=== PATIENT | male | born 1970 | race Caucasian/White ===

== ENCOUNTER 2021-03-09 07:11 | Emergency (ER) | payer MEDICARE, SELFPAY ==
[2021-03-09 07:25] VITALS: BP 165/115; PULSE 96; RESP 17; TEMP 36.9; O2SAT 96
--- NOTE | 2021-03-09 07:27 | ED.EAR ---
HPI - Ear Problem General Chief complaint: Ear Stated complaint: earache Time Seen by Provider: 03/09/21 07:14 Source: patient and RN notes reviewed Mode of arrival: ambulatory Limitations: no limitations History of Present Illness MD Complaint: ear pain Location: right ear Duration: constant Severity: moderate Exacerbating factors: palpation Context: Reports recent illness (sinus infection) Discharge from ear: Reports no Associated symptoms ear: external ear tenderness Treatment prior to arrival: none Related Data Home Medications Medication Instructions Recorded Confirmed alprazolam 0.5 mg PO BID PRN 03/09/21 03/09/21 insulin aspart U-100 [Novolog 20 unit SUBCUT BID 03/09/21 03/09/21 Flexpen U-100 Insulin] insulin degludec [Tresiba 75 unit SUBCUT DAILY 03/09/21 03/09/21 FlexTouch U-200] omeprazole 20 mg PO DAILY 03/09/21 03/09/21 sertraline 100 mg PO DAILY 03/09/21 03/09/21 simvastatin 40 mg PO DAILY 03/09/21 03/09/21 Allergies Allergy/AdvReac Type Severity Reaction Status Date / Time No Known Allergies Allergy Verified 03/09/21 07:58 Review of Systems Review of Systems: All systems reviewed & are unremarkable except as noted in HPI and below Constitutional: Constitutional: Denies chills and Denies fever(s) PMFSH Past Medical History Medical History (Updated 03/09/21 @ 07:32 by Florentino Cooper MD) Morbid obesity Type 2 diabetes mellitus Surgical History Surgical History (Updated 03/09/21 @ 07:29 by Florentino Cooper MD) H/O lumbosacral spine surgery Social History Social History (Updated 03/09/21 @ 07:29 by Florentino Cooper MD) Smoking status: Never smoker Alcohol intake: current Alcohol use details: occasional Substance use: never Exam Const: General: healthy appearing and no acute distress Nutritional Appearance: well nourished and obese morbidly obese Orientation/consciousness: patient oriented x3 HENMT: Head: normal to inspection Ears: hearing grossly normal bilaterally and Abnormal EAC present erythema on the right, edema on the right and localized and EAC tenderness on the right Eyes: Conjunctivae: conjunctivae normal Pupils: Equal, round and reactive pupils present EOM: EOMs intact bilaterally Neck: Neck: normal visual inspection Resp: Effort & Inspection: normal respiratory effort Auscultation: clear to auscultation bilaterally Cardio: Rate: regular rate Rhythm: regular rhythm GI: GI Palp: Yes Soft to palpation and No Tenderness to palpation present (GI) Auscultation: normal bowel sounds Back/Spine/Pelvis: Cervical Spine: cervical ROM normal Thoracic/Lumbar Spine: thoraco-lumbar ROM normal Skin: General skin exam: normal color Rashes: no rashes Neuro: General: patient oriented x3, moves all extremities, no meningeal signs and no focal motor deficits Speech: normal speech Gait exam (Neuro): Normal gait present Extrem: General: normal to inspection and no clubbing, cyanosis or edema Psych: Appearance: grossly normal and well kempt Mental Status: mental status grossly normal Affect: normal affect Attitude: cooperative Thought content: Yes Normal thought content present Course Vital Signs Vital signs: Vital Signs Temperature 36.9 C 03/09/21 07:25 Pulse Rate 96 03/09/21 07:25 Respiratory Rate 17 03/09/21 07:25 Blood Pressure 165/115 H 03/09/21 07:25 Pulse Oximetry 96 03/09/21 07:25 Temperature 36.9 C 03/09/21 07:25 Pulse Rate 96 03/09/21 07:25 Respiratory Rate 17 03/09/21 07:25 Blood Pressure 178/119 H 03/09/21 07:45 Pulse Oximetry 96 03/09/21 07:25 Medical Decision Making Vital Signs Vital Signs: Vital Signs Temperature 36.9 C 03/09/21 07:25 Pulse Rate 96 03/09/21 07:25 Respiratory Rate 17 03/09/21 07:25 Blood Pressure 165/115 H 03/09/21 07:25 Pulse Oximetry 96 03/09/21 07:25 Temperature 36.9 C 03/09/21 07:25 Pulse Rate 96 03/09/21 07:25 Respiratory Rate 17
[2021-03-09 07:45] VITALS: BP 178/119
== END 2021-03-09 07:45 | disposition home or self-care (01) ==
PROVIDERS: Emergency Provider Emergency Medicine; PCP Internal Medicine
DX: H60.311 Diffuse otitis externa, right ear (principal)
CPT/HCPCS: 99283

== ENCOUNTER 2022-09-06 02:07 | Emergency (ER) | payer OTHER, SELFPAY ==
[2022-09-06] VITALS (8 sets, daily range): BP systolic 160–195; BP diastolic 84–115; PULSE 88–105; RESP 16–22; TEMP 36.2–36.6; O2SAT 94–98
--- NOTE | ~2022-09-06 | XR_ITS ---
EXAMINATION: XR chest 1V portable DATE: 09/06/2022 02:48 INDICATION: Shortness of breath. TECHNIQUE: A single frontal view of the chest was obtained. COMPARISON: Chest single view 03/27/2019 FINDINGS: Sensitivity is decreased by obesity. There is no pneumonia, pleural effusion, or pneumothor ax. The heart size is normal. IMPRESSION: 1. No acute cardiopulmonary disease. Reviewed, dictated and finalized at location A. [employer]
--- NOTE | 2022-09-06 02:22 | ED.SOB ---
HPI - SOB/Dyspnea General Chief Complaint: Shortness of Breath/Dyspnea Stated Complaint: COUGH,SOB Source: patient Mode of arrival: ambulatory Limitations: no limitations History of Present Illness HPI Narrative: 51-year-old male with a history of obesity, obstructive sleep apnea, diabetes mellitus, hypertension, anxiety, intermittent bronchospasm on bronchodilators presents to the ER with a 4 day history of -- nonproductive cough -- shortness of breath -- pleuritic chest pain no fever No nasal congestion or sore throat. MD elicited complaint: shortness of breath, cough and pain with inspiration Onset (ago): day(s) ( started 4 days ago.) Context: anxiety Timing: intermittent Severity: moderate Exacerbating factors: nothing and warm air Relieving factors: nothing Associated symptoms: pain with inspiration Treatment prior to arrival: none Related Data Home Medications Medication Instructions Recorded Confirmed alprazolam 0.5 mg tablet 0.5 mg PO BID PRN Anxiety 03/09/21 09/06/22 insulin aspart U-100 100 unit/mL 35 unit subcut BID 03/09/21 09/06/22 (3 mL) subcutaneous pen (Novolog FlexPen U-100 Insulin aspart) omeprazole 20 mg capsule,delayed 20 mg PO DAILY 03/09/21 09/06/22 release sertraline 100 mg tablet 100 mg PO DAILY 03/09/21 09/06/22 simvastatin 40 mg tablet 40 mg PO DAILY 03/09/21 09/06/22 diclofenac sodium 1 % topical gel See Rx Instructions .Route .COMPLEX 09/06/22 09/06/22 hydrocodone 10 mg-acetaminophen 1 tablet PO PRN PRN Back Pain 09/06/22 09/06/22 325 mg tablet insulin degludec 200 unit/mL (3 100 unit subcut DAILY 09/06/22 09/06/22 mL) subcutaneous pen (Tresiba FlexTouch U-200 insulin) losartan 50 mg tablet 50 mg PO DAILY 09/06/22 09/06/22 tiotropium 2.5 mcg-olodaterol 2.5 1 puff inhalation DAILY 09/06/22 09/06/22 mcg/actuation mist for inhalation (Stiolto Respimat) Allergies Allergy/AdvReac Type Severity Reaction Status Date / Time No Known Allergies Allergy Verified 03/09/21 07:58 Review of Systems Review of Systems: All systems reviewed & are unremarkable except as noted in HPI and below Constitutional: Constitutional: Reports as per HPI and Reports no additional constitutional complaints Eyes: Eyes: Reports as per HPI and Reports no additional eye complaints ENT: Reports system reviewed and no additional complaints, except as documented and Reports as per HPI Cardiovascular: Cardiovascular: Reports as per HPI and Reports no additional cardiovascular complaints Respiratory: Respiratory: Reports as per HPI, Reports no additional respiratory complaints, Reports cough and Reports dyspnea Gastrointestinal: Gastrointestinal: Reports as per HPI and Reports no additional gastrointestinal complaints Genitourinary: Genitourinary: Reports no additional male genitourinary complaints and Reports as per HPI Musculoskeletal: Musculoskeletal: Reports no additional musculoskeletal complaints and Reports as per HPI Integumentary/Breasts: Skin/Breast: Reports system reviewed and no additional complaints, except as docu and Reports as per HPI Comments: Erythematous rash on the front of his chest. Neurologic: Reports system reviewed and no additional complaints, except as documented and Reports as per HPI Psychiatric: Psychiatric: Reports no additional psychiatric complaints and Reports as per HPI Endocrine: Endocrine: Reports no additional endocrine complaints and Reports as per HPI Hematologic/Lymphatic: Hematologic/Lymphatic: Reports no additional hematologic/lymphatic complaints and Reports as per HPI Allergic/Immunologic: Allergic/Immunologic: Reports no additional allergic/immunologic complaints and Reports as per HPI PMFSH Past Medical History Medical History Morbid obesity Type 2 diabetes mellitus Surgical History Surgical History H/O lumbosacral spine surge
--- NOTE | 2022-09-06 02:36 | ECG_ITS ---
Measurements Intervals [place] Rate: 92 P: 49 LA: 142 QRS: 54 QRSD: 98 T: 49 QT: 342 QTc: 424 Interpretive Statements SINUS RHYTHM BASELINE WANDER- V1 NORMAL ECG NO PREVIOUS ECG AVAILABLE FOR COMPARISON Electronically Signed On 09-06-2022 6:57:20 MAINTENANCE REPAIRMAN by Ian Gill D.O.
[2022-09-06] MEDS: ACETAMINOPHEN/CODEINE ELIXIR (*CRX) 120-12 MG/5 ML UDC 10 ML PO (02:46)
[2022-09-06 02:56] LABS: Basophils Absolute Auto 0.05 K/mm3 (0.00-0.10); Basophils Percent Auto 0.6 % (0.0-1.0); Eosinophils Absolute Auto 0.34 K/mm3 (0.02-0.50); Hematocrit 39.7 % (40.0-54.0); Immature Granulocyte Absolute 0.07 K/mm3 (0.00-0.00); Immature Granulocyte Percent A 0.8 % (0.0-0.0); Lymphocytes Absolute Auto 2.52 K/mm3 (1.10-4.50); Lymphocytes Percent Auto 29.3 % (18.0-42.0); Mean Corpuscular HGB Conc 35.3 g/dL (32.0-36.0); Mean Corpuscular Hemoglobin 30.8 pg (27.0-31.0); Mean Corpuscular Volume 87.4 fL (78.0-102.0); Mean Platelet Volume 9.4 fl (8.7-11.0); Monocytes Absolute Auto 0.57 K/mm3 (0.10-0.90); Monocytes Percent Auto 6.6 % (2.0-11.0); Neutrophils Absolute Auto 5.1 K/mm3 (1.7-7.2); Neutrophils Percent Auto 58.7 % (50.0-70.0); Platelet Count Result 268 K/mm3 (150-420); Red Blood Count 4.54 M/mm3 (4.70-6.10); Red Cell Distribution Width 12.4 % (11.6-14.4); White Blood Count 8.6 K/mm3 (4.8-10.8)
[2022-09-06 03:09] LABS: INR 0.9
[2022-09-06 03:18] LABS: Alanine Aminotransferase 22 U/L (16-63); Albumin Level 3.3 g/dL (3.4-5.0); Alkaline Phosphatase 93 U/L (46-116); Anion Gap 8 mmol/L (8-16); Aspartate Amino Transferase 18 U/L (15-37); Bilirubin,Total 0.2 mg/dL (0.00-1.00); Blood Urea Nitrogen 12 mg/dL (7-18); Calcium 8.9 mg/dL (8.5-10.1); Carbon Dioxide 29 mmol/L (21-32); Chloride 101 mmol/L (98-108); Estimated CRCL calculation 108 ml/min; Estimated Glomerular Filt Rate > 60; Glucose 230 mg/dL (70-99); NT Pro B Type Natriuretic Pept 32 pg/mL (0-125); Osmolality Calculated 292 mOsm/kg (285-295); Sodium 138 mmol/L (136-145); Total Protein 7.3 g/dL (6.4-8.2); Troponin I 10.3 ng/L (0.00-60.4)
[2022-09-06 03:26] LABS: Lactic Acid Reflex 1.5 mmol/L (0.4-2.0)
[2022-09-06 03:33] LABS: Influenza A QL RT-PCR Negative (Negative); Influenza B QL RT-PCR Negative (Negative); RSV RNA, RT-PCR Negative (Negative); SARS-CoV-2 RNA PCR Negative (Negative)
[2022-09-06] MEDS: IPRATROPIUM 0.5 MG/ALBUTEROL SULFATE 2.5 MG AMPUL.NEB 3 ML INHALATION (03:48)
[2022-09-06] MEDS: methylPREDNISolone SOD SUCC 125 MG VIAL IM (03:49)
[2022-09-06] MEDS: AZITHROMYCIN 250 MG TABLET 500 MG PO (03:50)
== END 2022-09-06 04:10 | disposition home or self-care (01) ==
PROVIDERS: Emergency Provider Internal Medicine Critical Care Medicine; PCP Internal Medicine
DX: J40 Bronchitis, not specified as acute or chronic (principal); J06.9 Acute upper respiratory infection, unspecified; E11.65 Type 2 diabetes mellitus with hyperglycemia; I10 Essential (primary) hypertension; Z79.4 Long term (current) use of insulin; Z79.891 Long term (current) use of opiate analgesic
CPT/HCPCS: 36415; 71045; 80053; 83605; 83880; 84484; 85025; 85610; 87637; 93005; 94640; 96372; 99284; A9270; J2930

== ENCOUNTER 2023-06-26 08:19 | Emergency (ER) | payer OTHER, SELFPAY ==
[2023-06-26 08:24] VITALS: BP 169/105; PULSE 96; RESP 20; TEMP 36.5; O2SAT 97
--- NOTE | 2023-06-26 08:34 | ED.URI ---
HPI - URI/Sore Throat General Chief Complaint: Upper Respiratory Infection Stated Complaint: Cough/Chest Congestion/Ear Pain Time Seen by Provider: 06/26/23 08:34 Source: patient Mode of arrival: ambulatory Limitations: no limitations History of Present Illness HPI Narrative: 52 yo M presents with c/o cough for 2 wks. has been taking amoxicillin without relief of symtpoms. reports headaches from coughing. only thing that helps cough is cough syrup with codeine . afebrile. No CP or SOB. States need something to make me better . All systems reviewed and negative except as noted above. Related Data Home Medications Medication Instructions Recorded Confirmed alprazolam 0.5 mg tablet 0.5 mg PO BID PRN Anxiety 03/09/21 06/26/23 insulin aspart U-100 100 unit/mL 35 unit subcut BID 03/09/21 06/26/23 (3 mL) subcutaneous pen (Novolog FlexPen U-100 Insulin aspart) omeprazole 20 mg capsule,delayed 20 mg PO DAILY 03/09/21 06/26/23 release sertraline 100 mg tablet 100 mg PO DAILY 03/09/21 06/26/23 simvastatin 40 mg tablet 40 mg PO DAILY 03/09/21 06/26/23 hydrocodone 10 mg-acetaminophen 1 tablet PO PRN PRN Back Pain 09/06/22 06/26/23 325 mg tablet insulin degludec 200 unit/mL (3 100 unit subcut DAILY 09/06/22 06/26/23 mL) subcutaneous pen (Tresiba FlexTouch U-200 insulin) losartan 50 mg tablet 50 mg PO DAILY 09/06/22 06/26/23 tiotropium 2.5 mcg-olodaterol 2.5 1 puff inhalation DAILY 09/06/22 09/06/22 mcg/actuation mist for inhalation (Stiolto Respimat) naloxone 4 mg/actuation nasal spray See Rx Instructions .Route .COMPLEX 06/26/23 06/26/23 sildenafil 100 mg tablet mg 06/26/23 06/26/23 Allergies Allergy/AdvReac Type Severity Reaction Status Date / Time No Known Allergies Allergy Verified 06/26/23 08:29 Review of Systems Review of Systems: CONSTITUTIONAL: Denies fever, chills, or sweats. EYES: Denies visual changes, redness, or discharge. ENT: Denies rhinorrhea, congestion, sore throat, or otalgia. CARDIOVASCULAR: Denies chest pain, palpitations, or edema. RESPIRATORY: Reports cough. Denies dyspnea. GASTROINTESTINAL: Denies abdominal pain, nausea, vomiting, or diarrhea. GENITOURINARY: Denies dysuria or hematuria. SKIN: Denies rash or itching. MUSCULOSKELETAL: Denies back pain, joint pain, or myalgia. NEUROLOGIC: Denies headache, numbness, or weakness. PSYCHIATRIC: Denies anxiety or depression. All other systems reviewed are negative, except as documented in HPI. [facility] Past Medical History Medical History Morbid obesity Type 2 diabetes mellitus Surgical History Surgical History H/O lumbosacral spine surgery Social History Social History Smoking status: Never smoker Alcohol intake: current Alcohol use details: occasional Substance use: never Comments At time of signature, agree with nursing past medical, surgical, social and family history. There is no relevant family history pertinent to the presenting complaint. Exam Narrative: GENERAL: This is a well-nourished, well-developed patient, in no apparent distress. HEAD: normocephalic, atraumatic. EYES: PERRL. Sclera clear/white. Vision is grossly intact. EARS: External ears normal, auditory canals clear and without drainage, TMs normal without perforation. Hearing grossly intact. NOSE: External nose normal with no obvious nasal discharge, nares without redness, no rhinorrhea. THROAT: Mucous membranes moist, thick yellow postnasal drainage with erythema NECK: Neck supple, non-tender without lymphadenopathy, masses or thyromegaly. CARDIOVASCULAR: Regular rate and rhythm without murmurs, gallops, or rubs. RESPIRATORY: Clear to auscultation. Breath sounds equal bilaterally. No wheezes, rales, or rhonchi. SKIN: warm, Dry, intact with no suspicious lesions or rash, good
== END 2023-06-26 08:50 | disposition home or self-care (01) ==
PROVIDERS: Emergency Provider Nurse Practitioner Family; PCP Internal Medicine
DX: J20.9 Acute bronchitis, unspecified (principal); E11.9 Type 2 diabetes mellitus without complications; Z79.899 Other long term (current) drug therapy; Z79.4 Long term (current) use of insulin; Z79.891 Long term (current) use of opiate analgesic
CPT/HCPCS: 99213; G0463

== ENCOUNTER 2024-12-17 15:34 | Outpatient (CLI) | payer MEDICARE, SELFPAY ==
--- NOTE | ~2024-12-17 | XR_ITS ---
EXAMINATION: XR chest 2V Exam Date/Time: 12/17/2024 15:55 CDT HISTORY: class 3 obesity, surgical clearance Comparison: 09/06/2022. RESULT: Lines, tubes, and devices: None. Lungs and pleura: Clear. Cardiomediastinal silhouette: Stable. Other: No acute osseous or upper abdominal finding. IMPRESSION: No acute cardiopulmonary process. Reviewed, dictated and finalized at location K.
--- OUTSIDE RECORDS SUMMARY | 2024-12-17 15:47 | XMS_ITS | Encounter Summary ---
Author Organization [facility] Address [address] [place] [address] Care Team Providers Care Metal Furnace Operator Name Role Phone Nick Mosley MD Primary Care Provider [phone] Encounter Details Date Type Department Care Team (Late st Contact Info) Description 08/23/2005 Outpatient Historical [facility] Internal Medicine [address] [address] Nick Mosley MD [address] [place] [address] [address] [place] [address] Social History Tobacco Use Types Packs/Day Years Used Date Smoking Tobacco: Never Assessed Sex and Gender Information Value Date Recorded Sex Assigned at Not on file Legal Sex 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 Gender Identity Not on file Sexual Orientation Not on file documented as of this encounter Last Filed Vital Signs Vital Sign Reading Time Taken Comments Blood Pressure 140/84 08/23/2005 2:45 PM HVAC CONTROLS TECHNICIAN Pulse - - Temperature 37.2 C (99 F) 08/23/2005 2:45 PM HVAC CONTROLS TECHNICIAN Respiratory Rate - - Oxygen Saturation - - Inhaled Oxygen Concentration - - Weight 147 kg (324 lb) 08/23/2005 2:45 PM HVAC CONTROLS TECHNICIAN Height - - Body Mass Index 43.94 06/27/2005 11:30 AM HVAC CONTROLS TECHNICIAN documented in this encounter Plan of Treatment Upcoming Encounters Date Type Department Care Team (Late st Contact Info) Description 04/11/2025 10:40 AM CDT Office Visit [facility] Primary Care [address] [place] [address] Nick Mosley MD [address] [place] [phone] documented as of this encounter Visit Diagnoses Not on filedocumented in this encounter Care Teams Metal Furnace Operator Relationship Specialty Start Date End Date Nick Mosley MD PCP - General 11/23/07 documented as of this encounter
--- OUTSIDE RECORDS SUMMARY | 2024-12-17 15:47 | XMS_ITS | Encounter Summary ---
Author Organization [facility] Address 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 Gender Identity Not on file Sexual Orientation Not on file documented as of this encounter Last Filed Vital Signs Vital Sign Reading Time Taken Comments Blood Pressure 128/84 06/27/2005 11:30 AM RESIDENTIAL PROGRAM WORKER Pulse - - Temperature - - Respiratory Rate - - Oxygen Saturation - - Inhaled Oxygen Concentration - - Weight 147 kg (324 lb) 06/27/2005 11:30 AM RESIDENTIAL PROGRAM WORKER Height 182.9 cm (6') 06/27/2005 11:30 AM RESIDENTIAL PROGRAM WORKER Body Mass Index 43.94 06/27/2005 11:30 AM RESIDENTIAL PROGRAM WORKER documented in this encounter Plan of Treatment Upcoming Encounters Date Type Department Care Team (Late st Contact Info) Description 04/11/2025 10:40 AM CDT Office Visit [facility] Primary Care [address] [place] [address] Nick Mosley MD [address] [place] [phone] documented as of this encounter Visit Diagnoses Not on filedocumented in this encounter Care Teams Grocery Caddy Relationship Specialty Start Date End Date Nick Mosley MD PCP - General 11/23/07 documented as of this encounter
--- OUTSIDE RECORDS SUMMARY | 2024-12-17 15:47 | XMS_ITS | Encounter Summary ---
Author Organization [facility] Address 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 and flank pain. HISTORY: several days perineal pain painful urination, intermittent sharp left flank pain relief with urination HISTORY: 250.00-DM II CONTROLLED occ nausea with byetta but doing better with med, has been losing wt 300.00-ANXIETY The condition remains stable. No complications noted from the medication presently being used. 401.1-HYPERTENSION ESSENTIAL BENIGN The patient denies chest pain, shortness of breath, dyspnea on exertion, pedal edema, or headache. The patient is tolerating the medication. PAST MEDICAL HISTORY: HTN, Anxiety, GERD FAMILY HISTORY: neg dm, neg prostate, neg kidney stones SOCIAL HISTORY: TOBACCO USE: Has no significant smoking history. DISCUSSED SMOKING: NS. ALCOHOL: Drinks a minimal amount of alcohol. PHYSICAL EXAMINATION: CONSTITUTIONAL: GENERAL APPEARANCE: Healthy appearing patient in no distress. NECK/THYROID: Trachea midline. No thyroid enlargement, tenderness, or mass. No supraclavicular or cervical adenopathy. RESPIRATORY: Clear to auscultation and percussion. Normal respiratory effort. CARDIOVASCULAR: CARDIAC: Regular rhythm. No murmurs, rubs, or gallops. ARTERIAL: No aortic bruits. EDEMA/VARICOSITIES OF EXTREMITIES: No edema or varicosities. GASTROINTESTINAL: ABDOMEN: Soft, non-tender, without masses. Bowel sounds active. LIVER/SPLEEN/KIDNEY: No hepatosplenomegaly, tenderness or nodularity. Kidneys not palpable. RECTAL: Rectal exam reveals no masses or hemorrhoids, sphincter tone is normal. STOOL/HEMOCCULT: Stool is normal. Stool is hemoccult negative. GENITOURINARY: PROSTATE: No enlargement, TENDER, BOGGY. MUSCULOSKELETAL EXAM: SPINE/RIBS/PELVIS: No kyphosis, lordosis, full range of motion. Normal stability, strength and tone. OFFICE PROCEDURES: URINALYSIS RESULTS WBC: WBC`s were negative. NITRITE: nitrites were negative. UROBILINOGEN urobilinogen was normal. PROTEIN: protein was trace. pH: . U/A BLOOD: blood was non-hem trace. SPECIFIC GRAVITY: specific gravity was 1.025. KETONES: ketones were negative. BILIRUBIN: bilirubin was negative. GLUCOSE: glucose was 100. ASSESSMENT/PLAN: 250.00-DM II CONTROLLED cont med, recheck lab for fu in Mar, enc cont diet, wt loss 272.4-HYPERLIPIDEMIA cont med, recheck lab 401.1-HYPERTENSION ESSENTIAL BENIGN cont med, recheck at fu--pain today 601.0-PROSTATITIS ACUTE on exam, recheck ua., psa, cannot fully exclude kidney stone, ct if pain worsens MEDICATIONS: CIPRO ORAL TABLET 500 MG, 1 Two Times A Day, 20 Dispensed, 10 Duration/Days Supply, status: NEW PRESCRIPTION, 02/14/2007. 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 Patient Education: Risks, benefits, and possible side effects of medication(s) were reviewed with the patient. RETURN VISIT : The patient has a previous appointment. Instructed to call if not improving.note foroff work this week rtw Monday Electronically Signed by: Nick Mosley MD on Wednesday, February 14, 2007 documented in this encounter Plan of Treatment Upcoming Encounters Date Type Department Care Team (Late st Contact Info) Description 04/11/2025 10:40 AM CDT Office Visit [facility] Primary Care [address] [address] Nick Mosley MD [address] [place] [address] [address] [place] [id number] documented as of this encounter Visit Diagnoses Not on filedocumented in this encounter Care Teams Pharmacy Manager Relationship Specialty Start Date End Date Nick Mosley MD PCP - General 11/23/07 documented as of this encounter
--- OUTSIDE RECORDS SUMMARY | 2024-12-17 15:47 | XMS_ITS | Encounter Summary ---
Author Organization [facility] Address 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 Gender Identity Not on file Sexual Orientation Not on file documented as of this encounter Plan of Treatment Upcoming Encounters Date Type Department Care Team (Late Contact Info) Description 04/11/2025 10:40 AM CDT Office Visit [facility] Primary Care [address] [place] [address] Nick Mosley MD [address] [place] [address] [address] [place] [address] documented as of this encounter Visit Diagnoses Not on filedocumented in this encounter Care Teams Long Term Acute Care Registered Nurse Relationship Specialty Start Date End Date Nick Mosley MD PCP - General 11/23/07 documented as of this encounter
--- OUTSIDE RECORDS SUMMARY | 2024-12-17 15:47 | XMS_ITS | Encounter Summary ---
Author Organization [facility] Address 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 PCP: ke. ALTERNATIVE PHONE NUMBER: Cynthia- (ext#[phone]) -WORK WHO CALLED: Patient`s spouse called.(Cynthia) PHARMACY NUMBER: SECTION 1: Needs refill of Zoloft 100mg, and Aciphex, and Atenolol, and Tricor. Needs a 30 day supply of all these called to Rx today because he is out. They will have you do new yearly Rx's when they come in for thier appt with you on Monday. DOCTOR`S RESPONSE: phoebe 07/11/06 at 10:37 am ok fill above 30d supply FINAL ACTION: muriel 07/11/06 at 02:40 pm Spoke with patient 07/11/06 at 02:40 pm. patient's Called pharmacy at 07/11/06 at 02:40 pm. okay's the above medicines for 1 month - no refills -- lw 'd Electronically Signed by: Administratively Signed by Radha Dietz on Tuesday, July 11, 2006 documented in this encounter Plan of Treatment Upcoming Encounters Date Type Department Care Team (Late st Contact Info) Description 04/11/2025 10:40 AM CDT Office Visit [facility] [place] [address] Nick Mosley MD [address] [place], [place] [phone] documented as of this encounter Visit Diagnoses Not on filedocumented in this encounter Care Teams Lyft Driver Relationship Specialty Start Date End Date Nick Mosley MD PCP - General 11/23/07 documented as of this encounter
--- OUTSIDE RECORDS SUMMARY | 2024-12-17 15:47 | XMS_ITS | Encounter Summary ---
Author Organization [facility] Address 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 Gender Identity Not on file Sexual Orientation Not on file documented as of this encounter Last Filed Vital Signs Vital Sign Reading Time Taken Comments Blood Pressure 138/84 09/06/2006 1:15 PM VENETIAN BLIND CLEANER AND REPAIRER Pulse - - Temperature - - Respiratory Rate - - Oxygen Saturation - - Inhaled Oxygen Concentration - - Weight 149.7 kg (330 lb) 09/06/2006 1:15 PM VENETIAN BLIND CLEANER AND REPAIRER Height - - Body Mass Index 44.76 06/27/2005 11:30 AM VENETIAN BLIND CLEANER AND REPAIRER documented in this encounter Plan of Treatment Upcoming Encounters Date Type Department Care Team (Late st Contact Info) Description 04/11/2025 10:40 AM CDT Office Visit [facility] Primary Care [address] [place] [address] Nick Mosley MD [address] [place] [address] [address] [place] [address] documented as of this encounter Visit Diagnoses Not on filedocumented in this encounter Care Teams Resort Manager Relationship Specialty Start Date End Date Nick Mosley MD PCP - General 11/23/07 documented as of this encounter
--- OUTSIDE RECORDS SUMMARY | 2024-12-17 15:47 | XMS_ITS | Encounter Summary ---
Author Organization [facility] Address 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 HISTORY: HISTORY: noncompliant pt with fu meds, diet and exercise 250.00-DM II CONTROLLED The diabetes has worsened. Patient not compliant with diet instructions. The patient`s exercise is the same. The patient denies polyuria, polyphagia, polydipsia, change in vision, foot ulcerations, or hypoglycemic episodes. The patient is not compliant with medication. 272.4-HYPERLIPIDEMIA The patient is tolerating the medications. The patient's most recent LDL was not at goal, most recent triglyceride is not at goal. 300.00-ANXIETY No complications noted from the medication presently being used. 401.1-HYPERTENSION ESSENTIAL BENIGN The patient denies chest pain, shortness of breath, dyspnea on exertion, pedal edema, or headache. 782.1-RASH redness feet after in garden no shoes--has some blisters ROS: ENDOCRINE: No heat or cold intolerance, no excessive thirst. CARDIAC: No chest pain, palpitations, orthopnea, dyspnea on exertion, or paroxysmal nocturnal dyspnea. RESPIRATORY: No dyspnea, cough, hemoptysis or wheezing. : No dysuria or hematuria. GI: No abdominal pain, nausea, vomiting, diarrhea, constipation, melena, or hematochezia. PAST MEDICAL HISTORY: HTN, Anxiety, GERD FAMILY HISTORY: neg dm SOCIAL HISTORY: TOBACCO USE: Has no significant smoking history. ALCOHOL: Drinks a minimal amount of alcohol. PHYSICAL EXAMINATION: CONSTITUTIONAL: GENERAL APPEARANCE: Healthy appearing patient in no distress. EARS, NOSE, MOUTH AND THROAT: ORAL: Inspection of gums, lips, palate, and teeth normal. No scars, lesions, or masses. Oral mucosaunremarkable with non-inflamed posterior pharynx. NECK/THYROID: Trachea midline. No thyroid enlargement, tenderness, or mass. No supraclavicular or cervical adenopathy. RESPIRATORY: Clear to auscultation and percussion. Normal respiratory effort. CARDIOVASCULAR: CARDIAC: Regular rhythm. No murmurs, rubs, or gallops. ARTERIAL: No aortic bruits. EDEMA/VARICOSITIES OF EXTREMITIES: No edema or varicosities. GASTROINTESTINAL: ABDOMEN: Soft, non-tender, without masses. Bowel sounds active. LIVER/SPLEEN/KIDNEY: No hepatosplenomegaly, tenderness or nodularity. Kidneys not palpable. SKIN: dermatitis, dorsum feet ASSESSMENT/PLAN: 250.00-DM II CONTROLLED ASSESSMENT: The diabetes is worse. Will change medication.discussed MEDICATIONS: METFORMIN HCL ORAL TABLET 24 HR 500 MG, 2 Every Morning, 60 Dispensed, 3 Fills, status: NEW PRESCRIPTION, 12/25/2006. BYETTA 5 MCG PEN SUBCUTANEOUS SOLUTION 250 MCG/ML, DIRECTED, 30 Duration/Days Supply, status: NEW PRESCRIPTION, 12/25/2006. LAB ORDERS: 3 mo Order number: [id number] Test Ordered: COMPREHENSIVE METABOLIC PANEL & GFR 1112 Order number: [id number] Test Ordered: HEMOGLOBIN A1C 1814 Order number: [id number] Test Ordered: LIPID PANEL 1078 Order number: [id number] Test Ordered: MICROALBUMIN/CREAT, UR RATIO 2252 272.4-HYPERLIPIDEMIA cont med, slight inc in lft, recheck will not inc med, discussed diet and exercise 278.00-OBESITY UNSPECIFIED pt would consider surgery--advised try all else first 300.00-ANXIETY discussed max wt loss, add wellbutrin again MEDICATIONS: ZOLOFT ORAL TABLET 100 MG, 1 Every Day, 90 Dispensed, 3 Fills, 30 Duration/Days Supply, status: CONTINUED, 12/25/2006. try cut to 50 WELLBUTRIN SR ORAL TABLET 12 HR 150 MG, 2 Every Morning, 60 Dispensed, 3 Fills, status: CONTINUED, 12/25/2006. 401.1-HYPERTENSION ESSENTIAL BENIGN dc atenolol, monitor, inc lisinopril if needed Patient Education: The importance of compliance was stressed. The patient was told that there needsto be a commitment to following our agreed upon course of action. It was noted that failing to be compliant can lead to untoward health outcomes. The importance of weight loss was emphasized. The benefits of exercise were reviewed at length with the patient. A diet was discussed at length. RETURN VISIT : Patient instructed to return in 3 months.note he was here today Electronically Signed by: Nick Mosley MD on Monday, December 25, 2006 documented in this encounter Plan of Treatment Upcoming Encounters Date Type Department Care Team (Late st Contact Info) Description 04/11/2025 10:40 AM CDT Office Visit [facility] Primary Care [place] [id number] [place] [address] Nick Mosley MD [address] [place] [address] [address] [place] [phone] documented as of this encounter Visit Diagnoses Not on filedocumented in this encounter Care Teams Geodetic Technician Relationship Specialty Start Date End Date Nick Mosley MD PCP - General 11/23/07 documented as of this encounter
--- OUTSIDE RECORDS SUMMARY | 2024-12-17 15:47 | XMS_ITS | Encounter Summary ---
Author Organization [facility] Address 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 HISTORY: HISTORY: 272.4-HYPERLIPIDEMIA The patient is tolerating the medications. 278.00-OBESITY UNSPECIFIED The patient remains overweight and has not had any significant weight loss to date. The patient has weakness. 300.00-ANXIETY No complications noted from the medication presently being used. 401.1-HYPERTENSION ESSENTIAL BENIGN The patient denies chest pain, shortness of breath, dyspnea on exertion, pedal edema, or headache. The patient is tolerating the medication. 250.00-DM II CONTROLLED The patient denies polyuria, polyphagia, polydipsia, change in vision, footulcerations, or hypoglycemic episodes. The HgbA1c is at goal. 780.57-SLEEP APNEA snoring and fatigue ROS: ENDOCRINE: No heat or cold intolerance, [...] no distress. EARS, NOSE, MOUTH AND THROAT: EARS: Tympanic membranes shiny without retraction. Canals unremarkable. Hearing grossly normal. ORAL: Inspection of gums, lips, palate, and teeth normal. No scars, lesions, or masses. Oral mucosaunremarkable with non-inflamed posterior pharynx. NECK/THYROID: Trachea midline. No thyroid enlargement, tenderness, or mass. No supraclavicular or cervical adenopathy. RESPIRATORY: Clear to auscultation and percussion. Normal respiratory effort. CARDIOVASCULAR: CARDIAC: Regular rhythm. No murmurs, rubs, or gallops. ARTERIAL: Aortic pulses of normal amplitude with no bruits. EDEMA/VARICOSITIES OF EXTREMITIES: No edema or varicosities. GASTROINTESTINAL: ABDOMEN: Soft, non-tender, without masses. Bowel sounds active. LIVER/SPLEEN/KIDNEY: No hepatosplenomegaly, tenderness or nodularity. Kidneys not palpable. MUSCULOSKELETAL EXAM: EXTREMITIES: DIABETIC II FOOT EXAM: The patient`s diabetic foot exam is within normal limits. Negative for callous, ulcers, tinea pedis, onychomycosis, arterial insufficiency or neuropathy. SKIN: SKIN: Warm, dry, no diaphoresis, no significant lesions, irritation, rashes or ulcers. No induration, obvious subcutaneous nodules or tightening. ASSESSMENT/PLAN: 272.4-HYPERLIPIDEMIA cont med, handouts given 278.00-OBESITY UNSPECIFIED enc diet and exercise 300.00-ANXIETY try wellbutrin again MEDICATIONS: WELLBUTRIN SR ORAL TABLET 12 HR 150 MG, 2 Every Morning, 60 Dispensed, 3 Fills, status: NEW PRESCRIPTION, 03/13/2006. 401.1-HYPERTENSION ESSENTIAL BENIGN cont med 250.00-DM II CONTROLLED ASSESSMENT: Clinical guidelines reviewed with patient regarding HgbA1c, microalbumin, diabetic retinal exam, diabetic foot exam, need to adhere with diet was emphasized with patient, regular aerobic exercise encouraged, importance of weight loss was emphasized. LAB ORDERS: 3mo Order number: [id number] Test Ordered: COMPREHENSIVE METABOLIC PANEL W/ GLOMERULAR FILTRATION RATE, ESTIMATED (EGFR) 01904 Order number: [id number] Test Ordered: LIPID PANEL 7600 Order number: [id number] Test Ordered: HEMOGLOBIN A1c 496 780.57-SLEEP APNEA likely needs cpap LAB ORDERS: Order number: [id number] Test Ordered: SLEEP STUDY StA krystin RETURN VISIT : Patient instructed to return in 3 months. Electronically Signed by: Nick Mosley MD on Monday, March 13, 2006 documented in this encounter Plan of Treatment Upcoming Encounters Date Type Department Care Team (Late st Contact Info) Description 04/11/2025 10:40 AM CDT Office Visit [facility] [place] [address] Nick Mosley MD [address] [place], [place] [phone] documented as of this encounter Visit Diagnoses Not on filedocumented in this encounter Care Teams Linter Operator Relationship Specialty Start Date End Date Nick Mosley MD PCP - General 11/23/07 documented as of this encounter
--- OUTSIDE RECORDS SUMMARY | 2024-12-17 15:47 | XMS_ITS | Encounter Summary ---
Author Organization [facility] Address [address] [place] [address] Care Team Providers Care Horse Trekking Guide Name Role Phone Nick Mosley MD Primary Care Provider [phone] Encounter Details Date Type Department Care Team (Late st Contact Info) Description 09/06/[address] 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 knee. HISTORY: HISTORY: 250.00-DM II CONTROLLED Patient not compliant with diet instructions. 272.4-HYPERLIPIDEMIA The patient is not compliant with the low saturated fat diet. The patient`s exercise is the same. 300.00-ANXIETY The patient denies excessive crying, a persistent feeling of sadness and hopelessness, and fatigue. 401.1-HYPERTENSION ESSENTIAL BENIGN The patient is not compliant with medication. 715.17-OSTEOARTHROSIS AND ALLIED DISORDERS 10d knee pain injury ROS: ENDOCRINE: No heat or cold intolerance, [...] or nodularity. Kidneys not palpable. MUSCULOSKELETAL EXAM: ant tender, small effusion right knee SKIN: SKIN: Warm, dry, no diaphoresis, no significant lesions, irritation, rashes or ulcers. No induration, obvious subcutaneous nodules or tightening. ASSESSMENT/PLAN: 250.00-DM II CONTROLLED ASSESSMENT: Clinical guidelines reviewed with patient regarding HgbA1c, microalbumin, diabetic retinal exam, diabetic foot exam, need to adhere with diet was emphasized with patient, regular aerobic exercise encouraged, importance of weight loss was emphasized, patient was instructed to monitor bloo d sugar and bring the readings to next appointment, given script for glucometer.diet handouts given, start med MEDICATIONS: METFORMIN HCL ORAL TABLET 500 MG, 1 Two Times A Day, 60 Dispensed, 4 Fills, status: NEW PRESCRIPTION, 09/06/2006. LAB ORDERS: 3 mo Order number: [id number] Test Ordered: COMPREHENSIVE METABOLIC PANEL W/ GLOMERULAR FILTRATION RATE, ESTIMATED (EGFR) 45438 Order number: [id number] Test Ordered: LIPID PANEL 7600 Order number: [id number] Test Ordered: HEMOGLOBIN A1c 496 272.4-HYPERLIPIDEMIA inc med dose, enc compliance MEDICATIONS: FENOFIBRATE ORAL CAPSULE CONVENTIONAL 134 MG, 1 Every Day, 90 Dispensed, 3 Fills, 90 Duration/Days Supply, status: NEW PRESCRIPTION, 09/06/2006. 300.00-ANXIETY cont med 401.1-HYPERTENSION ESSENTIAL BENIGN start med MEDICATIONS: LISINOPRIL ORAL TABLET 5 MG, 1 Every Day, 90 Dispensed, 4 Fills, status: CONTINUED, 09/06/2006. 715.17-OSTEOARTHROSIS AND ALLIED DISORDERS knee pain refer ortho--jeramy mcclelland SPECIALTY REFERRAL: OPHTHALMOLOGY lorenzo /segrist RETURN VISIT : Patient instructed to return in 3 months. Electronically Signed by: Nick Mosley MD on Wednesday, September 06, 2006 documented in this encounter Plan of Treatment Upcoming Encounters Date Type Department Care Team (Late st Contact Info) Description 04/11/2025 10:40 AM CDT Office Visit [facility] Primary Care [address] [place] [phone] Nick Mosley MD [address] [place] [address] [address] [place] [address] documented as of this encounter Visit Diagnoses Not on filedocumented in this encounter Care Teams Horse Trekking Guide Relationship Specialty Start Date End Date Nick Mosley MD PCP - General 11/23/07 documented as of this encounter
--- OUTSIDE RECORDS SUMMARY | 2024-12-17 15:47 | XMS_ITS | Encounter Summary ---
Author Organization [facility] Address 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 Gender Identity Not on file Sexual Orientation Not on file documented as of this encounter Plan of Treatment Upcoming Encounters Date Type Department Care Team (Late Contact Info) Description 04/11/2025 10:40 AM CDT Office Visit [facility] Primary Care [address] [place] [address] Nick Mosley MD [address] [place] [address] [address] [place] [address] documented as of this encounter Visit Diagnoses Not on filedocumented in this encounter Care Teams Data Control Assistant Relationship Specialty Start Date End Date Nick Mosley MD PCP - General 11/23/07 documented as of this encounter
--- OUTSIDE RECORDS SUMMARY | 2024-12-17 15:47 | XMS_ITS | Encounter Summary ---
Author Organization [facility] Address 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 Patient complains of chest congestion, cough. HISTORY: HISTORY: 300.00-ANXIETY The anxiety remains stable. No complications noted from the medication presently being used. 401.1-HYPERTENSION ESSENTIAL BENIGN No complications noted from the medication presently being used. The blood pressure readings taken outside the office since the last visit have been in the target range. 461.9-SINUSITIS UNSPECIFIED cough rmoeo x 1 week 278.00-OBESITY UNSPECIFIED The patient has noted a weight increase. PHYSICAL EXAMINATION: CONSTITUTIONAL: GENERAL APPEARANCE: Healthy appearing patient in no distress. EARS, NOSE, MOUTH AND THROAT: EARS: EFFUSION PRESENT BILATERALLY, TYMPANIC MEMBRANES INFLAMED BILATERALLY. ORAL: OROPHARYNX ERYTHEMATOUS. NECK/THYROID: Trachea midline. No thyroid enlargement, tenderness, [...] hepatosplenomegaly, tenderness or nodularity. Kidneys not palpable. ASSESSMENT/PLAN: 300.00-ANXIETY add med, MEDICATIONS: WELLBUTRIN SR ORAL TABLET 12 HR 150 MG, 1 Every Day, 30 Dispensed, 3 Fills, status: NEW PRESCRIPTION, 08/23/2005. 401.1-HYPERTENSION ESSENTIAL BENIGN cont med LAB ORDERS: Order number: [id number] Test Ordered: COMPREHENSIVE METABOLIC PANEL 88344 Order number: [id number] Test Ordered: LIPID PANEL 7600 461.9-SINUSITIS UNSPECIFIED MEDICATIONS: ALBUTEROL INHALATION AEROSOL SOLUTION 90 MCG/ACT, 2 Four Times A Day, 1 Dispensed, status: NEW PRESCRIPTION, 08/23/2005. KETEK ORAL TABLET 400 MG, 2 Every Morning, 10 Dispensed, status: NEW PRESCRIPTION, 08/23/2005. 278.00-OBESITY UNSPECIFIED add wellbutrin, disc, pt to try wt watchers 272.4-HYPERLIPIDEMIA disc, lowering trig, wt loss RETURN VISIT : Patient instructed to return in 3 months. Electronically Signed by: Nick Mosley MD on Tuesday, August 23, 2005 documented in this encounter Plan of Treatment Upcoming Encounters Date Type Department Care Team (Late st Contact Info) Description 04/11/2025 10:40 AM CDT Office Visit [facility] Primary Care [address] [place] [address] Nick Mosley MD [address] [place] [address] [address] [place] [address] documented as of this encounter Visit Diagnoses Not on filedocumented in this encounter Care Teams Acetone Button Paster Relationship Specialty Start Date End Date Nick Mosley MD PCP - General 11/23/07 documented as of this encounter
--- OUTSIDE RECORDS SUMMARY | 2024-12-17 15:47 | XMS_ITS | Clinical Summary ---
Author Organization [facility] Address [address] [place] [address] Care Team Providers Care Kiln Loader Name Role Phone Nick Mosley MD Primary Care Provider [phone] Allergies Active Allergy Reactions Criticality Noted Date Comments 2-Octyl Cyanoacrylate Rash Medium 01/01/2015 Adhesive Tape-Silicones Rash Low 01/01/2015 Meperidine Hives High 11/07/2008 Medications blood sugar diagnostic (ONETOUCH ULTRA BLUE TEST STRIP) Strip Check blood sugar 3 times daily. Dx E.119, insulin use. OneTouch Ultra. 100 Each 11 07/04/20 18 Active lancets (One Touch Delica) 33 gauge Check Blood sugar three times daily. Dx E11.9, insulin use. 100 Each 11 07/04/20 18 Active Lancing Device with Lancets (One Touch Delica) Kit Test blood sugar TID. DX E11.9. 1 Each 3 07/04/20 18 Active Blood-Glucose Meter (ONETOUCH ULTRAMINI) Kit Check blood sugar three times daily. Dx E11.9, half-way insulin use. OneTouch Ultra. 1 Each 07/04/20 18 Active carvedilol (COREG) 6.25 mg tablet Take 1 Tablet (6.25 mg) by mouth 2 times daily. 180 Tablet 3 07/03/20 19 Active Additional Information Patient not taking.Reported on 10/04/2024 montelukast (Singulair) 10 mg tablet Take 1 Tablet (10 mg) by mouth daily at bedtime. 30 Tablet 3 07/06/20 21 Active Insulin Loving, Disposable, 32 gauge x 5/32 NeedleIndications: Type 2 diabetes mellitus with hyperglycemia, with long-term current use of insulin ([facility]) 4 times daily with insulin. 300 Each 3 01/06/20 22 Active testosterone (ANDROGEL) 20.25 mg/1.25 gram (1.62 %) Gel in Metered-dose PumpIndications:Te stosterone deficiency Apply 40.5 mg to affected area daily. Apply to the shoulders and upper arms in the morning 75 Gram 2 02/02/20 Active Additional Information Patient not taking.Reported on 10/04/2024 sildenafiL (VIAGRA) 100 mg tablet TAKE 1 TABLET BY MOUTH 1 TIME DAILY NEEDED FOR ERECTILE DYSFUNCTION. 30 Tablet 3 06/08/20 23 Active naloxone (NARCAN) 4 mg/spray Dupo, Non-Aerosol EMERGENCY USE ONLY: Administer 1 spray (4 mg) in one nostril one time. May repeat in alternating nostrils every 2-3 min until responsive or EMS arrives. 2 Each 3 06/22/20 23 Active empagliflozin (Jardiance) 10 mg tablet Take 1 Tablet (10 mg) by mouth daily in the morning. 30 Tablet 3 06/28/20 Active Additional Information Patient not taking.Reported on 10/04/2024 albuterol sulfate HFA 90 mcg/actuation aerosol inhalerIndications :Bronchitis Take 2 Puffs by inhalation every 6 hours as needed for Shortness of Breath. 54 Gram 3 08/21/19 24 Active insulin lispro (HumaLOG KwikPen Insulin) 100 unit/mL pen syringe 15 units tid ac meals, ok to sub if do not have novolog 15 mL 3 08/21/19 24 Active empagliflozin (JARDIANCE) 25 mg tablet Take 1 Tablet (25 mg) by mouth daily in the morning. 100 Tablet 3 10/02/19 24 Active empagliflozin (JARDIANCE) 25 mg tablet Lot: [id number] ex: 08/2024 qty: 2 7 Tablet 07/13/20 23 Active fluticasone-umecli dinium-vilanterol (TRELEGY ELLIPTA) 100-62.5-25 mcg Disk with Device Lot: [id number] ex: 11/2024 qty: 1 1 Each 07/13/20 23 Active empagliflozin (JARDIANCE) 25 mg tablet Take 1 Tablet (25 mg) by mouth daily in the morning. 100 Tablet 3 12/27/19 24 Active diclofenac sodium (VOLTAREN) 1 % gelIndications:Ost eoarthritis of lumbar spine, unspecified spinal osteoarthritis complication status Apply 2 Grams to affected area 4 times daily. Knees, hands 200 Gram 3 02/15/20 24 Active omeprazole (PriLOSEC) 20 mg Capsule, Delayed Release(E.C.) Take 1 Capsule (20 mg) by mouth daily. 90 Capsule 3 02/19/20 24 Active furosemide (LASIX) 20 mg tablet TAKE 1 TABLET (20 MG) BY MOUTH 1 TIME DAILY NEEDED (EDEMA). 90 Tablet 1 04/01/20 24 Active Additional Information Patient not taking.Reported on 10/04/2024 insulin aspart U-100 (NovoLOG) 100 unit/mL pen syringe INJECT 15 UNITS BY SUBCUTANEOUS INJECTION 3 TIMES DAILY WITH MEALS. 15 mL 3 04/10/20 24 Active insulin degludec (Tresiba FlexTouch U-200) 200 unit/mL pen syringe Inject 100 Units by subcutaneous injection daily with breakfast. 30 mL 3 04/15/20 24 Active simvastatin (ZOCOR) 40 mg tabletIndications: Other hyperlipidemia TAKE 1 TABLET BY MOUTH IN THE EVENING 100 Tablet 2 08/22/19 25 Active sertraline (ZOLOFT) 100 mg tablet TAKE 1 TABLET BY MOUTH EVERY DAY 90 Tablet 2 09/20/19 25 Active ALPRAZolam (XANAX) 0.5 mg tabletIndications: Other specified anxiety disorders Take 1 Tablet (0.5 mg) by mouth 2 times daily as needed for Anxiety. 60 Tablet 1 10/02/19 25 Active losartan (COZAAR) 100 mg tablet Take 1 Tablet (100 mg) by mouth daily. 100 Tablet 3 10/04/19 25 Active amLODIPine (NORVASC) 2.5 mg tablet Take 1 Tablet (2.5 mg) by mouth daily at bedtime. 100 Tablet 3 10/04/19 25 Active atorvastatin (Lipitor) 20 mg tablet Take 1 Tablet (20 mg) by mouth daily. 100 Tablet 3 11/01/19 25 Active tirzepatide (Mounjaro) 5 mg/0.5 mL Pen Injector Inject 0.5 mL (5 mg) by subcutaneous injection every 7 days. 6 mL 3 11/01/19 25 Active HYDROcodone-acetam inophen (NORCO) 10-325 mg TabletIndications: Other osteoarthritis of spine, lumbar region Take 1 Tablet by mouth every 4 hours as needed for Pain, Moderate. Max Daily Amount: 6 Tablets 180 Tablet 11/30/19 25 Active tiotropium-olodate roL (Stiolto Respimat) 2.5-2.5 mcg/actuation metered inhaler Take 1 Puff by inhalation daily. 12 Gram 2 11/30/19 25 Active tiotropium-olodate roL (Stiolto Respimat) 2.5-2.5 mcg/actuation metered inhaler Take 1 Puff by inhalation daily. 12 Gram 2 08/01/20 24 025 Discontin ued(Reord er) HYDROcodone-acetam inophen (NORCO) 10-325 mg TabletIndications: Other osteoarthritis of spine, lumbar region Take 1 Tablet by mouth every 4 hours as needed for Pain, Moderate. Max Daily Amount: 6 Tablets 180 Tablet 11/01/19 25 025 Discontin ued(Reord er) Active Problems Patient Care Coordination No te Formatting of this note migh t be different from the original. 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 10/09/2018 Overview (01/26/2024): Overview: Added automatically from request for surgery [id number] Ankle syndesmosis disruption, right, initial enc ounter 10/09/2018 Overview (01/26/2024): Overview: Added automatically from request for surgery [id number] Type 2 diabetes mellitus wit h hyperglycemia, with long-term current use of insulin 10/24/2016 Morbid obesity with BMI of 50.0-59.9, adult 08/11/2015 Narcotic dependence 01/11/2016 Other sleep apnea 03/13/2006 Obesity, unspecified 08/23/2005 Hyperlipidemia 08/23/2005 Essential hypertension, benign 06/27/2005 Esophageal reflux 06/27/2005 Resolved Problems Problem Noted Date Diagnosed Date Resolved Date Rash and other nonspecific skin eruption 01/25/2008 07/05/2010 Acute sinusitis, unspecified 08/21/2007 01/25/2008 Diverticulitis of colon (wit hout mention of hemorrhage)(562.11) 05/04/2007 01/25/2008 Abdominal pain, generalized 03/30/2007 01/25/2008 Acute prostatitis 02/14/2007 01/25/2008 Backache 02/14/2007 06/07/2022 Screening for malignant neop lasm of the rectum 02/14/2007 01/25/2008 Rash and other nonspecific skin eruption 12/25/2006 01/25/2008 Primary localized osteoarthr osis, ankle and foot 09/06/2006 07/05/2010 Impaired fasting glucose 11/22/2005 Routine general medical exam ination at a health care facility 08/23/2005 01/25/2008 Screening for lipoid disorders 08/23/2005 01/25/2008 Unspecified hypertrophic and atrophic condition of skin 06/27/2005 01/25/2008 Anxiety state, unspecified 06/27/2005 0 01/25/2008 Encounters Date Type Department Care Team Description 12/04/2024 Telephone [place] [address] [place] [address] Nick Mosley MD Clinical Consult Before Scheduling 11/29/2024 Refill [place] [address] [place] [address] Nick Mosley MD 11/29/2024 Refill [place] [address] [place] [phone] Nick Mosley MD Other osteoarthritis of spine, lumbar region 11/01/2024 Orders Only [address] [place] [phone] Provider, Abstract 10/31/[address] [place] [address] Nick Mosley MD 10/31/2024 Refill [place] [address] [address] [facility] [address] [place] [address] Nick Mosley MD 10/31/[address] [place] [address] Nick Mosley MD Other osteoarthritis of spine, lumbar region 10/23/2024 External Device Data STL ABSTRACTION Provider, Abstract 10/15/2024 External Device Data [facility] ABSTRACTION Provider, Abstract 10/15/2024 External Device Data ST[place] ABSTRACTION Provider, Abstract 10/12/2024 External Device Data [place] ABSTRACTION Provider, Abstract 10/11/2024 External Device Data [place] ABSTRACTION Provider, Abstract 10/09/2024 External Device Data ST[place] ABSTRACTION Provider, Abstract 10/04/2024 11:40 AM DIGITAL ASSISTANT Office Visit [address] [place] [phone] Nick Mosley MD Type 2 diabetes mellitus with stage 3a chronic kidney disease, with long-term current use of insulin (CMS/[facility]) (Primary Dx); Essential hypertension, benign; Vitamin D deficiency; Vitamin B12 deficiency (non anemic); Type 2 diabetes mellitus with hyperglycemia, with long-term current use of insulin (CMS/HCC); Other hyperlipidemia; Chest pain, unspecified type; Other sleep apnea; Narcotic dependence (CMS/HCC); Adult BMI 45.0-49.9 kg/sq m (CMS/HCC); Other osteoarthritis of spine, lumbar region; Other specified anxiety disorders 10/04/[address] [place] [address] Nick Mosley MD Medication Refill; Med Refill 10/02/2024 Refill [facility] [address] [place] [phone] Nick Mosley MD Other specified anxiety disorders 09/24/2024 External Device Data STL ABSTRACTION Provider, Abstract 09/20/2024 Refill [facility] [address] [place] [phone] Nick Mosley MD from Last 3 Months Immunizations Immunization Administration Dates Next Due (ADACEL/BOOSTRIX)(10 YR UP) TDAP VACCINE, 0.5ML, IM 12/16/2014,04/13/2012 (PFIZER)(12 YR UP) COVID-19 VACCINE - EMERGENCY USE AUTHORIZATION, MRNA, [id number](PF) 30 MCG/0.3 ML IM SUSP 06/17/2023,03/09/2021,02/15/2021 (PNEUMOVAX 23)(50 YRS UP) PN EUMOCOCCAL POLYSACCHARIDE (PPV23) 0.5 ML, IM 11/03/2021,06/29/2009,01/25/2008 (PREVNAR 13)(6 WKS UP) PNEUM OCOCCAL CONJUGATE (PCV13) 0.5 ML, IM 10/03/2019 (TDVAX)(7 YRS UP) TETANUS AN D DIPHTHERIA TOXOIDS, ADSORBED (2 LF OF TETANUS TOXOID AND 2 LF OF DIPHTHERIA TOXOID), 0.5ML (PF), IM 08/07/2001 INFLUENZA VACCINE QUADRIVALE NT 6 MOS UP IM 06/17/2023 INFLUENZA VACCINE QUADRIVALE NT 6 MOS UP PF IM 06/07/2022,07/06/2021,06/01/2020,07/03,05/03/2018 Influenza Seasonal Unspecifi ed Formulation IM 05/07/2011,05/16/2009 Influenza Vaccine Split 3+ Yrs IM 05/21/2014 Family History Medical History Relation Name Comments Diabetes Mother Cristiano Armijo Colon Cancer Neg Hx Relation Name Status Comments Mother Cristiano Armijo Social History Tobacco Use Types Packs/Day Years Used Date Smoking Tobacco: Former Cigarettes Passive Smoke Exposure: Past Smokeless Tobacco: Never Tobacco Cessation:Counseling Given: No Comments:1 pack/month Alcohol Use Standard Drinks/Week Comments Yes 0 (1 standard drink = 0.6 oz pur e alcohol) SOCIAL Financial Resource Strain Answer Date R ecorded How hard is it for you to pa y for the very basics like food, housing, medical care, and heating? Not hard at all 10/29/2021 Food Insecurity Answer Date Recorded In the past 12 months, have you worried that your food would run out before you had money to buy more? Never true 10/29/2021 In the past 12 months, did y ou run out of food and didn't have money to buy more? Never true 10/29/2021 Transportation Needs Answer Date Record ed In the past 12 months, has l ack of transportation kept you from medical appointments or from getting medications? No 10/29/2021 Lack of Transportation (Non-Medical) Not on file 10/29/2021 Sex and Gender Information Value Date Recorded Sex Assigned at Not on file Legal Sex Male 4:34 AM DIGITAL ASSISTANT Gender Identity Not on file Sexual Orientation Not on file Last Filed Vital Signs Vital Sign Reading Time Taken Comments Blood Pressure 136/78 10/04/2024 10:54 AM DIGITAL ASSISTANT Pulse 95 10/04/2024 10:54 AM DIGITAL ASSISTANT Temperature 37.2 C (98.9 F) 10/04/2024 10:54 AM DIGITAL ASSISTANT Respiratory Rate 18 10/31/2023 11:24 AM CDT Oxygen Saturation 97% 10/04/2024 10:54 AM DIGITAL ASSISTANT Inhaled Oxygen Concentration - - Weight 155.6 kg (343 lb) 10/04/2024 10:54 AM DIGITAL ASSISTANT Height 182.9 cm (6') 10/04/2024 10:54 AM DIGITAL ASSISTANT Body Mass Index 46.52 10/04/2024 10:54 AM DIGITAL ASSISTANT Plan of Treatment Upcoming Encounters Date Type Department Care Team (Late st Contact Info) Description 04/11/2025 10:40 AM CDT Office Visit [facility] [address] [place] [address] Nick Mosley MD [address] [place] [address] [address] [place] [address] Health Maintenance Due Date Last Done Comments HEPATITIS B VACCINES (1 of 3 - 19+ 3-dose series) 1991 FIT-DNA Q 3 years 2017 FIT/FOBT Q 1 year 2017 02/14/2007 Flex Sig/CT Colonography Q 5 years 2017 ZOSTER VACCINE (1 of 2) 2022 DIABETES ANNUAL RETINAL EXAM 09/12/202301/2023, 10/20/2021, 12/25/2014, Additional history exists INFLUENZA VACCINE (#1) 2024 , 06/07/2022, 07/06/2021, Additional history exists COVID-19 Vaccine (2023-2 5 season) 2024 06/17/2023, 03/09/2021, 02/15/2021 [facility] uACR (Auto Order) 08/07/2024 12/25/2023 , 11/07/2022, 05/22/2020, Additional history exists DTAP/TDAP/TD VACCINES (3 - T d or Tdap) 12/16/2024 12/16/2014, 04/13/2012, 08/07/2001 DIABETES MICROALBUMIN ANNUAL SCREEN 12/24/2024 12/25/2023, 11/07/2022, 05/22/2020, Additional history exists DIABETES: A1C (Auto Order) 12/30/202410/02, 12/25/2023, 06/26/2023, Additional history exists DIABETES ANNUAL FOOT EXAM 02/28/20252023, 11/07/2022, 11/03/2021, Additional history exists DIABETES HBA1C Q 6 MONTHS 04/01/20252024, 12/25/2023, 06/26/2023, Additional history exists COLORECTAL SCREENING 07/04/2025 07/04/2022, 07/04/20 Colorectal Cancer Screening 07/04/2025 LDL CHOLESTEROL ANNUAL 10/02/2025 , 12/25/2023, 06/26/2023, Additional history exists Abdominal Aortic Aneurysm (A AA) Screening Completed 03/19/2014 KHE eGFR (Auto Order) Completed 10/02/2024 , 12/25/2023, 06/26/2023, Additional history exists Medicare Advantage ([place]) Preventative Visit/Annual Wellness Visit Completed 10/04/2024, 11/13/2023, 03/13/2023, Additional history exists Medical Devices Implanted Type Area Test Tube Maker Device Identifier Shelf Expiration Date Model / Serial / Lot Anette Davis [id number] - [id number] Implanted:Qty : 1 on 01/05/2015 by Nestor Quezada DDS at [facility] Right: Orbital Floor BACTERIN 12/10/2015 [id number] / [id number] / Screws/Cage Of Back Procedures Procedure Name Priority Date/Time Associated Diagnosis Comments VITAMIN D 25 HYDROXY Routine 10/02/2024 8:06 AM DIGITAL ASSISTANT Vitamin D deficiency VITAMIN B12 LEVEL Routine 10/02/2024 8:0 6 AM DIGITAL ASSISTANT Vitamin B12 deficiency (non anemic) LIPID PANEL Routine 10/02/2024 8:06 AM DIGITAL ASSISTANT Other hyperlipidemia HEMOGLOBIN A1C Routine 10/02/2024 8:06 AM DIGITAL ASSISTANT Type 2 diabetes mellitus with stage 3a chronic kidney disease, with long-term current use of insulin ([facility]) COMPREHENSIVE METABOLIC PANEL Routine 10/02/2024 8:06 AM DIGITAL ASSISTANT Other hyperlipidemia CBC WITH DIFFERENTIAL Routine 10/02/2024 8:06 AM DIGITAL ASSISTANT Essential hypertension, benign MICROALBUMIN/CREATINI NE RATIO, RANDOM UR Routine 12/25/2023 8:13 AM CDT Type 2 diabetes mellitus with stage 3a chronic kidney disease, with long-term current use of insulin ([facility]) COLONOSCOPY REPORT 07/04/2022 3: 23 PM DIGITAL ASSISTANT DIABETES EYE EXAM Routine 10/20/2021 from Last 3 Months or Most Recently Relevant to Health Maintenance Results * CBC WITH DIFFERENTIAL (10/02/2024 8:06 AM DIGITAL ASSISTANT) WBC 7.3 3.8 - 10.8 Thousand/u L [facility] RBC 4.84 4.20 - 5.80 Million/uL [facility] HEMOGLOBIN 15.0 13.2 - 17.1 g/dL [facility] HEMATOCRIT 44.0 38.5 - 50.0 % [facility] MCV 90.9 80.0 - 100.0 fL [facility] MCH 31.0 27.0 - 33.0 pg [facility] MCHC 34.1 32.0 - 36.0 g/dL [facility] Comment: For adults, a slight decrease in the calculated MCHC value (in the range of 30 to 32 g/dL) is most likely not clinically significant; however, it should be interpreted with caution in correlation with other red cell parameters and the patient's clinical condition. RDW 12.5 11.0 - 15.0 % [facility] PLATELETS 268 140 - 400 Thousand/u L [facility] MPV 9.6 7.5 - 12.5 fL [facility] NEUTROPHIL ABSOLUTE 4,584 1,500 - 7,800 cells/uL [facility] LYMPHOCYTE ABSOLUTE 2,037 850 - 3,900 cells/uL [facility] MONOCYTE ABSOLUTE 460 200 - 950 cells/uL [facility] EOSINOPHIL ABSOLUTE 168 15 - 500 cells/uL [facility] BASOPHILS ABSOLUTE 51 0 - 200 cells/uL [facility] NEUTROPHIL 62.8 % [facility] LYMPHOCYTES 27.9 % [facility] MONOCYTE 6.3 % [facility] EOSINOPHILS 2.3 % [facility] BASOPHILS 0.7 % [facility] Comment: Test Performed at: [facility] [address] [place] [address] Cj Sheridan MD Blood 10/02/2024 8:06 AM DIGITAL ASSISTANT 10/02/2024 8:07 AM DIGITAL ASSISTANT us Nick Mosley MD HEMATOLOGY ORDERABLES Final R esult [facility] [phone] [email or web address] [address] [place] [address] * (ABNORMAL) VITAMIN D 25 HYDROXY (10/02/2024 8:06 AM DIGITAL ASSISTANT) Pathologist [facility] VITAMIN D, 25 OH, TOTAL 24(L) 30 - 100 ng/mL [facility] Comment: Vitamin D Status 25-OH Vitamin D: Deficiency: <20 ng/mL Insufficiency: 20 - 29 ng/mL Optimal: > or = 30 ng/mL For 25-OH Vitamin D testing on patients on D2-supplementation and patients for whom quantitation of D2 and D3 fractions is required, the [facility](TM) 25-OH VIT D, (D2,D3), LC/MS/MS is recommended: order code 59858 (patients >2yrs). See Note 1 Note 1 For additional information, please refer to http://education.Yuntaa/faq/DRY299 (This link is being provided for informational/ educational purposes only.) Test Performed at: [email or web address] [address] Cj Sheridan MD Blood 10/02/2024 8:06 AM DIGITAL ASSISTANT 10/02/2024 8:07 AM DIGITAL ASSISTANT us Nick Mosley MD CHEMISTRY ORDERABLES Final Re sult [facility] [phone] [address] * (ABNORMAL) HEMOGLOBIN A1C (10/02/2024 8:06 AM DIGITAL ASSISTANT) Pathologist [facility] HEMOGLOBIN A1C 11.7(H) <5.7 % of total Hgb [facility] Comment: For someone without known diabetes, a hemoglobin A1c value of 6.5% or greater indicates that they may have diabetes and this should be confirmed with a follow-up test. For someone with known diabetes, a value <7% indicates that their diabetes is well controlled and a value greater than or equal to 7% indicates suboptimal control. A1c targets should be individualized based on duration of diabetes, age, comorbid conditions, and other considerations. Currently, no consensus exists regarding use of hemoglobin A1c for diagnosis of diabetes for children. ESTIMATED AVERAGE GLUCOSE (MG/DL) 289 mg/dL [facility] ESTIMATED AVERAGE GLUCOSE (MMOL/L) 16.0 mmol/L [facility] Comment: FASTING:YES MULTIPLE TESTING PRIORITIES; ROUTINE TESTING TO FOLLOW. FASTING: YES Test Performed at: [facility] [place] [address] [place] [address] Cj Sheridan Blood 10/02/2024 8:06 AM DIGITAL ASSISTANT 10/02/2024 8:07 AM DIGITAL ASSISTANT Nick Mosley MD CHEMISTRY ORDERABLES Final Re sult Performing Organization Address City/[facility] Phone Number [facility] [phone] [place] [address] [place] [address] * VITAMIN B12 LEVEL (10/02/2024 8:06 AM DIGITAL ASSISTANT) VITAMIN B12 339 200 - 1100 pg/mL [facility] Comment: Please Note: Although the reference range for vitamin B12 is 200-1100 pg/mL, it has been reported that between 5 and 10% of patients with values between 200 and 400 pg/mL may experience neuropsychiatric and hematologic abnormalities due to occult B12 deficiency; less than 1% of patients with values above 400 pg/mL will have symptoms. Test Performed at: [facility] [address] [place] [address] Cj Sheridan MD Blood 10/02/2024 8:06 AM DIGITAL ASSISTANT 10/02/2024 8:07 AM DIGITAL ASSISTANT Nick Mosley MD CHEMISTRY ORDERABLES Final Re sult Performing Organization Address City/State/ZIP [facility] Phone Number [facility] [phone] [facility] [address] [place] [address] * LIPID PANEL (10/02/2024 8:06 AM DIGITAL ASSISTANT) CHOLESTEROL 176 <200 mg/dL [facility] HDL 56 > OR = 40 mg/dL [facility] TRIGLYCERIDE 138 <150 mg/dL [facility] LDL CALCULATED 96 mg/dL (calc) [facility] Comment: Reference range: <100 Desirable range <100 mg/dL for primary prevention; <70 mg/dL for patients with CHD or diabetic patients with > or = 2 CHD risk factors. LDL-C is now calculated using the Mason-Baldwin calculation, which is a validated novel method providing better accuracy than the Friedewald equation in the estimation of LDL-C. Mason SS et al. GUILLERMINA. 2013;310(19): 6465-5445 (http://education.Yuntaa/faq/TQI953) CHOL/HDL RATIO 3.1 <5.0 (calc) [facility] NON-HDL CHOLESTEROL 120 <130 mg/dL (calc) [facility] Comment: For patients with diabetes plus 1 major ASCVD risk factor, treating to a non-HDL-C goal of <100 mg/dL (LDL-C of <70 mg/dL) is considered a therapeutic option. Test Performed at: [facility] [address] [place] [address] Cj Sheridan MD Blood 10/02/2024 8:06 AM DIGITAL ASSISTANT 10/02/2024 8:07 AM DIGITAL ASSISTANT us Nick Mosley MD CHEMISTRY ORDERABLES Final Re sult [facility] [phone] [facility] [address] [facility] [place] [address] * (ABNORMAL) COMPREHENSIVE METABOLIC PANEL (10/02/2024 8:06 AM DIGITAL ASSISTANT) GLUCOSE 255(H) 65 - 99 mg/dL [facility] Comment: Fasting reference interval For someone without known diabetes, a glucose value >125 mg/dL indicates that they may have diabetes and this should be confirmed with a follow-up test. BUN 13 7 - 25 mg/dL [facility] CREATININE 0.77 0.70 - 1.30 mg/dL [facility] GFR 108 > OR = 60 mL/min/1. 73m2 [facility] BUN/CREAT RATIO SEE NOTE: 6 - 22 (calc) [facility] Comment: Not Reported: BUN and Creatinine are within reference range. SODIUM 135 135 - 146 mmol/L [facility] POTASSIUM 4.6 3.5 - 5.3 mmol/L [facility] CHLORIDE 99 98 - 110 mmol/L [facility] CO2 26 20 - 32 mmol/L [facility] CALCIUM 9.1 8.6 - 10.3 mg/dL [facility] TOTAL PROTEIN 6.8 6.1 - 8.1 g/dL [facility] ALBUMIN 4.4 3.6 - 5.1 g/dL [facility] GLOBULIN 2.4 1.9 - 3.7 g/dL (calc) [facility] ALBUMIN/GLOBULIN RATIO 1.8 1.0 - 2.5 (calc) [facility] BILIRUBIN TOTAL 0.5 0.2 - 1.2 mg/dL [facility] ALKALINE PHOSPHATASE 86 35 - 144 U/L [facility] AST 16 10 - 35 U/L [facility] ALT 17 9 - 46 U/L [facility] Comment: Test Performed at: [facility] [id number] [facility] [place] [address] Cj Sheridan MD Blood 10/02/2024 8:06 AM DIGITAL ASSISTANT 10/02/2024 8:07 AM DIGITAL ASSISTANT Narrative [id number]|2024-12-17 15:48:00|2024-12-17 15:47:00|XMS_ITS|THANG TIDWELL|External Medical Summaries|[id number]|" Encounter Summary Created on: December 17, 2024 Cristiano Armijo : 1970 Sex: Male Author Organization [facility] Address [address] [place] [address] Care Team Providers Care Kiln Loader Name Role Phone Nick Mosley MD Primary Care Provider [phone] Encounter Details Date Type Department Care Team (Late st Contact Info) Description 02/14/2007 Outpatient Historical [facility] Internal Medicine [address] [address] Nick Mosley MD [address] [place] [address] [address] [place] [address] Social History Tobacco Use Types Packs/Day Years Used Date Smoking Tobacco: Never Assessed Sex and Gender Information Value Date Recorded Sex Assigned at Not on file Legal Sex Male 4:34 AM DIGITAL ASSISTANT Gender Identity Not on file Sexual Orientation Not on file documented as of this encounter Plan of Treatment Upcoming Encounters Date Type Department Care Team (Late st Contact Info) Description 04/11/2025 10:40 AM CDT Office Visit [facility] Primary Care [address] [place] [address] Nick Mosley MD [address] [place] [address] [address] [place] [address] documented as of this encounter Visit Diagnoses Not on filedocumented in this encounter Care Teams Kiln Loader Relationship Specialty Start Date End Date Nick Mosley MD PCP - General 11/23/07 documented as of this encounter "
--- OUTSIDE RECORDS SUMMARY | 2024-12-17 15:47 | XMS_ITS | Encounter Summary ---
Author Organization [facility] Address 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 Gender Identity Not on file Sexual Orientation Not on file documented as of this encounter Last Filed Vital Signs Vital Sign Reading Time Taken Comments Blood Pressure 112/70 11/22/2005 2:45 PM CDT Pulse - - Temperature - - Respiratory Rate - - Oxygen Saturation - - Inhaled Oxygen Concentration - - Weight 147.9 kg (326 lb) 11/22/2005 2:45 PM CDT Height - - Body Mass Index 44.21 06/27/2005 11:30 AM POLICE PATROL OFFICER documented in this encounter Plan of Treatment Upcoming Encounters Date Type Department Care Team (Late st Contact Info) Description 04/11/2025 10:40 AM CDT Office Visit [facility] Primary Care [address] [place] [address] Nick Mosley MD [address] [place] [address] [address] [place] [address] documented as of this encounter Visit Diagnoses Not on filedocumented in this encounter Care Teams Special Events Driver Relationship Specialty Start Date End Date Nick Mosley MD PCP - General 11/23/07 documented as of this encounter
--- OUTSIDE RECORDS SUMMARY | 2024-12-17 15:47 | XMS_ITS | Encounter Summary ---
Author Organization [facility] Address 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 The patient has had a change in vision, has polyuria.running 400-500 past 1-2 weeks, had tooth pulled no other illness, unclear why jump in readings, pt denies change in diet 272.4-HYPERLIPIDEMIA The patient is tolerating the medications. 300.00-ANXIETY No complications noted from the medication presently being used. The patient denies excessive crying, a persistent feeling of sadness and hopelessness, and fatigue. 401.1-HYPERTENSION ESSENTIAL BENIGN The patient is tolerating the medication. ROS: GENERAL: DECREASED ENERGY LEVEL. ENT: No hearing loss, epistaxis, hoarseness or dysphagia. No sinus congestion.. ENDOCRINE: No heat or cold intolerance, no excessive thirst.. CARDIAC: No chest pain, palpitations, orthopnea, dyspnea on exertion, or paroxysmal nocturnal dyspnea.. RESPIRATORY: No dyspnea, cough, hemoptysis or wheezing.. : No dysuria or hematuria.. GI: No abdominal pain, nausea, vomiting, diarrhea, constipation, melena, or hematochezia.. PAST MEDICAL HISTORY: HTN, Anxiety, GERD FAMILY HISTORY: neg dm, neg prostate, neg kidney stones SOCIAL HISTORY: TOBACCO USE: Has no significant smoking history. DISCUSSED SMOKING: neg. ALCOHOL: Drinks a minimal amount of alcohol. PHYSICAL EXAMINATION: CONSTITUTIONAL: GENERAL APPEARANCE: Healthy appearing patient in no distress. EYES: PUPILS: Pupils equal and normally reactive to light and accommodation. EARS, NOSE, MOUTH AND THROAT: EARS: Tympanic [...] tenderness or nodularity. Kidneys not palpable. SKIN: SKIN: Warm, dry, no diaphoresis, no significant lesions, irritation, rashes or ulcers. No induration, obvious subcutaneous nodules or tightening. ASSESSMENT/PLAN: 250.00-DM II CONTROLLED suddenly worse,dc byetta start insulin , instruction given MEDICATIONS: LANTUS SUBCUTANEOUS SOLUTION 100 UNIT/ML, DIRECTED, 30 Dispensed, status: NEW PRESCRIPTION, 03/26/2007, Comment: 20u. HUMALOG PEN SUBCUTANEOUS SOLUTION 100 UNIT/ML, DIRECTED, 30 Dispensed, status: NEW PRESCRIPTION,03/26/2007, Comment: 10u ac meal. 272.4-HYPERLIPIDEMIA cont med, recheck lab 300.00-ANXIETY con tmed 401.1-HYPERTENSION ESSENTIAL BENIGN cont med recheck lab LAB ORDERS: Order number: [id number] Test Ordered: CBC W/ DIFFERENTIAL 3150 Order number: [id number] Test Ordered: COMPREHENSIVE METABOLIC PANEL & GFR 1112 PREVENTIVE COUNSELING The patient was counseled regarding diet, regular sustained exercise for at least 30 minutes 3-4 times per week. Patient Education: Risks, benefits, and possible side effects of medication(s) were reviewed with the patient. The patient was allowed to ask questions to stated satisfaction. RETURN VISIT : Patient instructed to return in 2 weeks. Electronically Signed by: Nick Mosley MD on Monday, March 26, 2007 documented in this encounter Plan of Treatment Upcoming Encounters Date Type Department Care Team (Late st Contact Info) Description 04/11/2025 10:40 AM CDT Office Visit [facility] Primary Care [address] [place] [address] Nick Mosley MD [address] [place] [address] [address] documented as of this encounter Visit Diagnoses Not on filedocumented in this encounter Care Teams Medical Chemist Relationship Specialty Start Date End Date Nick Mosley MD PCP - General 11/23/07 documented as of this encounter
--- OUTSIDE RECORDS SUMMARY | 2024-12-17 15:47 | XMS_ITS | Encounter Summary ---
Author Organization [facility] Address [address] [place] [address] Care Team Providers Care Vice President Business & Corporate Development Name Role Phone Nick Mosley MD Primary Care Provider [phone] Encounter Details Date Type Department Care Team (Late Contact Info) Description 03/30/2007 Outpatient Historical [facility] Internal Medicine [address] [address] Nick Mosley MD [address] [place] [phone] Social History Tobacco Use Types Packs/Day Years Used Date Smoking Tobacco: Never Assessed Sex and Gender Information Value Date Recorded Sex Assigned at Not on file 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 Gender Identity Not on file Sexual Orientation Not on file documented as of this encounter Plan of Treatment Upcoming Encounters Date Type Department Care Team (Late Contact Info) Description 04/11/2025 10:40 AM CDT Office Visit [facility] Primary Care [address] [place] [address] Nick Mosley MD [address] [place] [address] [address] [place] [address] documented as of this encounter Visit Diagnoses Not on filedocumented in this encounter Care Teams Vice President Business & Corporate Development Relationship Specialty Start Date End Date Nick Mosley MD PCP - General 11/23/07 documented as of this encounter
--- OUTSIDE RECORDS SUMMARY | 2024-12-17 15:47 | XMS_ITS | Encounter Summary ---
Author Organization [facility] Address [address] [place] [address] Care Team Providers Care Manager Of Corporate Communications Name Role Phone Nick Mosley MD Primary Care Provider [phone] Encounter Details Date Type Department Care Team (Late st Contact Info) Description 03/13/2006 Outpatient Historical [facility] Internal Medicine [address] [address] Nick Mosley MD [address] [place] [address] [address] [place] [address] Social History Tobacco Use Types Packs/Day Years Used Date Smoking Tobacco: Never Assessed Sex and Gender Information Value Date Recorded Sex Assigned at Not on file Legal 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 Male 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 Gender Identity Not on file Sexual Orientation Not on file documented as of this encounter Last Filed Vital Signs Vital Sign Reading Time Taken Comments Blood Pressure 118/80 03/13/2006 1:45 PM CDT Pulse - - Temperature - - Respiratory Rate - - Oxygen Saturation - - Inhaled Oxygen Concentration - - Weight 147 kg (324 lb) 03/13/2006 1:45 PM CDT Height - - Body Mass Index 43.94 06/27/2005 11:30 AM 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 documented in this encounter Plan of Treatment Upcoming Encounters Date Type Department Care Team (Late st Contact Info) Description 04/11/2025 10:40 AM CDT Office Visit [facility] Primary Care [address] [place] [address] Nick Mosley MD [address] [place] [address] [address] [place] [address] documented as of this encounter Visit Diagnoses Not on filedocumented in this encounter Care Teams Manager Of Corporate Communications Relationship Specialty Start Date End Date Nick Mosley MD PCP - General 11/23/07 documented as of this encounter
--- OUTSIDE RECORDS SUMMARY | 2024-12-17 15:47 | XMS_ITS | Clinical Summary ---
Author Organization [facility] Address [address] [place] [address] Phone Care Team Providers Care Chute Puller Name Role Phone Nick Mosley MD Primary Care Provider + Allergies Active Allergy Reactions Criticality Noted Date Comments Adhesive Tape-Silicones Rash Medium 01/01/2015 Meperidine Hives Medium 11/07/2008 Medications albuterol HFA (PROVENTIL HFA,VENTOLIN HFA) 90 mcg/actuation inhaler Inhale 2 puffs every 6 hours as needed. 8 Active ALPRAZolam (XANAX) 0.5 mg tabletIndicati ons:anxiety Take 0.5 mg by mouth 2 (two) times a day as needed Indications: anxious. 0 8 Active carvedilol (COREG) 6.25 mg tabletIndicati ons:hypertensi on Take 6.25 mg by mouth 2 (two) times a day. Active dulaglutide (TRULICITY) 1.5 mg/0.5 mL pen injectorIndica tions:type 2 diabetes mellitus Inject 1.5 mg under the skin once a week Indications: type 2 diabetes mellitus. On Monday 7 Active lisinopril (PRINIVIL,ZEST RIL) 10 mg tabletIndicati ons:hypertensi on Take 10 mg by mouth head correction officer before breakfast. Active losartan (COZAAR) 50 mg tabletIndicati ons:hypertensi on Take 50 mg by mouth head correction officer before breakfast. 7 Active omeprazole (PriLOSEC) 20 mg capsuleIndicat ions:Treatment of Non-Bleeding Gastric Disorder Take 20 mg by mouth head correction officer before breakfast. 8 Active sertraline (ZOLOFT) 100 mg tabletIndicati ons:Anxiety with Depression Take 100 mg by mouth daily after breakfast. Active simvastatin (ZOCOR) 20 mg tabletIndicati ons:hyperlipid emia Take 20 mg by mouth head correction officer before breakfast. Active insulin lispro (HumaLOG) 100 unit/mL injectionIndic ations:type 2 diabetes mellitus Inject 15 Units under the skin 3 (three) times a day before meals Indications: type 2 diabetes mellitus. SSI Active blood glucose diagnostic strip Check blood sugar 3 times daily. Dx E.119, insulin use. OneTouch Ultra. 8 Active blood-glucose meter kit Check blood sugar three times daily. Dx E11.9, continuous churn buttermaker insulin use. OneTouch Ultra. 8 Active insulin glargine (LANTUS,BASAGL AR) 100 unit/mL (3 mL) insulin pen Lot: [id number] Ex: 07/2019 Qty: 2 BOXES- INJECT 70 UNITS SUBCUTANEOUSLY UNDER THE SKIN NIGHTLY FOR DIABETES 8 Active pen needle, diabetic 31 gauge x 3/16 needle 2 times daily. 4 Active lancets 33 gauge misc Check Blood sugar three times daily. Dx E11.9, insulin use. 8 Active lancing device with lancets kit Test blood sugar TID. DX E11.9. 8 Active insulin lispro protamin-lispr o (HumaLOG 50-50) 100 unit/mL (50-50) suspension Inject 40 Units under the skin 2 (two) times a day before breakfast and lunch Active aspirin 325 mg enteric coated tablet Take 1 tablet (325 mg total) by mouth daily 30 tablet 9 Active ketorolac (TORADOL) 10 mg tablet Take 1 tablet every 6 hours until gone 16 tablet 9 Active Additional Information Patient not taking.Reported on 01/21/2019 HYDROcodone-ac etaminophen (NORCO) 5-325 mg per tabletIndicati ons:Pain Take 1-2 every 4-6 hours as needed for pain 25 tablet 9 Active fluticasone furoate-vilant erica (BREO ELLIPTA) 100-25 mcg/dose diskus inhaler Lot: [id number] Ex: 11/24 Qty: 1. 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 Per operative note purulence extended down to the level of hardware. 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 Assessment & Plan (01/21/2019 3:05 PM CDT): - No signs or symptoms of active infection today but surgical incision unable to be evaluated. - If no concerns with incision at appointment with Dr. Mccullough today will plan to stop IV antibiotics and start Keflex 500 mg PO Q8H for chronic suppression due to retained hardware at the site of infection. PICC line to be discontinued when IV antibiotics are complete. If there are concerns with incision, will discuss with Dr. Mccullough and possibly extend IV antibiotic course. - If hardware is to be removed in the future, will plan on continuing chronic antibiotic suppression until removal of hardware. If hardware is to remain in place, will plan on jail oral suppression due to risk of recurrent infection. - Discussed at length with patient the rational for treatment, culture results, rational for suppressive antibiotics, risk of recurrent infection, risk/benefits of continuous churn buttermaker antibiotics, signs/symptoms of recurrent infection, and to contact ID clinic with questions or concerns prior to next appointment Assessment & Plan (12/13/2018 11:08 AM CDT): This is a 48-year-old gentleman with poorly-controlled diabetes who had repair of a malunion fibular fracture on 11/20/2018 who now returns with a surgical site infection. Per operative note purulence extended down to the level of hardware. 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 Cx obtained 12/10: MSSA; went to the OR again for 2nd planned I&D on 12/12/18; no new cx obtained. Pt on vanc/cefe. VT last pm 12.7 Recommendations: - discontinue vanc/cefe (done) - start ceftriaxone 2g IV q 24 hours (done) - will need long-term IV access, okay to place picc line - ID will formally sign off but continue to follow the pt peripherally while in house. - Please call with any questions or concerns. - See plan of care note dated 12/13/18 for detailed recommendations. 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 10/09/2018 Overview (10/09/2018): Added automatically from request for surgery [id number] Ankle syndesmosis disruption, right, initial enc ounter 10/09/2018 Overview (10/09/2018): Added automatically from request for surgery [id number] Loose body in right ankle and foot joint 019 Overview (10/09/2018): Added automatically from request for surgery [id number] Morbid obesity with BMI of 40.0-44.9, adult 11/2015 Type 2 diabetes mellitus 11/28/2013 Overview (11/12/2016): DMII WO CMP UNCNTRLD Hyperlipidemia 08/23/2005 Essential hypertension, benign 06/27/2005 Esophageal reflux 06/27/2005 Surgical History Surgery Date Site/Laterality Comments CARPAL TUNNEL RELEASE Bilateral Carpal tunnel release WISDOM TOOTH EXTRACTION POSTERIOR SPINAL FUSION 08/07/2013 - 08/06/2014 thoracic/lumbar region ROTATOR CUFF REPAIR 09/07/2017 - 10/04/2017 Left ANKLE FRACTURE SURGERY 11/20/2018 Right ORIF right ankle ORIF ANKLE FRACTURE 11/20/2018 Right Medical History Medical History Date Comments Type 2 diabetes mellitus (HCC) D iabetes type 2 Hyperlipidemia Hyperlipidemia Gastroesophageal reflux disease GERD Morbid obesity (HCC) Anxiety Family History Medical History Relation Name Comments Hypertension Father Hypertension; Other Father Alive and well; Other Mother Alive and well; Diabetes type II Other 1 Family hist ory of Diabetes -Type 2; Hyperlipidemia Other 2 Family histor y of Hyperlipidemia; Hypertension Other 3 Family history of Hypertension; Other Sister 2 Alive and well; Anesthesia problems Neg Hx Relation Name Status Comments Father Alive Mother Alive Other 1 Other 2 Other 3 Sister 1 Alive Sister 2 Social History Tobacco Use Types Packs/Day Years Used Date Smoking Tobacco: Never Smokeless Tobacco: Never Alcohol Use Standard Drinks/Week Comments Yes 3 (1 standard drink = 0.6 oz pure alcohol) pt reports drinking 12 pack of beer monthly PHQ-2 Answer Date Recorded PHQ-2 Score 0 03/29/2019 Sex and Gender Information Value Date Recorded Sex Assigned at Not on file Legal 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 Gender Identity Not on file Sexual Orientation Not on file Obstetrics History Last Filed Vital Signs Vital Sign Reading Time Taken Comments Blood Pressure 129/79 01/21/2019 4:08 PM CDT Pulse 97 01/21/2019 4:08 PM CDT Temperature 36 C (96.8 F) 01/21/2019 4:08 PM CDT Respiratory Rate 20 01/21/2019 4:08 PM CDT Oxygen Saturation 95% 01/21/2019 4:08 PM CDT Inhaled Oxygen Concentration - - Weight 150 kg (330 lb 9.6 oz) 01/21/2019 8:45 AM CDT Height 182.9 cm (6') 01/21/2019 8:45 AM CDT Body Mass Index 44.84 01/21/2019 8:45 AM CDT Plan of Treatment Not on file Medical Devices Implanted Type Area Jute Bag Clipper Device Identifier Shelf Expiration Date Model / Serial / Lot [employer] [id number] Vlp 3.5mm 16mm Self Tapping Hex Drive Recess Cortical Foot Low - S0 - [id number] Implanted:Qty : 1 on 11/20/2018 by Deb Mccullough MD at [facility] Screw Right: Fibula [employer] [id number] / 0 / [employer] [id number] Tara-Loc Vlp 3.5mm 18mm Self Tapping Cortical Midfoot Hindfoot - S0 - [id number] Implanted:Qty : 2 on 11/20/2018 by Deb Mccullough MD at [facility] Screw Right: Fibula [employer] [id number] / 0 / [employer] [id number] Tara-Loc Vlp 3.5mm 24mm Self Tap Foot Cortical Hexagon Low - S0 - [id number] Implanted:Qty : 1 on 11/20/2018 by Deb Mccullough MD at [facility] Screw Right: Fibula [employer] [id number] / 0 / [employer] [id number] Tara-Loc Vlp 3.5mm 14mm Self Tap Foot Cortical Hexagon Low - S0 - [id number] Implanted:Qty : 2 on 11/20/2018 by Deb Mccullough MD at [facility] Screw Right: Fibula [employer] [id number] / 0 / [employer] [id number] Tara-Loc Vlp 5mm 14mm Tibia Distal Proximal Full Thread Screw - S0 - [id number] Implanted:Qty : 2 on 11/20/2018 by Deb Mccullough MD at [facility] Screw Right: Fibula [employer] [id number] / 0 / [employer] [id number] Tara-Loc Vlp 3.5mm 60mm Self Tapping Cortical Midfoot Hindfoot - S0 - [id number] Implanted:Qty : 1 on 11/20/2018 by Deb Mccullough MD at [facility] Screw Right: Fibula [employer] [id number] / 0 / 7 Hole Right Lateral Distal Fibula Plate Implanted:Qty : 1 on 11/20/2018 by Deb Mccullough MD at [facility] Right: Fibula [employer] / 0 / Explanted Type Area Jute Bag Clipper Device Identifier Shelf Expiration Date Model / Serial / Lot [employer] [id number] Ye .062in 9in 1 Trocar Smooth Wire Fixation - S0 - [id number] Explanted:Qty: 1 on 11/20/2018 by Deb Mccullough MD at [facility] Wire [employer] [id number] / 0 / Description:Provisional fixa tion [employer] [id number] [facility] 5/64in 9in Trocar Point One End Pin Fixation Stainless - S0 - [id number] Explanted:Qty: 1 on 11/20/2018 by Deb Mccullough MD at [facility] Wire Right: Fibula [employer] [id number] / 0 / Description:Provisional fixa tion Insurance MEDICARE MEDICARE [facility] MEDICARE Advance Directives For more information, please contact: [phone] * Full Code (Latest Code Status on File) Date Activated Date Inactivated Comments 12/10/2018 11:06 PM 12/14/2018 5:16 PM Care Teams Chute Puller Relationship Specialty Start Date End Date Nick Mosley MD PCP - General 01/10/14
--- OUTSIDE RECORDS SUMMARY | 2024-12-17 15:47 | XMS_ITS | Encounter Summary ---
Author Organization 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 Address 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 Gender Identity Not on file Sexual Orientation Not on file documented as of this encounter Plan of Treatment Upcoming Encounters Date Type Department Care Team (Late Contact Info) Description 04/11/2025 10:40 AM CDT Office Visit [facility] Primary Care [address] [place] [address] Nick Mosley MD [address] [place] [address] [address] [place] [address] documented as of this encounter Visit Diagnoses Not on filedocumented in this encounter Care Teams Night Court Magistrate Relationship Specialty Start Date End Date Nick Mosley MD PCP - General 11/23/07 documented as of this encounter
--- OUTSIDE RECORDS SUMMARY | 2024-12-17 15:47 | XMS_ITS | Referral Summary ---
Author Organization [facility] [address] [place] [address] Phone Care Team Providers Care Chief Of Planning Name Role Phone Nick Mosley MD Primary [...] ons:hypertensi on Take 10 mg by mouth manifest/order organizer print orders before breakfast. Active losartan (COZAAR) 50 mg tabletIndicati ons:hypertensi on Take 50 mg by mouth manifest/order organizer print orders before breakfast. 7 Active omeprazole (PriLOSEC) 20 mg capsuleIndicat ions:Treatment of Non-Bleeding Gastric Disorder Take 20 mg by mouth manifest/order organizer print orders before breakfast. 8 Active sertraline (ZOLOFT) 100 mg tabletIndicati ons:Anxiety with Depression Take 100 mg by mouth daily after breakfast. Active simvastatin (ZOCOR) 20 mg tabletIndicati ons:hyperlipid emia Take 20 mg by mouth manifest/order organizer print orders before breakfast. Active insulin lispro (HumaLOG) 100 unit/mL injectionIndic ations:type 2 diabetes mellitus Inject 15 Units under the skin 3 (three) times a day before meals Indications: type 2 diabetes mellitus. SSI Active blood glucose diagnostic strip Check blood sugar 3 times daily. Dx E.119, insulin use. OneTouch Ultra. 8 Active blood-glucose meter kit Check blood sugar three times daily. Dx E11.9, long term care social worker insulin use. OneTouch Ultra. 8 Active insulin glargine (LANTUS,BASAGL AR) 100 unit/mL (3 mL) insulin pen Lot: [id number] Ex: 07/2019 Qty: 2 BOXES- INJECT 70 [...] (BREO ELLIPTA) 100-25 mcg/dose diskus inhaler Lot: [id number] Ex: 11/24 Qty: 1. 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 10/09/2018 Overview (10/09/2018): Added automatically from request for surgery [id number] Ankle syndesmosis disruption, right, initial enc ounter 10/09/2018 Overview (10/09/2018): Added automatically from request for surgery [id number] Loose body in right ankle and foot joint 019 Overview (10/09/2018): Added automatically from request for surgery [id number] Morbid obesity with BMI of 40.0-44.9, adult 11/2015 Type 2 diabetes mellitus 11/28/2013 Overview (11/12/2016): DMII WO CMP UNCNTRLD Hyperlipidemia 08/23/2005 Essential hypertension, benign 06/27/2005 Esophageal reflux 06/27/2005 Social History Tobacco Use Types Packs/Day Years [...] on file 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 Gender Identity Not on file Sexual [...] on file Medical Devices Implanted Type Area Refrigeration Operator Device Identifier Shelf Expiration Date Model / Serial / Lot [employer]Ortho [id number] Vlp 3.5mm 16mm Self Tapping Hex Drive Recess Cortical Foot Low - S0 - [id number] Implanted:Qty : 1 on 11/20/2018 by Deb Mccullough MD at [facility] Screw Right: Fibula [employer]Or tho [id number] / 0 / [employer] /Ortho [id number] Tara-Loc Vlp 3.5mm 18mm Self Tapping Cortical Midfoot Hindfoot - S0 - [id number] Implanted:Qty : 2 on 11/20/2018 by Deb Mccullough MD at [facility] Screw Right: Fibula [employer]/Or tho [id number] / 0 / [employer] /Ortho [id number] Tara-Loc Vlp 3.5mm 24mm Self Tap Foot Cortical Hexagon Low - S0 - [id number] Implanted:Qty : 1 on 11/20/2018 by Deb Mccullough MD at [facility] Screw Right: Fibula [employer]/Or tho [id number] / 0 / [employer] /Ortho [id number] Tara-Loc Vlp 3.5mm 14mm Self Tap Foot Cortical Hexagon Low - S0 - [id number] Implanted:Qty : 2 on 11/20/2018 by Deb Mccullough MD at [facility] Screw Right: Fibula [employer]/Or tho [id number] / 0 / [employer] /Ortho [id number] Tara-Loc Vlp 5mm 14mm Tibia Distal Proximal Full Thread Screw - S0 - [id number] Implanted:Qty : 2 on 11/20/2018 by Deb Mccullough MD at [facility] Screw Right: Fibula [employer]Or tho [id number] / 0 / [employer] /Ortho [id number] Tara-Loc Vlp 3.5mm 60mm Self Tapping Cortical Midfoot Hindfoot - S0 - [id number] Implanted:Qty : 1 on 11/20/2018 by Deb Mccullough MD at [facility] Screw Right: Fibula [employer]Or tho [id number] / 0 / 7 Hole Right Lateral Distal Fibula Plate Implanted:Qty : 1 on 11/20/2018 by Deb Mccullough MD at [facility] Right: Fibula [employer] / 0 / Explanted Type Area Refrigeration Operator Device Identifier Shelf Expiration Date Model / Serial / Lot [employer] [id number] Ye .062in 9in 1 Trocar Smooth Wire Fixation - S0 - [id number] Explanted:Qty: 1 on 11/20/2018 by Deb Mccullough MD at [facility] Wire [employer] [id number] / 0 / Description:Provisional fixa tion [employer] [id number] Steinmann 5/64in 9in Trocar Point One End Pin Fixation Stainless - S0 - [id number] Explanted:Qty: 1 on 11/20/2018 by Deb Mccullough MD at [facility] Wire Right: Fibula [employer] [id number] / 0 / Description:Provisional fixa tion Insurance MEDICARE IDPA [facility] MEDICARE Advance Directives For more information, please contact: [phone] * Full Code (Latest Code Status on File) Date Activated Date Inactivated Comments 12/10/2018 11:06 PM 12/14/2018 5:16 PM Care Teams Chief Of Planning Relationship Specialty Start Date End Date Nick Mosley MD PCP - General 01/10/14
--- OUTSIDE RECORDS SUMMARY | 2024-12-17 15:47 | XMS_ITS | Encounter Summary ---
Author Organization [facility] Address 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 Gender Identity Not on file Sexual Orientation Not on file documented as of this encounter Last Filed Vital Signs Vital Sign Reading Time Taken Comments Blood Pressure 120/82 03/26/2007 10:30 AM CDT Pulse - - Temperature 36.7 C (98.1 F) 03/26/2007 10:30 AM CDT Respiratory Rate - - Oxygen Saturation - - Inhaled Oxygen Concentration - - Weight 145.2 kg (320 lb) 03/26/2007 10:30 AM CDT Height - - Body Mass Index 43.4 06/27/2005 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
--- OUTSIDE RECORDS SUMMARY | 2024-12-17 15:47 | XMS_ITS | Encounter Summary ---
Author Organization [facility] Address 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 Gender Identity Not on file Sexual Orientation Not on file documented as of this encounter Plan of Treatment Upcoming Encounters Date Type Department Care Team (Late Contact Info) Description 04/11/2025 10:40 AM CDT Office Visit [facility] Primary Care [address] [place] [address] Nick Mosley MD [address] [place] [address] [address] [place] [address] documented as of this encounter Visit Diagnoses Not on filedocumented in this encounter Care Teams Speech Correction Consultant Relationship Specialty Start Date End Date Nick Mosley MD PCP - General 11/23/07 documented as of this encounter
--- OUTSIDE RECORDS SUMMARY | 2024-12-17 15:47 | XMS_ITS | Encounter Summary ---
Author Organization [facility] Address [address] [place] [address] Care Team Providers Care Student Services Director Name Role Phone Nick Mosley MD Primary Care Provider [phone] Encounter Details Date Type Department Care Team ([facility] st Contact Info) Description 10/12/2023 Telephone [facility] Medicine [address] [place] [address] Javy Sales MD [address] [place] [address] Social History Tobacco Use Types Packs/Day Years Used Date Smoking Tobacco: Former Cigarettes Passive Smoke Exposure: Past Smokeless Tobacco: Never Comments:1 pack/month Alcohol Use Standard Drinks/Week Comments [...] on file 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 Left voicemail NITION SUPERVISOR documented in this encounter Plan of Treatment Upcoming Encounters Date Type Department Care Team (Late st Contact Info) Description 04/11/2025 10:40 AM CDT Office Visit [facility] [address] [place] [address] Nick Mosley MD [address] [place] [address] [address] [place] [address] documented as of this encounter Visit Diagnoses Not on filedocumented in this encounter Care Teams Student Services Director Relationship Specialty Start Date End Date Nick Mosley MD PCP - General 11/23/07 documented as of this encounter
--- OUTSIDE RECORDS SUMMARY | 2024-12-17 15:47 | XMS_ITS | Encounter Summary ---
Author Organization [facility] Address 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 PHARMACY NUMBER: [phone] PROBLEMS: for about 1 day SORE THROAT: Patient complains of sore throat. denies other sx SECTION 1: REQUESTED ACTION browss 10/24/05 at 09:47 am: MEDICATION REQUEST: Patient wants medications and can not come in. DOCTOR`S RESPONSE: phoebe 10/24/05 at 09:48 am has scheduled appt for this am at 11 am FINAL ACTION: muriel 10/24/05 at 09:55 am * Nick Mosley MD - 05/15/2008 6:48 PM CDT TIME:01:14 pm PATIENT`S HOME PHONE: PATIENT`S WORK PHONE: PATIENT`S INSURANCE: [employer] WHO TOOK THE CALL: Leigh Carolina S GENERAL INFORMATION ALTERNATIVE PHONE NUMBER: [phone] WHO CALLED: Patient`s spouse called. PHARMACY NUMBER: [phone] PROBLEMS: SORE THROAT: Patient complains of sore throat. denies other sx SECTION 1: REQUESTED ACTION arturo 10/24/05 at 01:15 pm: forgot about today's appt. couldn't come he rescheduled for the November MEDICATION REQUEST: Patient wants medications and can not come in. DOCTOR`S RESPONSE: phoebe 10/24/05 at 01:24 pm MEDICATIONS: Call in to Pharmacy ZITHROMAX Z-TALIA ORAL TABLET 250 MG, DIRECTED, 1 Dispensed, status: NEW PRESCRIPTION, 10/24/2005. FINAL ACTION: arturo 10/24/05 at 03:45 pm Called pharmacy at 10/24/05 at 03:45 pm. documented in this encounter Plan of Treatment Upcoming Encounters Date Type Department Care Team (Late st Contact Info) Description 04/11/2025 10:40 AM CDT Office Visit [facility] Primary Care [address] [place] [address] Nick Mosley MD [address] [place] [address] [address] documented as of this encounter Visit Diagnoses Not on filedocumented in this encounter Care Teams Tool Procurement Coordinator Relationship Specialty Start Date End Date Nick Mosley MD PCP - General 11/23/07 documented as of this encounter
--- OUTSIDE RECORDS SUMMARY | 2024-12-17 15:47 | XMS_ITS | Encounter Summary ---
Author Organization [facility] Address 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 PHARMACY NUMBER: [phone] SECTION 1: REQUESTED ACTION marv 10/13/06 at 03:25 pm: MEDICATION REQUEST: MEDICATION REQUEST: Patient requests a refill. gen Zoloft #[id number] 07/27/06 Pt also wants Fenofibrate called in (didn't mail in his script). RN/CONSTRUCTION SUPERVISOR RESPONSE: phoebe 10/13/06 at 03:27 pm MEDICATIONS: FENOFIBRATE ORAL CAPSULE CONVENTIONAL 134 MG, 1 Every Day, 90 Dispensed, 3 Fills, 90 Duration/Days Supply, status: NEW PRESCRIPTION, 09/06/2006. ZOLOFT ORAL TABLET 100 MG, 1 Every Day, 90 Dispensed, 90 Duration/Days Supply, status: CONTINUED, 10/13/2006. FINAL ACTION: licasl 10/13/06 at 03:32 pm Called pharmacy at 10/13/06 at 03:32 pm. Electronically Signed by: Deb Pereira on Friday, October 13, 2006 documented in this encounter Plan of Treatment Upcoming Encounters Date Type Department Care Team (Late st Contact Info) Description 04/11/2025 10:40 AM CDT Office Visit [facility] [place] [address] Nick Mosley MD [address] [place] [address] documented as of this encounter Visit Diagnoses Not on filedocumented in this encounter Care Teams Executive Director Relationship Specialty Start Date End Date Nick Mosley MD PCP - General 11/23/07 documented as of this encounter
--- OUTSIDE RECORDS SUMMARY | 2024-12-17 15:47 | XMS_ITS | Encounter Summary ---
Author Organization [facility] Address [address] [place] [address] Care Team Providers Care Technical Marketing Engineer Name Role Phone Nick Mosley MD Primary Care Provider [phone] Reason for Visit * Reason Onset Date Comments Covid Symptoms Or Treatment 06/15/2022 Encounter Details Date Type Department Care Team ([facility] st Contact Info) Description 06/15/2022 Telephone [facility] Primary Care [address] [place] [address] Nick Mosley MD [address] [place] [address] [address] [place] [address] Covid Symptoms Or Treatment Social History Tobacco Use Types Packs/Day Years Used Date Smoking Tobacco: Former Cigarettes Q uit: 08/07/2016 Smokeless Tobacco: Never Alcohol Use Standard Drinks/Week Comments Yes 0 [...] on file 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 No / Unsure 06/07/2022 12:52 PM CDT documented as of this encounter Miscellaneous Notes * Telephone Encounter - Nick Mosley MD - 06/15/2022 4:56 PM CST Spoke with pt Ok masonlovid Monitor sat-90-92% go er Pt needs prior auth for Testosterone CY SERVICE COORDINATOR * Telephone Encounter - Rolando, Ada L - 06/15/2022 9:45 AM CST COVID-19 TRIAGE Name of PCP Provider or Prescribing Provider: Nick Mosley MD Caller: Cristiano Armijo Callback number: Options: [phone] (home) Patient is requesting: - Masonlovid [] Appointment [] COVID test [x] Medication/Drug Therapy, if eligible. If yes, which pharmacy? Options: [facility] [phone] [x] Call back from provider [] Inform provider only (no follow up requested) Have you had a COVID-19 test in the last 14 days? [x] Yes - Home Test [] No If yes: [x] Positive [] Negative [] Pending If yes, date of test: Options: 06/14/2022 Are you having any of these symptoms (new or worsening): [] Fever of 100.4 or greater [x] Chills [x] Shortness of breath or difficulty breathing - little bit [x] Cough - Little Bit [x] Muscle pain [x] Loss of smell or taste [] Vomiting [] Diarrhea [x] Fatigue [x] Runny nose or congestion [x] Sore throat - little bit [x] Headache [] None of these Date of onset of first symptom(s)? Options: 06/13/2022 Have you been in contact with a suspected or lab-confirmed coronavirus patient within the last two weeks? [x] Yes [] No [] Don't know If yes, date of exposure: Options: 06-10-2022 Type of exposure: [] You were masked [] Person suspected/confirmed was masked [] Person suspected/confirmed was at least 3 feet away [] Person suspected/confirmed at the time had no respiratory symptoms (cough/sneezing/runny nose/congestion) [] Don't know or unsure of some of the above answers Your vaccination status: [x] Completed primary vaccination [] Partially vaccinated (1 Pfizer/Moderna) [x] Received one or more booster [x] Received the Bivalent Vaccine [] Not vaccinated CY SERVICE COORDINATOR documented in this encounter Plan of Treatment Upcoming Encounters Date Type Department Care Team (Late st Contact Info) Description 04/11/2025 10:40 AM CDT Office Visit [facility] Primary Care [address] [place] [address] Nick Mosley MD [address] [place] [address] [address] [place] [address] documented as of this encounter Visit Diagnoses Not on filedocumented in this encounter Care Teams Technical Marketing Engineer Relationship Specialty Start Date End Date Nick Mosley MD PCP - General 11/23/07 documented as of this encounter
--- OUTSIDE RECORDS SUMMARY | 2024-12-17 15:47 | XMS_ITS | Encounter Summary ---
Author Organization [facility] Address [address] [place] [address] Care Team Providers Care Aircraft Engine Mechanic Overhaul Name Role Phone Nick Mosley MD Primary Care Provider [phone] Encounter Details Date Type Department Care Team (Late st Contact Info) Description 12/25/2006 Outpatient Historical [facility] Internal Medicine [address] [address] Nick Mosley MD [address] [place] [address] [address] [place] [address] Social History Tobacco Use Types Packs/Day Years Used Date Smoking Tobacco: Never Assessed Sex and Gender Information Value Date Recorded Sex Assigned at Not on file 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 Gender Identity Not on file Sexual Orientation Not on file documented as of this encounter Last Filed Vital Signs Vital Sign Reading Time Taken Comments Blood Pressure 120/78 12/25/2006 1:30 PM CDT Pulse - - Temperature - - Respiratory Rate - - Oxygen Saturation - - Inhaled Oxygen Concentration - - Weight 147.9 kg (326 lb) 12/25/2006 1:30 PM CDT Height - - Body Mass Index 44.21 06/27/2005 11:30 AM SENSORY SCIENTIST documented in this encounter Plan of Treatment Upcoming Encounters Date Type Department Care Team (Late st Contact Info) Description 04/11/2025 10:40 AM CDT Office Visit [facility] Primary Care [address] [place] [address] Nick Mosley MD [address] [place] [address] [address] [place] [address] documented as of this encounter Visit Diagnoses Not on filedocumented in this encounter Care Teams Aircraft Engine Mechanic Overhaul Relationship Specialty Start Date End Date Nick Mosley MD PCP - General 11/23/07 documented as of this encounter
--- OUTSIDE RECORDS SUMMARY | 2024-12-17 15:48 | XMS_ITS | Encounter Summary ---
Author Organization [facility] Address 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 Topic: [id number] Call >> Apr 24, 2024 4:00 PM Rakesh Millan wrote: Caller is requesting to speak with Clinical Care Team. Caller Name: [facility] Brianne Callback Number: [phone] Clinician Type: Other healthcare professional not listed above Call Notes: [facility] 6[phone] Is this addressing an immediate patient care need? Yes documented in this encounter Plan of Treatment Upcoming Encounters Date Type Department Care Team (Late st Contact Info) Description 04/11/2025 10:40 AM CDT Office Visit [facility] Primary Care [address] [place] [address] Nick Mosley MD [address] [place] [address] [place] [address] documented as of this encounter Visit Diagnoses Not on filedocumented in this encounter Care Teams Center Punch Operator Relationship Specialty Start Date End Date Nick Mosley MD PCP - General 11/23/07 documented as of this encounter
--- OUTSIDE RECORDS SUMMARY | 2024-12-17 15:48 | XMS_ITS | Encounter Summary ---
Author Organization [facility] Address [address] [place] [address] Care Team Providers Care Food Beverage Attendant Name Role Phone Nick Mosley MD Primary Care Provider [phone] Encounter Details Date Type Department Care Team (Late Contact Info) Description 07/03/[address] [facility] Internal Medicine [address] [address] Nick Mosley MD [address] [place] [address] Social History Tobacco Use Types Packs/Day Years Used Date Smoking Tobacco: Never Assessed Sex and Gender Information Value Date Recorded Sex Assigned at Not on file Legal Sex Male 4:34 AM PSYCHOLOGICAL OPERATIONS Gender Identity Not on file Sexual Orientation Not on file documented as of this encounter Plan of Treatment Upcoming Encounters Date Type Department Care Team (Late Contact Info) Description 04/11/2025 10:40 AM CDT Office Visit [facility] Primary Care [address] [place] [address] Nick Mosley MD [address] [place] [address] [address] [place] [address] documented as of this encounter Visit Diagnoses Not on filedocumented in this encounter Care Teams Food Beverage Attendant Relationship Specialty Start Date End Date Nick Mosley MD PCP - General 11/23/07 documented as of this encounter
--- OUTSIDE RECORDS SUMMARY | 2024-12-17 15:48 | XMS_ITS | Clinical Summary ---
Author Organization [facility] Address [address] [facility] [place] [address] Phone Care Team Providers Care Biomedical Specialist Name Role Phone Nick Mosley MD Primary Care Provider [phone] Allergies Active Allergy Reactions Criticality Noted Date Comments Meperidine Hives High 11/07/2008 Cyanoacrylate Rash Medium 01/01/2015 Medications ALPRAZolam (XANAX) 0.5 MG Tablet Take 0.5 mg by mouth 2 times daily as needed. Active HYDROcodone-haley taminophen (NORCO) 10-325 MG TabletIndicatio ns:Moderate to Moderately Severe Pain Take 1 Tab by mouth every 6 hours as needed for Pain. Indications: Moderate to Moderately Severe Pain Active metFORMIN (GLUCOPHAGE) 850 MG Tablet Take 850 mg by mouth 3 times daily. Active simvastatin (ZOCOR) 20 MG Tablet Take 20 mg by mouth every evening. Active INSULIN LISP PROT & LISP, HUM, (HUMALOG MIX 50/50) (50-50) 100 UNIT/ML Suspension 40 Units by Subcutaneous route 2 times daily. Active carvedilol (COREG) 6.25 MG Tablet Take 6.25 mg by mouth 2 times daily. Active albuterol (PROAIR HFA) 108 (90 Base) MCG/ACT Aerosol Solution take 2 Puffs by inhalation every 6 hours as needed for Wheezing. Active Dulaglutide (TRULICITY) 1.5 MG/0.5ML Solution Pen-injector 1.5 mL by Subcutaneous route every 7 days. Active sertraline (ZOLOFT) 100 MG Tablet Take 100 mg by mouth daily. Active lisinopril (PRINIVIL, ZESTRIL) 10 MG Tablet Take 10 mg by mouth daily. Active oxyCODONE-aceta minophen (PERCOCET) 5-325 MG Tablet Take 1 Tab by mouth every 6 hours as needed for Pain. 30 Tab 7 Active Additional Information Patient not taking.Reported on 03/21/2021 oxyCODONE-Aceta minophen (PERCOCET) 10-325 MG Tablet Take 1 Tab by mouth every 8 hours as needed. 40 Tab 7 Active Additional Information Patient not taking.Reported on 03/21/2021 Active Problems No known active problems Family History Medical History Relation Name Comments No Known Problems Father No Known Problems Mother Relation Name Status Comments Father Alive Mother Alive Social History Tobacco Use Types Packs/Day Years Used Date Smoking Tobacco: Never Smokeless Tobacco: Never Alcohol Use Standard Drinks/Week Comments No 0 (1 standard drink = 0.6 oz pur e alcohol) Sex and Gender Information Value Date Recorded Sex Assigned at Not on file Legal Sex Male 11:59 PM CDT Gender Identity Not on file Sexual Orientation Not on file Last Filed Vital Signs Vital Sign Reading Time Taken Comments Blood Pressure 144/86 03/21/2021 4:03 PM CDT Pulse 98 03/21/2021 4:03 PM CDT Temperature 36.7 C (98.1 F) 03/21/2021 4:03 PM CDT Respiratory Rate 16 03/21/2021 4:03 PM CDT Oxygen Saturation 94% 03/21/2021 4:03 PM CDT Inhaled Oxygen Concentration - - Weight 136.1 kg (300 lb) 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 Height 182.9 cm (6') 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 Body Mass Index 40.69 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 Plan of Treatment Health Maintenance Due Date Last Done Comments Hepatitis C Virus (HCV) Screening 1972 TdaP Immunization 1972 Hepatitis B Immunization (1 of 3 - 19+ 3-dose series) 1991 Colonoscopy 2017 Colorectal Cancer Screening 2017 Cologuard 2022 Immunochemical Fecal Occult Blood 2022 Pneumococcal Immunization (5 0+ years) (1 of 1 - PCV) 2022 Zoster Immunization (1 of 2) 2022 Influenza Immunization (#1) 2024 SARS-COV-2 Immunization ( season) 2024 03/09/2021, 02/15/2021 Respiratory Syncytial Virus (RSV) Immunization (Adult) (1 - 1-dose 75+ series) 2047 Meningococcal Immunization (ACWY) Aged Out No longer eligible b ased on patient's age to complete this topic Rotavirus Immunization Aged Out No lo nger eligible based on patient's age to complete this topic Insurance [facility] Member Subscriber Plan / Payer (Ef fective for All Dates) Name:Cristiano Armijo Relation to Subscriber:Self Name:Cristiano Armijo Payer ID:[id number] Group ID:Not on file Type:Not on file Address: [address] [place] [id number] [place] Advance Directives * Full Code (Latest Code Status on File) Date Activated Date Inactivated Comments 10/07/2016 11:04 PM 10/08/2016 4:51 PM CPR-Full Aura tment: FULL ARREST: Attempt Resuscitation/CPR wit intubation and mechanical ventilation. PRE-ARREST: Use entire range of life support measures to stabilize the patient. Care Teams Biomedical Specialist Relationship Specialty Start Date End Date Nick Mosley MD [address] [place] [phone] PCP - General 10/07/16
--- OUTSIDE RECORDS SUMMARY | 2024-12-17 15:48 | XMS_ITS | Encounter Summary ---
Author Organization [facility] Address 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 Gender Identity Not on file Sexual Orientation Not on file documented as of this encounter Plan of Treatment Upcoming Encounters Date Type Department Care Team (Late Contact Info) Description 04/11/2025 10:40 AM CDT Office Visit [facility] Primary Care [address] [place] [address] Nick Mosley MD [address] [place] [address] [address] [place] [address] documented as of this encounter Visit Diagnoses Not on filedocumented in this encounter Care Teams Ladle Liner Helper Relationship Specialty Start Date End Date Nick Mosley MD PCP - General 11/23/07 documented as of this encounter
--- OUTSIDE RECORDS SUMMARY | 2024-12-17 15:48 | XMS_ITS | Encounter Summary ---
Author Organization [facility] Address 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 Gender Identity Not on file Sexual Orientation Not on file documented as of this encounter Plan of Treatment Upcoming Encounters Date Type Department Care Team (Late Contact Info) Description 04/11/2025 10:40 AM CDT Office Visit [facility] Primary Care [address] [place] [address] Nick Mosley MD [address] [place] [address] [address] [place] [address] documented as of this encounter Visit Diagnoses Not on filedocumented in this encounter Care Teams Rn International Relationship Specialty Start Date End Date Nick Mosley MD PCP - General 11/23/07 documented as of this encounter
--- OUTSIDE RECORDS SUMMARY | 2024-12-17 15:48 | XMS_ITS | Encounter Summary ---
Author Organization [facility] Address 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 Gender Identity Not on file Sexual Orientation Not on file documented as of this encounter Last Filed Vital Signs Vital Sign Reading Time Taken Comments Blood Pressure 120/80 08/21/2007 3:30 PM MANAGER SERVICING Pulse - - Temperature 37.8 C (100.1 F) 08/21/2007 3:30 PM MANAGER SERVICING Respiratory Rate - - Oxygen Saturation - - Inhaled Oxygen Concentration - - Weight 142.4 kg (314 lb) 08/21/2007 3:30 PM MANAGER SERVICING Height - - Body Mass Index 42.59 06/27/2005 11:30 AM MANAGER SERVICING documented in this encounter Plan of Treatment Upcoming Encounters Date Type Department Care Team (Late st Contact Info) Description 04/11/2025 10:40 AM CDT Office Visit [facility] Primary Care [address] [place] [address] Nick Mosley MD [address] [place] [address] [place] [address] documented as of this encounter Visit Diagnoses Not on filedocumented in this encounter Care Teams Compliance Tester Relationship Specialty Start Date End Date Nick Mosley MD PCP - General 11/23/07 documented as of this encounter
--- OUTSIDE RECORDS SUMMARY | 2024-12-17 15:48 | XMS_ITS | Encounter Summary ---
Author Organization [facility] Address 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 CHIEF COMPLAINT Patient here for follow up diabetes. HISTORY: glu to mid 100's pt wants to get off inj no wt loss, reviewed ct abd, PHYSICAL EXAMINATION: CONSTITUTIONAL: GENERAL APPEARANCE: Healthy appearing [...] tenderness or nodularity. Kidneys not palpable. ASSESSMENT/PLAN: 250.00-DM II CONTROLLED contmed, recheck lab, enc wt loss, reassess LAB ORDERS: 2 mo Order number: [id number] Test Ordered: COMPREHENSIVE METABOLIC PANEL & GFR 1112 Order number: [id number] Test Ordered: HEMOGLOBIN A1C 1814 Order number: [id number] Test Ordered: LIPID PANEL 1078 272.4-HYPERLIPIDEMIA enc diet and ex, recheck 401.1-HYPERTENSION ESSENTIAL BENIGN con tmed 562.11-DIVERTICULITIS COLON inc fiber in diet PREVENTIVE COUNSELING The patient was counseled regarding diet, regular sustained exercise for at least 30 minutes 3-4 times per week. Patient Education: Risks, benefits, and possible side effects of medication(s) were reviewed with the patient. RETURN VISIT : Patient instructed to return in 2 months. Electronically Signed by: Nick Mosley MD on Friday, May 04, 2007 documented in this encounter Plan of Treatment Upcoming Encounters Date Type Department Care Team (Late st Contact Info) Description 04/11/2025 10:40 AM CDT Office Visit [facility] Primary Care [address] [address] Nick Mosley MD [address] [place] [address] documented as of this encounter Visit Diagnoses Not on filedocumented in this encounter Care Teams Legal Secretary Receptionist Relationship Specialty Start Date End Date Nick Mosley MD PCP - General 11/23/07 documented as of this encounter
--- OUTSIDE RECORDS SUMMARY | 2024-12-17 15:48 | XMS_ITS | Encounter Summary ---
Author Organization [facility] Address 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 CHIEF COMPLAINT Patient complains of congestion, cough. HISTORY: noncompliant with fu , variable compliance with insulin and meds HISTORY: 250.00-DM II CONTROLLED The patient denies polyuria, polyphagia, polydipsia, change in vision, footulcerations, or hypoglycemic episodes. 272.4-HYPERLIPIDEMIA The patient is tolerating the medications. 300.00-ANXIETY The patient denies excessive crying, a persistent feeling of sadness and hopelessness, and fatigue. 401.1-HYPERTENSION ESSENTIAL BENIGN The patient denies chest pain, shortness of breath, dyspnea on exertion, pedal edema, or headache. The medication was discontinued by the patient. 461.9-SINUSITIS UNSPECIFIED sinus romeo, cough, sore throat ROS: ENDOCRINE: No heat or cold intolerance, [...] NOSE, MOUTH AND THROAT: EARS: EFFUSION PRESENT BILATERALLY. ORAL: OROPHARYNX ERYTHEMATOUS. NECK/THYROID: Trachea midline. [...] nodules or tightening. ASSESSMENT/PLAN: 250.00-DM II CONTROLLED pt back on med discussed importance of control, reassess LAB ORDERS: 3 mo Order number: [id number] Test Ordered: COMPREHENSIVE METABOLIC PANEL & GFR 1112 Order number: [id number] Test Ordered: HEMOGLOBIN A1C 1814 Order number: [id number] Test Ordered: LIPID PANEL 1078 272.4-HYPERLIPIDEMIA add med, reviewed MEDICATIONS: SIMVASTATIN ORAL TABLET 10 MG, 1 Every Day, 30 Dispensed, 4 Fills, status: NEW PRESCRIPTION, 08/21/2007. 300.00-ANXIETY cont med 401.1-HYPERTENSION ESSENTIAL BENIGN pt back on med 461.9-SINUSITIS UNSPECIFIED rx MEDICATIONS: CEFUROXIME AXETIL ORAL TABLET 250 MG, 1 Two Times A Day, 20 Dispensed, 10 Duration/Days Supply, status: NEW PRESCRIPTION, 08/21/2007. PREVENTIVE COUNSELING The patient was counseled regarding diet. Patient Education: The patient was allowed to ask questions to stated satisfaction, as well as the spouse. Risks, benefits, and possible side effects of medication(s) were reviewed with the patient. The importance of compliance was stressed. The patient was told that there needs to be a commitment to following our agreed upon course of action. It was noted that failing to be compliant can lead tountoward health outcomes. RETURN VISIT : Patient instructed to return in 2 months. Electronically Signed by: Nick Mosley MD on Tuesday, August 21, 2007 documented in this encounter Plan of Treatment Upcoming Encounters Date Type Department Care Team (Late st Contact Info) Description 04/11/2025 10:40 AM CDT Office Visit [facility] Primary Care [address] [place] [address] Nick Mosley MD [address] [place] [address] [address] [place] [address] documented as of this encounter Visit Diagnoses Not on filedocumented in this encounter Care Teams Claims Manager Relationship Specialty Start Date End Date Nick Mosley MD PCP - General 11/23/07 documented as of this encounter
--- OUTSIDE RECORDS SUMMARY | 2024-12-17 15:48 | XMS_ITS | Encounter Summary ---
Author Organization [facility] Address 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 Gender Identity Not on file Sexual Orientation Not on file documented as of this encounter Plan of Treatment Upcoming Encounters Date Type Department Care Team (Late Contact Info) Description 04/11/2025 10:40 AM CDT Office Visit [facility] Primary Care [address] [place] [address] Nick Mosley MD [address] [place] [address] [address] [place] [address] documented as of this encounter Visit Diagnoses Not on filedocumented in this encounter Care Teams Outside Plant Engineer Relationship Specialty Start Date End Date Nick Mosley MD PCP - General 11/23/07 documented as of this encounter
--- OUTSIDE RECORDS SUMMARY | 2024-12-17 15:48 | XMS_ITS | Encounter Summary ---
Author Organization [facility] Address [address] [place] [address] Care Team Providers Care Layout Technician Name Role Phone Nick Mosley MD Primary Care Provider [phone] Encounter Details Date Type Department Care Team (Late Contact Info) Description 08/20/2007 Outpatient Historical [facility] Internal Medicine [address] [address] Nick Mosley MD [address] [place] [address] Social History Tobacco Use Types Packs/Day Years Used Date Smoking Tobacco: Never Assessed Sex and Gender Information Value Date Recorded Sex Assigned at Not on file Legal Sex Male 4:34 AM HRBP Gender Identity Not on file Sexual Orientation Not on file documented as of this encounter Plan of Treatment Upcoming Encounters Date Type Department Care Team (Late Contact Info) Description 04/11/2025 10:40 AM CDT Office Visit [facility] Primary Care [address] [place] [address] Nick Mosley MD [address] [place] [address] [address] [place] [address] documented as of this encounter Visit Diagnoses Not on filedocumented in this encounter Care Teams Layout Technician Relationship Specialty Start Date End Date Nick Mosley MD PCP - General 11/23/07 documented as of this encounter
--- OUTSIDE RECORDS SUMMARY | 2024-12-17 15:48 | XMS_ITS | Encounter Summary ---
Author Organization [facility] Address 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 Gender Identity Not on file Sexual Orientation Not on file documented as of this encounter Last Filed Vital Signs Vital Sign Reading Time Taken Comments Blood Pressure 120/70 05/04/2007 1:15 PM CDT Pulse - - Temperature - - Respiratory Rate - - Oxygen Saturation - - Inhaled Oxygen Concentration - - Weight 143.8 kg (317 lb) 05/04/2007 1:15 PM CDT Height - - Body Mass Index 42.99 06/27/2005 11:30 AM ENVIRONMENTAL PROTECTION FORESTER documented in this encounter Plan of Treatment Upcoming Encounters Date Type Department Care Team (Late st Contact Info) Description 04/11/2025 10:40 AM CDT Office Visit [facility] Primary Care [address] [place] [address] Nick Mosley MD [address] [place] [address] [address] [place] [address] documented as of this encounter Visit Diagnoses Not on filedocumented in this encounter Care Teams Video Technician Relationship Specialty Start Date End Date Nick Mosley MD PCP - General 11/23/07 documented as of this encounter
--- OUTSIDE RECORDS SUMMARY | 2024-12-17 15:48 | XMS_ITS | Encounter Summary ---
Author Organization [facility] Address 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 Gender Identity Not on file Sexual Orientation Not on file documented as of this encounter Plan of Treatment Upcoming Encounters Date Type Department Care Team (Late Contact Info) Description 04/11/2025 10:40 AM CDT Office Visit [facility] Primary Care [address] [place] [address] Nick Mosley MD [address] [place] [address] [address] [place] [address] documented as of this encounter Visit Diagnoses Not on filedocumented in this encounter Care Teams Rubber Mold Maker Relationship Specialty Start Date End Date Nick Mosley MD PCP - General 11/23/07 documented as of this encounter
--- OUTSIDE RECORDS SUMMARY | 2024-12-17 15:48 | XMS_ITS | Clinical Summary ---
Author Organization [facility] Address [address] [place] [address] Care Team Providers Care Entry Specialist Name Role Phone Sheldon Pendleton Nurse Student Primary Care Prov ider Unavailable Allergies Active Allergy Reactions Criticality Noted Date Comments Cyanoacrylate Rash Medium 01/01/2015 Latex Rash Medium 01/01/2015 Meperidine Hives High 11/07/2008 Medications albuterol sulfate HFA 108 (90 Base) MCG/ACT inhaler TAKE 2 PUFFS BY MOUTH EVERY 6 HOURS NEEDED FOR SHORTNESS OF BREATH Active ALPRAZolam (XANAX) 0.5 MG tablet Take 1 tablet (0.5 mg total) by mouth every 12 (twelve) hours as needed. 5 Active atorvastatin (LIPITOR) 20 MG tablet Take 1 tablet (20 mg total) by mouth daily. 4 Active HYDROcodone-haley taminophen (NORCO) 10-325 MG tablet Take 1 tablet by mouth every 4 (four) hours as needed. 5 Active TRESIBA FLEXTOUCH 200 UNIT/ML injection (PEN) INJECT 100 UNITS BY SUBCUTANEOUS INJECTION DAILY WITH BREAKFAST. Active HUMALOG KWIKPEN 100 UNIT/ML injection (PEN) 15 UNITS 3 TIMES A DAY BEFORE MEALS, OK TO SUB IF DO NOT HAVE NOVOLOG 4 Active omeprazole (PRILOSEC) 20 MG capsule Take 1 capsule (20 mg total) by mouth daily. 4 Active sertraline (ZOLOFT) 100 MG tablet Take 1 tablet (100 mg total) by mouth daily. Active sildenafil (VIAGRA) 100 MG tablet Take 1 tablet (100 mg total) by mouth daily as needed for Erectile Dysfunction. 4 Active simvastatin (ZOCOR) 20 MG tablet Take 1 tablet (20 mg total) by mouth every evening. Active simvastatin (ZOCOR) 40 MG tablet Take 1 tablet (40 mg total) by mouth every evening. Active STIOLTO RESPIMAT 2.5-2.5 MCG/ACT inhaler 1 PUFF BY MOUTH DAILY Active losartan (COZAAR) 50 MG tablet Take 2 tablets (100 mg total) by mouth daily. Active Active Problems No known active problems Encounters Date Type Department Care Team Description 10/15/2024 10:53 AM CDT Anesthesia Event [facility] Endo/GI [address] [place] [address] Binh Levi MD Bracco, Kendra A, RN 10/15/2024 10:40 AM CDT - 10/15/2024 11:10 AM CDT Surgery [facility] Endo/GI [address] [place] [address] MD EGD WITH BIOPSY 10/15/2024 8:39 AM CDT - 10/15/2024 11:56 AM CDT Hospital Encounter [facility] Endo/GI [address] [place] [address] MD Discharge Disposition: Home or Self Care (Routine Discharge) 10/15/2024 Travel from Last 3 Months Social History Tobacco Use Types Packs/Day Years Used Date Smoking Tobacco: Never Smokeless Tobacco: Never Tobacco Cessation:Counseling Given: Not Answered Alcohol Use Standard Drinks/Week Comments Not Currently 0 (1 standard drink = 0.6 oz pur e alcohol) Sex and Gender Information Value Date Recorded Sex Assigned at Male 10/15/2024 8:31 AM CDT Legal Sex Male 9:46 AM VP HUMAN RESOURCES Gender Identity Not on file Sexual Orientation Not on file Last Filed Vital Signs Vital Sign Reading Time Taken Comments Blood Pressure 144/98 10/15/2024 9:05 AM CDT Pulse 87 10/15/2024 9:05 AM CDT Temperature 36.3 C (97.3 F) 10/15/2024 11:10 AM CDT Respiratory Rate 17 10/15/2024 9:05 AM CDT Oxygen Saturation 94% 10/15/2024 9:05 AM CDT Inhaled Oxygen Concentration - - Weight 154.2 kg (340 lb) 10/15/2024 9:04 AM CDT Height 182.9 cm (6') 10/15/2024 9:04 AM CDT Body Mass Index 46.11 10/15/2024 9:04 AM CDT Plan of Treatment Health Maintenance Due Date Last Done Comments Colorectal Cancer Screening Colonoscopy (10 Years) 1972 Annual Physical 1975 Hepatitis C 1990 Hepatitis B Vaccines (1 of 3 - 19+ 3-dose series) 1991 Zoster Vaccines (2 of 2) 01/04/2024 11/09/2023 DTaP, Tdap and Td Vaccines (3 - Td or Tdap) 12/16/2024 12/16/2014, 04/13/2012, 08/07/2001 Pneumococcal Vaccine: 50+ Years (3 of 3 - PCV20 or PCV21) 11/03/2026 11/03/2021, 10/03/2019, 06/29/2009, Additional history exists COVID-19 Vaccine Completed 07/23/2024, 06/2023, 06/13/2022, Additional history exists Meningococcal B Vaccine Aged Out No l onger eligible based on patient's age to complete this topic Meningococcal Vaccine Aged Out No renuka hema eligible based on patient's age to complete this topic RSV Immunizations Under 20 Months Aged Out No longer eligible based on patient's age to complete this topic Procedures Procedure Name Priority Date/Time Associated Diagnosis Comments POCT GLUCOSE - GALVAN DOCKED DEVICE Routine 10/15/2024 11:17 AM CDT UPPER GI ENDOSCOPY,BIOPSY 10/15/2024 10:45 AM CDT Gastroesophageal reflux disease without esophagitis POCT GLUCOSE - GALVAN DOCKED DEVICE Routine 10/15/2024 9:07 AM CDT EGD Routine 10/15/2024 9:05 AM CDT PATHOLOGY Routine 10/15/2024 12:00 AM CDT from Last 3 Months Results * (ABNORMAL) POCT glucose (10/15/2024 11:17 AM CDT) Only the most recent of2 resultswithin the time period is included. GLUCOSE POC 204(H) 70 - 109 10/15/2024 11:[address] [facility] 10/15/2024 11:1 7 [address] CDT us Michaela [address] MD POCT ORDERABLES - DEVICE Etelvina l Result Performing Organization Address [facility] Co de Phone Number [facility] [address] [place] [address], [phone] * Pathology (10/15/2024 12:00 AM CDT) PATHOLOGY [facility] Department of Laboratory Medicine [address] [place] [address] , extension [phone] Pathology Report Surgical Pathology Report Name: CRISTIANO ARMIJO Specimen #: [id number] Age: 2 1970 (Age: 54) Location: [facility] Sex: M Procedure Date: 10/15/2024 Hospital #: [id number] Date Received: 10/15/2024 Date Reported: 10/16/2024 Provider: MICHAELA LANE MD Source: Antrum, biopsies Clinical History: GERD without esophagitis. FINAL DIAGNOSIS: Stomach, antrum, biopsies: -Mild chronic inactive gastritis. -Mild reactive gastropathy type changes. -No Helicobacter pylori organisms are identified. Gross Description: Received in formalin, labeled with a patient label and as gastric antrum biopsy are 2 pieces of pink-lopez tissue 0.2 and 0.3 cm. The specimen is entirely submitted in cassette 1. Gross examination (when applicable), interpretation, and sign out were performed at [facility], [address] [place] [address]. Electronically Signed Out TANYA BRANNON MD [facility] TISSUE GASTRIC BIOPSY SPECIMEN / Unknown 10/15/2024 11:01 AM CDT us Michaela Lane MD PATHOLOGY/CYTOLOGY ORDERABLES Final Result Performing Organization Address [facility] Co de Phone Number [facility] [address] [place] [address], [place] [phone] from Last 3 Months Insurance MEDICAID MED [facility] [employer] Care Teams Entry Specialist Relationship Specialty Start Date End Date Sheldon Pendleton, Nurse Student PCP - General 10/15/24
--- NOTE | 2024-12-17 15:50 | ECG_ITS ---
Test Date: 2024-12-17 16:10:34 Measurements Intervals [place] Rate: 86 P: 77 PA: 149 QRS: 73 QRSD: 97 T: 66 QT: 343 QTc: 412 Interpretive Statements SINUS RHYTHM WITH MARKED SINUS ARRHYTHMIA NONSPECIFIC ST AND T-WAVE ABNORMALITY No previous ECG available for comparison Electronically Signed On 12-18-2024 11:40:49 CDT by David Dumont M.D.
== END 2024-12-17 15:35 | disposition home or self-care (01) ==
LOC: CHSCARD 15:44
PROVIDERS: PCP Internal Medicine
DX: E66.813 Obesity, class 3 (principal); I49.8 Other specified cardiac arrhythmias
CPT/HCPCS: 71046; 93005

== ENCOUNTER 2024-12-31 15:54 | Emergency (ER) | payer MEDICARE, SELFPAY ==
--- OUTSIDE RECORDS SUMMARY | 2024-12-31 15:56 | XMS_ITS | Encounter Summary ---
Author Organization [facility] Address [address] [place] [address] Care Team Providers Care Shellfish Manager Name Role Phone Nick Mosley MD Primary Care Provider [phone] Encounter Details Date Type Department Care Team (Late st Contact Info) Description 09/06/2006 Outpatient Historical [facility] Internal Medicine [address] [address] Nick Mosley MD [address] [place] [address] [address] [place] [address] Social History Tobacco Use Types Packs/Day Years Used Date Smoking Tobacco: Never Assessed Sex and Gender Information Value Date Recorded Sex Assigned at Not on file 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 Gender Identity Not on file Sexual Orientation Not on file documented as of this encounter Last Filed Vital Signs Vital Sign Reading Time Taken Comments Blood Pressure 138/84 09/06/2006 1:15 PM METALIZING SUPERVISOR Pulse - - Temperature - - Respiratory Rate - - Oxygen Saturation - - Inhaled Oxygen Concentration - - Weight 149.7 kg (330 lb) 09/06/2006 1:15 PM METALIZING SUPERVISOR Height - - Body Mass Index 44.76 06/27/2005 11:30 AM METALIZING SUPERVISOR documented in this encounter Plan of Treatment Upcoming Encounters Date Type Department Care Team (Late st Contact Info) Description 04/11/2025 10:40 AM CDT Office Visit [facility] Primary Care [address] [place] [address] Nick Mosley MD [address] [place] [address] [address] [place] [address] documented as of this encounter Visit Diagnoses Not on filedocumented in this encounter Care Teams Shellfish Manager Relationship Specialty Start Date End Date Nick Mosley MD PCP - General 11/23/07 documented as of this encounter
--- OUTSIDE RECORDS SUMMARY | 2024-12-31 15:56 | XMS_ITS | Encounter Summary ---
Author Organization [facility] Address 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 Gender Identity Not on file Sexual Orientation Not on file documented as of this encounter Plan of Treatment Upcoming Encounters Date Type Department Care Team (Late Contact Info) Description 04/11/2025 10:40 AM CDT Office Visit [facility] Primary Care [address] [place] [address] Nick Mosley MD [address] [place] [address] [address] [place] [address] documented as of this encounter Visit Diagnoses Not on filedocumented in this encounter Care Teams Exercise Equipment Specialist Relationship Specialty Start Date End Date Nick Mosley MD PCP - General 11/23/07 documented as of this encounter
--- OUTSIDE RECORDS SUMMARY | 2024-12-31 15:56 | XMS_ITS | Encounter Summary ---
Author Organization [facility] Address [address] [place] [address] Care Team Providers Care Inspector Machine Cut Glass Name Role Phone Nick Mosley MD Primary Care Provider Encounter Details Date Type Department Care Team (Late st Contact Info) Description 08/23/2005 Outpatient Historical [facility] Internal Medicine [address] [address] Nikc Mosley MD [address] [place] [address] [address] [place] [address] Social History Tobacco Use Types Packs/Day Years Used Date Smoking Tobacco: Never Assessed Sex and Gender Information Value Date Recorded Sex Assigned at Not on file Legal Sex Male 4:34 AM SYSTEMS LEAD Gender Identity Not on file Sexual Orientation Not on file documented as of this encounter Last Filed Vital Signs Vital Sign Reading Time Taken Comments Blood Pressure 140/84 08/23/2005 2:45 PM SYSTEMS LEAD Pulse - - Temperature 37.2 C (99 F) 08/23/2005 2:45 PM SYSTEMS LEAD Respiratory Rate - - Oxygen Saturation - - Inhaled Oxygen Concentration - - Weight 147 kg (324 lb) 08/23/2005 2:45 PM SYSTEMS LEAD Height - - Body Mass Index 43.94 06/27/2005 11:30 AM SYSTEMS LEAD documented in this encounter Plan of Treatment Upcoming Encounters Date Type Department Care Team (Late st Contact Info) Description 04/11/2025 10:40 AM CDT Office Visit [facility] Primary Care [address] [place] [address] Nick Mosley MD [address] [place] [phone] documented as of this encounter Visit Diagnoses Not on filedocumented in this encounter Care Teams Inspector Machine Cut Glass Relationship Specialty Start Date End Date Nick Mosley MD PCP - General 11/23/07 documented as of this encounter
--- OUTSIDE RECORDS SUMMARY | 2024-12-31 15:56 | XMS_ITS | Encounter Summary ---
Author Organization [facility] Address 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 Gender Identity Not on file Sexual Orientation Not on file documented as of this encounter Plan of Treatment Upcoming Encounters Date Type Department Care Team (Late Contact Info) Description 04/11/2025 10:40 AM CDT Office Visit [facility] Primary Care [address] [place] [address] Nick Mosley MD [address] [place] [address] [address] [place] [address] documented as of this encounter Visit Diagnoses Not on filedocumented in this encounter Care Teams In Store Marketing Representative Relationship Specialty Start Date End Date Nick Mosley MD PCP - General 11/23/07 documented as of this encounter
--- OUTSIDE RECORDS SUMMARY | 2024-12-31 15:56 | XMS_ITS | Encounter Summary ---
Author Organization [facility] Address 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 Gender Identity Not on file Sexual Orientation Not on file documented as of this encounter Plan of Treatment Upcoming Encounters Date Type Department Care Team (Late Contact Info) Description 04/11/2025 10:40 AM CDT Office Visit [facility] Primary Care [address] [place] [address] Nick Mosley MD [address] [place] [address] [address] [place] [address] documented as of this encounter Visit Diagnoses Not on filedocumented in this encounter Care Teams Manager Process Improvement Relationship Specialty Start Date End Date Nick Mosley MD PCP - General 11/23/07 documented as of this encounter
--- OUTSIDE RECORDS SUMMARY | 2024-12-31 15:56 | XMS_ITS | Encounter Summary ---
Author Organization [facility] Address 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 LAB ORDERS: 3 mo Order number: [id number] Test Ordered: COMPREHENSIVE METABOLIC PANEL W/ GLOMERULAR FILTRATION RATE, ESTIMATED (EGFR) 29695 Order number: [id number] Test Ordered: LIPID PANEL 7600 Order number: [id number] Test Ordered: HEMOGLOBIN A1c 496 272.4-HYPERLIPIDEMIA inc [...] [facility] Primary Care [address] [place] [address] Nick Mosley MD [address] [place] [address] [address] [place] [address] documented as of this encounter Visit Diagnoses Not on filedocumented in this encounter Care Teams Operator Supply Relationship Specialty Start Date End Date Nick Mosley MD PCP - General 11/23/07 documented as of this encounter
--- OUTSIDE RECORDS SUMMARY | 2024-12-31 15:56 | XMS_ITS | Encounter Summary ---
Author Organization [facility] Address 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 Gender Identity Not on file Sexual Orientation Not on file documented as of this encounter Progress Notes * Nick Mosley MD - 12/25/2007 1:58 PM CDT WEIGHT: 320lbs BLOOD PRESSURE: 120/82 Right Arm Sitting TEMPERATURE: 36.72??c Oral NURSE NAME: Nick Mosley M CHIEF [...] med recheck lab LAB ORDERS: Order number: [id number] Test Ordered: CBC W/ DIFFERENTIAL 3150 Order number: [id number] Test Ordered: COMPREHENSIVE METABOLIC PANEL & GFR [...] Description 04/11/2025 10:40 AM CDT Office Visit [facility] Primary Care [address] [place] [address] Nick Mosley MD [address] [place] [address] [address] documented as of this encounter Visit Diagnoses Not on filedocumented in this encounter Care Teams Telephone Sterilizer Relationship Specialty Start Date End Date Nick Mosley MD PCP - General 11/23/07 documented as of this encounter
--- OUTSIDE RECORDS SUMMARY | 2024-12-31 15:56 | XMS_ITS | Encounter Summary ---
Author Organization [facility] Address [address] [place] [address] Care Team Providers Care Diesel Service Technician Name Role Phone Nick Mosley MD Primary Care Provider [phone] Encounter Details Date Type Department Care Team (Late st Contact Info) Description 06/27/[address] [facility] Internal Medicine [address] [address] Nick Mosley MD [address] [place] [address] Social History Tobacco Use Types Packs/Day Years Used Date Smoking Tobacco: Never Assessed Sex and Gender Information Value Date Recorded Sex Assigned at Not on file Legal Sex Male 4:34 AM VIDEO SPECIALIST Gender Identity Not on file Sexual Orientation Not on file documented as of this encounter Last Filed Vital Signs Vital Sign Reading Time Taken Comments Blood Pressure 128/84 06/27/2005 11:30 AM VIDEO SPECIALIST Pulse - - Temperature - - Respiratory Rate - - Oxygen Saturation - - Inhaled Oxygen Concentration - - Weight 147 kg (324 lb) 06/27/2005 11:30 AM VIDEO SPECIALIST Height 182.9 cm (6') 06/27/2005 11:30 AM VIDEO SPECIALIST Body Mass Index 43.94 06/27/2005 11:30 AM VIDEO SPECIALIST documented in this encounter Plan of Treatment Upcoming Encounters Date Type Department Care Team (Late st Contact Info) Description 04/11/2025 10:40 AM CDT Office Visit [facility] Primary Care [address] [place] [address] Nick Mosley MD [address] [place] [phone] documented as of this encounter Visit Diagnoses Not on filedocumented in this encounter Care Teams Diesel Service Technician Relationship Specialty Start Date End Date Nick Mosley MD PCP - General 11/23/07 documented as of this encounter
--- OUTSIDE RECORDS SUMMARY | 2024-12-31 15:56 | XMS_ITS | Clinical Summary ---
Author Organization [facility] Address [address] [place] [address] Care Team Providers Care State Fire Marshal Name Role Phone Nick Mosley MD Primary Care Provider [phone] Allergies Active Allergy Reactions Criticality Noted Date [...] blood sugar three times daily. Dx E11.9, jail insulin use. OneTouch Ultra. 1 Each 07/04/20 18 Active carvedilol (COREG) 6.25 mg tablet Take 1 Tablet (6.25 mg) by mouth 2 times daily. 180 Tablet 3 07/03/20 19 Active Additional Information Patient not taking.Reported on 10/04/2024 montelukast (Singulair) 10 mg tablet Take 1 Tablet (10 mg) by mouth daily at bedtime. 30 Tablet 3 07/06/20 21 Active Insulin [place], Disposable, 32 gauge x 5/32 NeedleIndications: Type 2 diabetes mellitus with hyperglycemia, with long-term current use of insulin ([facility]) 4 times daily with insulin. 300 Each [...] 06/08/20 23 Active naloxone (NARCAN) 4 mg/spray [place], Non-Aerosol EMERGENCY USE ONLY: Administer 1 spray [...] Active empagliflozin (JARDIANCE) 25 mg tablet Lot: [id number] ex: 08/2024 qty: 2 7 Tablet 07/13/20 [...] DAY 90 Tablet 2 09/20/19 25 Active losartan (COZAAR) 100 mg tablet Take 1 Tablet (100 mg) by mouth daily. 100 Tablet 10/04/19 25 Active amLODIPine (NORVASC) 2.5 mg tablet Take 1 Tablet (2.5 mg) by mouth daily at bedtime. 100 Tablet 10/04/19 25 Active atorvastatin (Lipitor) 20 mg tablet Take 1 Tablet (20 mg) by mouth daily. 100 Tablet 11/01/19 25 Active tirzepatide (Mounjaro) 5 mg/0.5 mL Pen Injector Inject 0.5 mL (5 mg) by subcutaneous injection every 7 days. 6 mL 11/01/19 25 Active tiotropium-olodate roL (Stiolto Respimat) 2.5-2.5 mcg/actuation metered inhaler Take 1 Puff by inhalation daily. 12 Gram 2 11/30/19 25 Active Insulin [place], Disposable, (Sure-Fine Pen [place]) 31 gauge x 10/20 Needle For use with insulin 4 x daily 300 Each 12/21/19 25 Active ALPRAZolam (XANAX) 0.5 mg tabletIndications: Other specified anxiety disorders Take 1 Tablet (0.5 mg) by mouth 2 times daily as needed for Anxiety. 60 Tablet 1 12/21/19 25 Active HYDROcodone-acetam inophen (NORCO) 10-325 mg TabletIndications: Other osteoarthritis of spine, lumbar region Take 1 Tablet by mouth every 4 hours as needed for Pain, Moderate. Max Daily Amount: 6 Tablets 180 Tablet 01/01/20 25 Active ALPRAZolam (XANAX) 0.5 mg tabletIndications: Other specified anxiety disorders Take 1 Tablet (0.5 mg) by mouth 2 times daily as needed for Anxiety. 60 Tablet 1 10/02/19 25 025 Discontin ued(Reord er) HYDROcodone-acetam inophen (NORCO) 10-325 mg TabletIndications: Other osteoarthritis of spine, lumbar region Take 1 Tablet by mouth every 4 hours as needed for Pain, Moderate. Max Daily Amount: 6 Tablets 180 Tablet 11/30/19 25 025 Discontin ued(Reord er) Active Problems Patient Care Coordination No te Formatting of this note migh t be different from the original. 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 10/09/2018 Overview (01/26/2024): Overview: Added automatically from request for surgery [id number] Ankle syndesmosis disruption, right, initial enc ounter 10/09/2018 Overview (01/26/2024): Overview: Added automatically from request for surgery [id number] Type 2 diabetes mellitus wit h hyperglycemia, with long-term current use of insulin 10/24/2016 Morbid obesity with BMI of 50.0-59.9, adult 08/0 11/2015 Narcotic dependence 01/11/2016 Other sleep apnea 03/13/2006 [...] Encounters Date Type Department Care Team Description 12/31/2024 [place] [address] [place] [phone] Nick Mosley MD Other osteoarthritis of spine, lumbar region 12/20/2024 [place] [address] [place] [address] Nick Mosley MD Other specified anxiety disorders 12/20/2024 [place] [address] [place] [address] Nick Mosley MD New Prescription Request 12/20/2024 Orders Only [address] [place] [address] Provider, Abstract 12/04/[address] [place] [address] Nick Mosley MD Clinical Consult Before Scheduling 11/29/[address] [place] [address] Nick Mosley MD 11/29/[address] [place] [address] Nick Mosley MD Other osteoarthritis of spine, lumbar region 11/01/2024 Orders Only [address] [place] [address] Provider, Abstract 10/31/[address] [place] [address] Nick Mosley MD 10/31/[address] [place] [address] Nick Mosley MD 10/31/[address] [place] [address] Nick Mosley MD Other osteoarthritis of spine, lumbar region 10/23/2024 External Device Data ST[facility] ABSTRACTION Provider, Abstract 10/15/2024 External Device Data [place] ABSTRACTION Provider, Abstract 10/15/2024 External Device Data [place] ABSTRACTION Provider, Abstract 10/12/2024 External Device Data [place] ABSTRACTION Provider, Abstract 10/11/2024 External Device Data [place] ABSTRACTION Provider, Abstract 10/09/2024 External Device Data [place] ABSTRACTION Provider, Abstract 10/04/2024 11:40 AM VICE PRESIDENT OF FINANCE Office Visit [facility] [address] [address] [place] [address] Nick Mosley MD Type 2 diabetes mellitus with stage 3a chronic kidney disease, with long-term current use of insulin ([facility]) (Primary Dx); Essential hypertension, benign; Vitamin D deficiency; Vitamin B12 deficiency (non anemic); Type 2 diabetes mellitus with hyperglycemia, with long-term current use of insulin (CMS/HCC); Other hyperlipidemia; Chest pain, unspecified type; Other sleep apnea; Narcotic dependence ([facility]); Adult BMI 45.0-49.9 kg/sq m ([facility]); Other osteoarthritis of spine, lumbar region; Other specified anxiety disorders 10/04/2024 Telephone [facility] [address] [place] [address] Nick Mosley MD Medication Refill; Med Refill from Last 3 Months Immunizations Immunization Administration Dates Next Due (ADACEL/BOOSTRIX)(10 YR UP) TDAP VACCINE, 0.5ML, IM 12/16/2014,04/13/2012 (PFIZER)(12 YR UP) COVID-19 VACCINE - EMERGENCY USE AUTHORIZATION, MRNA, [id number](PF) 30 MCG/0.3 ML IM SUSP 06/17/2023,03/09/2021,02/15/2021 (PNEUMOVAX [...] on file Legal Sex Male 4:34 AM VICE PRESIDENT OF FINANCE Gender Identity Not on file Sexual Orientation Not on file Last Filed Vital Signs Vital Sign Reading Time Taken Comments Blood Pressure 136/78 10/04/2024 10:54 AM VICE PRESIDENT OF FINANCE Pulse 95 10/04/2024 10:54 AM VICE PRESIDENT OF FINANCE Temperature 37.2 C (98.9 F) 10/04/2024 10:54 AM VICE PRESIDENT OF FINANCE Respiratory Rate 18 10/31/2023 11:24 AM CDT Oxygen Saturation 97% 10/04/2024 10:54 AM VICE PRESIDENT OF FINANCE Inhaled Oxygen Concentration - - Weight 155.6 kg (343 lb) 10/04/2024 10:54 AM VICE PRESIDENT OF FINANCE Height 182.9 cm (6') 10/04/2024 10:54 AM VICE PRESIDENT OF FINANCE Body Mass Index 46.52 10/04/2024 10:54 AM VICE PRESIDENT OF FINANCE Plan of Treatment Upcoming Encounters Date Type Department Care Team (Late st Contact Info) Description 04/11/2025 10:40 AM CDT Office Visit [facility] Primary Care [address] [place] [address] Nick Mosley MD [address] [facility] [address] [place] [address] Health Maintenance Due Date Last [...] (2023-2 5 season) 2024 06/17/2023, 03/09/2021, 02/15/2021 E uACR (Auto Order) 08/07/2024 12/25/2023 , 11/07/2022, [...] history exists Medical Devices Implanted Type Area Vehicle Leasing And Rental Manager Device Identifier Shelf Expiration Date Model / Serial / Lot Dbm Osteowrap Xl [id number] - [id number] Implanted:Qty : 1 on 01/05/2015 by Nestor Quezada DDS at [facility] Right: Orbital Floor BACTERIN 12/10/2015 [id number] / [id number] / Screws/Cage Of Back Procedures Procedure Name Priority Date/Time Associated Diagnosis Comments XR CHEST 2 VW W FLUOROSCOPY Routine 12/17/2024 1:25 PM CDT COMPREHENSIVE METABOLIC PANEL Routine 10/02/2024 8:06 AM VICE PRESIDENT OF FINANCE Other hyperlipidemia LIPID PANEL Routine 10/02/2024 8:06 AM VICE PRESIDENT OF FINANCE Other hyperlipidemia HEMOGLOBIN A1C Routine 10/02/2024 8:06 AM VICE PRESIDENT OF FINANCE Type 2 diabetes mellitus with stage 3a chronic kidney disease, with long-term current use of insulin ([facility]) MICROALBUMIN/CREATINI NE RATIO, RANDOM UR Routine 12/25/2023 8:13 AM CDT Type 2 diabetes mellitus with stage 3a chronic kidney disease, with long-term current use of insulin ([facility]) COLONOSCOPY REPORT 07/04/2022 3: 23 PM VICE PRESIDENT OF FINANCE HM DIABETES EYE EXAM Routine 10/20/2021 from Last 3 Months or Most Recently Relevant to Health Maintenance Results * XR CHEST 2 VW W FLUOROSCOPY (12/17/2024 1:25 PM CDT) Anatomical Region Laterality Modality Chest Other Abstract Provider DIAGNOSTIC IMAGING ORDERABLES Edited Result - Final * (ABNORMAL) HEMOGLOBIN A1C (10/02/2024 8:06 AM VICE PRESIDENT OF FINANCE) HEMOGLOBIN A1C 11.7(H) <5.7 % of total Hgb [employer] Comment: For someone without known diabetes, [...] children. ESTIMATED AVERAGE GLUCOSE (MG/DL) 289 mg/dL [employer] ESTIMATED AVERAGE GLUCOSE (MMOL/L) 16.0 mmol/L [employer] Comment: FASTING:YES MULTIPLE TESTING PRIORITIES; ROUTINE TESTING TO FOLLOW. FASTING: YES Test Performed at: [place] [address] [address] [place] [address] Cj Sheridan Blood 10/02/2024 8:06 AM VICE PRESIDENT OF FINANCE 10/02/2024 8:07 AM VICE PRESIDENT OF FINANCE Nick Mosley MD CHEMISTRY ORDERABLES Final Re sult [facility] [phone] [facility] [address] [address] [place] [address] * LIPID PANEL (10/02/2024 8:06 AM VICE PRESIDENT OF FINANCE) CHOLESTEROL 176 <200 mg/dL [facility] [...] factors. LDL-C is now calculated using the Teresa calculation, which is a validated novel method providing better accuracy than the Friedewald equation in the estimation of LDL-C. Mason PENNY et al. GUILLERMINA. 2013;310(19): 1679-2774 (http://education.Sprinkle/faq/BKT921) CHOL/HDL RATIO 3.1 <5.0 (calc) [facility] NON-HDL CHOLESTEROL 120 <130 mg/dL (calc) [facility] Comment: For patients with diabetes plus 1 major ASCVD risk factor, treating to a non-HDL-C goal of <100 mg/dL (LDL-C of <70 mg/dL) is considered a therapeutic option. Test Performed at: [facility] [address] [place] [address] Cj Sheridan MD Blood 10/02/2024 8:06 AM VICE PRESIDENT OF FINANCE 10/02/2024 8:07 AM VICE PRESIDENT OF FINANCE us Nick Mosley MD CHEMISTRY ORDERABLES Final Re sult [facility] [phone] [facility] [address] [place] [address] * (ABNORMAL) COMPREHENSIVE METABOLIC PANEL (10/02/2024 8:06 AM VICE PRESIDENT OF FINANCE) GLUCOSE 255(H) 65 - 99 mg/dL [email or web address] Comment: Fasting reference interval For someone without known diabetes, a glucose value >125 mg/dL indicates that they may have diabetes and this should be confirmed with a follow-up test. BUN 13 7 - 25 mg/dL [facility] CREATININE 0.77 0.70 - 1.30 mg/dL [facility] GFR 108 > OR = 60 mL/min/1. 73m2 [facility] BUN/CREAT RATIO SEE NOTE: (calc) [facility] Comment: Not Reported: [...] [facility] Comment: Test Performed at: [facility] [address] [place] [address] Cj Sheridan MD Blood 10/02/2024 8:06 AM VICE PRESIDENT OF FINANCE 10/02/2024 8:07 AM VICE PRESIDENT OF FINANCE us Nick Mosley MD CHEMISTRY ORDERABLES Final Re sult [facility] [phone] [facility] [address] [facility] [place] [address] * (ABNORMAL) MICROALBUMIN/CREATININE RATIO, RANDOM UR (12/25/2023 8:13 AM CDT) Creatinine, Urine 120 20 - 320 mg/dL [facility] MICROALBUMIN, URINE 27.0 See Note: mg/dL [facility] Comment: Reference Range: Reference Range Not established MICROALBUMIN/CREAT RATIO, UR 225(H) <30 mg/g creat [facility] Comment: The ADA defines abnormalities in albumin excretion as follows: Albuminuria Category Result (mg/g creatinine) Normal to Mildly increased <30 Moderately increased 30-299 Severely increased > OR = 300 The ADA recommends that at least two of three specimens collected within a 3-6 month period be abnormal before considering a patient to be within a diagnostic category. FASTING:YES FASTING: YES Test Performed at: [facility] [address] [place] [address] Cj Sheridan MD Urine URINE SPECIMEN OBTAINED BY CLEAN CATCH PROCEDURE / Unknown 12/25/2023 8:13 AM CDT 12/25/2023 8:13 AM CDT us Nick Mosley MD URINE ORDERABLES Final Result [facility] [phone] [facility] [place] [address] [place] [address] * COLONOSCOPY REPORT (07/04/2022 3:23 PM VICE PRESIDENT OF FINANCE) Narrative Procedure Note Truong Roche MD - 07/04/2022 3:22 PM CST [facility] Endoscopy Patient Name: Cristiano Armijo Procedure Date: 07/04/2022 Date of : 1970 Attending MD: Truong Roche MD, Procedure: Colonoscopy Indications: Screening for colorectal malignant neoplasm (first) Providers: Truong Roche MD Referring MD: Nick Mosley MD Medicines: TIVA Complications: No immediate complications. Procedure: Informed consent was obtained for the procedure, including moderate sedation after risks were discussed. Based on the pre-procedure assessment, including review of the patient's medical history, medications, allergies, and review of systems, the patient was deemed to be an appropriate candidate for sedation. A timeout was performed. Continuous ECG monitoring, pulse oximetry, blood pressure monitoring, and direct observation were performed. The Colonoscope was introduced through the anus and advanced to the terminal ileum. The colonoscopy was performed without difficulty. The patient tolerated the procedure well. The quality of the bowel preparation was good. Estimated Blood Loss: Estimated blood loss was minimal. Findings: A 3 mm polyp was found in the hepatic flexure. The polyp was sessile. The polyp was removed with a cold snare. Resection and retrieval were complete. A 10 mm polyp was found in the transverse colon. The polyp was semi-sessile. The polyp was removed with a hot snare. Resection and retrieval were complete. A 3 mm polyp was found in the splenic flexure. The polyp was sessile. The polyp was removed with a cold snare. Resection and retrieval were complete. A 10 mm polyp was found in the proximal sigmoid colon. The polyp was semi-pedunculated. The polyp was removed with a cold snare. Resection and retrieval were complete. Non-bleeding internal hemorrhoids were found during retroflexion. The hemorrhoids were small. The exam was otherwise without abnormality. Impression: - One 3 mm polyp at the hepatic flexure, removed with a cold snare. Resected and retrieved. - One 10 mm polyp in the transverse colon, removed with a hot snare. Resected and retrieved. - One 3 mm polyp at the splenic flexure, removed with a cold snare. Resected and retrieved. - One 10 mm polyp in the proximal sigmoid colon, removed with a cold snare. Resected and retrieved. - Non-bleeding internal hemorrhoids. - The examination was otherwise normal. Recommendation: - Await pathology results. - Repeat colonoscopy in 3 years for surveillance. Truong Roche MD 07/04/2022 3:22:28 PM This report has been signed electronically. Number of Addenda: [address]; [place] [address] us Truong Roche MD GI PROCEDURE ORDERABLES Etelvina l Result * DIABETES EYE EXAM (10/20/2021) us Abstract Provider HEALTH MAINTENANCE Edited Resu lt - Final [facility] CLIA# [id number] [place] [address] from Last 3 Months or Most Recently Relevant to Health Maintenance Insurance Advance Directives For more information, please contact: [phone] * Full Code (Latest Code Status on File) Date Activated Date Inactivated Comments 07/04/2022 1:42 PM 07/04/2022 6:39 PM * Full Code Date Activated Date Inactivated Comments 01/29/2021 11:48 AM 01/29/2021 2:47 PM * Full Code Date Activated Date Inactivated Comments 01/05/2015 12:37 PM 01/05/2015 8:41 PM * Full Code Date Activated Date Inactivated Comments 01/05/2015 11:18 AM 01/05/2015 12:37 PM Care Teams State Fire Marshal Relationship Specialty Start Date End Date Nick Mosley MD PCP - General 11/23/07
--- OUTSIDE RECORDS SUMMARY | 2024-12-31 15:56 | XMS_ITS | Encounter Summary ---
Author Organization [facility] Address 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 LAB ORDERS: 3mo Order number: [id number] Test Ordered: COMPREHENSIVE METABOLIC PANEL W/ GLOMERULAR FILTRATION RATE, ESTIMATED (EGFR) 42600 Order number: [id number] Test Ordered: LIPID PANEL 7600 Order number: [id number] Test Ordered: HEMOGLOBIN A1c 496 780.57-SLEEP APNEA likely needs cpap LAB ORDERS: Order number: [id number] Test Ordered: SLEEP STUDY St[facility] krystin RETURN VISIT : Patient instructed to return in 3 months. Electronically Signed by: Nick Mosley MD on Monday, March 13, 2006 documented in this encounter Plan of Treatment Upcoming Encounters Date Type Department Care Team (Late st Contact Info) Description 04/11/2025 10:40 AM CDT Office Visit [facility] [place] [address] Nick Mosley MD [address] [place], [place] [address] documented as of this encounter Visit Diagnoses Not on filedocumented in this encounter Care Teams President Practicing Urologist Relationship Specialty Start Date End Date Nick Mosley MD PCP - General 11/23/07 documented as of this encounter
--- OUTSIDE RECORDS SUMMARY | 2024-12-31 15:56 | XMS_ITS | Encounter Summary ---
Author Organization [facility] Address 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 Gender Identity Not on file Sexual Orientation Not on file documented as of this encounter Progress Notes * Nick Mosley MD - 12/19/2007 6:25 PM CDT WEIGHT: 314lbs BLOOD PRESSURE: 120/80 Right Arm Sitting TEMPERATURE: 37.83??c Oral NURSE NAME: Deb Cabral R TOBACCO [...] reassess LAB ORDERS: 3 mo Order number: [id number] Test Ordered: COMPREHENSIVE METABOLIC PANEL & GFR 1112 Order number: [id number] Test Ordered: HEMOGLOBIN A1C 1814 Order number: [id number] Test Ordered: LIPID PANEL 1078 272.4-HYPERLIPIDEMIA add [...] Description 04/11/2025 10:40 AM CDT Office Visit [facility] Primary [address] [place] [address] Nick Mosley MD [address] [place] [address] [address] [place] [address] documented as of this encounter Visit Diagnoses Not on filedocumented in this encounter Care Teams Song Lyricist Relationship Specialty Start Date End Date Nick Mosley MD PCP - General 11/23/07 documented as of this encounter
--- OUTSIDE RECORDS SUMMARY | 2024-12-31 15:56 | XMS_ITS | Encounter Summary ---
Author Organization [facility] Address 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 Gender Identity Not on file Sexual Orientation Not on file documented as of this encounter Plan of Treatment Upcoming Encounters Date Type Department Care Team (Late Contact Info) Description 04/11/2025 10:40 AM CDT Office Visit [facility] Primary Care [address] [place] [address] Nick Mosley MD [address] [place] [address] [address] [place] [address] documented as of this encounter Visit Diagnoses Not on filedocumented in this encounter Care Teams Cigarette Machines Mechanic Relationship Specialty Start Date End Date Nick Mosley MD PCP - General 11/23/07 documented as of this encounter
--- OUTSIDE RECORDS SUMMARY | 2024-12-31 15:56 | XMS_ITS | Encounter Summary ---
Author Organization [facility] Address 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 Gender Identity Not on file Sexual Orientation Not on file documented as of this encounter Plan of Treatment Upcoming Encounters Date Type Department Care Team (Late Contact Info) Description 04/11/2025 10:40 AM CDT Office Visit [facility] Primary Care [address] [place] [address] Nick Mosley MD [address] [place] [address] [address] [place] [address] documented as of this encounter Visit Diagnoses Not on filedocumented in this encounter Care Teams Picker Tender Relationship Specialty Start Date End Date Nick Mosley MD PCP - General 11/23/07 documented as of this encounter
--- OUTSIDE RECORDS SUMMARY | 2024-12-31 15:56 | XMS_ITS | Encounter Summary ---
Author Organization [facility] Address 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 Gender Identity Not on file Sexual Orientation Not on file documented as of this encounter Plan of Treatment Upcoming Encounters Date Type Department Care Team (Late Contact Info) Description 04/11/2025 10:40 AM CDT Office Visit [facility] Primary Care [address] [place] [address] Nick Mosley MD [address] [place] [address] [address] [place] [address] documented as of this encounter Visit Diagnoses Not on filedocumented in this encounter Care Teams Auto Wheel Alignment Specialist Relationship Specialty Start Date End Date Nick Mosley MD PCP - General 11/23/07 documented as of this encounter
--- OUTSIDE RECORDS SUMMARY | 2024-12-31 15:56 | XMS_ITS | Encounter Summary ---
Author Organization [facility] Address 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 Gender Identity Not on file Sexual [...] Body Mass Index 44.21 06/27/2005 11:30 AM HAIR OR BEAUTY SALON MANAGER documented in this encounter Plan of Treatment Upcoming Encounters Date Type Department Care Team (Late st Contact Info) Description 04/11/2025 10:40 AM CDT Office Visit [facility] Primary Care [address] [place] [address] Nick Mosley MD [address] [place] [address] [address] [place] [address] documented as of this encounter Visit Diagnoses Not on filedocumented in this encounter Care Teams Overnight Associate Relationship Specialty Start Date End Date Nick Mosley MD PCP - General 11/23/07 documented as of this encounter
--- OUTSIDE RECORDS SUMMARY | 2024-12-31 15:56 | XMS_ITS | Encounter Summary ---
Author Organization [facility] Address 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 Gender Identity Not on file Sexual Orientation Not on file documented as of this encounter Progress Notes * Nick Mosley MD - 05/21/2008 2:21 AM CDT TIME:10:21 am PATIENT`S HOME PHONE: PATIENT`S WORK PHONE: PATIENT`S INSURANCE: [place] [employer] [facility] WHO TOOK THE CALL: Alison Adorno R [...] Visit [facility] [place] [address] Nick Mosley MD [address] [place], [place] [id number] documented as of this encounter Visit Diagnoses Not on filedocumented in this encounter Care Teams Customer Success Representative Relationship Specialty Start Date End Date Nick Mosley MD PCP - General 11/23/07 documented as of this encounter
--- OUTSIDE RECORDS SUMMARY | 2024-12-31 15:56 | XMS_ITS | Encounter Summary ---
Author Organization [facility] Address [address] [place] [address] Care Team Providers Care Meat Selector Name Role Phone Nick Mosley MD Primary Care Provider [phone] Encounter Details Date Type Department Care Team (Late st Contact Info) Description 03/26/2007 Outpatient Historical [facility] Internal Medicine [address] [address] Nick Mosley MD [address] [place] [address] [address] [place] [address] Social History Tobacco Use Types Packs/Day Years Used Date Smoking Tobacco: Never Assessed Sex and Gender Information Value Date Recorded Sex Assigned at Not on file Legal Sex Male 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 PHYSICAL Gender Identity Not on file Sexual Orientation [...] Body Mass Index 43.4 06/27/2005 11:30 AM THERAPIST PHYSICAL documented in this encounter Plan of Treatment Upcoming Encounters Date Type Department Care Team (Late st Contact Info) Description 04/11/2025 10:40 AM CDT Office Visit [facility] Primary Care [address] [place] [address] Nick Mosley MD [address] [place] [address] [place] [address] documented as of this encounter Visit Diagnoses Not on filedocumented in this encounter Care Teams Meat Selector Relationship Specialty Start Date End Date Nick Mosley MD PCP - General 11/23/07 documented as of this encounter
--- OUTSIDE RECORDS SUMMARY | 2024-12-31 15:56 | XMS_ITS | Encounter Summary ---
Author Organization [facility] Address [address] [place] [address] Care Team Providers Care Heavy Machinery Assembler Name Role Phone Nick Mosley MD Primary Care Provider [phone] Encounter Details Date Type Department Care Team (Late st Contact Info) Description 05/04/2007 Outpatient Historical [facility] Internal Medicine [address] [address] Nick Mosley MD [address] [place] [address] [address] [place] [address] Social History Tobacco Use Types Packs/Day Years Used Date Smoking Tobacco: Never Assessed Sex and Gender Information Value Date Recorded Sex Assigned at Not on file 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 Gender Identity Not on file Sexual Orientation [...] Body Mass Index 42.99 06/27/2005 11:30 AM CUSTOMER SUPPORT EXECUTIVE documented in this encounter Plan of Treatment Upcoming Encounters Date Type Department Care Team (Late st Contact Info) Description 04/11/2025 10:40 AM CDT Office Visit [facility] Primary Care [address] [place] [address] Nick Mosley MD [address] [place] [address] [address] [place] [address] documented as of this encounter Visit Diagnoses Not on filedocumented in this encounter Care Teams Heavy Machinery Assembler Relationship Specialty Start Date End Date Nick Mosley MD PCP - General 11/23/07 documented as of this encounter
--- OUTSIDE RECORDS SUMMARY | 2024-12-31 15:56 | XMS_ITS | Encounter Summary ---
Author Organization [facility] Address 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 PHARMACY NUMBER: [phone] PROBLEMS: for about 1 day SORE THROAT: [...] HOME PHONE: PATIENT`S WORK PHONE: PATIENT`S INSURANCE: [employer] WHO TOOK THE CALL: Leigh Carolina S GENERAL INFORMATION ALTERNATIVE PHONE NUMBER: [phone] ext [phone] WHO CALLED: Patient`s spouse called. PHARMACY NUMBER: [phone] PROBLEMS: SORE THROAT: Patient complains of sore [...] Description 04/11/2025 10:40 AM CDT Office Visit [facility] Primary Care [address] [place] [address] Nick Mosley MD [address] [place] [address] [address] documented as of this encounter Visit Diagnoses Not on filedocumented in this encounter Care Teams Money Manager Relationship Specialty Start Date End Date Nick Mosley MD PCP - General 11/23/07 documented as of this encounter
--- OUTSIDE RECORDS SUMMARY | 2024-12-31 15:56 | XMS_ITS | Encounter Summary ---
Author Organization [facility] Address 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 Gender Identity Not on file Sexual [...] Body Mass Index 43.94 06/27/2005 11:30 AM PROPERTY MAINTENANCE TECHNICIAN documented in this encounter Plan of Treatment Upcoming Encounters Date Type Department Care Team (Late st Contact Info) Description 04/11/2025 10:40 AM CDT Office Visit [facility] Primary Care [address] [place] [address] Nick Mosley MD [address] [place] [address] [address] [place] [address] documented as of this encounter Visit Diagnoses Not on filedocumented in this encounter Care Teams Powderman Relationship Specialty Start Date End Date Nick Mosley MD PCP - General 11/23/07 documented as of this encounter
--- OUTSIDE RECORDS SUMMARY | 2024-12-31 15:56 | XMS_ITS | Encounter Summary ---
Author Organization [facility] Address 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 If yes, which pharmacy? Options: [facility] [phone] [x] Call back from provider [] Inform [...] Received the Bivalent Vaccine [] Not vaccinated CASTING MACHINE SETTER documented in this encounter Plan of Treatment Upcoming Encounters Date Type Department Care Team (Late st Contact Info) Description 04/11/2025 10:40 AM CDT Office Visit [facility] Primary Care [address] [place] [address] Nick Mosley MD [address] [place] [address] [address] [place] [address] documented as of this encounter Visit Diagnoses Not on filedocumented in this encounter Care Teams Press And Blow Machine Tender Relationship Specialty Start Date End Date Nick Mosley MD PCP - General 11/23/07 documented as of this encounter
--- OUTSIDE RECORDS SUMMARY | 2024-12-31 15:56 | XMS_ITS | Encounter Summary ---
Author Organization [facility] Address 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 LAB ORDERS: Order number: [id number] Test Ordered: URINALYSIS W/O MICRO 22489 with Mar lab Order number: [id number] Test Ordered: PSA, TOTAL 1002 Order number: [id number] Test Ordered: URINALYSIS WITH REFLEX CULTURE 2221 724.5-BACK PAIN as above, reassess if continues, no recent injury difficult sitting in truck ok offwork LAB ORDERS: Order number: [id number] Test Ordered: HEMOCCULT SINGLE 21332 PREVENTIVE COUNSELING The patient was counseled regarding [...] [facility] Primary Care [address] [place] [address] Nick Mosley MD [address] [place] [address] [address] documented as of this encounter Visit Diagnoses Not on filedocumented in this encounter Care Teams Generalist Relationship Specialty Start Date End Date Nick Mosley MD PCP - General 11/23/07 documented as of this encounter
--- OUTSIDE RECORDS SUMMARY | 2024-12-31 15:56 | XMS_ITS | Encounter Summary ---
Author Organization [facility] Address 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 Left voicemail FLOOR LAYER documented in this encounter Plan of Treatment Upcoming Encounters Date Type Department Care Team (Late st Contact Info) Description 04/11/2025 10:40 AM CDT Office Visit [facility] Er Care [address] [place] [address] Nick Mosley MD [address] [place] [address] [address] [place] [address] documented as of this encounter Visit Diagnoses Not on filedocumented in this encounter Care Teams Wash Test Checker Relationship Specialty Start Date End Date Nick Mosley MD PCP - General 11/23/07 documented as of this encounter
--- OUTSIDE RECORDS SUMMARY | 2024-12-31 15:56 | XMS_ITS | Encounter Summary ---
Author Organization [facility] Address 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 Gender Identity Not on file Sexual Orientation Not on file documented as of this encounter Plan of Treatment Upcoming Encounters Date Type Department Care Team (Late Contact Info) Description 04/11/2025 10:40 AM CDT Office Visit [facility] Primary Care [address] [place] [address] Nick Mosley MD [address] [place] [address] [address] [place] [address] documented as of this encounter Visit Diagnoses Not on filedocumented in this encounter Care Teams Painter Tumbling Barrel Relationship Specialty Start Date End Date Nick Mosley MD PCP - General 11/23/07 documented as of this encounter
--- OUTSIDE RECORDS SUMMARY | 2024-12-31 15:56 | XMS_ITS | Encounter Summary ---
Author Organization [facility] Address 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 Gender Identity Not on file Sexual [...] reassess LAB ORDERS: 2 mo Order number: [id number] Test Ordered: COMPREHENSIVE METABOLIC PANEL & GFR 1112 Order number: [id number] Test Ordered: HEMOGLOBIN A1C 1814 Order number: [id number] Test Ordered: LIPID PANEL 1078 272.4-HYPERLIPIDEMIA enc [...] Visit [facility] Primary Care [address] [address] Nick Mosley MD [address] [place] [address] documented as of this encounter Visit Diagnoses Not on filedocumented in this encounter Care Teams Sanding Machine Operator Relationship Specialty Start Date End Date Nick Mosley MD PCP - General 11/23/07 documented as of this encounter
--- OUTSIDE RECORDS SUMMARY | 2024-12-31 15:56 | XMS_ITS | Encounter Summary ---
Author Organization [facility] Address 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 PRODUCER Gender Identity Not on file Sexual Orientation Not on file documented as of this encounter Plan of Treatment Upcoming Encounters Date Type Department Care Team (Late Contact Info) Description 04/11/2025 10:40 AM CDT Office Visit [facility] Primary Care [address] [place] [address] Nick Mosley MD [address] [place] [address] [address] [place] [address] documented as of this encounter Visit Diagnoses Not on filedocumented in this encounter Care Teams Pivot Maker Relationship Specialty Start Date End Date Nick Mosley MD PCP - General 11/23/07 documented as of this encounter
--- OUTSIDE RECORDS SUMMARY | 2024-12-31 15:56 | XMS_ITS | Continuity of Care Document ---
Author Organization [facility] Address [address] [place] [address] Phone Care Team Providers Care Contracts Law Professor Name Role Phone Cong Veronica MD Unavailable Unavailable Allergies, Adverse Reactions, Alerts Substance Reaction Status Criticality No Known allergies Medications Medication Instructions Dosage Effective Dates (start - stop) Status Comments Zocor 5 mg tablet take 1 tablet (5MG) by oral route every day in the evening - Active Lantus 100 unit/mL Sub-Q inject by subcutaneous route as per insulin protocol 0.00 - Active LISINOPRIL (unknown strength) take 1 tablet by oral route every day Not Available - Active ZOLOFT (unknown strength) take 1 tablet by oral route every day Not Available - Active Procedures Procedure Date Office/outpatient Visit, [...] Providers Copied on Encounter Office/outpa tient Visit, [facility], [address] [place], [place], [id number], [place] tel:[phone] SEC Karl [place] Professional Diabetes Mellitus Type 2, UncomplicatedD iabetes Mellitus Type 2, UncomplicatedR OSACEA [address] [facility], [address], [place], [place], [id number], [place]. tel:[phone] Referring Provider: Nick Mosley MD M, [address] [facility] [address], [place], [address]. tel:[phone] Family History Family Member Type Diagnosis Age At Onset Maternal grandmother Problem (finding) hypertension Maternal aunt Problem (finding) Diabetes mellitus Problem (finding) Payers Payer name Insurance type Covered alliance party ID Authoriza tion(s) Medicare [facility] [id number] Social History Type Description Quantity Date Captured [...] Related to Diabe mario Type II no cloth bale header - DM letter Related to Di abetes Type II rosacea-notes am mattering occ - HMP Related to Acne Rosacea Assessments Type Assessment Date No Information Patient Care Teams Name Effective Dates (start - stop) Status Members No Information
--- OUTSIDE RECORDS SUMMARY | 2024-12-31 15:56 | XMS_ITS | Encounter Summary ---
Author Organization [facility] Address [address] [place] [address] Care Team Providers Care Audit Clerk Name Role Phone Nick Mosley MD Primary Care Provider [phone] Reason for Visit * Reason Onset Date Comments Medication Refill 12/31/2024 Encounter Details Date Type Department Care Team (Late st Contact Info) Description 12/31/2024 Refill [facility] Primary Care [address] [place] [address] Nick Mosley MD [address] [place] [address] [address] [place] [address] Other osteoarthritis of spine, lumbar region Social History Tobacco Use Types Packs/Day Years [...] file Legal Sex Male 4:34 AM CHIEF DISPATCHER Gender Identity Not on file Sexual Orientation Not on file documented as of this encounter Miscellaneous Notes * Telephone Encounter - Zenia Downey LPN - 12/31/2024 9:07 AM CDT 9:07 AM 12/31/2024 Date of last visit addressing condition(s) being treated: 10/04/24 Date of next visit in this department: 04/11/2025 Correct Pharmacy: Yes Recent Visits Date Type Provider Dept 10/04/24 Office Visit Nick Mosley MD [facility] 02/29/24 Office Visit Nick Mosley MD [facility] 01/26/24 Video Visit Nick Mosley MD [facility] 12/27/23 Video Visit Nick Mosley MD [facility] Showing recent visits within past 400 days with a meds authorizing provider and meeting all other requirements Future Appointments Date Type Provider Dept 04/11/25 Appointment Nick Mosley MD [facility] Showing future appointments within next 400 days with a meds authorizing provider and meeting all other requirements Zenia JOHNS documented in this encounter Plan of Treatment Upcoming Encounters Date Type Department Care Team (Late st Contact Info) Description 04/11/2025 10:40 AM CDT Office Visit [address] [place] [address] Nick Mosley MD [address] [place] [address] [place] [address] documented as of this encounter Visit Diagnoses Diagnosis Other osteoarthritis of spine, lumbar region documented in this encounter Care Teams Audit Clerk Relationship Specialty Start Date End Date Nick Mosley MD PCP - General 11/23/07 documented as of this encounter
--- OUTSIDE RECORDS SUMMARY | 2024-12-31 15:56 | XMS_ITS | Encounter Summary ---
Author Organization [facility] Address 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 Topic: [id number] Call >> Apr 24, 2024 4:00 PM Rakesh Millan wrote: Caller is requesting to speak with Clinical Care Team. Caller Name: [facility] Brianne Callback Number: [phone] Clinician Type: Other healthcare professional not listed above Call Notes: Requesting 6months [facility][phone] Is this addressing an immediate patient care need? Yes documented in this encounter Plan of Treatment Upcoming Encounters Date Type Department Care Team (Late st Contact Info) Description 04/11/2025 10:40 AM CDT Office Visit [facility] Primary Care [address] [place] [address] Nick Mosley MD [address] [place] [address] [place] [address] documented as of this encounter Visit Diagnoses Not on filedocumented in this encounter Care Teams Wax Specialist Relationship Specialty Start Date End Date Nick Mosley MD PCP - General 11/23/07 documented as of this encounter
--- OUTSIDE RECORDS SUMMARY | 2024-12-31 15:56 | XMS_ITS | Encounter Summary ---
Author Organization [facility] Address 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 Gender Identity Not on file Sexual Orientation Not on file documented as of this encounter Plan of Treatment Upcoming Encounters Date Type Department Care Team (Late Contact Info) Description 04/11/2025 10:40 AM CDT Office Visit [facility] Primary Care [address] [place] [address] Nick Mosley MD [address] [place] [address] [address] [place] [address] documented as of this encounter Visit Diagnoses Not on filedocumented in this encounter Care Teams Solid Fiber Paster Operator Relationship Specialty Start Date End Date Nick Mosley MD PCP - General 11/23/07 documented as of this encounter
--- OUTSIDE RECORDS SUMMARY | 2024-12-31 15:56 | XMS_ITS | Continuity of Care Document ---
Author Organization [facility] Address [address] [place] [address] Phone Care Team Providers Care Reaming Machine Operator Name Role Phone Travis Moctezuma MD Unavailable Unavailable Advance Directives Directive Yes / No Effective Date File Name No Information Encounters Encounter Description Practice Location Reason(s) For Visit Diagnoses Date Provider Providers Copied on Encounter [facility], [address], [place], [place], [address], [place] tel:[phone] [facility] Rhianna Robles. [address], [place], [place], [id number], [place]. tel:[phone] Family History Family Member Type Diagnosis Age At Onset No Information Payers Payer name Insurance type Covered constitution party ID Authoriza tion(s) No Information Social History [...]
--- OUTSIDE RECORDS SUMMARY | 2024-12-31 15:56 | XMS_ITS | Encounter Summary ---
Author Organization [facility] Address [address] [place] [address] Care Team Providers Care Nurse Infection Control Name Role Phone Nick Mosley MD Primary Care Provider [phone] Encounter Details Date Type Department Care Team (Late st Contact Info) Description 11/22/2005 Outpatient Historical [facility] Internal Medicine [address] [address] Nick Mosley MD [address] [place] [address] [address] [place] [address] Social History Tobacco Use Types Packs/Day Years Used Date Smoking Tobacco: Never Assessed Sex and Gender Information Value Date Recorded Sex Assigned at Not on file Legal Sex Male 4:34 AM TITLE CURATOR Gender Identity Not on file Sexual Orientation [...] Body Mass Index 44.21 06/27/2005 11:30 AM TITLE CURATOR documented in this encounter Plan of Treatment Upcoming Encounters Date Type Department Care Team (Late st Contact Info) Description 04/11/2025 10:40 AM CDT Office Visit [facility] Primary Care [address] [place] [address] Nick Mosley MD [address] [place] [address] [address] [place] [address] documented as of this encounter Visit Diagnoses Not on filedocumented in this encounter Care Teams Nurse Infection Control Relationship Specialty Start Date End Date Nick Mosley MD PCP - General 11/23/07 documented as of this encounter
--- OUTSIDE RECORDS SUMMARY | 2024-12-31 15:56 | XMS_ITS | Encounter Summary ---
Author Organization [facility] Address 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 Gender Identity Not on file Sexual Orientation Not on file documented as of this encounter Plan of Treatment Upcoming Encounters Date Type Department Care Team (Late Contact Info) Description 04/11/2025 10:40 AM CDT Office Visit [facility] Primary Care [address] [place] [address] Nick Moslye MD [address] [place] [address] [address] [place] [address] documented as of this encounter Visit Diagnoses Not on filedocumented in this encounter Care Teams Player Development Manager Relationship Specialty Start Date End Date Nick Mosley MD PCP - General 11/23/07 documented as of this encounter
--- OUTSIDE RECORDS SUMMARY | 2024-12-31 15:56 | XMS_ITS | Encounter Summary ---
Author Organization [facility] Address [address] [place] [address] Care Team Providers Care Blacksmith Helper Name Role Phone Nick Mosley MD Primary Care Provider [phone] Encounter Details Date Type Department Care Team (Late st Contact Info) Description 08/23/2005 Orders Only [facility] Internal Medicine [address] [address] Nick Mosley MD [address] [place] [address] Social History Tobacco Use Types Packs/Day Years Used Date Smoking Tobacco: Never Assessed Sex and Gender Information Value Date Recorded Sex Assigned at Not on file Legal Sex Male 4:34 AM WINK CUTTER OPERATOR Gender Identity Not on file Sexual Orientation Not on file documented as of this encounter Progress Notes * Nick Mosley MD - 05/15/2008 11:35 AM CDT WEIGHT: 324lbs BLOOD PRESSURE: 140/84 Right Arm Sitting TEMPERATURE: 99??f Oral NURSE NAME: Misha Deb, R CHIEF COMPLAINT Patient here for follow [...] in the target range. 461.9-SINUSITIS UNSPECIFIED cough romeo x 1 week 278.00-OBESITY UNSPECIFIED The patient [...] BENIGN cont med LAB ORDERS: Order number: [id number] Test Ordered: COMPREHENSIVE METABOLIC PANEL 34057 Order number: [id number] Test Ordered: LIPID PANEL 7600 461.9-SINUSITIS UNSPECIFIED [...] 04/11/2025 10:40 AM CDT Office Visit [facility] Primary Care [address] [place] [address] Nick Mosley MD [address] [place] [address] [address] [place] [address] documented as of this encounter Visit Diagnoses Not on filedocumented in this encounter Care Teams Blacksmith Helper Relationship Specialty Start Date End Date Nick Mosley MD PCP - General 11/23/07 documented as of this encounter
--- OUTSIDE RECORDS SUMMARY | 2024-12-31 15:56 | XMS_ITS | Encounter Summary ---
Author Organization [facility] Address [address] [place] [address] Care Team Providers Care Online Communications Manager Name Role Phone Nick Mosley MD Primary Care Provider [phone] Encounter Details Date Type Department Care Team (Late st Contact Info) Description 10/13/2006 Orders Only [facility] Internal Medicine [address] [address] Nick Mosley MD [address] [place] [address] Social History Tobacco Use Types Packs/Day Years Used Date Smoking Tobacco: Never Assessed Sex and Gender Information Value Date Recorded Sex Assigned at Not on file Legal Sex Male 4:34 AM SEED CUTTER Gender Identity Not on file Sexual Orientation Not on file documented as of this encounter Progress Notes * Nick Mosley MD - 12/28/2007 10:46 AM CDT TIME:03:25 pm PATIENT`S HOME PHONE: PATIENT`S WORK PHONE: PATIENT`S INSURANCE: [facility] WHO TOOK THE CALL: Deb Pereira L GENERAL INFORMATION WHO CALLED: Pharmacy called. PHARMACY NUMBER: [phone] SECTION 1: REQUESTED ACTION marv 10/13/06 at 03:25 pm: MEDICATION REQUEST: MEDICATION REQUEST: Patient requests a refill. gen Zoloft #[id number] 07/27/06 Pt also wants Fenofibrate called in (didn't mail in his script). RN/SALES OPERATIONS ANALYST RESPONSE: phoebe 10/13/06 at 03:27 pm MEDICATIONS: [...] AM CDT Office Visit [facility] [place] [address] Nick Mosley MD [address] [place] [address] documented as of this encounter Visit Diagnoses Not on filedocumented in this encounter Care Teams Online Communications Manager Relationship Specialty Start Date End Date Nick Mosley MD PCP - General 11/23/07 documented as of this encounter
--- OUTSIDE RECORDS SUMMARY | 2024-12-31 15:56 | XMS_ITS | Encounter Summary ---
Author Organization [facility] Address 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 Gender Identity Not on file Sexual Orientation Not on file documented as of this encounter Plan of Treatment Upcoming Encounters Date Type Department Care Team (Late Contact Info) Description 04/11/2025 10:40 AM CDT Office Visit [facility] Primary Care [address] [place] [address] Nick Mosley MD [address] [place] [address] [address] [place] [address] documented as of this encounter Visit Diagnoses Not on filedocumented in this encounter Care Teams Bench Worker Binding Relationship Specialty Start Date End Date Nick Mosley MD PCP - General 11/23/07 documented as of this encounter
--- OUTSIDE RECORDS SUMMARY | 2024-12-31 15:56 | XMS_ITS | Clinical Summary ---
Author Organization [facility] [address] [facility] [place] [address] Phone Care Team Providers Care Supervisor Model Making Name Role Phone Nick Mosley MD Primary Care Provider [phone] Allergies Active Allergy Reactions Criticality Noted Date [...] 136.1 kg (300 lb) 07/07/2017 3:00 PM BAR PILOT Height 182.9 cm (6') 07/07/2017 3:00 PM BAR PILOT Body Mass Index 40.69 07/07/2017 3:00 PM BAR PILOT Plan of Treatment Health Maintenance Due Date [...] patient's age to complete this topic Insurance [facility] Member Subscriber Plan / Payer (Ef fective for All Dates) Name:Cristiano Armijo Relation to Subscriber:Self Name:Cristiano Armijo Payer ID:[id number] Group ID:Not on file Type:Not on file Address: [address] [place] [id number] MEDICAID [place] Advance Directives * Full Code (Latest Code Status on File) Date Activated Date Inactivated Comments 10/07/2016 11:04 PM 10/08/2016 4:51 PM CPR-Full Aura tment: FULL ARREST: Attempt Resuscitation/CPR wit intubation and mechanical ventilation. PRE-ARREST: Use entire range of life support measures to stabilize the patient. Care Teams Supervisor Model Making Relationship Specialty Start Date End Date Nick Mosley MD [address] [place] [phone] PCP - General 10/07/16
--- OUTSIDE RECORDS SUMMARY | 2024-12-31 15:56 | XMS_ITS | Encounter Summary ---
Author Organization [facility] Address [address] [place] [address] Care Team Providers Care Stock Worker Name Role Phone Nick Mosley MD Primary Care Provider [phone] Encounter Details Date Type Department Care Team (Late Contact Info) Description 03/30/2007 Orders Only [facility] Internal Medicine [address] [address] Ncik Mosley MD [address] [place] [address] Social History Tobacco Use Types Packs/Day Years Used Date Smoking Tobacco: Never Assessed Sex and Gender Information Value Date Recorded Sex Assigned at Not on file Legal Sex Male 4:34 AM LOCKSTITCH HEMMER Gender Identity Not on file Sexual Orientation Not on file documented as of this encounter Plan of Treatment Upcoming Encounters Date Type Department Care Team (Late Contact Info) Description 04/11/2025 10:40 AM CDT Office Visit [facility] Primary Care [address] [place] [address] Nick Mosley MD [address] [place] [address] [address] [place] [address] documented as of this encounter Visit Diagnoses Not on filedocumented in this encounter Care Teams Stock Worker Relationship Specialty Start Date End Date Nick Mosley MD PCP - General 11/23/07 documented as of this encounter
--- OUTSIDE RECORDS SUMMARY | 2024-12-31 15:56 | XMS_ITS | Encounter Summary ---
Author Organization [facility] Address [address] [place] [address] Care Team Providers Care School Administrator Name Role Phone Nick Mosley MD Primary Care Provider [phone] Encounter Details Date Type Department Care Team (Late st Contact Info) Description 08/21/2007 Outpatient Historical [facility] Internal Medicine [address] [address] Nick Mosley MD [address] [place] [address] [address] [place] [address] Social History Tobacco Use Types Packs/Day Years Used Date Smoking Tobacco: Never Assessed Sex and Gender Information Value Date Recorded Sex Assigned at Not on file Legal Sex Male 4:34 AM NON DESTRUCTIVE EVALUATION TECHNICIAN Gender Identity Not on file Sexual Orientation Not on file documented as of this encounter Last Filed Vital Signs Vital Sign Reading Time Taken Comments Blood Pressure 120/80 08/21/2007 3:30 PM NON DESTRUCTIVE EVALUATION TECHNICIAN Pulse - - Temperature 37.8 C (100.1 F) 08/21/2007 3:30 PM NON DESTRUCTIVE EVALUATION TECHNICIAN Respiratory Rate - - Oxygen Saturation - - Inhaled Oxygen Concentration - - Weight 142.4 kg (314 lb) 08/21/2007 3:30 PM NON DESTRUCTIVE EVALUATION TECHNICIAN Height - - Body Mass Index 42.59 06/27/2005 11:30 AM NON DESTRUCTIVE EVALUATION TECHNICIAN documented in this encounter Plan of Treatment Upcoming Encounters Date Type Department Care Team (Late st Contact Info) Description 04/11/2025 10:40 AM CDT Office Visit [facility] Primary Care [address] [place] [address] Nick Mosley MD [address] [place] [address] [place] [address] documented as of this encounter Visit Diagnoses Not on filedocumented in this encounter Care Teams School Administrator Relationship Specialty Start Date End Date Nick Mosley MD PCP - General 11/23/07 documented as of this encounter
--- OUTSIDE RECORDS SUMMARY | 2024-12-31 15:56 | XMS_ITS | Encounter Summary ---
Author Organization [facility] Address [address] [place] [address] Care Team Providers Care Needle Maker Name Role Phone Nick Mosley MD Primary Care Provider [phone] Encounter Details Date Type Department Care Team (Late st Contact Info) Description 12/25/2006 Orders Only [facility] Internal Medicine [address] [address] Nick Mosley MD [address] [place] [address] Social History Tobacco Use Types Packs/Day Years Used Date Smoking Tobacco: Never Assessed Sex and Gender Information Value Date Recorded Sex Assigned at Not on file Legal Sex Male 4:34 AM TOEING STOCKINGS Gender Identity Not on file Sexual Orientation [...] 12/25/2006. LAB ORDERS: 3 mo Order number: [id number] Test Ordered: COMPREHENSIVE METABOLIC PANEL & GFR 1112 Order number: [id number] Test Ordered: HEMOGLOBIN A1C 1814 Order number: [id number] Test Ordered: LIPID PANEL 1078 Order number: [id number] Test Ordered: MICROALBUMIN/CREAT, UR RATIO 2252 272.4-HYPERLIPIDEMIA [...] Office Visit [facility] Primary Care [address] [place] [address] Nick Mosley MD [address] [place] [address] [address] [place] [phone] documented as of this encounter Visit Diagnoses Not on filedocumented in this encounter Care Teams Needle Maker Relationship Specialty Start Date End Date Nick Mosley MD PCP - General 11/23/07 documented as of this encounter
[2024-12-31 16:00] VITALS: BP 138/88; PULSE 91; RESP 16; TEMP 37; O2SAT 95
--- NOTE | 2024-12-31 16:00 | ED.EAR ---
HPI - Ear Problem General Chief complaint: Ear Stated complaint: right ear pain Time Seen by Provider: 12/31/24 16:00 Source: patient Mode of arrival: ambulatory Limitations: no limitations History of Present Illness HPI Narrative: 54 years old white male came to the ED with right ear pain started 2 weeks ago, trouble hearing, constant aches, getting worse, no discharge or fever or chills or nausea or vomiting. Three weeks ago patient report having upper respiratory viral infection like symptoms. History of diabetes, hypertension, hyperlipidemia Currently patient denies any fever or chills or headache Related Data Home Medications ?Medication ?Instructions ?Recorded ?Confirmed ?Last Taken ?Type alprazolam 0.5 mg tablet 0.5 mg PO BID PRN Anxiety 03/09/21 06/26/23 Unknown History insulin aspart U-100 100 unit/mL 35 unit subcut BID 03/09/21 06/26/23 Unknown History (3 mL) subcutaneous pen (Novolog FlexPen U-100 Insulin aspart) omeprazole 20 mg capsule,delayed 20 mg PO DAILY 03/09/21 06/26/23 Unknown History release sertraline 100 mg tablet 100 mg PO DAILY 03/09/21 06/26/23 Unknown History simvastatin 40 mg tablet 40 mg PO DAILY 03/09/21 06/26/23 Unknown History hydrocodone 10 mg-acetaminophen 1 tablet PO PRN PRN Back Pain 09/06/22 06/26/23 Unknown History 325 mg tablet insulin degludec 200 unit/mL (3 100 unit subcut DAILY 09/06/22 06/26/23 Unknown History mL) subcutaneous pen (Tresiba FlexTouch U-200 insulin) losartan 50 mg tablet 50 mg PO DAILY 09/06/22 06/26/23 Unknown History tiotropium 2.5 mcg-olodaterol 2.5 1 puff inhalation DAILY 09/06/22 09/06/22 Unknown History mcg/actuation mist for inhalation (Stiolto Respimat) naloxone 4 mg/actuation nasal spray See Rx Instructions .Route .COMPLEX 06/26/23 06/26/23 Unknown History sildenafil 100 mg tablet mg 06/26/23 06/26/23 Unknown History Allergies Allergy/AdvReac Type Severity Reaction Status Date / Time No Known Allergies Allergy Verified 12/31/24 15:57 Review of Systems Review of Systems: All systems reviewed & are unremarkable except as noted in HPI and below PMFSH Past Medical History Medical History Morbid obesity Type 2 diabetes mellitus Surgical History Surgical History H/O lumbosacral spine surgery Social History Social History Smoking status: Never smoker Alcohol intake: current Alcohol use details: occasional Substance use: never Exam Narrative: General appearance: Well-developed, well-nourished Skin: Normal color Head: Normocephalic, nontraumatic Eyes: Clear conjunctiva ENT: Oropharynx normal, nose normal, left ear exam within normal limit, right ear exam showing slight amount of wax, erythematous ear canal, no discharge, unable to see the tympanic membrane Neck: Supple, nontender Chest and respiratory: Airway patent, no respiratory distress, no accessory muscle use Heart: Regular rate/rhythm Abdomen: Soft, nontender, no organomegaly, quiet bowel sounds Musculoskeletal: Normal range of motion, nontender back Neurologic: Alert and oriented ?3, DIGITAL PRODUCT SPECIALIST is normal as tested, no gross motor deficit Course Vital Signs Vital signs: Vital Signs Temperature 37.0 C 12/31/24 16:00 Pulse Rate 91 12/31/24 16:00 Respiratory Rate 16 12/31/24 16:00 Blood Pressure 138/88 12/31/24 16:00 Pulse Oximetry 95 12/31/24 16:00 Oxygen Delivery Room Air 12/31/24 16:00 Temperature 37.0 C 12/31/24 16:00 Pulse Rate 91 12/31/24 16:00 Respiratory Rate 16 12/31/24 16:00 Blood Pressure 138/88 12/31/24 16:00 Pulse Oximetry 95 12/31/24 16:00 Oxygen Delivery Room Air 12/31/24 16:00 Medical Decision Making [facility] Narrative Medical decision making narrative: right ear pain for 2 weeks, upper respiratory viral infection like symptoms for 3 weeks Vital signs are stable Physical examination consistent with erythematous ear canal, slight wax difficult to see the tympanic membrane on the right side. Differential diagnosis include acute otalgia, otitis media is high likely, otitis externa is a possibility patient reports some itching and using his finger it to relieve the pain and itching of the right ear. No imaging or blood workup required at this time Discharged on Augmentin and Cortisporin ear drops Follow-up with Dr. Jorgensen if there is no improvement in 5 days The pt was discharged to home.the pt,s condition upon discharge was fair,education was provided to the pt in reference to the final impression,discharge study results,treatment,prognosis and need for follow up . Differential Diagnosis Differential Diagnosis: Otitis media, otitis externa Vital Signs Vital Signs: Vital Signs Temperature 37.0 C 12/31/24 16:00 Pulse Rate 91 12/31/24 16:00 Respiratory Rate 16 12/31/24 16:00 Blood Pressure 138/88 12/31/24 16:00 Pulse Oximetry 95 12/31/24 16:00 Oxygen Delivery Room Air 12/31/24 16:00 Temperature 37.0 C 12/31/24 16:00 Pulse Rate 91 12/31/24 16:00 Respiratory Rate 16 12/31/24 16:00 Blood Pressure 138/88 12/31/24 16:00 Pulse Oximetry 95 12/31/24 16:00 Oxygen Delivery Room Air 12/31/24 16:00 Critical Care Time Critical Care Time Critical Care Time: No Discharge Plan Discharge Clinical Impression: Acute otalgia Patient Disposition: Home Condition: Stable Instructions: Antibiotic Form, Earache (ED) Patient Language: Cambodian Prescriptions: New amoxicillin-pot clavulanate [Augmentin] 500-125 mg tablet 1 tablet PO Q8H Qty: 30 0RF Cortisporin-TC 3.3-3-10-0.5 mg/mL drops,suspension 4 drp LEFT EAR TID Qty: 10 0RF No Action losartan 50 mg tablet 50 mg PO DAILY hydrocodone-acetaminophen 10-325 mg tablet 1 tablet PO PRN PRN (Reason: Back Pain) insulin degludec [Tresiba FlexTouch U-200] 200 unit/mL (3 mL) insulin pen 100 unit SUBCUT DAILY Stiolto Respimat 2.5-2.5 mcg/actuation mist 1 puff INHALATION DAILY sertraline 100 mg tablet 100 mg PO DAILY simvastatin 40 mg tablet 40 mg PO DAILY alprazolam 0.5 mg tablet 0.5 mg PO BID PRN (Reason: Anxiety) omeprazole 20 mg capsule,delayed release(DR/EC) 20 mg PO DAILY insulin aspart U-100 [Novolog FlexPen U-100 Insulin] 100 unit/mL (3 mL) insulin pen 35 unit SUBCUT BID naloxone 4 mg/actuation spray,non-aerosol See Rx Instructions .ROUTE .COMPLEX Rx Instructions: NEEDED sildenafil 100 mg tablet doxycycline hyclate 100 mg capsule 100 mg PO BID 7 Days Qty: 14 0RF benzonatate 200 mg capsule 200 mg PO TID PRN (Reason: cough) Qty: 20 0RF prednisone 20 mg tablet 40 mg PO DAILY 5 Days Qty: 10 0RF loratadine [Claritin] 10 mg tablet 10 mg PO DAILY Qty: 30 0RF (DME) Aerochamber Plus Z Stat Spacer See Rx Instructions .Route Qty: 1 0RF Rx Instructions: As directed Follow-up/Referrals: Gwyn Jorgensen MD [Physician] - 01/06/25 Dimitri,Nick Tabares MD [Primary Care Provider] -
--- OUTSIDE RECORDS SUMMARY | 2024-12-31 16:11 | XMS_ITS | Continuity of Care Document ---
[facility] Organization [email or web address] Address [address] [place] [address] Phone Care Team Providers Care Reel Cutter Name Role Phone Travis Moctezuma MD Unavailable Unavailable Advance Directives Directive Yes / No Effective Date File Name No Information Encounters Encounter Description Practice Location Reason(s) For Visit Diagnoses Date Provider Providers Copied on Encounter [facility], [address], [place], [place], [id number], [place] tel:[phone] [facility] Rhianna Robles. [address], [place], [place], [address], [place]. tel:[phone] Family History Family Member Type Diagnosis Age [...]
--- OUTSIDE RECORDS SUMMARY | 2024-12-31 16:11 | XMS_ITS | Continuity of Care Document ---
Author Organization [facility] Address [address] [place] [address] Phone Care Team Providers Care Medical Esthetician Name Role Phone Cong Veronica MD Unavailable [...] Providers Copied on Encounter Office/outpa tient Visit, [facility], [address], [place], [place], [address], [place] tel:[phone] SEC [place] Professional Diabetes Mellitus Type 2, UncomplicatedD iabetes Mellitus Type 2, UncomplicatedR [facility]ACE[facility] [address] [facility], [address], [place], [place], [address], [place]. tel:[phone] Referring Provider: Nick Mosley MD M, [address] [facility] [address], [place], [address]. tel:[phone] Family History Family Member Type Diagnosis Age At Onset Maternal grandmother Problem (finding) hypertension Maternal aunt Problem (finding) Diabetes mellitus Problem (finding) Payers Payer name Insurance type Covered alliance party ID Authoriza tion(s) Medicare [facility] [id number] Social History Type Description Quantity Date Captured [...] Related to Diabe mario Type II no cap blocker - DM letter Related to Di abetes Type II rosacea-notes am mattering occ - HMP Related to Acne Rosacea Assessments Type Assessment Date No Information Patient Care Teams Name Effective Dates (start - stop) Status Members No Information
--- OUTSIDE RECORDS SUMMARY | 2024-12-31 16:11 | XMS_ITS | Referral Summary ---
Author Organization [facility] [address] [employer] Address [address] [place] [address] Phone Care Team Providers Care Furnace Loader Name Role Phone Nick Mosley MD [...] ons:hypertensi on Take 10 mg by mouth early childhood associate teacher before breakfast. Active losartan (COZAAR) 50 mg tabletIndicati ons:hypertensi on Take 50 mg by mouth early childhood associate teacher before breakfast. 7 Active omeprazole (PriLOSEC) 20 mg capsuleIndicat ions:Treatment of Non-Bleeding Gastric Disorder Take 20 mg by mouth early childhood associate teacher before breakfast. 8 Active sertraline (ZOLOFT) 100 mg tabletIndicati ons:Anxiety with Depression Take 100 mg by mouth daily after breakfast. Active simvastatin (ZOCOR) 20 mg tabletIndicati ons:hyperlipid emia Take 20 mg by mouth early childhood associate teacher before breakfast. Active insulin lispro (HumaLOG) 100 unit/mL injectionIndic ations:type 2 diabetes mellitus Inject 15 Units under the skin 3 (three) times a day before meals Indications: type 2 diabetes mellitus. SSI Active blood glucose diagnostic strip Check blood sugar 3 times daily. Dx E.119, insulin use. OneTouch Ultra. 8 Active blood-glucose meter kit Check blood sugar three times daily. 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 OneTouch Ultra. 8 Active insulin glargine (LANTUS,BASAGL AR) 100 unit/mL (3 mL) insulin pen Lot: [id number] Ex: 07/2019 Qty: 2 BOXES- INJECT 70 [...] (BREO ELLIPTA) 100-25 mcg/dose diskus inhaler Lot: [id number] Ex: 11/24 Qty: 1. 9 Active metFORMIN [...] Active Problems Problem Noted Date Diagnosed Date long-term current use of antibiotics 01/21/2019 Assessment & Plan (01/21/2019 3:06 PM CDT): - Labs from 01/18/19 reviewed - Discontinue weekly labs with discontinuation of IV antibiotics - Will plan on CBC and CMP at next visit - Continue to monitor for adverse effects of antibiotics Infection of lower extremity associated with paola dware 12/11/2018 Overview (12/11/2018): This is a 48-year-old [...] to remain in place, will plan on termite control technician oral suppression due to risk of recurrent infection. 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 10/09/2018 Overview (10/09/2018): Added automatically from request for surgery [id number] Ankle syndesmosis disruption, right, initial enc ounter 10/09/2018 Overview (10/09/2018): Added automatically from request for surgery [id number] Loose body in right ankle and foot joint 019 Overview (10/09/2018): Added automatically from request for surgery [id number] Morbid obesity with BMI of 40.0-44.9, adult [...] on file 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 Gender Identity Not on file Sexual [...] on file Medical Devices Implanted Type Area Master Control Engineer Device Identifier Shelf Expiration Date Model / Serial / Lot [employer] [id number] Vlp 3.5mm 16mm Self Tapping Hex Drive Recess Cortical Foot Low - S0 - [id number] Implanted:Qty : 1 on 11/20/2018 by Deb Mccullough MD at [facility] Screw Right: Fibula [employer]Or tho [id number] / 0 / [employer]Ortho [id number] Tara-Loc Vlp 3.5mm 18mm Self Tapping Cortical Midfoot Hindfoot - S0 - [id number] Implanted:Qty : 2 on 11/20/2018 by Deb Mccullough MD at [facility] Screw Right: Fibula [employer]Or tho [id number] / 0 / [employer] /Ortho [id number] Tara-Loc Vlp 3.5mm 24mm Self Tap Foot Cortical Hexagon Low - S0 - [id number] Implanted:Qty : 1 on 11/20/2018 by Deb Mccullough MD at [facility] Screw Right: Fibula [employer] tho [id number] / 0 / [employer] /Ortho [id number] Tara-Loc Vlp 3.5mm 14mm Self Tap Foot Cortical Hexagon Low - S0 - [id number] Implanted:Qty : 2 on 11/20/2018 by Deb Mccullough MD at [facility] Screw Right: Fibula [employer]Or tho [id number] / 0 / [employer]Ortho [id number] Tara-Loc Vlp 5mm 14mm Tibia Distal Proximal Full Thread Screw - S0 - [id number] Implanted:Qty : 2 on 11/20/2018 by Deb Mccullough MD at [facility] Screw Right: Fibula [employer] tho [id number] / 0 / [employer]Ortho [id number] Tara-Loc Vlp 3.5mm 60mm Self Tapping Cortical Midfoot Hindfoot - S0 - [id number] Implanted:Qty : 1 on 11/20/2018 by Deb Mccullough MD at [facility] Screw Right: Fibula [employer] [id number] / 0 / 7 Hole Right Lateral Distal Fibula Plate Implanted:Qty : 1 on 11/20/2018 by Deb Mccullough MD at [facility] Right: Fibula [employer] / 0 / Explanted Type Area Master Control Engineer Device Identifier Shelf Expiration Date Model / Serial / Lot [employer] [id number] Ye .062in 9in 1 Trocar Smooth Wire Fixation - S0 - [id number] Explanted:Qty: 1 on 11/20/2018 by Deb Mccullough MD at [facility] Wire [employer] [id number] / 0 / Description:Provisional fixa tion [employer] [id number] Steinmann 5/64in 9in Trocar Point One End Pin Fixation Stainless - S0 - [id number] Explanted:Qty: 1 on 11/20/2018 by Deb Mccullough MD at [facility] Wire Right: Fibula [employer] [id number] / 0 / Description:Provisional fixa tion Insurance MEDICARE MEDICARE [facility] MEDICARE Advance Directives For more information, please contact: [phone] * Full Code (Latest Code Status on File) Date Activated Date Inactivated Comments 12/10/2018 11:06 PM 12/14/2018 5:16 PM Care Teams Furnace Loader Relationship Specialty Start Date End Date Nick Mosley MD PCP - General 01/10/14
--- OUTSIDE RECORDS SUMMARY | 2024-12-31 16:11 | XMS_ITS | Clinical Summary ---
Author Organization [facility] [address] [employer] Address [address] [place] [address] Phone Care Team Providers Care Data Collection Technician Name Role Phone Nick Mosley MD [...] ons:hypertensi on Take 10 mg by mouth director of early childhood education before breakfast. Active losartan (COZAAR) 50 mg tabletIndicati ons:hypertensi on Take 50 mg by mouth director of early childhood education before breakfast. 7 Active omeprazole (PriLOSEC) 20 mg capsuleIndicat ions:Treatment of Non-Bleeding Gastric Disorder Take 20 mg by mouth director of early childhood education before breakfast. 8 Active sertraline (ZOLOFT) 100 mg tabletIndicati ons:Anxiety with Depression Take 100 mg by mouth daily after breakfast. Active simvastatin (ZOCOR) 20 mg tabletIndicati ons:hyperlipid emia Take 20 mg by mouth director of early childhood education before breakfast. Active insulin lispro (HumaLOG) 100 unit/mL injectionIndic ations:type 2 diabetes mellitus Inject 15 Units under the skin 3 (three) times a day before meals Indications: type 2 diabetes mellitus. SSI Active blood glucose diagnostic strip Check blood sugar 3 times daily. Dx E.119, insulin use. OneTouch Ultra. 8 Active blood-glucose meter kit Check blood sugar three times daily. Dx E11.9, emt intermediate insulin use. OneTouch Ultra. 8 Active insulin glargine (LANTUS,BASAGL AR) 100 unit/mL (3 mL) insulin pen Lot: [id number] Ex: 07/2019 Qty: 2 BOXES- INJECT 70 [...] (BREO ELLIPTA) 100-25 mcg/dose diskus inhaler Lot: [id number] Ex: 11/24 Qty: 1. 9 Active metFORMIN [...] Active Problems Problem Noted Date Diagnosed Date snf current use of antibiotics 01/21/2019 Assessment & [...] to remain in place, will plan on emt intermediate oral suppression due to risk of recurrent infection. 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 10/09/2018 Overview (10/09/2018): Added automatically from request for surgery [id number] Ankle syndesmosis disruption, right, initial enc ounter 10/09/2018 Overview (10/09/2018): Added automatically from request for surgery [id number] Loose body in right ankle and foot joint 019 Overview (10/09/2018): Added automatically from request for surgery [id number] Morbid obesity with BMI of 40.0-44.9, adult [...] on file 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 Gender Identity Not on file Sexual Orientation [...] on file Medical Devices Implanted Type Area Tablet Making Machine Operator Helper Device Identifier Shelf Expiration Date Model / Serial / Lot [employer]Ortho [id number] Vlp 3.5mm 16mm Self Tapping Hex Drive Recess Cortical Foot Low - S0 - [id number] Implanted:Qty : 1 on 11/20/2018 by Deb Mccullough MD at [facility] Screw Right: Fibula [employer] [id number] / 0 / [employer]Ortho [id number] Tara-Loc Vlp 3.5mm 18mm Self Tapping Cortical Midfoot Hindfoot - S0 - [id number] Implanted:Qty : 2 on 11/20/2018 by Deb Mccullough MD at [facility] Screw Right: Fibula [employer] [id number] / 0 / [employer] /Ortho [id number] Tara-Loc Vlp 3.5mm 24mm Self Tap Foot Cortical Hexagon Low - S0 - [id number] Implanted:Qty : 1 on 11/20/2018 by Deb Mccullough MD at [facility] Screw Right: Fibula [employer] [id number] / 0 / [employer] /Ortho [id number] Tara-Loc Vlp 3.5mm 14mm Self Tap Foot Cortical Hexagon Low - S0 - [id number] Implanted:Qty : 2 on 11/20/2018 by Deb Mccullough MD at [facility] Screw Right: Fibula [employer]Or tho [id number] / 0 / [employer] /Ortho [id number] Tara-Loc Vlp 5mm 14mm Tibia Distal Proximal Full Thread Screw - S0 - [id number] Implanted:Qty : 2 on 11/20/2018 by Deb Mccullough MD at [facility] Screw Right: Fibula [employer]Or tho [id number] / 0 / [employer] /Ortho [id number] Tara-Loc Vlp 3.5mm 60mm Self Tapping Cortical Midfoot Hindfoot - S0 - [id number] Implanted:Qty : 1 on 11/20/2018 by Deb Mccullough MD at [facility] Screw Right: Fibula [employer]Or tho [id number] / 0 / 7 Hole Right Lateral Distal Fibula Plate Implanted:Qty : 1 on 11/20/2018 by Deb Mccullough MD at [facility] Right: Fibula [employer] / 0 / Explanted Type Area Tablet Making Machine Operator Helper Device Identifier Shelf Expiration Date Model / Serial / Lot [employer] [id number] Ye .062in 9in 1 Trocar Smooth Wire Fixation - S0 - [id number] Explanted:Qty: 1 on 11/20/2018 by Deb Mccullough MD at [facility] Wire [employer] [id number] / 0 / Description:Provisional fixa tion [employer] [id number] Steinmann 5/64in 9in Trocar Point One End Pin Fixation Stainless - S0 - [id number] Explanted:Qty: 1 on 11/20/2018 by Deb Mccullough MD at [facility] Wire Right: Fibula [employer] [id number] / 0 / Description:Provisional fixa tion Insurance MEDICARE MEDICARE [facility] MEDICARE Advance Directives For more information, please contact: [phone] * Full Code (Latest Code Status on File) Date Activated Date Inactivated Comments 12/10/2018 11:06 PM 12/14/2018 5:16 PM Care Teams Data Collection Technician Relationship Specialty Start Date End Date Nick Mosley MD PCP - General 01/10/14
== END 2024-12-31 16:15 | disposition home or self-care (01) ==
LOC: CHSED 16:09
PROVIDERS: Emergency Provider Emergency Medicine; PCP Internal Medicine
DX: H92.01 Otalgia, right ear (principal); E11.9 Type 2 diabetes mellitus without complications; I10 Essential (primary) hypertension; E78.5 Hyperlipidemia, unspecified
CPT/HCPCS: 99283

== ENCOUNTER 2025-03-05 13:30 | Outpatient (RCR) | payer MEDICARE, SELFPAY ==
--- OUTSIDE RECORDS SUMMARY | 2025-03-03 12:26 | XMS_ITS | Encounter Summary ---
Author Organization [facility] Address 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 LAB ORDERS: Order number: [id number] Test Ordered: URINALYSIS W/O MICRO 97465 with Mar lab Order number: [id number] Test Ordered: PSA, TOTAL 1002 Order number: [id number] Test Ordered: URINALYSIS WITH REFLEX CULTURE 2221 724.5-BACK PAIN as above, reassess if continues, no recent injury difficult sitting in truck ok offwork LAB ORDERS: Order number: [id number] Test Ordered: HEMOCCULT SINGLE 12069 PREVENTIVE COUNSELING The patient was counseled regarding [...] Signed by: Nick Mosley MD on Monday, February 14, 2007 documented in this encounter Plan of Treatment Upcoming Encounters Date Type Department Care Team (Late st Contact Info) Description 04/11/2025 10:40 AM CDT Office Visit [facility] Primary Care [address] [place] [address] Nick Mosley MD [address] [place] [address] documented as of this encounter Visit Diagnoses Not on filedocumented in this encounter Care Teams Contracts Paralegal Relationship Specialty Start Date End Date Nick Mosley MD PCP - General 11/23/07 documented as of this encounter
--- OUTSIDE RECORDS SUMMARY | 2025-03-03 12:26 | XMS_ITS | Encounter Summary ---
Author Organization [facility] Address 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
--- OUTSIDE RECORDS SUMMARY | 2025-03-03 12:26 | XMS_ITS | Encounter Summary ---
Author Organization [facility] Address 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 Gender Identity Not on file Sexual [...] Body Mass Index 43.94 06/27/2005 11:30 AM SURVEILLANCE SYSTEMS ENGINEER documented in this encounter Plan of Treatment Upcoming Encounters Date Type Department Care Team (Late st Contact Info) Description 04/11/2025 10:40 AM CDT Office Visit [facility] Primary Care [address] [place] [address] Nick Mosley MD [address] [place] [address] [address] [place] [address] documented as of this encounter Visit Diagnoses Not on filedocumented in this encounter Care Teams Floral Specialist Relationship Specialty Start Date End Date Nick Mosley MD PCP - General 11/23/07 documented as of this encounter
--- OUTSIDE RECORDS SUMMARY | 2025-03-03 12:26 | XMS_ITS | Encounter Summary ---
Author Organization [facility] Address [address] [place] [address] Care Team Providers Care Oil Well Services Dispatcher Name Role Phone Nick Mosley MD Primary Care Provider [phone] Reason for Visit * Reason Onset Date Comments Medication Refill 03/03/2025 Encounter Details Date Type Department Care Team (Late st Contact Info) Description 03/03/[address] [place] [address] Nick Mosley MD [address] [place] [address] [address] [place] [address] Other specified anxiety disorders Social History Tobacco Use Types Packs/Day Years Used Date Smoking Tobacco: Former Cigarettes Passive Smoke Exposure: Past Smokeless Tobacco: Never Comments:1 pack/month Alcohol Use Standard Drinks/Week Comments Yes 0 (1 standard drink = 0.6 oz pur e alcohol) SOCIAL Sex and Gender Information Value Date Recorded Sex Assigned at Not on file 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 Male 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 Gender Identity Not on file Sexual Orientation Not on file documented as of this encounter Plan of Treatment Upcoming Encounters Date Type Department Care Team (Late st Contact Info) Description 04/11/2025 10:40 AM CDT Office Visit [address] [place] [address] Nick Mosley MD [address] [place] [address] [address] [place] [address] documented as of this encounter Visit Diagnoses Diagnosis Other specified anxiety disorders documented in this encounter Care Teams Oil Well Services Dispatcher Relationship Specialty Start Date End Date Nick Mosley MD PCP - General 11/23/07 documented as of this encounter
--- OUTSIDE RECORDS SUMMARY | 2025-03-03 12:26 | XMS_ITS | Encounter Summary ---
Author Organization [facility] Address [address] [place] [address] Care Team Providers Care Database Specialist Name Role Phone Nick Mosley MD Primary Care Provider [phone] Encounter Details Date Type Department Care Team (Late st Contact Info) Description 08/23/2005 Outpatient Historical [facility] Internal Medicine [address] [address] Nick Mosley MD [address] [place] [address] [address] [place] [address] Social History Tobacco Use Types Packs/Day Years Used Date Smoking Tobacco: Never Assessed Sex and Gender Information Value Date Recorded Sex Assigned at Not on file Legal 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 Male 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 Gender Identity Not on file Sexual Orientation Not on file documented as of this encounter Last Filed Vital Signs Vital Sign Reading Time Taken Comments Blood Pressure 140/84 08/23/2005 2:45 PM RAIL SWITCHMAN Pulse - - Temperature 37.2 C (99 F) 08/23/2005 2:45 PM RAIL SWITCHMAN Respiratory Rate - - Oxygen Saturation - - Inhaled Oxygen Concentration - - Weight 147 kg (324 lb) 08/23/2005 2:45 PM RAIL SWITCHMAN Height - - Body Mass Index 43.94 06/27/2005 11:30 AM RAIL SWITCHMAN documented in this encounter Plan of Treatment Upcoming Encounters Date Type Department Care Team (Late st Contact Info) Description 04/11/2025 10:40 AM CDT Office Visit [facility] Primary Care [address] [place] [address] Nick Mosley MD [address] [place] [phone] documented as of this encounter Visit Diagnoses Not on filedocumented in this encounter Care Teams Database Specialist Relationship Specialty Start Date End Date Nick Mosley MD PCP - General 11/23/07 documented as of this encounter
--- OUTSIDE RECORDS SUMMARY | 2025-03-03 12:26 | XMS_ITS | Encounter Summary ---
Author Organization [facility] Address 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 Gender Identity Not on file Sexual [...] BENIGN cont med LAB ORDERS: Order number: [id number] Test Ordered: COMPREHENSIVE METABOLIC PANEL [id number] Order number: [id number] Test Ordered: LIPID PANEL 7600 461.9-SINUSITIS UNSPECIFIED [...] 04/11/2025 10:40 AM CDT Office Visit [facility] [address] [place] [address] Nick Mosley MD [address] [place] [address] [address] [place] [address] documented as of this encounter Visit Diagnoses Not on filedocumented in this encounter Care Teams Yarn Preparation Supervisor Relationship Specialty Start Date End Date Nick Mosley MD PCP - General 11/23/07 documented as of this encounter
--- OUTSIDE RECORDS SUMMARY | 2025-03-03 12:26 | XMS_ITS | Encounter Summary ---
Author Organization [facility] Address 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 PHARMACY NUMBER: [phone] PROBLEMS: for about 1 day SORE THROAT: [...] HOME PHONE: PATIENT`S WORK PHONE: PATIENT`S INSURANCE: [employer] WHO TOOK THE CALL: Leigh Carolina S GENERAL INFORMATION ALTERNATIVE PHONE NUMBER: [phone] ext [phone] WHO CALLED: Patient`s spouse called. PHARMACY NUMBER: [phone] PROBLEMS: SORE THROAT: Patient complains of sore [...] Visit [facility] Primary Care [address] [place] [address] Nick Mosley MD [address] [place] [address] [address] [place] [address] documented as of this encounter Visit Diagnoses Not on filedocumented in this encounter Care Teams Die Developer Relationship Specialty Start Date End Date Nick Mosley MD PCP - General 11/23/07 documented as of this encounter
--- OUTSIDE RECORDS SUMMARY | 2025-03-03 12:26 | XMS_ITS | Encounter Summary ---
Author Organization [facility] Address [address] [place] [address] Care Team Providers Care Insurance Salesman Name Role Phone Nick Mosley MD Primary Care Provider [phone] Reason for Visit * Reason Onset Date Comments Covid Symptoms Or Treatment 06/15/2022 Encounter Details Date Type Department Care Team (Late st Contact Info) Description 06/15/2022 Telephone [facility] Primary Care [address] [place] [address] Nick Mosley MD [address] [place] [address] [address] [place] [address] Covid Symptoms Or Treatment Social History Tobacco Use Types Packs/Day Years Used Date Smoking Tobacco: Former Cigarettes Q uit: 08/07/2016 Smokeless Tobacco: Never Alcohol Use Standard Drinks/Week Comments Yes 0 (1 standard drink = 0.6 oz pur e alcohol) SOCIAL Sex and Gender Information Value Date Recorded Sex Assigned at Not on file Legal 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 If yes, which pharmacy? Options[facility] [place] [phone] [x] Call back from provider [] Inform [...] Received the Bivalent Vaccine [] Not vaccinated W MACHINE SETTER documented in this encounter Plan of Treatment Upcoming Encounters Date Type Department Care Team (Late st Contact Info) Description 04/11/2025 10:40 AM CDT Office Visit [facility] Care [address] [place] [address] Nick Mosley MD [address] [place] [address] [place] [address] documented as of this encounter Visit Diagnoses Not on filedocumented in this encounter Care Teams Insurance Salesman Relationship Specialty Start Date End Date Nick Mosley MD PCP - General 11/23/07 documented as of this encounter
--- OUTSIDE RECORDS SUMMARY | 2025-03-03 12:26 | XMS_ITS | Encounter Summary ---
Author Organization [facility] Address 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 Gender Identity Not on file Sexual Orientation Not on file documented as of this encounter Progress Notes * Nick Mosley MD - 05/21/2008 2:21 AM CDT TIME:10:21 am PATIENT`S HOME PHONE: PATIENT`S WORK PHONE: PATIENT`S INSURANCE: [employer] [place] WHO TOOK THE CALL: Alison Adorno R [...] Description 04/11/2025 10:40 AM CDT Office Visit [facility] Primary Care [address] [place] [address] Nick Mosley MD [address] [place] [address] [address] [place] [address] documented as of this encounter Visit Diagnoses Not on filedocumented in this encounter Care Teams Health And Nutrition Specialist Relationship Specialty Start Date End Date Nick Mosley MD PCP - General 11/23/07 documented as of this encounter
--- OUTSIDE RECORDS SUMMARY | 2025-03-03 12:26 | XMS_ITS | Encounter Summary ---
Author Organization [facility] Address 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 PHARMACY NUMBER: [phone] x [phone] SECTION 1: REQUESTED ACTION marv 10/13/06 at 03:25 pm: MEDICATION REQUEST: MEDICATION REQUEST: Patient requests a refill. gen Zoloft #[id number] 07/27/06 Pt also wants Fenofibrate called in (didn't mail in his script). RN/WINDOW AND DOOR INSTALLER RESPONSE: phoebe 10/13/06 at 03:27 pm MEDICATIONS: [...] Description 04/11/2025 10:40 AM CDT Office Visit [facility] [place] [address] Nick Mosley MD [address] [place] [id number] documented as of this encounter Visit Diagnoses Not on filedocumented in this encounter Care Teams Sanitation Worker Relationship Specialty Start Date End Date Nick Mosley MD PCP - General 11/23/07 documented as of this encounter
--- OUTSIDE RECORDS SUMMARY | 2025-03-03 12:26 | XMS_ITS | Encounter Summary ---
Author Organization [facility] Address 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 Gender Identity Not on file Sexual Orientation Not on file documented as of this encounter Last Filed Vital Signs Vital Sign Reading Time Taken Comments Blood Pressure 128/84 06/27/2005 11:30 AM BIOCHEMICAL ENGINEER Pulse - - Temperature - - Respiratory Rate - - Oxygen Saturation - - Inhaled Oxygen Concentration - - Weight 147 kg (324 lb) 06/27/2005 11:30 AM BIOCHEMICAL ENGINEER Height 182.9 cm (6') 06/27/2005 11:30 AM BIOCHEMICAL ENGINEER Body Mass Index 43.94 06/27/2005 11:30 AM BIOCHEMICAL ENGINEER documented in this encounter Plan of Treatment Upcoming Encounters Date Type Department Care Team (Late st Contact Info) Description 04/11/2025 10:40 AM CDT Office Visit [facility] Primary Care [address] [place] [address] Nick Mosley MD [address] [place] [phone] documented as of this encounter Visit Diagnoses Not on filedocumented in this encounter Care Teams Profiler Operator Relationship Specialty Start Date End Date Nick Mosley MD PCP - General 11/23/07 documented as of this encounter
--- OUTSIDE RECORDS SUMMARY | 2025-03-03 12:26 | XMS_ITS | Encounter Summary ---
Author Organization [facility] Address [address] [place] [address] Care Team Providers Care Port Drier Name Role Phone Nick Mosley MD Primary Care Provider [phone] Encounter Details Date Type Department Care Team (Late Contact Info) Description 10/12/2023 Telephone [facility] Urology at the [facility] [address] [facility] [address] [place] [address] Javy Sales MD [address] [facility] [address] [place], [place] [id number] Social History Tobacco Use Types Packs/Day Years Used Date Smoking Tobacco: Former Cigarettes Passive Smoke Exposure: Past Smokeless Tobacco: Never Comments:1 pack/month Alcohol Use Standard Drinks/Week Comments Yes 0 (1 standard drink = 0.6 oz pur e alcohol) SOCIAL Sex and Gender Information Value Date Recorded Sex Assigned at Not on file 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 Left voicemail DENTIAL REAL ESTATE ASSISTANT documented in this encounter Plan of Treatment Upcoming Encounters Date Type Department Care Team (Late st Contact Info) Description 04/11/2025 10:40 AM CDT Office Visit [facility] Primary Care [address] [place] [address] Nick Mosley MD [address] [place] [phone] documented as of this encounter Visit Diagnoses Not on filedocumented in this encounter Care Teams Port Drier Relationship Specialty Start Date End Date Nick Mosley MD PCP - General 11/23/07 documented as of this encounter
--- OUTSIDE RECORDS SUMMARY | 2025-03-03 12:26 | XMS_ITS | Encounter Summary ---
Author Organization [facility] Address [address] [place] [address] Care Team Providers Care Stripper And Opaquer Apprentice Name Role Phone Nick Mosley MD Primary Care Provider [phone] Reason for Visit * Reason Onset Date Comments Medication Refill 03/03/2025 Encounter Details Date Type Department Care Team (Late Contact Info) Description 03/03/[address] [phone] Nick Mosley MD [address] [place] [phone] Other osteoarthritis of spine, lumbar region Social History Tobacco Use Types Packs/Day Years Used Date Smoking Tobacco: Former Cigarettes Passive Smoke Exposure: Past Smokeless Tobacco: Never Comments:1 pack/month Alcohol Use Standard Drinks/Week Comments Yes 0 (1 standard drink = 0.6 oz pur e alcohol) SOCIAL Sex and Gender Information Value Date Recorded Sex Assigned at Not on file 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 Gender Identity Not on file Sexual Orientation Not on file documented as of this encounter Plan of Treatment Upcoming Encounters Date Type Department Care Team (Late Contact Info) Description 04/11/2025 10:40 AM CDT Office Visit [address] [place] [address] Nick Mosley MD [address] [place] [address] [address] [place] [address] documented as of this encounter Visit Diagnoses Diagnosis Other osteoarthritis of spine, lumbar region documented in this encounter Care Teams Stripper And Opaquer Apprentice Relationship Specialty Start Date End Date Nick Mosley MD PCP - General 11/23/07 documented as of this encounter
--- OUTSIDE RECORDS SUMMARY | 2025-03-03 12:26 | XMS_ITS | Encounter Summary ---
Author Organization [facility] Address 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 Gender Identity Not on file Sexual Orientation Not on file documented as of this encounter Last Filed Vital Signs Vital Sign Reading Time Taken Comments Blood Pressure 138/84 09/06/2006 1:15 PM LITIGATION SPECIALIST Pulse - - Temperature - - Respiratory Rate - - Oxygen Saturation - - Inhaled Oxygen Concentration - - Weight 149.7 kg (330 lb) 09/06/2006 1:15 PM LITIGATION SPECIALIST Height - - Body Mass Index 44.76 06/27/2005 11:30 AM LITIGATION SPECIALIST documented in this encounter Plan of Treatment Upcoming Encounters Date Type Department Care Team (Late st Contact Info) Description 04/11/2025 10:40 AM CDT Office Visit [facility] Primary Care [address] [place] [address] Nick Mosley MD [address] [place] [address] [address] [place] [address] documented as of this encounter Visit Diagnoses Not on filedocumented in this encounter Care Teams Emergency Man Relationship Specialty Start Date End Date Nick Mosley MD PCP - General 11/23/07 documented as of this encounter
--- OUTSIDE RECORDS SUMMARY | 2025-03-03 12:26 | XMS_ITS | Clinical Summary ---
Author Organization [facility] [address] [place] [address] Phone Care Team Providers Care Amr Physician Name Role Phone Nick Mosley MD Primary [...] ons:hypertensi on Take 10 mg by mouth historic interpreter before breakfast. Active losartan (COZAAR) 50 mg tabletIndicati ons:hypertensi on Take 50 mg by mouth historic interpreter before breakfast. 7 Active omeprazole (PriLOSEC) 20 mg capsuleIndicat ions:Treatment of Non-Bleeding Gastric Disorder Take 20 mg by mouth historic interpreter before breakfast. 8 Active sertraline (ZOLOFT) 100 mg tabletIndicati ons:Anxiety with Depression Take 100 mg by mouth daily after breakfast. Active simvastatin (ZOCOR) 20 mg tabletIndicati ons:hyperlipid emia Take 20 mg by mouth historic interpreter before breakfast. Active insulin lispro (HumaLOG) 100 unit/mL injectionIndic ations:type 2 diabetes mellitus Inject 15 Units under the skin 3 (three) times a day before meals Indications: type 2 diabetes mellitus. SSI Active blood glucose diagnostic strip Check blood sugar 3 times daily. Dx E.119, insulin use. OneTouch Ultra. 8 Active blood-glucose meter kit Check blood sugar three times daily. Dx E11.9, usp insulin use. OneTouch Ultra. 8 Active insulin glargine (LANTUS,BASAGL AR) 100 unit/mL (3 mL) insulin pen Lot: [id number] Ex: 07/2019 Qty: 2 BOXES- INJECT 70 [...] (BREO ELLIPTA) 100-25 mcg/dose diskus inhaler Lot: [id number] Ex: 11/24 Qty: 1. 9 Active metFORMIN [...] Active Problems Problem Noted Date Diagnosed Date alf current use of antibiotics 01/21/2019 Assessment & [...] to remain in place, will plan on usp oral suppression due to risk of recurrent infection. 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 10/09/2018 Overview (10/09/2018): Added automatically from request for surgery [id number] Ankle syndesmosis disruption, right, initial enc ounter 10/09/2018 Overview (10/09/2018): Added automatically from request for surgery [id number] Loose body in right ankle and foot joint 019 Overview (10/09/2018): Added automatically from request for surgery [id number] Morbid obesity with BMI of 40.0-44.9, adult [...] on file Legal 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 Male 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 Gender Identity Not on file Sexual [...] on file Medical Devices Implanted Type Area Gold Marker Device Identifier Shelf Expiration Date Model / Serial / Lot [employer] /Ortho [id number] Vlp 3.5mm 16mm Self Tapping Hex Drive Recess Cortical Foot Low - S0 - [id number] Implanted:Qty : 1 on 11/20/2018 by Deb Mccullough MD at [facility] Screw Right: Fibula [employer]Or tho [id number] / 0 / [employer] /Ortho [id number] Tara-Loc Vlp 3.5mm 18mm Self Tapping Cortical Midfoot Hindfoot - S0 - [id number] Implanted:Qty : 2 on 11/20/2018 by Deb Mccullough MD at [facility] Screw Right: Fibula [employer]Or tho [id number] / 0 / [employer] /Ortho [id number] Tara-Loc Vlp 3.5mm 24mm Self Tap Foot Cortical Hexagon Low - S0 - [id number] Implanted:Qty : 1 on 11/20/2018 by Deb Mccullough MD at [facility] Screw Right: Fibula [employer]/Or tho [id number] / 0 / [employer] /Ortho [id number] Tara-Loc Vlp 3.5mm 14mm Self Tap Foot Cortical Hexagon Low - S0 - [id number] Implanted:Qty : 2 on 11/20/2018 by Deb Mccullough MD at [facility] Screw Right: Fibula [employer]/Or tho [id number] / 0 / [employer] /Ortho [id number] Tara-Loc Vlp 5mm 14mm Tibia Distal Proximal Full Thread Screw - S0 - [id number] Implanted:Qty : 2 on 11/20/2018 by Deb Mccullough MD at [facility] Screw Right: Fibula [employer]Or tho [id number] / 0 / [employer] /Ortho [id number] Tara-Loc Vlp 3.5mm 60mm Self Tapping Cortical Midfoot Hindfoot - S0 - [id number] Implanted:Qty : 1 on 11/20/2018 by Deb Mccullough MD at [facility] Screw Right: Fibula [employer]Or tho [id number] / 0 / 7 Hole Right Lateral Distal Fibula Plate Implanted:Qty : 1 on 11/20/2018 by Deb Mccullough MD at [facility] Right: Fibula [employer] / 0 / Explanted Type Area Gold Marker Device Identifier Shelf Expiration Date Model / Serial / Lot [employer] [id number] Ye .062in 9in 1 Trocar Smooth Wire Fixation - S0 - [id number] Explanted:Qty: 1 on 11/20/2018 by Deb Mccullough MD at [facility] Wire [employer] [id number] / 0 / Description:Provisional fixa tion [employer] [id number] [facility] 5/64in 9in Trocar Point One End Pin Fixation Stainless - S0 - [id number] Explanted:Qty: 1 on 11/20/2018 by Deb Mccullough MD at [facility] Wire Right: Fibula [employer] [id number] / 0 / Description:Provisional fixa tion Insurance MEDICARE MEDICARE [facility] MEDICARE Advance Directives For more information, please contact: [phone] * Full Code (Latest Code Status on File) Date Activated Date Inactivated Comments 12/10/2018 11:06 PM 12/14/2018 5:16 PM Care Teams Amr Physician Relationship Specialty Start Date End Date Nick Mosley MD PCP - General 01/10/14
--- OUTSIDE RECORDS SUMMARY | 2025-03-03 12:26 | XMS_ITS | Encounter Summary ---
Author Organization [facility] Address 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 Gender Identity Not on file Sexual [...] Body Mass Index 44.21 06/27/2005 11:30 AM GAME PRESERVE MANAGER documented in this encounter Plan of Treatment Upcoming Encounters Date Type Department Care Team (Late st Contact Info) Description 04/11/2025 10:40 AM CDT Office Visit [facility] Primary Care [address] [place] [address] Nick Mosley MD [address] [place] [address] [address] [place] [address] documented as of this encounter Visit Diagnoses Not on filedocumented in this encounter Care Teams Package Handler Relationship Specialty Start Date End Date Nick Mosley MD PCP - General 11/23/07 documented as of this encounter
--- OUTSIDE RECORDS SUMMARY | 2025-03-03 12:26 | XMS_ITS | Encounter Summary ---
Author Organization [facility] Address 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 LAB ORDERS: 3 mo Order number: [id number] Test Ordered: COMPREHENSIVE METABOLIC PANEL W/ GLOMERULAR FILTRATION RATE, ESTIMATED (EGFR) 04222 Order number: [id number] Test Ordered: LIPID PANEL 7600 Order number: [id number] Test Ordered: HEMOGLOBIN A1c 496 272.4-HYPERLIPIDEMIA inc [...] refer ortho--jeramy mcclelland SPECIALTY REFERRAL: [facility] RET[facility]ISIT : Patient instructed to return in 3 months. Electronically Signed by: Nick Mosley MD on Wednesday, September 06, 2006 documented in this encounter Plan of Treatment Upcoming Encounters Date Type Department Care Team (Late st Contact Info) Description 04/11/2025 10:40 AM CDT Office Visit [facility] Care [place] [id number] Nick Mosley MD [address] [place] [address] documented as of this encounter Visit Diagnoses Not on filedocumented in this encounter Care Teams Duck Bill Operator Relationship Specialty Start Date End Date Nick Mosley MD PCP - General 11/23/07 documented as of this encounter
--- OUTSIDE RECORDS SUMMARY | 2025-03-03 12:26 | XMS_ITS | Referral Summary ---
Author Organization 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 [address] [employer] Address [address] [place] [address] Phone Care Team Providers Care Emergency Room Clinician Name Role Phone Nick Mosley MD Primary [...] ons:hypertensi on Take 10 mg by mouth cycle specialist before breakfast. Active losartan (COZAAR) 50 mg tabletIndicati ons:hypertensi on Take 50 mg by mouth cycle specialist before breakfast. 7 Active omeprazole (PriLOSEC) 20 mg capsuleIndicat ions:Treatment of Non-Bleeding Gastric Disorder Take 20 mg by mouth cycle specialist before breakfast. 8 Active sertraline (ZOLOFT) 100 mg tabletIndicati ons:Anxiety with Depression Take 100 mg by mouth daily after breakfast. Active simvastatin (ZOCOR) 20 mg tabletIndicati ons:hyperlipid emia Take 20 mg by mouth cycle specialist before breakfast. Active insulin lispro (HumaLOG) 100 unit/mL injectionIndic ations:type 2 diabetes mellitus Inject 15 Units under the skin 3 (three) times a day before meals Indications: type 2 diabetes mellitus. SSI Active blood glucose diagnostic strip Check blood sugar 3 times daily. Dx E.119, insulin use. OneTouch Ultra. 8 Active blood-glucose meter kit Check blood sugar three times daily. Dx E11.9, [facility] insulin use. OneTouch Ultra. 8 Active insulin glargine (LANTUS,BASAGL AR) 100 unit/mL (3 mL) insulin pen Lot: [id number] Ex: 07/2019 Qty: 2 BOXES- INJECT 70 [...] (BREO ELLIPTA) 100-25 mcg/dose diskus inhaler Lot: [id number] Ex: 11/24 Qty: 1. 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 10/09/2018 Overview (10/09/2018): Added automatically from request for surgery [id number] Ankle syndesmosis disruption, right, initial enc ounter 10/09/2018 Overview (10/09/2018): Added automatically from request for surgery [id number] Loose body in right ankle and foot joint 019 Overview (10/09/2018): Added automatically from request for surgery [id number] Morbid obesity with BMI of 40.0-44.9, adult [...] on file Legal 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 Gender Identity Not on file Sexual Orientation [...] on file Medical Devices Implanted Type Area Evening Or Night Nurse Supervisor Device Identifier Shelf Expiration Date Model / Serial / Lot [employer] /Ortho [id number] Vlp 3.5mm 16mm Self Tapping Hex Drive Recess Cortical Foot Low - S0 - [id number] Implanted:Qty : 1 on 11/20/2018 by Deb Mccullough MD at [facility] Screw Right: Fibula [employer] tho [id number] / 0 / [employer] /Ortho [id number] Tara-Loc Vlp 3.5mm 18mm Self Tapping Cortical Midfoot Hindfoot - S0 - [id number] Implanted:Qty : 2 on 11/20/2018 by Deb Mccullough MD at [facility] Screw Right: Fibula [employer]Or tho [id number] / 0 / [employer] /Ortho [id number] Tara-Loc Vlp 3.5mm 24mm Self Tap Foot Cortical Hexagon Low - S0 - [id number] Implanted:Qty : 1 on 11/20/2018 by Deb Mccullough MD at [facility] Screw Right: Fibula [employer]/Or tho [id number] / 0 / [employer] /Ortho [id number] Tara-Loc Vlp 3.5mm 14mm Self Tap Foot Cortical Hexagon Low - S0 - [id number] Implanted:Qty : 2 on 11/20/2018 by Deb Mccullough MD at [facility] Screw Right: Fibula [employer]/Or tho [id number] / 0 / [employer] /Ortho [id number] Tara-Loc Vlp 5mm 14mm Tibia Distal Proximal Full Thread Screw - S0 - [id number] Implanted:Qty : 2 on 11/20/2018 by Deb Mccullough MD at [facility] Screw Right: Fibula [employer]/Or tho [id number] / 0 / [employer] /Ortho [id number] Tara-Loc Vlp 3.5mm 60mm Self Tapping Cortical Midfoot Hindfoot - S0 - [id number] Implanted:Qty : 1 on 11/20/2018 by Deb Mccullough MD at [facility] Screw Right: Fibula [employer]Or tho [id number] / 0 / 7 Hole Right Lateral Distal Fibula Plate Implanted:Qty : 1 on 11/20/2018 by Deb Mccullough MD at [facility] Right: Fibula [employer] / 0 / Explanted Type Area Evening Or Night Nurse Supervisor Device Identifier Shelf Expiration Date Model / Serial / Lot [employer] [id number] Ye .062in 9in 1 Trocar Smooth Wire Fixation - S0 - [id number] Explanted:Qty: 1 on 11/20/2018 by Deb Mccullough MD at [facility] Wire [employer] [id number] / 0 / Description:Provisional fixa tion [employer] [id number] [place] 5/64in 9in Trocar Point One End Pin Fixation Stainless - S0 - [id number] Explanted:Qty: 1 on 11/20/2018 by Deb Mccullough MD at [facility] Wire Right: Fibula [employer] [id number] / 0 / Description:Provisional fixa tion Insurance MEDICARE [facility] MEDICARE Advance Directives For more information, please contact: [phone] * Full Code (Latest Code Status on File) Date Activated Date Inactivated Comments 12/10/2018 11:06 PM 12/14/2018 5:16 PM Care Teams Emergency Room Clinician Relationship Specialty Start Date End Date Nick Mosley MD PCP - General 01/10/14
--- OUTSIDE RECORDS SUMMARY | 2025-03-03 12:26 | XMS_ITS | Encounter Summary ---
Author Organization [facility] Address 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 LAB ORDERS: 3mo Order number: [id number] Test Ordered: COMPREHENSIVE METABOLIC PANEL W/ GLOMERULAR FILTRATION RATE, ESTIMATED (EGFR) 48462 Order number: [id number] Test Ordered: LIPID PANEL 7600 Order number: [id number] Test Ordered: HEMOGLOBIN A1c 496 780.57-SLEEP APNEA likely needs cpap LAB ORDERS: Order number: [id number] Test Ordered: SLEEP STUDY StA krystin RETURN VISIT : Patient instructed to return in 3 months. Electronically Signed by: Nick Mosley MD on Monday, March 13, 2006 documented in this encounter Plan of Treatment Upcoming Encounters Date Type Department Care Team (Late st Contact Info) Description 04/11/2025 10:40 AM CDT Office Visit [facility] Primary Care [address] [address] Nick Mosley MD [address] [place] [address] documented as of this encounter Visit Diagnoses Not on filedocumented in this encounter Care Teams Mill Tender Warm Up Relationship Specialty Start Date End Date Nick Mosley MD PCP - General 11/23/07 documented as of this encounter
--- OUTSIDE RECORDS SUMMARY | 2025-03-03 12:26 | XMS_ITS | Encounter Summary ---
Author Organization [facility] Address 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 Gender Identity Not on file Sexual Orientation Not on file documented as of this encounter Plan of Treatment Upcoming Encounters Date Type Department Care Team (Late Contact Info) Description 04/11/2025 10:40 AM CDT Office Visit [facility] Primary Care [address] [place] [address] Nick Mosley MD [address] [place] [address] [address] [place] [address] documented as of this encounter Visit Diagnoses Not on filedocumented in this encounter Care Teams Budget Examiner Relationship Specialty Start Date End Date Nick Mosley MD PCP - General 11/23/07 documented as of this encounter
--- OUTSIDE RECORDS SUMMARY | 2025-03-03 12:27 | XMS_ITS | Encounter Summary ---
Author Organization [facility] Address [address] [place] [address] Care Team Providers Care Tire Servicer Name Role Phone Nick Mosley MD Primary Care Provider [phone] Encounter Details Date Type Department Care Team (Late st Contact Info) Description 08/21/2007 Outpatient Historical [facility] Internal Medicine [address] [address] Nick Mosley MD [address] [place] [address] [address] [place] [address] Social History Tobacco Use Types Packs/Day Years Used Date Smoking Tobacco: Never Assessed Sex and Gender Information Value Date Recorded Sex Assigned at Not on file Legal Sex Male 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 Gender Identity Not on file Sexual Orientation Not on file documented as of this encounter Last Filed Vital Signs Vital Sign Reading Time Taken Comments Blood Pressure 120/80 08/21/2007 3:30 PM 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 Pulse - - Temperature 37.8 C (100.1 F) 08/21/2007 3:30 PM 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 Respiratory Rate - - Oxygen Saturation - - Inhaled Oxygen Concentration - - Weight 142.4 kg (314 lb) 08/21/2007 3:30 PM 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 Height - - Body Mass Index 42.59 06/27/2005 11:30 AM 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 documented in this encounter Plan of Treatment Upcoming Encounters Date Type Department Care Team (Late st Contact Info) Description 04/11/2025 10:40 AM CDT Office Visit [facility] Primary Care [address] [place] [address] Nick Mosley MD [address] [place] [address] [place] [address] documented as of this encounter Visit Diagnoses Not on filedocumented in this encounter Care Teams Tire Servicer Relationship Specialty Start Date End Date Nick Mosley MD PCP - General 11/23/07 documented as of this encounter
--- OUTSIDE RECORDS SUMMARY | 2025-03-03 12:27 | XMS_ITS | Encounter Summary ---
Author Organization [facility] Address [address] [place] [address] Care Team Providers Care Welding Machine Assembler Name Role Phone Nick Mosley MD Primary Care Provider [phone] Encounter Details Date Type Department Care Team (Late st Contact Info) Description 12/25/2006 Outpatient Historical [facility] Internal Medicine [address] [address] Nick Mosley MD [address] [place] [address] [address] [place] [address] Social History Tobacco Use Types Packs/Day Years Used Date Smoking Tobacco: Never Assessed Sex and Gender Information Value Date Recorded Sex Assigned at Not on file Legal Sex Male 4:34 AM RE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 COUNSELLOR Gender Identity Not on file Sexual Orientation [...] Body Mass Index 44.21 06/27/2005 11:30 AM RE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 COUNSELLOR documented in this encounter Plan of Treatment Upcoming Encounters Date Type Department Care Team (Late st Contact Info) Description 04/11/2025 10:40 AM CDT Office Visit [facility] Primary Care [address] [place] [address] Nick Mosely MD [address] [place] [address] [address] [place] [address] documented as of this encounter Visit Diagnoses Not on filedocumented in this encounter Care Teams Welding Machine Assembler Relationship Specialty Start Date End Date Nick Mosley MD PCP - General 11/23/07 documented as of this encounter
--- OUTSIDE RECORDS SUMMARY | 2025-03-03 12:27 | XMS_ITS | Encounter Summary ---
Author Organization [facility] Address [address] [place] [address] Care Team Providers Care Well Servicing Rig Operator Name Role Phone Nick Mosley MD Primary Care Provider [phone] Reason for Visit * Reason Comments Provider Call Encounter Details Date Type Department Care Team ([facility] st Contact Info) Description 04/24/2024 Telephone [facility] Primary Care [address] [place] [address] Nick Mosley MD [address] [place] [address] [address] [place] [address] Provider Call Social History Tobacco Use Types Packs/Day Years Used Date Smoking Tobacco: Former Cigarettes Passive Smoke Exposure: Past Smokeless Tobacco: Never Comments:1 pack/month Alcohol Use Standard Drinks/Week Comments Yes 0 (1 standard drink = 0.6 oz pur e alcohol) SOCIAL Sex and Gender Information Value Date Recorded Sex Assigned at Not on file Legal 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 Topic: [id number] Call >> Apr 24, 2024 4:00 PM Rakesh Millan wrote: Caller is requesting to speak with Clinical Care Team. [facility] Number: [phone] Clinician Type: Other healthcare professional not listed above Call Notes: Requesting 6months of weight loss [facility] :[phone] Is this addressing an immediate patient care need? Yes documented in this encounter Plan of Treatment Upcoming Encounters Date Type Department Care Team (Late st Contact Info) Description 04/11/2025 10:40 AM CDT Office Visit [facility] Primary Care [place] [address] [place] [address] Nick Mosley MD [address] [place] [address] [place] [address] documented as of this encounter Visit Diagnoses Not on filedocumented in this encounter Care Teams Well Servicing Rig Operator Relationship Specialty Start Date End Date Nick Mosley MD PCP - General 11/23/07 documented as of this encounter
--- OUTSIDE RECORDS SUMMARY | 2025-03-03 12:27 | XMS_ITS | Encounter Summary ---
Author Organization [facility] Address [address] [place] [address] Care Team Providers Care Ambulatory Care Nurse Name Role Phone Nick Mosley MD Primary Care Provider [phone] Encounter Details Date Type Department Care Team (Late Contact Info) Description 03/30/2007 Outpatient Historical [facility] Internal Medicine [address] [address] Nick Mosley MD [address] [place] [phone] Social History Tobacco Use Types Packs/Day Years Used Date Smoking Tobacco: Never Assessed Sex and Gender Information Value Date Recorded Sex Assigned at Not on file Legal Sex Male 4:34 AM SMEARER Gender Identity Not on file Sexual Orientation Not on file documented as of this encounter Plan of Treatment Upcoming Encounters Date Type Department Care Team (Late Contact Info) Description 04/11/2025 10:40 AM CDT Office Visit [facility] Primary Care [address] [place] [address] Nick Mosley MD [address] [place] [address] [address] [place] [address] documented as of this encounter Visit Diagnoses Not on filedocumented in this encounter Care Teams Ambulatory Care Nurse Relationship Specialty Start Date End Date Nick Mosley MD PCP - General 11/23/07 documented as of this encounter
--- OUTSIDE RECORDS SUMMARY | 2025-03-03 12:27 | XMS_ITS | Encounter Summary ---
Author Organization [facility] Address 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 Gender Identity Not on file Sexual Orientation [...] reassess LAB ORDERS: 2 mo Order number: [id number] Test Ordered: COMPREHENSIVE METABOLIC PANEL & GFR 1112 Order number: [id number] Test Ordered: HEMOGLOBIN A1C 1814 Order number: [id number] Test Ordered: LIPID PANEL 1078 272.4-HYPERLIPIDEMIA enc [...] Office Visit [facility] Primary Care [address] [place] [address] Nick Mosley MD [address] [place] [address] [address] [place] [phone] documented as of this encounter Visit Diagnoses Not on filedocumented in this encounter Care Teams Sheet Ironworker Relationship Specialty Start Date End Date Nick Mosley MD PCP - General 11/23/07 documented as of this encounter
--- OUTSIDE RECORDS SUMMARY | 2025-03-03 12:27 | XMS_ITS | Encounter Summary ---
Author Organization [facility] Address [address] [place] [address] Care Team Providers Care Wire Galvanizer Name Role Phone Nick Mosley MD Primary Care Provider [phone] Encounter Details Date Type Department Care Team (Late Contact Info) Description 10/12/2007 Orders Only [facility] Internal Medicine [address] [address] Nick Mosley MD [address] [place] [address] Social History Tobacco Use Types Packs/Day Years Used Date Smoking Tobacco: Never Assessed Sex and Gender Information Value Date Recorded Sex Assigned at Not on file Legal Sex Male 4:34 AM BOND WRITER Gender Identity Not on file Sexual Orientation Not on file documented as of this encounter Plan of Treatment Upcoming Encounters Date Type Department Care Team (Late Contact Info) Description 04/11/2025 10:40 AM CDT Office Visit [facility] Primary Care [address] [place] [address] Nick Mosley MD [address] [place] [address] [address] [place] [address] documented as of this encounter Visit Diagnoses Not on filedocumented in this encounter Care Teams Wire Galvanizer Relationship Specialty Start Date End Date Nick Mosley MD PCP - General 11/23/07 documented as of this encounter
--- OUTSIDE RECORDS SUMMARY | 2025-03-03 12:27 | XMS_ITS | Encounter Summary ---
Author Organization [facility] Address [address] [place] [address] Care Team Providers Care Director Of Home Health Services Name Role Phone Nick Mosley MD Primary Care Provider [phone] Encounter Details Date Type Department Care Team (Late st Contact Info) Description 05/04/2007 Outpatient Historical [facility] Internal Medicine [address] [address] Nick Mosley MD [address] [place] [address] [address] [place] [address] Social History Tobacco Use Types Packs/Day Years Used Date Smoking Tobacco: Never Assessed Sex and Gender Information Value Date Recorded Sex Assigned at Not on file Legal Sex Male 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 KIDS 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 Gender Identity Not on file Sexual Orientation [...] Body Mass Index 42.99 06/27/2005 11:30 AM KIDS 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 documented in this encounter Plan of Treatment Upcoming Encounters Date Type Department Care Team (Late st Contact Info) Description 04/11/2025 10:40 AM CDT Office Visit [facility] Primary Care [address] [place] [address] Nick Mosley MD [address] [place] [address] [address] [place] [address] documented as of this encounter Visit Diagnoses Not on filedocumented in this encounter Care Teams Director Of Home Health Services Relationship Specialty Start Date End Date Nick Mosley MD PCP - General 11/23/07 documented as of this encounter
--- OUTSIDE RECORDS SUMMARY | 2025-03-03 12:27 | XMS_ITS | Encounter Summary ---
Author Organization 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 Address [address] [place] [address] Care Team Providers Care White Washer Name Role Phone Nick Mosley MD Primary Care Provider [phone] Encounter Details Date Type Department Care Team (Late Contact Info) Description 03/30/2007 Orders Only [facility] Internal Medicine [address] [address] Nick Mosley MD [address] [place] [address] Social History Tobacco Use Types Packs/Day Years Used Date Smoking Tobacco: Never Assessed Sex and Gender Information Value Date Recorded Sex Assigned at Not on file Legal Sex Male 4:34 AM CAREER CENTER DIRECTOR Gender Identity Not on file Sexual Orientation Not on file documented as of this encounter Plan of Treatment Upcoming Encounters Date Type Department Care Team (Late Contact Info) Description 04/11/2025 10:40 AM CDT Office Visit [facility] Primary Care [address] [place] [address] Nick Mosley MD [address] [place] [address] [address] [place] [address] documented as of this encounter Visit Diagnoses Not on filedocumented in this encounter Care Teams White Washer Relationship Specialty Start Date End Date Nick Mosley MD PCP - General 11/23/07 documented as of this encounter
--- OUTSIDE RECORDS SUMMARY | 2025-03-03 12:27 | XMS_ITS | Encounter Summary ---
Author Organization [facility] Address [address] [place] [address] Care Team Providers Care Assistant Warehouse Manager Name Role Phone Nick Mosley MD Primary Care Provider [phone] Encounter Details Date Type Department Care Team (Late Contact Info) Description 10/16/2006 Orders Only [facility] Internal Medicine [address] [address] Nick Mosley MD [address] [place] [address] Social History Tobacco Use Types Packs/Day Years Used Date Smoking Tobacco: Never Assessed Sex and Gender Information Value Date Recorded Sex Assigned at Not on file Legal Sex Male 4:34 AM WIRE MILL ROVER Gender Identity Not on file Sexual Orientation Not on file documented as of this encounter Plan of Treatment Upcoming Encounters Date Type Department Care Team (Late Contact Info) Description 04/11/2025 10:40 AM CDT Office Visit [facility] Primary Care [address] [place] [address] Nick Mosley MD [address] [place] [address] [address] [place] [address] documented as of this encounter Visit Diagnoses Not on filedocumented in this encounter Care Teams Assistant Warehouse Manager Relationship Specialty Start Date End Date Nick Mosley MD PCP - General 11/23/07 documented as of this encounter
--- OUTSIDE RECORDS SUMMARY | 2025-03-03 12:27 | XMS_ITS | Encounter Summary ---
Author Organization [facility] Address [address] [place] [address] Care Team Providers Care Time Checker Name Role Phone Nick Mosley MD Primary Care Provider [phone] Encounter Details Date Type Department Care Team (Late st Contact Info) Description 08/21/2007 Orders Only [facility] Internal Medicine [address] [address] Nick Mosley MD [address] [place] [address] Social History Tobacco Use Types Packs/Day Years Used Date Smoking Tobacco: Never Assessed Sex and Gender Information Value Date Recorded Sex Assigned at Not on file Legal Sex Male 4:34 AM PREMISES TECHNICIAN Gender Identity Not on file Sexual [...] reassess LAB ORDERS: 3 mo Order number: [id number] Test Ordered: COMPREHENSIVE METABOLIC PANEL & GFR 1112 Order number: [id number] Test Ordered: HEMOGLOBIN A1C 1814 Order number: [id number] Test Ordered: LIPID PANEL 1078 272.4-HYPERLIPIDEMIA add [...] AM CDT Office Visit [facility] Primary Care [address] Nick Mosley MD [address] [place] [address] documented as of this encounter Visit Diagnoses Not on filedocumented in this encounter Care Teams Time Checker Relationship Specialty Start Date End Date Nick Mosley MD PCP - General 11/23/07 documented as of this encounter
--- OUTSIDE RECORDS SUMMARY | 2025-03-03 12:27 | XMS_ITS | Encounter Summary ---
Author Organization [facility] Address 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 INSTALLER Gender Identity Not on file Sexual Orientation Not on file documented as of this encounter Plan of Treatment Upcoming Encounters Date Type Department Care Team (Late Contact Info) Description 04/11/2025 10:40 AM CDT Office Visit [facility] Primary Care [address] [place] [address] Nick Mosley MD [address] [place] [address] [address] [place] [address] documented as of this encounter Visit Diagnoses Not on filedocumented in this encounter Care Teams Employment And Claims Aide Relationship Specialty Start Date End Date Nick Mosley MD PCP - General 11/23/07 documented as of this encounter
--- OUTSIDE RECORDS SUMMARY | 2025-03-03 12:27 | XMS_ITS | Encounter Summary ---
Author Organization [facility] Address [address] [place] [address] Care Team Providers Care Cake Batter Mixer Name Role Phone Nick Mosley MD Primary Care Provider [phone] Encounter Details Date Type Department Care Team (Late Contact Info) Description 02/14/2007 Outpatient Historical [facility] Internal Medicine [address] [address] Nick Mosley MD [address] [place] [phone] Social History Tobacco Use Types Packs/Day Years Used Date Smoking Tobacco: Never Assessed Sex and Gender Information Value Date Recorded Sex Assigned at Not on file Legal Sex Male 4:34 AM DIRECTOR CAREER SERVICES Gender Identity Not on file Sexual Orientation Not on file documented as of this encounter Plan of Treatment Upcoming Encounters Date Type Department Care Team (Late Contact Info) Description 04/11/2025 10:40 AM CDT Office Visit [facility] Primary Care [address] [place] [address] Nick Mosley MD [address] [place] [address] [address] [place] [address] documented as of this encounter Visit Diagnoses Not on filedocumented in this encounter Care Teams Cake Batter Mixer Relationship Specialty Start Date End Date Nick Mosley MD PCP - General 11/23/07 documented as of this encounter
--- OUTSIDE RECORDS SUMMARY | 2025-03-03 12:27 | XMS_ITS | Clinical Summary ---
Author Organization [facility] [address] [facility] [place] [address] Phone Care Team Providers Care Drug And Alcohol Counsellor Name Role Phone Nick Mosley MD Primary Care Provider [phone] Allergies Active Allergy Reactions Criticality Noted Date [...] 136.1 kg (300 lb) 07/07/2017 3:00 PM TRUCK SERVICE TECHNICIAN Height 182.9 cm (6') 07/07/2017 3:00 PM TRUCK SERVICE TECHNICIAN Body Mass Index 40.69 07/07/2017 3:00 PM TRUCK SERVICE TECHNICIAN Plan of Treatment Health Maintenance Due Date Last Done Comments Hepatitis C Virus (HCV) Screening 1972 TdaP Immunization 1972 Hepatitis B Immunization (1 of 3 - 19+ 3-dose series) 1991 Cologuard 2017 Colonoscopy 2017 Colorectal Cancer Screening 2017 Immunochemical Fecal Occult Blood 2017 Pneumococcal Immunization (5 0+ years) (1 of 1 - PCV) 2022 Zoster Immunization (1 of 2) 2022 SARS-COV-2 Immunization ( season) 2024 03/09/2021, 02/15/2021 Influenza Immunization (#1) 2025 Respiratory Syncytial Virus (RSV) Immunization (Adult) (1 - 1-dose 75+ series) 2047 Human Papillomavirus (HPV) Immunization Aged Out No longer eligible b ased on patient's age to complete this topic Meningococcal Immunization (ACWY) Aged Out No longer eligible b ased on patient's age to complete this topic Rotavirus Immunization Aged Out No lo nger eligible based on patient's age to complete this topic Insurance MEDICARE [facility] MEDICAID [place] Advance Directives * Full Code (Latest Code Status on File) Date Activated Date Inactivated Comments 10/07/2016 11:04 PM 10/08/2016 4:51 PM CPR-Full Aura tment: FULL ARREST: Attempt Resuscitation/CPR wit intubation and mechanical ventilation. PRE-ARREST: Use entire range of life support measures to stabilize the patient. Care Teams Drug And Alcohol Counsellor Relationship Specialty Start Date End Date Nick Mosley MD [address] [place] [phone] PCP - General 10/07/16
--- OUTSIDE RECORDS SUMMARY | 2025-03-03 12:27 | XMS_ITS | Encounter Summary ---
Author Organization [facility] Address [address] [place] [address] Care Team Providers Care Stripper Black And White Name Role Phone Nick Mosley MD Primary Care Provider [phone] Encounter Details Date Type Department Care Team (Late Contact Info) Description 02/14/2007 Outpatient Historical [facility] Internal Medicine [address] [address] Nick Mosley MD [address] [place] [phone] Social History Tobacco Use Types Packs/Day Years Used Date Smoking Tobacco: Never Assessed Sex and Gender Information Value Date Recorded Sex Assigned at Not on file Legal Sex Male 4:34 AM ENVIRONMENTAL COMPLIANCE INSPECTOR Gender Identity Not on file Sexual Orientation Not on file documented as of this encounter Plan of Treatment Upcoming Encounters Date Type Department Care Team (Late Contact Info) Description 04/11/2025 10:40 AM CDT Office Visit [facility] Primary Care [address] [place] [address] Nick Mosley MD [address] [place] [address] [address] [place] [address] documented as of this encounter Visit Diagnoses Not on filedocumented in this encounter Care Teams Stripper Black And White Relationship Specialty Start Date End Date Nick Mosley MD PCP - General 11/23/07 documented as of this encounter
--- OUTSIDE RECORDS SUMMARY | 2025-03-03 12:27 | XMS_ITS | Encounter Summary ---
Author Organization [facility] Address 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 Gender Identity Not on file Sexual Orientation Not on file documented as of this encounter Plan of Treatment Upcoming Encounters Date Type Department Care Team (Late Contact Info) Description 04/11/2025 10:40 AM CDT Office Visit [facility] Primary Care [address] [place] [address] Nick Mosley MD [address] [place] [address] [address] [place] [address] documented as of this encounter Visit Diagnoses Not on filedocumented in this encounter Care Teams Honing Job Setter Relationship Specialty Start Date End Date Ncik Mosley MD PCP - General 11/23/07 documented as of this encounter
--- OUTSIDE RECORDS SUMMARY | 2025-03-03 12:27 | XMS_ITS | Clinical Summary ---
Author Organization [facility] Address [address] [place] [address] Care Team Providers Care Technical Instructor Course Developer Name Role Phone Nick Mosley MD Primary Care Provider [phone] Allergies Active Allergy Reactions Criticality Noted Date Comments 2-Octyl Cyanoacrylate Rash Medium 01/01/2015 Adhesive Tape-Silicones Rash Low 01/01/2015 Meperidine Hives High 11/07/2008 Medications blood sugar diagnostic (ONETOUCH ULTRA BLUE TEST STRIP) Strip Check blood sugar 3 times daily. Dx E.119, insulin use. OneTouch Ultra. 100 Each 11 Active lancets (One Touch Delica) 33 gauge Check Blood sugar three times daily. Dx E11.9, insulin use. 100 Each 11 018 Active Lancing Device with Lancets (One Touch Delica) Kit Test blood sugar TID. DX E11.9. 1 Each 3 Active Blood-Glucose Meter (ONETOUCH ULTRAMINI) Kit Check blood sugar three times daily. 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 OneTouch Ultra. 1 Each 018 Active carvedilol (COREG) 6.25 mg tablet Take 1 Tablet (6.25 mg) by mouth 2 times daily. 180 Tablet 3 Active Additional Information Patient not taking.Reported on 10/04/2024 montelukast (Singulair) 10 mg tablet Take 1 Tablet (10 mg) by mouth daily at bedtime. 30 Tablet 3 Active Insulin [place], Disposable, 32 gauge x 5/32 NeedleIndications :Type 2 diabetes mellitus with hyperglycemia, with long-term current use of insulin ([facility]) 4 times daily with insulin. 300 Each 3 022 Active testosterone (ANDROGEL) 20.25 mg/1.25 gram (1.62 %) Gel in Metered-dose PumpIndications:T estosterone deficiency Apply 40.5 mg to affected area daily. Apply to the shoulders and upper arms in the morning 75 Gram 2 023 Active Additional Information Patient not taking.Reported on 10/04/2024 sildenafiL (VIAGRA) 100 mg tablet TAKE 1 TABLET BY MOUTH 1 TIME DAILY NEEDED FOR ERECTILE DYSFUNCTION. 30 Tablet 3 023 Active naloxone (NARCAN) 4 mg/spray [place], Non-Aerosol EMERGENCY USE ONLY: Administer 1 spray (4 mg) in one nostril one time. May repeat in alternating nostrils every 2-3 min until responsive or EMS arrives. 2 Each 3 023 Active empagliflozin (Jardiance) 10 mg tablet Take 1 Tablet (10 mg) by mouth daily in the morning. 30 Tablet 3 023 Active Additional Information Patient not taking.Reported on 10/04/2024 albuterol sulfate HFA 90 mcg/actuation aerosol inhalerIndication s:Bronchitis Take 2 Puffs by inhalation every 6 hours as needed for Shortness of Breath. 54 Gram 3 024 Active insulin lispro (HumaLOG KwikPen Insulin) 100 unit/mL pen syringe 15 units tid ac meals, ok to sub if do not have novolog 15 mL 3 024 Active empagliflozin (JARDIANCE) 25 mg tablet Take 1 Tablet (25 mg) by mouth daily in the morning. 100 Tablet 3 024 Active empagliflozin (JARDIANCE) 25 mg tablet Lot: [id number] ex: 08/2024 qty: 2 7 Tablet 023 Active fluticasone-umecl idinium-vilantero l (TRELEGY ELLIPTA) 100-62.5-25 mcg Disk with Device Lot: [id number] ex: 11/2024 qty: 1 1 Each 023 Active diclofenac sodium (VOLTAREN) 1 % gelIndications:Os teoarthritis of lumbar spine, unspecified spinal osteoarthritis complication status Apply 2 Grams to affected area 4 times daily. Knees, hands 200 Gram 3 024 Active furosemide (LASIX) 20 mg tablet TAKE 1 TABLET (20 MG) BY MOUTH 1 TIME DAILY NEEDED (EDEMA). 90 Tablet 1 Active Additional Information Patient not taking.Reported on 10/04/2024 insulin aspart U-100 (NovoLOG) 100 unit/mL pen syringe INJECT 15 UNITS BY SUBCUTANEOUS INJECTION 3 TIMES DAILY WITH MEALS. 15 mL 3 024 Active simvastatin (ZOCOR) 40 mg tabletIndications :Other hyperlipidemia TAKE 1 TABLET BY MOUTH IN THE EVENING 100 Tablet 2 025 Active sertraline (ZOLOFT) 100 mg tablet TAKE 1 TABLET BY MOUTH EVERY DAY 90 Tablet 025 Active losartan (COZAAR) 100 mg tablet Take 1 Tablet (100 mg) by mouth daily. 100 Tablet 3 025 Active amLODIPine (NORVASC) 2.5 mg tablet Take 1 Tablet (2.5 mg) by mouth daily at bedtime. 100 Tablet 3 025 Active atorvastatin (Lipitor) 20 mg tablet Take 1 Tablet (20 mg) by mouth daily. 100 Tablet 3 025 Active tirzepatide (Mounjaro) 5 mg/0.5 mL Pen Injector Inject 0.5 mL (5 mg) by subcutaneous injection every 7 days. 6 mL 025 Active Insulin [place], Disposable, (Sure-Fine Pen [place]) 31 gauge x 10/20 Needle For use with insulin 4 x daily 300 Each Active insulin degludec (Tresiba FlexTouch U-200) 200 unit/mL pen syringe INJECT 100 UNITS UNDER THE SKIN DAILY WITH BREAKFAST 30 mL 025 Active tiotropium-olodat [place] (Stiolto Respimat) 2.5-2.5 mcg/actuation metered inhaler Take 1 Puff by inhalation daily. 12 Gram 2 Active omeprazole (PriLOSEC) 20 mg Capsule, Delayed Release(E.C.) Take 1 Capsule (20 mg) by mouth daily. 100 Capsule 3 025 Active Jardiance 25 mg tablet TAKE 1 TABLET BY MOUTH EVERY DAY IN THE MORNING 100 Tablet 025 Active HYDROcodone-aceta minophen (NORCO) 10-325 mg TabletIndications :Other osteoarthritis of spine, lumbar region Take 1 Tablet by mouth every 4 hours as needed for Pain, Moderate. Max Daily Amount: 6 Tablets 180 Tablet Active ALPRAZolam (XANAX) 0.5 mg tabletIndications :Other specified anxiety disorders Take 1 Tablet (0.5 mg) by mouth 2 times daily as needed for Anxiety. 60 Tablet 1 Active empagliflozin (JARDIANCE) 25 mg tablet Take 1 Tablet (25 mg) by mouth daily in the morning. 100 Tablet 3 024 2024 Discontinued omeprazole (PriLOSEC) 20 mg Capsule, Delayed Release(E.C.) Take 1 Capsule (20 mg) by mouth daily. 90 Capsule 3 024 2024 Discontinued(R eorder) insulin degludec (Tresiba FlexTouch U-200) 200 unit/mL pen syringe Inject 100 Units by subcutaneous injection daily with breakfast. 30 mL 3 024 2024 Discontinued tiotropium-olodat [place] (Stiolto Respimat) 2.5-2.5 mcg/actuation metered inhaler Take 1 Puff by inhalation daily. 12 Gram 2 025 2024 Discontinued(R eorder) HYDROcodone-aceta minophen (NORCO) 10-325 mg TabletIndications :Other osteoarthritis of spine, lumbar region Take 1 Tablet by mouth every 4 hours as needed for Pain, Moderate. Max Daily Amount: 6 Tablets 180 Tablet 025 2024 Discontinued(R eorder) ALPRAZolam (XANAX) 0.5 mg tabletIndications :Other specified anxiety disorders Take 1 Tablet (0.5 mg) by mouth 2 times daily as needed for Anxiety. 60 Tablet 1 025 2024 Discontinued(R eorder) insulin degludec (Tresiba FlexTouch U-200) 200 unit/mL pen syringe INJECT 100 UNITS UNDER THE SKIN DAILY WITH BREAKFAST 30 mL 3 025 2024 Discontinued(R eorder) Active Problems Patient Care Coordination No te Formatting of this note migh t be different from the original. 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 10/09/2018 Overview (01/26/2024): Overview: Added automatically from request for surgery [id number] Ankle syndesmosis disruption, right, initial enc ounter 10/09/2018 Overview (01/26/2024): Overview: Added automatically from request for surgery [id number] Type 2 diabetes mellitus wit h hyperglycemia, with long-term current use of insulin 10/24/2016 Morbid obesity with BMI of 50.0-59.9, adult 11/2015 Narcotic dependence 01/11/2016 Other sleep apnea [...] Encounters Date Type Department Care Team Description 03/03/[address] [place] [address] Nick Mosley MD Other specified anxiety disorders 03/03/[address] [place] [address] Nick Mosley MD Other osteoarthritis of spine, lumbar region 02/27/[address] [place] [address] Nick Mosley MD 02/21/2025 [facility] Internal Medicine [address] [address] Nick Mosley MD 02/21/2025 [facility] [place] [address] [place] [address] Nick Mosley MD 02/21/2025 [facility] [place] [address] [address] [place] [address] Nick Mosley MD 02/19/2025 External Device Data STL ABSTRACTION Provider, Abstract 02/18/2025 External Device Data STL ABSTRACTION Provider, Abstract 02/02/2025 [facility] Internal Medicine [address] [address] Nick Mosley MD 01/29/[address] [place] [phone] Nick Mosley MD Other specified anxiety disorders 01/29/[address] [place] [address] Nick Mosley MD Other osteoarthritis of spine, lumbar region 01/28/2025 External Device Data STL ABSTRACTION Provider, Abstract 01/15/[address] [place] [address] Nick Mosley MD 01/14/2025 External Device Data STL ABSTRACTION Provider, Abstract 12/31/[address] [place] [address] Nick Mosley MD Other osteoarthritis of spine, lumbar region 12/20/2024 [facility] [address] [place] [address] Nick Mosley MD Other specified anxiety disorders 12/20/[address] [place] [address] Nick Mosley MD New Prescription Request 12/20/2024 Orders Only [address] [place] [address] Provider, Abstract 12/04/[address] [place] [address] Nick Mosley MD Clinical Consult Before Scheduling from Last 3 Months Immunizations Immunization Administration Dates Next Due (ADACEL/BOOSTRIX)(10 YR UP) TDAP VACCINE, 0.5ML, IM 12/16/2014,04/13/2012 (PFIZER)(12 YR UP) COVID-19 VACCINE - EMERGENCY USE AUTHORIZATION, MRNA, [id number](PF) 30 MCG/0.3 ML IM SUSP 06/17/2023,03/09/2021,02/15/2021 (PNEUMOVAX [...] file 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 Gender Identity Not on file Sexual Orientation Not on file Last Filed Vital Signs Vital Sign Reading Time Taken Comments Blood Pressure 136/78 10/04/2024 10:54 AM PIPE FITTER GAS PIPE Pulse 95 10/04/2024 10:54 AM PIPE FITTER GAS PIPE Temperature 37.2 C (98.9 F) 10/04/2024 10:54 AM PIPE FITTER GAS PIPE Respiratory Rate 18 10/31/2023 11:24 AM CDT Oxygen Saturation 97% 10/04/2024 10:54 AM PIPE FITTER GAS PIPE Inhaled Oxygen Concentration - - Weight 155.6 kg (343 lb) 10/04/2024 10:54 AM PIPE FITTER GAS PIPE Height 182.9 cm (6') 10/04/2024 10:54 AM PIPE FITTER GAS PIPE Body Mass Index 46.52 10/04/2024 10:54 AM PIPE FITTER GAS PIPE Plan of Treatment Upcoming Encounters Date Type Department Care Team (Late st Contact Info) Description 04/11/2025 10:40 AM CDT Office Visit [facility] [address] [place] [address] Nick Mosley MD [address] [place] [address] [address] [place] [address] Health Maintenance Due Date Last Done Comments HEPATITIS B VACCINES (1 of 3 - 19+ 3-dose series) 1991 FIT-DNA Q 3 years 2017 FIT/FOBT Q 1 year 2017 02/14/2007 Flex Sig/CT Colonography Q 5 years 2017 ZOSTER VACCINE (1 of 2) 2022 DIABETES ANNUAL RETINAL EXAM 09/12/202301/2023, 10/20/2021, 12/25/2014, Additional history exists COVID-19 Vaccine (2023-2 5 [...] EXAM 02/28/20252023, 11/07/2022, 11/03/2021, Additional history exists INFLUENZA VACCINE (#1) 2025 3, 06/07/2022, 07/06/2021, Additional history exists DIABETES HBA1C Q 6 MONTHS 04/01/20252024, 12/25/2023, 06/26/2023, Additional history exists COLORECTAL SCREENING 07/04/2025 07/04/2022, 07/04/20 Colorectal Cancer Screening 07/04/2025 LDL CHOLESTEROL ANNUAL 10/02/2025 5, 12/25/2023, 06/26/2023, Additional history exists Abdominal Aortic Aneurysm (A AA) Screening Completed 03/19/2014 KHE eGFR (Auto Order) Completed 10/02/2024 , 12/25/2023, 06/26/2023, Additional history exists Medicare Ad[place]age ([place]) Preventative Visit/Annual Wellness Visit Completed 10/04/2024, 11/13/2023, 03/13/2023, Additional history exists Medical Devices Implanted Type Area Cash Van Salesperson Device Identifier Shelf Expiration Date Model / Serial / Lot Dbm Osteowrap Xl [id number] - [id number] Implanted:Qty : 1 on 01/05/2015 by Nestor Quezada DDS at [facility] Right: Orbital Floor BACTERIN 12/10/2015 [id number] / [id number] / Screws/Cage Of Back Procedures Procedure Name Priority Date/Time Associated Diagnosis Comments XR CHEST 2 VW W FLUOROSCOPY Routine 12/17/2024 1:25 PM CDT COMPREHENSIVE METABOLIC PANEL Routine 10/02/2024 8:06 AM PIPE FITTER GAS PIPE Other hyperlipidemia LIPID PANEL Routine 10/02/2024 8:06 AM PIPE FITTER GAS PIPE Other hyperlipidemia HEMOGLOBIN A1C Routine 10/02/2024 8:06 AM PIPE FITTER GAS PIPE Type 2 diabetes mellitus with stage 3a chronic kidney disease, with long-term current use of insulin ([facility]) MICROALBUMIN/CREATINI NE RATIO, RANDOM UR Routine 12/25/2023 8:13 AM CDT Type 2 diabetes mellitus with stage 3a chronic kidney disease, with long-term current use of insulin ([facility]) COLONOSCOPY REPORT 07/04/2022 3: 23 PM PIPE FITTER GAS PIPE HM DIABETES EYE EXAM Routine 10/20/2021 from Last 3 Months or Most Recently Relevant to Health Maintenance Results * XR CHEST 2 VW W FLUOROSCOPY (12/17/2024 1:25 PM CDT) Anatomical Region Laterality Modality Chest Other Abstract Provider DIAGNOSTIC IMAGING ORDERABLES Edited Result - Final * (ABNORMAL) HEMOGLOBIN A1C (10/02/2024 8:06 AM PIPE FITTER GAS PIPE) HEMOGLOBIN A1C 11.7(H) <5.7 % of total Hgb [facility] Comment: For someone without known diabetes, [...] children. ESTIMATED AVERAGE GLUCOSE (MG/DL) 289 mg/dL [facility] ESTIMATED AVERAGE GLUCOSE (MMOL/L) 16.0 mmol/L [facility] Comment: FASTING:YES MULTIPLE TESTING PRIORITIES; ROUTINE TESTING TO FOLLOW. FASTING: YES Test Performed at: [place] [place] [address] [place] [address] Alize-Adriana Kayley Vo Blood 10/02/2024 8:06 AM PIPE FITTER GAS PIPE 10/02/2024 8:07 AM PIPE FITTER GAS PIPE Nick Mosley MD CHEMISTRY ORDERABLES Final Re sult [facility] [phone] [place] [address] [address] [place] [address] * LIPID PANEL (10/02/2024 8:06 AM PIPE FITTER GAS PIPE) CHOLESTEROL 176 <200 mg/dL [facility] HDL 56 > OR = 40 mg/dL [facility] TRIGLYCERIDE 138 <150 mg/dL [facility] LDL CALCULATED 96 mg/dL (calc) [facility] Comment: Reference range: <100 Desirable range <100 mg/dL for primary prevention; <70 mg/dL for patients with CHD or diabetic patients with > or = 2 CHD risk factors. LDL-C is now calculated using the Teresa calculation, which is a validated novel method providing better accuracy than the Friedewald equation in the estimation of LDL-C. Mason SS et al. GUILLERMINA. 2013;310(19): 8870-4494 (http://education.Salsify/faq/NSF670) CHOL/HDL RATIO 3.1 <5.0 (calc) [facility] NON-HDL CHOLESTEROL 120 <130 mg/dL (calc) [facility] Comment: For patients with diabetes plus 1 major ASCVD risk factor, treating to a non-HDL-C goal of <100 mg/dL (LDL-C of <70 mg/dL) is considered a therapeutic option. Test Performed at: [facility] [address] [place] [address] Cj Sheridan MD Blood 10/02/2024 8:06 AM PIPE FITTER GAS PIPE 10/02/2024 8:07 AM PIPE FITTER GAS PIPE us Nick Mosley MD CHEMISTRY ORDERABLES Final Re sult [facility] [phone] [facility] [address] [place] [address] * (ABNORMAL) COMPREHENSIVE METABOLIC PANEL (10/02/2024 8:06 AM PIPE FITTER GAS PIPE) GLUCOSE 255(H) 65 - 99 mg/dL [facility] Comment: Fasting reference interval For someone without known diabetes, a glucose value >125 mg/dL indicates that they may have diabetes and this should be confirmed with a follow-up test. BUN 13 7 - 25 mg/dL [facility] CREATININE 0.77 0.70 - 1.30 mg/dL [facility] GFR 108 > OR = 60 [...] [facility] Comment: Test Performed at: [facility] [address] [place] [address] Cj Sheridan MD Blood 10/02/2024 8:06 AM PIPE FITTER GAS PIPE 10/02/2024 8:07 AM PIPE FITTER GAS PIPE us Nick Mosley MD CHEMISTRY ORDERABLES Final Re sult [facility] [phone] [facility] [address] [place] [address] * (ABNORMAL) MICROALBUMIN/CREATININE RATIO, RANDOM UR (12/25/2023 8:13 AM CDT) Creatinine, Urine 120 20 - 320 mg/dL [facility] MICROALBUMIN, URINE 27.0 See Note: mg/dL [facility] Comment: Reference Range: Reference Range Not established MICROALBUMIN/CREAT RATIO, UR 225(H) <30 mg/g creat [facility] Comment: The ADA defines abnormalities in [...] category. FASTING:YES FASTING: YES Test Performed at: [facility] [address] [place] [address] Cj Sheridan MD Urine URINE SPECIMEN OBTAINED BY CLEAN CATCH PROCEDURE / Unknown 12/25/2023 8:13 AM CDT 12/25/2023 8:13 AM CDT Ncik Mosley MD URINE ORDERABLES Final Result [facility] [phone] [facility] [address] [place] [address] * COLONOSCOPY REPORT (07/04/2022 3:23 PM PIPE FITTER GAS PIPE) Narrative Procedure Note Truong Roche MD - 07/04/2022 3:22 PM CST [facility] Endoscopy Patient Name: Cristiano Armijo Procedure Date: [...] of Addenda: [address]; [place] [address] us Truong Roche MD GI PROCEDURE ORDERABLES Etelvina l Result * HM DIABETES EYE EXAM (10/20/2021) us Abstract Provider HEALTH MAINTENANCE Edited Resu lt - Final [facility] CLIA# [id number] [facility] [address], [place] [id number] from Last 3 Months or Most Recently Relevant to Health Maintenance Insurance [facility] DUAL COMPLETE PPO DSNP [facility] [id number] Advance Directives For more information, please contact: [phone] * Full Code (Latest Code Status on File) Date Activated Date Inactivated Comments 07/04/2022 1:42 PM 07/04/2022 6:39 PM * Full Code Date Activated Date Inactivated Comments 01/29/2021 11:48 AM 01/29/2021 2:47 PM * Full Code Date Activated Date Inactivated Comments 01/05/2015 12:37 PM 01/05/2015 8:41 PM * Full Code Date Activated Date Inactivated Comments 01/05/2015 11:18 AM 01/05/2015 12:37 PM Care Teams Technical Instructor Course Developer Relationship Specialty Start Date End Date Nick Mosley MD PCP - General 11/23/07
--- OUTSIDE RECORDS SUMMARY | 2025-03-03 12:27 | XMS_ITS | Encounter Summary ---
Author Organization [facility] Address 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 Gender Identity Not on file Sexual Orientation Not on file documented as of this encounter Plan of Treatment Upcoming Encounters Date Type Department Care Team (Late Contact Info) Description 04/11/2025 10:40 AM CDT Office Visit [facility] Primary Care [address] [place] [address] Nick Mosley MD [address] [place] [address] [address] [place] [address] documented as of this encounter Visit Diagnoses Not on filedocumented in this encounter Care Teams Preflight Inspector Relationship Specialty Start Date End Date Nick Mosley MD PCP - General 11/23/07 documented as of this encounter
--- OUTSIDE RECORDS SUMMARY | 2025-03-03 12:27 | XMS_ITS | Encounter Summary ---
Author Organization [facility] Address [address] [place] [address] Care Team Providers Care Director Life Sales Name Role Phone Nick Mosley MD Primary Care Provider [phone] Encounter Details Date Type Department Care Team (Late st Contact Info) Description 03/26/2007 Outpatient Historical [facility] Internal Medicine [address] [address] Nick Mosley MD [address] [place] [address] [address] [place] [address] Social History Tobacco Use Types Packs/Day Years Used Date Smoking Tobacco: Never Assessed Sex and Gender Information Value Date Recorded Sex Assigned at Not on file Legal Sex Male 4:34 AM [employer] Gender Identity Not on file Sexual Orientation [...] Body Mass Index 43.4 06/27/2005 11:30 AM [employer] documented in this encounter Plan of Treatment Upcoming Encounters Date Type Department Care Team (Late st Contact Info) Description 04/11/2025 10:40 AM CDT Office Visit [facility] Primary Care [address] [place] [address] Nick Mosley MD [address] [place] [address] [place] [address] documented as of this encounter Visit Diagnoses Not on filedocumented in this encounter Care Teams Director Life Sales Relationship Specialty Start Date End Date Nick Mosley MD PCP - General 11/23/07 documented as of this encounter
--- OUTSIDE RECORDS SUMMARY | 2025-03-03 12:27 | XMS_ITS | Encounter Summary ---
Author Organization [facility] Address [address] [place] [address] Care Team Providers Care Playground Worker Name Role Phone Nick Mosley MD Primary Care Provider [phone] Encounter Details Date Type Department Care Team (Late Contact Info) Description 03/30/[address] 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 Primary Care [address] [place] [address] Nick Mosley MD [address] [place] [address] [address] [place] [address] documented as of this encounter Visit Diagnoses Not on filedocumented in this encounter Care Teams Playground Worker Relationship Specialty Start Date End Date Nick Mosley MD PCP - General 11/23/07 documented as of this encounter
--- OUTSIDE RECORDS SUMMARY | 2025-03-03 12:27 | XMS_ITS | Encounter Summary ---
Author Organization [facility] Address 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 Gender Identity Not on file Sexual Orientation Not on file documented as of this encounter Plan of Treatment Upcoming Encounters Date Type Department Care Team (Late Contact Info) Description 04/11/2025 10:40 AM CDT Office Visit [facility] Primary Care [address] [place] [address] Nick Mosley MD [address] [place] [address] [address] [place] [address] documented as of this encounter Visit Diagnoses Not on filedocumented in this encounter Care Teams Blower And Compressor Assembler Relationship Specialty Start Date End Date Nick Mosley MD PCP - General 11/23/07 documented as of this encounter
--- OUTSIDE RECORDS SUMMARY | 2025-03-03 12:27 | XMS_ITS | Encounter Summary ---
Author Organization [facility] Address 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 LAB ORDERS: 3 mo Order number: [id number] Test Ordered: COMPREHENSIVE METABOLIC PANEL & GFR 1112 Order number: [id number] Test Ordered: HEMOGLOBIN A1C 1814 Order number: [id number] Test Ordered: LIPID PANEL 1078 Order number: [id number] Test Ordered: MICROALBUMIN/CREAT, UR RATIO 2252 272.4-HYPERLIPIDEMIA [...] Description 04/11/2025 10:40 AM CDT Office Visit [facility] Primary [address] [place] [address] Nick Mosley MD [address] [place] [address] [place] [address] documented as of this encounter Visit Diagnoses Not on filedocumented in this encounter Care Teams Technology Trainer Relationship Specialty Start Date End Date Nick Mosley MD PCP - General 11/23/07 documented as of this encounter
--- NOTE | 2025-03-03 12:28 | EST_ITS ---
Patient Info Name: Cristiano Armijo Age: 54 years : 1970 Gender: Male Ht: 72 in Wt: 349 lbs BSA: 2.91 m2 HR: 90 bpm BP: 160 / 74 mmHg Heart Rhythm: Sinus Rhythm Technical Quality: Good Exam Date: 03/03/2025 12:28 PM Patient Status: O Admit Date: 03/03/2025 Exam Type: CA stress ammon w NM A regadenoson stress test was performed. Staff Referring Physician: Ian Gill DO Attending Provider: Ian Gill DO Summary 1. 1. Negative Lexiscan stress test for ischemic ST changes by ECG criteria. 2. 2. Baseline hypertension. 3. 3. Nuclear scan to follow and will be reported separately. Please correlate with it. History/Risk Factors Hypertension: Yes Dyslipidemia: Yes Obesity: Yes Diabetes Mellitus: Type II Protocol: LEXISCAN Stress ECG Details Stage: REST Duration (min): 1 min : 50 sec HR (bpm): 90 SBP (mmHg): 160 DBP (mmHg): 74 Stage: REST Duration (min): 6 min : 57 sec HR (bpm): 98 SBP (mmHg): 160 DBP (mmHg): 74 Stage: STAGE 1 Duration (min): 0 min : 7 sec HR (bpm): 96 SBP (mmHg): 160 DBP (mmHg): 74 Stage: RECOVERY Duration (min): 0 min : 52 sec HR (bpm): 106 SBP (mmHg): 160 DBP (mmHg): 74 Stage: RECOVERY Duration (min): 1 min : 52 sec HR (bpm): 97 SBP (mmHg): 170 DBP (mmHg): 77 Stage: RECOVERY Duration (min): 2 min : 52 sec HR (bpm): 95 SBP (mmHg): 152 DBP (mmHg): 81 Stage: RECOVERY Duration (min): 3 min : 52 sec HR (bpm): 96 SBP (mmHg): 150 DBP (mmHg): 84 Stage: RECOVERY Duration (min): 4 min : 52 sec HR (bpm): 95 SBP (mmHg): 147 DBP (mmHg): 87 Stage: RECOVERY Duration (min): 5 min : 52 sec HR (bpm): 96 SBP (mmHg): 126 DBP (mmHg): 89 Stage: RECOVERY Duration (min): 6 min : 24 sec HR (bpm): 96 SBP (mmHg): 126 DBP (mmHg): 89 Rest HR: 98 bpm Peak HR: 107 bpm Rest Sys BP: 160 mmHg Peak Sys BP: 170 mmHg Max Pred HR: 168 bpm % Max Pred HR: 64 % Target HR: 143 bpm Max RPP: 18,190 bpm*mmHg BP Response: Normal blood pressure response Termination Reason: Completed Protocol Cardiac Symptoms: None Total Time: 0 min : 7 sec Rest Wooten BP: 74 mmHg Peak Wooten BP: 77 mmHg Total Dose: 0.4 mg Resting ECG Normal sinus rhythm - normal ECG. Stress ECG No abnormal ST/T wave changes. Arrhythmias None. Report Signatures
--- NOTE | 2025-03-05 14:32 | WPDCARIOSTRE ---
Nuclear Stress Test INDICATIONS Indications: Preop PROCEDURE Procedure Performed: Myocardial Perf Spect-Multi Procedure: Patient underwent a lexiscan stress test and immediately was injected with 31.4 mCi of cardiolyte. Multiple tomographic images were obtained. These are of good quality. There is evidence of moderate size, severe apical perfusion defect, a large size and severe inferior perfusion defect and a small size, moderate anterior perfusion defects with stress imaging. A separate resting images were obtained on a separate day after patient was injected with 31.6 mCi of cardiolyte. Multiple tomographic images were obtained. These are of good quality. There is evidence of moderate size and moderate severity inferior perfusion defect and a small size, moderate anterior perfusion defects with rest imaging. CONCLUSION Conclusion: 1. Abnormal myocardial perfusion imaging demonstrating apical reversible ischemia, negra-infarct ischemia of inferior wall and a fixed defect in anterior wall. 2. Left ventriculogram demonstrates global hypokinesis with measured ejection fraction of 49%. 3. TID score 1.05 is not elevated.
== END 2025-03-05 13:31 | disposition home or self-care (01) ==
LOC: CHSCARD 13:30
PROVIDERS: PCP Internal Medicine; Visit Provider Internal Medicine Cardiovascular Disease
DX: Z01.810 Encounter for preprocedural cardiovascular examination (principal)
CPT/HCPCS: 78452; 93017; A9502; J2785

== ENCOUNTER 2025-05-03 16:13 | Emergency (ER) | payer MEDICARE, SELFPAY ==
--- OUTSIDE RECORDS SUMMARY | 2010-01-17 19:00 | XMS_ITS | Continuity of Care Document ---
Author Organization [facility] Address [address] [place] [address] Phone Care Team Providers Care Fiberglass Boat Assembly Supervisor Name Role Phone Travis Moctezuma MD Unavailable Unavailable Advance Directives Directive Yes / No Effective Date File Name No Information Encounters Encounter Description Practice Location Reason(s) For Visit Diagnoses Date Provider Providers Copied on Encounter [employer], [address], [place], [place], [id number], [place] tel:[phone] [facility] Rhianna Robles. [address], [place], [place], [address], [place]. tel:[phone] Family History Family Member Type Diagnosis Age At Onset No Information Payers Payer name Insurance type Covered libertarian ID Authoriza tion(s) No Information Social History Type Description Quantity Date Captured Comments Sex Male Smoking Status No Information Chief Complaint And Reason For Visit No Information Reason For Referral Reason For Referral No Information History Of Present Illness Encounter Date Complaint History Of Prese nt Illness No Information Functional Status Date Functional Assessmen t No Information Instructions Date Instruction Additional Infor mation No Information Assessments Type Assessment Date No Information Patient Care Teams Name Effective Dates (start - stop) Status Members No Information
--- OUTSIDE RECORDS SUMMARY | 2013-03-11 04:30 | XMS_ITS | Continuity of Care Document ---
Author Organization [facility] Address [address] [place] [address] Phone Care Team Providers Care Medical Genetics Director Name Role Phone Cong Veronica MD Unavailable Unavailable Allergies, Adverse Reactions, Alerts Substance Reaction Status Criticality No Known allergies Medications Medication Instructions Dosage Effective Dates (start - stop) Status Comments ZOLOFT (unknown strength) take 1 tablet by oral route every day Not Available - Active LISINOPRIL (unknown strength) take 1 tablet by oral route every day Not Available - Active Lantus 100 unit/mL Sub-Q inject by subcutaneous route as per insulin protocol 0.00 - Active Zocor 5 mg tablet take 1 tablet (5MG) by oral route every day in the evening - Active Procedures Procedure Date Office/outpatient Visit, New Dilated Retinal Exam W Interpretation Au No Evidence Of Retinopathy In Prior Year Advance Directives Directive Yes / No Effective Date File Name Resuscitation Not Answered N/A N/A Life Support Not Answered N/A N/A Intubation Not Answered N/A N/A Antibiotics Not Answered N/A N/A IV Fluid Support Not Answered N/A N/A Tube Feed Not Answered N/A N/A Other Directive N/A N/A WARNING:The information contained in this section is historical and is provided for information only and does not constitute a legal document or any assurance that the information is still accurate. Please verify the information with the foy of the legal document before using it for clinical purposes. Encounters Encounter Description Practice Location Reason(s) For Visit Diagnoses Date Provider Providers Copied on Encounter Office/outpa tient Visit, [facility], [address], [place], [place], [id number], [place] tel:[phone] [facility] [place] Professional Diabetes Mellitus Type 2, UncomplicatedD iabetes Mellitus Type 2, UncomplicatedR [facility] [address] Gar. [address] [facility], [address], [place], [place], [address], [place]. tel:[phone] Referring Provider: Nick Mosley MD M, [address] [facility] [address], [place], [address]. tel:[phone] Family History Family Member Type Diagnosis Age At Onset Maternal grandmother Problem (finding) hypertension Maternal aunt Problem (finding) Diabetes mellitus Problem (finding) Payers Payer name Insurance type Covered green party ID Authoriza tion(s) Medicare [facility] [id number] Social History Type Description Quantity Date Captured Comments Alcohol Use Details 12- pack monthly 3 Caffeine Use Details 6 cups per day Tobacco Use Status No Information Smoking Status Former smoker Smoking Tobacco Use Details Cigarette: No Details Available Cigarette: No Details Available Sex Male Chief Complaint And Reason For Visit No Information Reason For Referral Reason For Referral No Information History Of Present Illness Encounter Date Complaint History Of Prese nt Illness No Information Functional Status Date Functional Assessmen t No Information Instructions Date Instruction Additional Infor mation - 1yr Related to Diabe mario 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
[2025-05-03] VITALS (41 sets, daily range): BP systolic 149–213; BP diastolic 87–116; PULSE 75–94; RESP 13–24; TEMP 36.9; O2SAT 91–98
--- NOTE | ~2025-05-03 | CT_ITS ---
EXAMINATION: CT chest abdomen pelvis w con, 05/03/2025 18:45 CDT HISTORY: Lt. side chest pain radiates into back/ abdominal pain COMPARISON: No comparisons available. TECHNIQUE: CT scan of the chest, abdomen and pelvis was performed with contrast Isovue 300, 92cc injected IV. One or more of the following dose reduction techniques were used: automated exposure control, adjustment of the mA and/or kV according to patient size, use of iterative reconstruction technique. Unless otherwise stated, incidental findings do not require dedicated follow up imaging FINDINGS: CT chest: No significant coronary calcification is present ([id number]) LUNGS: No tracheomalacia. No bronchiectasis. Minimal emphysematous changes. Minimal pulmonary fibrotic changes. The fibula probable calcified granuloma with central calcification 1.5 x 1.6 mm. HEART AND PERICARDIUM: Within normal limits. AORTA: Normal caliber aorta. MEDIASTINUM: There are calcified mediastinal lymph nodes noted. THYROID: The thyroid is unremarkable. CT abdomen: LIVER: Mild hepatic steatosis. Portal vein patent. No intrahepatic biliary duct dilatation. SPLEEN: Unremarkable, no splenomegaly. KIDNEYS: Right Kidney: Unremarkable. No calculi. No hydronephrosis. Left Kidney: Unremarkable. No calculi. No hydronephrosis ADRENAL GLANDS: Unremarkable. PANCREAS: Moderate pancreatic atrophy. GALLBLADDER/BILIARY: Unremarkable. No biliary dilatation. STOMACH AND ESOPHAGUS: Mild gastric distention. BOWEL/MESENTERY: Moderate fecal content, no colitis or diverticulitis. Associated with the tip of the appendix there is a cystic focus which is blind- ending without periappendiceal inflammatory changes maximally measuring 2.5 x 2.6 cm. There is no stranding within the mesentery. There are no thickened or dilated loops of small bowel. RETROPERITONEUM: Unremarkable AORTA/VASCULATURE: Normal caliber aorta. FREE FLUID OR FREE AIR: None. CT pelvis: SOLID ORGANS/REPRODUCTIVE: Unremarkable. BLADDER: Within normal limits. LYMPHADENOPATHY: The largest in the subcarinal space 1.5 x 1.6 cm. OSSEOUS STRUCTURES: No sclerotic or lytic lesions. Postsurgical changes in the lumbar spine. OVERLYING SOFT TISSUES: Postsurgical changes abdominal wall. Small bilateral fat-containing inguinal hernia. IMPRESSION: 1. No etiology to explain left-sided chest pain. Sequelae of previous granulomatous disease detailed above. 2. No acute intra-abdominal process. 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 Surgical consult is recommended. Reviewed, dictated and finalized at location P. IMPRESSION: 1. No etiology to explain left-sided chest pain. Sequelae of previous granuloma tous disease detailed above. 2. No acute intra-abdominal process. 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 Surgical consult is samia mmended.
--- NOTE | 2025-05-03 16:14 | ECG_ITS ---
Test Date: 2025-05-03 16:20:17 Measurements Intervals Candor Rate: 93 P: 64 CT: 150 QRS: 59 QRSD: 96 T: 30 QT: 355 QTc: 442 Interpretive Statements SINUS RHYTHM POSSIBLE LEFT ATRIAL ENLARGEMENT [-0.1mV P-WAVE IN V1/V2] NONSPECIFIC T-WAVE ABNORMALITY Compared to ECG 12/17/2024 16:10:34 Sinus arrhythmia no longer present T-wave abnormality still present Electronically Signed On 05-05-2025 07:30:10 CDT by Sameer Matthew M.D.
--- OUTSIDE RECORDS SUMMARY | 2025-05-03 16:15 | XMS_ITS | Encounter Summary ---
Author Organization [facility] Address 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 Left voicemail HATCHERY SPECIALIST documented in this encounter Plan of Treatment Upcoming Encounters Date Type Department Care Team (Late st Contact Info) Description 11/03/2025 11:20 AM CDT Office Visit [facility] Care [address] [place] [address] Nick Mosley MD [address] [place] [address] [address] [place] [address] documented as of this encounter Visit Diagnoses Not on filedocumented in this encounter Care Teams Convex Grinder Operator Relationship Specialty Start Date End Date Nick Mosley MD PCP - General 11/23/07 documented as of this encounter
--- OUTSIDE RECORDS SUMMARY | 2025-05-03 16:15 | XMS_ITS | Encounter Summary ---
Author Organization [facility] Address 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 LAB ORDERS: Order number: [id number] Test Ordered: URINALYSIS W/O MICRO 20258 with Mar lab Order number: [id number] Test Ordered: PSA, TOTAL 1002 Order number: [id number] Test Ordered: URINALYSIS WITH REFLEX CULTURE 2221 724.5-BACK PAIN as above, reassess if continues, no recent injury difficult sitting in truck ok offwork LAB ORDERS: Order number: [id number] Test Ordered: HEMOCCULT SINGLE 50430 PREVENTIVE COUNSELING The patient was counseled regarding [...] Description 11/03/2025 11:20 AM CDT Office Visit [facility] Primary Care [address] [place] [address] Nick Mosley MD [address] [place] [phone] documented as of this encounter Visit Diagnoses Not on filedocumented in this encounter Care Teams Power Plant Engineer Relationship Specialty Start Date End Date Nick Mosley MD PCP - General 11/23/07 documented as of this encounter
--- OUTSIDE RECORDS SUMMARY | 2025-05-03 16:15 | XMS_ITS | Encounter Summary ---
Author Organization [facility] Address [address] [place] [address] Care Team Providers Care Hydroelectric Component Machinist Name Role Phone Nick Mosley MD Primary Care Provider [phone] Encounter Details Date Type Department Care Team (Late st Contact Info) Description 07/11/2006 Orders Only [facility] Internal Medicine [address] [address] Nick Mosley MD [address] [place] [address] Social History Tobacco Use Types Packs/Day Years Used Date Smoking Tobacco: Never Assessed Sex and Gender Information Value Date Recorded Sex Assigned at Not on file Legal Sex Male 4:34 AM HORSER UP Gender Identity Not on file Sexual Orientation Not on file documented as of this encounter Progress Notes * Nick Mosley MD - 05/21/2008 2:21 AM CDT TIME:10:21 am PATIENT`S HOME PHONE: PATIENT`S WORK PHONE: PATIENT`S INSURANCE: [facility] WHO TOOK THE CALL: Alison [...] Description 11/03/2025 11:20 AM CDT Office Visit [facility] Primary Care [address] [place] [address] Nick Mosley MD [address] [place] [address] [address] [place] [phone] documented as of this encounter Visit Diagnoses Not on filedocumented in this encounter Care Teams Hydroelectric Component Machinist Relationship Specialty Start Date End Date Nick Mosley MD PCP - General 11/23/07 documented as of this encounter
--- OUTSIDE RECORDS SUMMARY | 2025-05-03 16:15 | XMS_ITS | Encounter Summary ---
Author Organization [facility] Address [address] [place] [address] Care Team Providers Care Plastic Jig And Fixture Builder Name Role Phone Nick Mosley MD Primary Care Provider [phone] Encounter Details Date Type Department Care Team (Late st Contact Info) Description 09/06/2006 Orders Only [facility] Internal Medicine [address] [address] Nick Mosley MD [address] [place] [address] Social History Tobacco Use Types Packs/Day Years Used Date Smoking Tobacco: Never Assessed Sex and Gender Information Value Date Recorded Sex Assigned at Not on file Legal Sex Male 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 LAB ORDERS: 3 mo Order number: [id number] Test Ordered: COMPREHENSIVE METABOLIC PANEL W/ GLOMERULAR FILTRATION RATE, ESTIMATED (EGFR) [id number] Order number: [id number] Test Ordered: LIPID PANEL 7600 Order number: [id number] Test Ordered: HEMOGLOBIN A1c 496 272.4-HYPERLIPIDEMIA inc [...] refer ortho--jeramy mcclelland SPECIALTY REFERRAL: [facility] RETURN VISIT : Patient instructed to return in 3 months. Electronically Signed by: Nick Mosley MD on Wednesday, September 06, 2006 documented in this encounter Plan of Treatment Upcoming Encounters Date Type Department Care Team (Late st Contact Info) Description 11/03/2025 11:20 AM CDT Office Visit [facility] Care [address] Nick Mosley MD [address] [place] [address] documented as of this encounter Visit Diagnoses Not on filedocumented in this encounter Care Teams Plastic Jig And Fixture Builder Relationship Specialty Start Date End Date Nick Mosley MD PCP - General 11/23/07 documented as of this encounter
--- OUTSIDE RECORDS SUMMARY | 2025-05-03 16:15 | XMS_ITS | Encounter Summary ---
Author Organization [facility] Address 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 LAB ORDERS: 3mo Order number: [id number] Test Ordered: COMPREHENSIVE METABOLIC PANEL W/ GLOMERULAR FILTRATION RATE, ESTIMATED (EGFR) [id number] Order number: [id number] Test Ordered: LIPID PANEL 7600 Order number: [id number] Test Ordered: HEMOGLOBIN A1c 496 780.57-SLEEP APNEA likely needs cpap LAB ORDERS: Order number: [id number] Test Ordered: SLEEP STUDY StA krystin RETURN VISIT : Patient instructed to return in 3 months. Electronically Signed by: Nick Mosley MD on Monday, March 13, 2006 documented in this encounter Plan of Treatment Upcoming Encounters Date Type Department Care Team (Late st Contact Info) Description 11/03/2025 11:20 AM CDT Office Visit [facility] Primary Care [address] [place] [address] Nick Mosley MD [address] [place] [phone] documented as of this encounter Visit Diagnoses Not on filedocumented in this encounter Care Teams Marketing Automation Manager Relationship Specialty Start Date End Date Nick Mosley MD PCP - General 11/23/07 documented as of this encounter
--- OUTSIDE RECORDS SUMMARY | 2025-05-03 16:15 | XMS_ITS | Encounter Summary ---
Author Organization [facility] Address 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 Gender Identity Not on file Sexual Orientation Not on file documented as of this encounter Miscellaneous Notes * Telephone Encounter - Zenia Downey LPN - 05/02/2025 4:11 PM CDT 4:11 PM 05/02/2025 Date of last visit addressing condition(s) being treated: 04/21/25 Date of next visit in this department: 11/03/2025 Correct Pharmacy: Yes Recent Visits Date Type Provider Dept 04/21/25 Office Visit Nick Mosley MD [facility] 10/04/24 Office Visit Nick Mosley MD [facility] Showing recent visits within past 400 days with a meds authorizing provider and meeting all other requirements Future Appointments Date Type Provider Dept 11/03/25 Appointment Nick Mosley MD [facility] Showing future appointments within next 400 days with a meds authorizing provider and meeting all other requirements Zenia JOHNS documented in this encounter Plan of Treatment Upcoming Encounters Date Type Department Care Team (Late st Contact Info) Description 11/03/2025 11:20 AM CDT Office Visit [address] [place] [address] Nick Mosley MD [address] [place] [address] [address] [place] [address] [phone] documented as of this encounter Visit Diagnoses Diagnosis Other specified anxiety disorders documented in this encounter Care Teams Director Treasurer Relationship Specialty Start Date End Date Nick Mosley MD PCP - General 11/23/07 documented as of this encounter
--- OUTSIDE RECORDS SUMMARY | 2025-05-03 16:15 | XMS_ITS | Encounter Summary ---
Author Organization [facility] Address 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 Gender Identity Not on file Sexual Orientation Not on file documented as of this encounter Last Filed Vital Signs Vital Sign Reading Time Taken Comments Blood Pressure 128/84 06/27/2005 11:30 AM TRUCK ASSEMBLER Pulse - - Temperature - - Respiratory Rate - - Oxygen Saturation - - Inhaled Oxygen Concentration - - Weight 147 kg (324 lb) 06/27/2005 11:30 AM TRUCK ASSEMBLER Height 182.9 cm (6') 06/27/2005 11:30 AM TRUCK ASSEMBLER Body Mass Index 43.94 06/27/2005 11:30 AM TRUCK ASSEMBLER documented in this encounter Plan of Treatment Upcoming Encounters Date Type Department Care Team (Late st Contact Info) Description 11/03/2025 11:20 AM CDT Office Visit [facility] Primary Care [address] [place] [address] Nick Mosley MD [address] [place] [phone] documented as of this encounter Visit Diagnoses Not on filedocumented in this encounter Care Teams Corrugator Helper Relationship Specialty Start Date End Date Nick Mosley MD PCP - General 11/23/07 documented as of this encounter
--- OUTSIDE RECORDS SUMMARY | 2025-05-03 16:15 | XMS_ITS | Encounter Summary ---
Author Organization [facility] Address [address] [place] [address] Care Team Providers Care Seasoner Name Role Phone Nick Mosley MD Primary Care Provider Reason for Visit * Reason Onset Date Comments Covid Symptoms Or Treatment 06/15/2022 Encounter Details Date Type Department Care Team (Late st Contact Info) Description 06/15/[address] [facility] Primary Care [address] [place] [address] Nick Mosley MD [address] [place] [address] [address] [place] [address] Covid Symptoms Or Treatment Social [...] on file Legal Sex Male 4:34 AM NEWS VIDEOTAPE EDITOR Gender Identity Not on file Sexual [...] er Pt needs prior auth for Testosterone VIDEOTAPE EDITOR * Telephone Encounter - Rolando, Douglas L - 06/15/2022 9:45 AM CST COVID-19 TRIAGE Name of PCP Provider or Prescribing Provider: Nick Mosley MD Caller: Cristiano Armijo Callback number: Options: [phone] (home) Patient is requesting: - [facility] [] Appointment [] COVID test [x] Medication/Drug Therapy, if eligible. If yes, which pharmacy? Options[facility] [phone] [x] Call back from provider [] Inform [...] Received the Bivalent Vaccine [] Not vaccinated VIDEOTAPE EDITOR documented in this encounter Plan of Treatment Upcoming Encounters Date Type Department Care Team (Late st Contact Info) Description 11/03/2025 11:20 AM CDT Office Visit [facility] Primary Care [address] [place] [address] Nick Mosley MD [address] [place] [address] [address] [place] [address] documented as of this encounter Visit Diagnoses Not on filedocumented in this encounter Care Teams Seasoner Relationship Specialty Start Date End Date Nick Mosley MD PCP - General 11/23/07 documented as of this encounter
--- OUTSIDE RECORDS SUMMARY | 2025-05-03 16:15 | XMS_ITS | Encounter Summary ---
Author Organization [facility] Address [address] [place] [address] Care Team Providers Care Merchandise Shopper Name Role Phone Nick Mosley MD Primary Care Provider Encounter Details Date Type Department Care Team (Late st Contact Info) Description 09/06/2006 Outpatient Historical [facility] Internal Medicine [address] [address] Nick Mosley MD [address] [place] [address] [address] [place] [address] Social History Tobacco Use Types Packs/Day Years Used Date Smoking Tobacco: Never Assessed Sex and Gender Information Value Date Recorded Sex Assigned at Not on file Legal Sex Male 4:34 AM LAN ENGINEER Gender Identity Not on file Sexual Orientation Not on file documented as of this encounter Last Filed Vital Signs Vital Sign Reading Time Taken Comments Blood Pressure 138/84 09/06/2006 1:15 PM LAN ENGINEER Pulse - - Temperature - - Respiratory Rate - - Oxygen Saturation - - Inhaled Oxygen Concentration - - Weight 149.7 kg (330 lb) 09/06/2006 1:15 PM LAN ENGINEER Height - - Body Mass Index 44.76 06/27/2005 11:30 AM LAN ENGINEER documented in this encounter Plan of Treatment Upcoming Encounters Date Type Department Care Team (Late st Contact Info) Description 11/03/2025 11:20 AM CDT Office Visit [facility] Primary Care [address] [place] [address] Nick Mosley MD [address] [place] [address] [address] [place] [address] documented as of this encounter Visit Diagnoses Not on filedocumented in this encounter Care Teams Merchandise Shopper Relationship Specialty Start Date End Date Nick Mosley MD PCP - General 11/23/07 documented as of this encounter
--- OUTSIDE RECORDS SUMMARY | 2025-05-03 16:15 | XMS_ITS | Clinical Summary ---
Author Organization CC [facility] 1 [facility] Address [address] [place] [address] Phone Care Team Providers Care Ecommerce Analyst Name Role Phone Nick Mosley MD Primary [...] ons:hypertensi on Take 10 mg by mouth meat market manager before breakfast. Active losartan (COZAAR) 50 mg tabletIndicati ons:hypertensi on Take 50 mg by mouth meat market manager before breakfast. 7 Active omeprazole (PriLOSEC) 20 mg capsuleIndicat ions:Treatment of Non-Bleeding Gastric Disorder Take 20 mg by mouth meat market manager before breakfast. 8 Active sertraline (ZOLOFT) 100 mg tabletIndicati ons:Anxiety with Depression Take 100 mg by mouth daily after breakfast. Active simvastatin (ZOCOR) 20 mg tabletIndicati ons:hyperlipid emia Take 20 mg by mouth meat market manager before breakfast. Active insulin lispro (HumaLOG) 100 unit/mL injectionIndic ations:type 2 diabetes mellitus Inject 15 Units under the skin 3 (three) times a day before meals Indications: type 2 diabetes mellitus. SSI Active blood glucose diagnostic strip Check blood sugar 3 times daily. Dx E.119, insulin use. OneTouch Ultra. 8 Active blood-glucose meter kit Check blood sugar three times daily. 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 OneTouch Ultra. 8 Active insulin glargine (LANTUS,BASAGL AR) 100 unit/mL (3 mL) insulin pen Lot: [id number] Ex: 07/2019 Qty: 2 BOXES- INJECT 70 [...] (BREO ELLIPTA) 100-25 mcg/dose diskus inhaler Lot: [id number] Ex: 11/24 Qty: 1. 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 10/09/2018 Overview (10/09/2018): Added automatically from request for surgery [id number] Ankle syndesmosis disruption, right, initial enc ounter 10/09/2018 Overview (10/09/2018): Added automatically from request for surgery [id number] Loose body in right ankle and foot joint 019 Overview (10/09/2018): Added automatically from request for surgery [id number] Morbid obesity with BMI of 40.0-44.9, adult 0811/2015 Type 2 diabetes mellitus 11/28/2013 Overview (11/12/2016): DMII WO CMP UNCNTRLD Hyperlipidemia 08/23/2005 Essential hypertension, benign 06/27/2005 Esophageal reflux 06/27/2005 Encounters Date Type Department Care Team Description 04/29/2025 Telephone [facility] Cardiology [address] [place] [address] Drew De La Torre MD [facility] 04/24/2025 5:20 PM CDT - 04/24/2025 11:59 PM CDT Hospital Encounter [facility] [address] [place] [id number] Other forms of dyspnea Discharge Disposition: Discharge to home or self care 04/23/2025 12:39 PM CDT - 04/23/2025 11:59 PM CDT Hospital Encounter [facility] [address] [place] [address] Other forms of dyspnea Discharge Disposition: Discharge to home or self care from Last 3 Months Surgical History Surgery Date Site/Laterality Comments CARPAL TUNNEL RELEASE Bilateral Carpal tunnel release WISDOM TOOTH EXTRACTION POSTERIOR SPINAL FUSION 08/07/2013 - 08/06/2014 thoracic/lumbar region ROTATOR CUFF REPAIR 09/07/2017 - 10/04/2017 Left ANKLE FRACTURE SURGERY 11/20/2018 Right ORIF right ankle ORIF ANKLE FRACTURE 11/20/2018 Right Medical History Medical History Date Comments Type 2 diabetes mellitus Diabete s type 2 Hyperlipidemia Hyperlipidemia Gastroesophageal reflux disease [...] on file 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 Gender Identity Not on file Sexual Orientation Not on file Obstetrics History Last Filed Vital Signs Vital Sign Reading Time Taken Comments Blood Pressure 156/90 04/23/2025 1:15 PM CDT Pulse 75 04/23/2025 1:15 PM CDT Temperature 36 C (96.8 F) 01/21/2019 4:08 PM CDT Respiratory Rate 20 01/21/2019 4:08 PM CDT Oxygen Saturation 95% 01/21/2019 4:08 PM CDT Inhaled Oxygen Concentration - - Weight 150 kg (330 lb 9.6 oz) 01/21/2019 8:45 AM CDT Height 182.9 cm (6') 01/21/2019 8:45 AM CDT Body Mass Index 44.84 01/21/2019 8:45 AM CDT Plan of Treatment Health Maintenance Due Date Last Done Comments Albumin Creatinine Ratio, Urine 1972 Colon Cancer Screening-Colonoscopy 1972 Prostate Cancer Screening-PSA 1972 Dilated Eye Exam 1972 Foot Exam 1972 Hepatitis B Screening 1990 Regular Well Visit/Exam 18-64 1990 Depression Screening 12/11/2019 12/10/2018, 12/11/19 19 Lipid Panel 12/12/2019 12/11/2018, 12/05, 02/10/2014 eGFR 01/19/2020 01/18/2019, 01/05, 01/04/2019, Additional history exists Zoster Vaccine (1 of 2) 2022 DTaP/Tdap/Td Vaccine (3 - Td or Tdap) 12/16/2024 12/16/2014, 04/13/2012, 08/07/2001 Hemoglobin A1C 04/01/2025 10/02/2024, 12/06, 06/26/2023, Additional history exists Covid-19 Vaccine (4 - 2024-2 6 season) 2025 06/17/2023, 03/09/2021, 02/15/2021 Pneumococcal vaccine <65 (3 of 3 - PCV20 or PCV21) 11/03/2026 11/03/2021, 10/03/2019, 06/29/2009, Additional history exists Hepatitis C Screening Completed 11/20/2018, 019 Influenza Vaccine Completed 04/21/2025, , 06/07/2022, Additional history exists Medical Devices Implanted Type Area Unit Director Device Identifier Shelf Expiration Date Model / Serial / Lot [employer]tho [id number] Vlp 3.5mm 16mm Self Tapping Hex Drive Recess Cortical Foot Low - S0 - [id number] Implanted:Qty : 1 on 11/20/2018 by Deb Mccullough MD at [facility] Screw Right: Fibula [employer]Or tho [id number] / 0 / [employer]Ortho [id number] Tara-Loc Vlp 3.5mm 18mm Self Tapping Cortical Midfoot Hindfoot - S0 - [id number] Implanted:Qty : 2 on 11/20/2018 by Deb Mccullough MD at [facility] Screw Right: Fibula [employer]Or tho [id number] / 0 / [employer] /Ortho [id number] Tara-Loc Vlp 3.5mm 24mm Self Tap Foot Cortical Hexagon Low - S0 - [id number] Implanted:Qty : 1 on 11/20/2018 by Deb Mccullough MD at [facility] Screw Right: Fibula [employer]Or tho [id number] / 0 / [employer] /Ortho [id number] Tara-Loc Vlp 3.5mm 14mm Self Tap Foot Cortical Hexagon Low - S0 - [id number] Implanted:Qty : 2 on 11/20/2018 by Deb Mccullough MD at [facility] Screw Right: Fibula [employer]Or tho [id number] / 0 / [employer] /Ortho [id number] Tara-Loc Vlp 5mm 14mm Tibia Distal Proximal Full Thread Screw - S0 - [id number] Implanted:Qty : 2 on 11/20/2018 by Deb Mccullough MD at [facility] Screw Right: Fibula [employer]Or tho [id number] / 0 / [employer]Ortho [id number] Tara-Loc Vlp 3.5mm 60mm Self Tapping Cortical Midfoot Hindfoot - S0 - [id number] Implanted:Qty : 1 on 11/20/2018 by Deb Mccullough MD at [facility] Screw Right: Fibula [employer]Or tho [id number] / 0 / 7 Hole Right Lateral Distal Fibula Plate Implanted:Qty : 1 on 11/20/2018 by Deb Mccullough MD at [facility] Right: Fibula [employer] / 0 / Explanted Type Area Unit Director Device Identifier Shelf Expiration Date Model / Serial / Lot [employer] [id number] Ye .062in 9in 1 Trocar Smooth Wire Fixation - S0 - [id number] Explanted:Qty: 1 on 11/20/2018 by Deb Mccullough MD at [facility] Wire [employer] [id number] / 0 / Description:Provisional fixa tion [employer] [id number] Nazia 5/64in 9in Trocar Point One End Pin Fixation Stainless - S0 - [id number] Explanted:Qty: 1 on 11/20/2018 by Deb Mccullough MD at [facility] Wire Right: Fibula [employer] [id number] / 0 / Description:Provisional fixa tion Procedures Procedure Name Priority Date/Time Associated Diagnosis Comments CT CORONARY FRACTIONAL FLOW RESERVE Schedule Routine, Read Routine (OP Routine) 04/25/2025 9:11 AM CDT Other forms of dyspnea CT HEART MORPHOLOGY AND CORONARY ARTERIES W CONTRAST Schedule Routine, Read Routine (OP Routine) 04/23/2025 1:39 PM CDT Other forms of dyspnea EGFR Routine 01/18/2019 9:20 AM CDT Infection of lower extremity associated with hardware Wound infection after surgery HEMOGLOBIN A1C Routine 12/11/2018 5:17 AM CDT LIPID PANEL Routine 12/11/2018 5:17 AM CDT HEPATITIS C RNA, QUANTITATIVE, PCR Routine Gen Lab 11/20/2018 12:40 PM CDT from Last 3 Months or Most Recently Relevant to Health Maintenance Results * CT Coronary Fractional Flow [place] (04/25/2025 9:11 AM CDT) Anatomical Region Laterality Modality Chest N/A Computed Tomogra phy 04/25/2025 9:54 AM CDT Impressions 04/25/2025 10:22 AM CDT ADDENDUM: Coronary CTA Fractional Flow [place] (FFR) The below FFR CT results are associated with the coronary CTA report at IMPRESSION: FFR CT Results: There is at least one artery with a distal value of d 0.8, but this value does not appear to be associated with a specific stenosis. The maximum anatomical stenosis is located in the mid left anterior descending coronary artery with lesion specific abnormal FFR CT of 0.56. There is an acute FFR change across the lesion. Recommendation: Consider ICA for confirmation and management. Dictated by: Darrin Rodriguez MD The radiology attending physician has personally reviewed this study, and had reviewed and/or edited this written report and agrees with it. Electronically signed by: Rupa Arcos M.D. Narrative Procedure Note Rupa Arcos MD - 04/25/2025 IMPRESSION: ADDENDUM: Coronary CTA Fractional Flow [place] (FFR) The below FFR CT results are associated with the coronary CTA report at IMPRESSION: FFR CT Results: There is at least one artery with a distal value of d 0.8, but this value does not appear to be associated with a specific stenosis. The maximum anatomical stenosis is located in the mid left anterior descending coronary artery with lesion specific abnormal FFR CT of 0.56. There is an acute FFR change across the lesion. Recommendation: Consider ICA for confirmation and management. Dictated by: Darrin Rodriguez MD The radiology attending physician has personally reviewed this study, and had reviewed and/or edited this written report and agrees with it. Electronically signed by: Rupa Arcos M.D. us Ian Gill DO IMG CT PROCEDURES Final Resu lt * CTA Heart and Coronary Arteries W Morphology when Performed (04/23/2025 1:39 PM CDT) Anatomical Region Laterality Modality Chest N/A Computed Tomogra phy 04/23/2025 3:23 PM CDT Impressions 04/23/2025 7:33 PM CDT 1. Limited evaluation of the coronary arteries due to noise and motion artifact especially within the right coronary artery and circumflex artery. 2. Within these limitations, diffuse calcified atherosclerotic plaque causing severe stenosis in the proximal and mid left anterior descending artery. Recommend cardiac catheterization. 3. Calcified atherosclerotic plaque causing approximately 50% stenosis of the distal left main coronary artery. 4. Multifocal calcified atherosclerotic plaque causing likely up to severe stenosis of the left circumflex artery. 5. The calculated calcium score is 2064.1. Dictated by: Navjot Flores MD The radiology attending physician has personally reviewed this study, and had reviewed and/or edited this written report and agrees with it. Electronically signed by: Booker Ramos M.D. Narrative 04/23/2025 7:33 PM CDT EXAMINATION: CORONARY CT ANGIOGRAM HISTORY: Shortness of breath. TECHNIQUE: CT angiography of the coronary arteries was performed after the administration of 90 mL of Optiray 350. Images were also obtained precontrast for the purposes of calcium scoring. The patient's heart rate and blood pressure at the time of the examination were 75 beats per minute and 156/90 mmHg. Images were transferred to a 3D workstation for additional post-processing. FINDINGS: The coronary arteries are right system dominant. No anomalous coronary artery origin or course. Limited evaluation of the coronary system due to noise/motion. Right coronary system: Limited evaluation due to noise and motion artifact. Calcified atherosclerotic plaque causing up to moderate stenosis. Left coronary system: Left main: Calcified atherosclerotic plaque causing approximately 50% stenosis of the distal left main coronary artery. Left anterior descending artery: Diffuse calcified atherosclerotic plaque causing severe stenosis in the proximal portion through the midportion. The worst stenosis is in the mid portion. Left circumflex: Motion degraded. Multifocal calcified and noncalcified atherosclerotic plaque causing likely up to severe stenosis in the mid portion. The calculated calcium score is 2064.1. Other findings: Azygos fissure. Left upper lobe calcified granuloma. Procedure Note Booker Ramos MD PhD - 04/23/2025 EXAMINATION: CORONARY CT ANGIOGRAM HISTORY: Shortness of breath. TECHNIQUE: CT angiography of the coronary arteries was performed after the administration of 90 mL of Optiray 350. Images were also obtained precontrast for the purposes of calcium scoring. The patient's heart rate and blood pressure at the time of the examination were 75 beats per minute and 156/90 mmHg. Images were transferred to a 3D workstation for additional post-processing. FINDINGS: The coronary arteries are right system dominant. No anomalous coronary artery origin or course. Limited evaluation of the coronary system due to noise/motion. Right coronary system: Limited evaluation due to noise and motion artifact. Calcified atherosclerotic plaque causing up to moderate stenosis. Left coronary system: Left main: Calcified atherosclerotic plaque causing approximately 50% stenosis of the distal left main coronary artery. Left anterior descending artery: Diffuse calcified atherosclerotic plaque causing severe stenosis in the proximal portion through the midportion. The worst stenosis is in the mid portion. Left circumflex: Motion degraded. Multifocal calcified and noncalcified atherosclerotic plaque causing likely up to severe stenosis in the mid portion. The calculated calcium score is 2064.1. Other findings: Azygos fissure. Left upper lobe calcified granuloma. IMPRESSION: 1. Limited evaluation of the coronary arteries due to noise and motion artifact especially within the right coronary artery and circumflex artery. 2. Within these limitations, diffuse calcified atherosclerotic plaque causing severe stenosis in the proximal and mid left anterior descending artery. Recommend cardiac catheterization. 3. Calcified atherosclerotic plaque causing approximately 50% stenosis of the distal left main coronary artery. 4. Multifocal calcified atherosclerotic plaque causing likely up to severe stenosis of the left circumflex artery. 5. The calculated calcium score is 2064.1. Dictated by: Navjot Flores MD The radiology attending physician has personally reviewed this study, and had reviewed and/or edited this written report and agrees with it. Electronically signed by: Booker Ramos M.D. us Ianjose luis Gill DO IMG CT PROCEDURES Final Resu lt * eGFR (01/18/2019 9:20 AM CDT) eGFR 101 mL/min/1.7 3 m2 [facility] (JUDITH) Comment: Interpretive Data Reference Interval Normal >/= 90 mL/min/1.73m2 Mildly decreased* 60 - 89 mL/min/1.73m2 Mildly to moderately decreased 45 - 59 mL/min/1.73m2 Moderately to severely decreased 30 - 44 mL/min/1.73m2 Severely decreased 15 - 29 mL/min/1.73m2 Kidney Failure < 15 mL/min/1.73m2 *Relative to young adult level If -Indian multiply value by 1.16. Estimated glomerular filtration rate is determined by the CKD-EPI equation recommended by the National Kidney Foundation (KDIGO 2012 Clinical Practice Guideline for the Evaluation and Management of Chronic Kidney Disease. Kidney Intnl Suppl Aug 2012;3:1). The CKD-EPI equation should not be used for patients with unstable renal function and has not been validated in children and those over 70. Current interpretive data was last reviewed 2016. Blood specimen (specimen) 01/18/2019 9:20 AM CDT 01/18/2019 10:10 AM CDT Narrative KIRIT CONNIE (JUDITH) - 01/18/2019 10:40 AM CDT us Zuleyka Porter MD LAB BLOOD ORDERABLES F inal Result [facility] (RANDOLPH) 1 [facility] [place] [address] * (ABNORMAL) Hemoglobin A1c (12/11/2018 5:17 AM CDT) Hgb A1C 10.6(H) 4.0 - 5.6 % [facility] Estimated Average Glucose 258 mg/dL [facility] Comment: The ADA recommends reporting an estimated Average Glucose (eAG) with all Hemoglobin A1c results using the equation derived from a study of 507 normal and diabetic adults. Minority populations were underrepresented and children were not included. (Diabetes Care 31:4107-6752, 2008). The eAG is not equivalent to a fasting glucose. Blood specimen (specimen) 12/11/2018 5:17 AM CDT 12/11/2018 6:00 AM CDT Narrative [facility] - 12/11/2018 9:57 AM CDT us Deb Mccullough MD LAB BLOOD ORDERABLES F inal Result [facility] Department [place] [address] * (ABNORMAL) Lipid panel (12/11/2018 5:17 AM CDT) Cholesterol 157 30 - 199 mg/dL [facility] Comment: Interpretive Data Ages < or = 19 years Acceptable: <170 mg/dL Borderline high: 170-199 mg/dL High: >or= 200 mg/dL Ages > or = 20 years Desirable: <200 mg/dL Borderline high: 200-239 mg/dL High: >or= 240 mg/dL Literature References: 1. Expert Panel on Integrated Guidelines for Cardiovascular Health and Risk Reduction in Children and Adolescents. Pediatrics 2011;128:S213 2. NCEP Expert Panel. Circulation 2004;110:227 Current Interpretive Data was last revised on 2018. Triglycerides 183(H) <=149 mg/dL [facility] Comment: Interpretive Data Ages < or = 9 years Acceptable: <75 mg/dL Borderline high: 75-99 mg/dL High: >or= 100 mg/dL Ages 10 to 20 years Acceptable: <90 mg/dL Borderline high: 90-129 mg/dL High: >or= 130 mg/dL Ages > or = 20 years Desirable: <150 mg/dL Borderline high: 150-199 mg/dL High: 200-499 mg/dL Very high: >or= 499 mg/dL Literature References: 1. Expert Panel on Integrated Guidelines for Cardiovascular Health and Risk Reduction in Children and Adolescents. Pediatrics 2011;128:S213 2. NCEP Expert Panel. Circulation 2004;110:227 Current Interpretive Data was last revised on 2018. HDL 31(L) >=40 mg/dL [facility] Comment: Interpretive Data Ages < or = 19 years Acceptable: >45 mg/dL Borderline low: 40-45 mg/dL Low: <40 mg/dL Ages > or = 20 years Desirable: >or= 60 mg/dL Low: <40 mg/dL Literature References: 1. Expert Panel on Integrated Guidelines for Cardiovascular Health and Risk Reduction in Children and Adolescents. Pediatrics 2011;128:S213 2. NCEP Expert Panel. Circulation 2004;110:227 Current Interpretive Data was last revised on 2018. LDL, calculated 89 <=129 mg/dL [facility] Comment: Interpretive Data Ages < or = 19 years Acceptable: <110 mg/dL Borderline high: 110-129 mg/dL High: >or= 130 mg/dL Ages > or = 20 years Optimal: <100 mg/dL Near optimal: 100-129 mg/dL Borderline high: 130-159 mg/dL High: >160 mg/dL Literature References: 1. Expert Panel on Integrated Guidelines for Cardiovascular Health and Risk Reduction in Children and Adolescents. Pediatrics 2011;128:S213 2. NCEP Expert Panel. Circulation 2004;110:227 Current Interpretive Data was last revised on 2018. Non-HDL Cholesterol 126 mg/dL [facility] Comment: Interpretive Data Ages < or = 19 years Acceptable: <120 mg/dL Borderline high: 120-144 mg/dL High: >145 mg/dL Ages > or = 20 years When triglycerides are >200 mg/dL, Non-HDL cholesterol is a secondary target of therapy with treatment goals that are 30 mg/dL greater than the LDL cholesterol target. Literature References: 1. Expert Panel on Integrated Guidelines for Cardiovascular Health and Risk Reduction in Children and Adolescents. Pediatrics 2011;128:S213 2. NCEP Expert Panel. Circulation 2004;110:227 Current Interpretive Data was last revised on 2018. Chol/HDL ratio 5 [facility] Blood specimen (specimen) 12/11/2018 5:17 AM CDT 12/11/2018 5:55 AM CDT Narrative [facility] - 12/11/2018 8:24 AM CDT Deb Mccullough MD LAB BLOOD ORDERABLES F inal Result Performing Organization Address [facility] de Phone Number [facility] Department [place] [address] * Hepatitis C (HCV) RNA PCR, quantitative (11/20/2018 12:40 PM CDT) [facility] HCV RNA result Not Detected [facility] Comment: Interpretive data: The quantifiable range of this assay is 15 IU/mL to 100,000,000 IU/mL (1.18 log IU/mL to 8.00 log IU/mL). Testing was performed by the [employer] AmpliPrep/ANIBAL TaqMan HCV Test version 2.0 ([employer] Testing performed at [facility] Current Interpretive Data was last revised on 2015. Blood specimen (specimen) 11/20/2018 12:40 PM CDT 11/20/2018 1:43 PM CDT Narrative [facility] - 11/21/2018 4:22 PM CDT Deb Mccullough MD LAB MICROBIOLOGY - GEN ERAL ORDERABLES Final Result Performing Organization Address [facility] de Phone Number [facility] [place] [address] from Last 3 Months or Most Recently Relevant to Health Maintenance Insurance MEDICARE MEDICARE [facility] MEDICARE [facility] MEDICARE ADVANTAGE [facility] Advance Directives For more information, please contact: [phone] * Full Code (Latest Code Status on File) Date Activated Date Inactivated Comments 12/10/2018 11:06 PM 12/14/2018 5:16 PM Care Teams Ecommerce Analyst Relationship Specialty Start Date End Date Nick Mosley MD PCP - General 01/10/14
--- OUTSIDE RECORDS SUMMARY | 2025-05-03 16:15 | XMS_ITS | Encounter Summary ---
Author Organization [facility] Address 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 Gender Identity Not on file Sexual Orientation Not on file documented as of this encounter Miscellaneous Notes * Telephone Encounter - Zenia Downey LPN - 05/02/2025 4:10 PM CDT 4:10 PM 05/02/2025 Date of last visit addressing condition(s) being treated: 04/21/25 Date of next visit in this department: 11/03/2025 Correct Pharmacy: Yes Recent Visits Date Type Provider Dept 04/21/25 Office Visit Nick Mosley MD [facility] 10/04/24 Office Visit Nick Mosley MD [facility] Showing recent visits within past 400 days with a meds authorizing provider and meeting all other requirements Future Appointments Date Type Provider Dept 11/03/25 Appointment Nick Mosley MD [facility] Showing future appointments within next 400 days with a meds authorizing provider and meeting all other requirements Zenia JOHNS documented in this encounter Plan of Treatment Upcoming Encounters Date Type Department Care Team (Late st Contact Info) Description 11/03/2025 11:20 AM CDT Office Visit [place] [address] [place] [id number] Nick Mosley MD [address] [place] [address] [address] documented as of this encounter Visit Diagnoses Diagnosis Other osteoarthritis of spine, lumbar region documented in this encounter Care Teams School Patrol Relationship Specialty Start Date End Date Nick Mosely MD PCP - General 11/23/07 documented as of this encounter
--- OUTSIDE RECORDS SUMMARY | 2025-05-03 16:15 | XMS_ITS | Encounter Summary ---
Author Organization [facility] Address 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 PHARMACY NUMBER: [phone] PROBLEMS: for about 1 day SORE THROAT: [...] HOME PHONE: PATIENT`S WORK PHONE: PATIENT`S INSURANCE: [employer] WHO TOOK THE CALL: Leigh Carolina S GENERAL INFORMATION ALTERNATIVE PHONE NUMBER: [phone] ext [phone] WHO CALLED: Patient`s spouse called. PHARMACY NUMBER: [phone] PROBLEMS: SORE THROAT: Patient complains of sore [...] Description 11/03/2025 11:20 AM CDT Office Visit [facility] Primary Care [address] [place] [address] Nick Mosley MD [address] [place] [address] [address] [place] [address] documented as of this encounter Visit Diagnoses Not on filedocumented in this encounter Care Teams Paint Grinder Relationship Specialty Start Date End Date Nick Mosley MD PCP - General 11/23/07 documented as of this encounter
--- OUTSIDE RECORDS SUMMARY | 2025-05-03 16:15 | XMS_ITS | Encounter Summary ---
Author Organization [facility] Address [address] [place] [address] Care Team Providers Care Purification Operator Helper Name Role Phone Nick Mosley MD Primary Care Provider [phone] Encounter Details Date Type Department Care Team (Late st Contact Info) Description 03/13/2006 Outpatient Historical [facility] Internal Medicine [address] [address] Nick Mosley MD [address] [place] [address] [address] [place] [address] Social History Tobacco Use Types Packs/Day Years Used Date Smoking Tobacco: Never Assessed Sex and Gender Information Value Date Recorded Sex Assigned at Not on file 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 Gender Identity Not on file Sexual Orientation [...] Body Mass Index 43.94 06/27/2005 11:30 AM INORGANIC CHEMISTRY TEACHER documented in this encounter Plan of Treatment Upcoming Encounters Date Type Department Care Team (Late st Contact Info) Description 11/03/2025 11:20 AM CDT Office Visit [facility] Primary Care [address] [place] [address] Nick Mosley MD [address] [place] [address] [address] [place] [address] documented as of this encounter Visit Diagnoses Not on filedocumented in this encounter Care Teams Purification Operator Helper Relationship Specialty Start Date End Date Nick Mosley MD PCP - General 11/23/07 documented as of this encounter
--- OUTSIDE RECORDS SUMMARY | 2025-05-03 16:15 | XMS_ITS | Encounter Summary ---
Author Organization [facility] Address 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 Gender Identity Not on file Sexual Orientation Not on file documented as of this encounter Plan of Treatment Upcoming Encounters Date Type Department Care Team (Late st Contact Info) Description 11/03/2025 11:20 AM CDT Office Visit [facility] Primary Care [address] [place] [address] Nick Mosley MD [address] [place] [address] [address] [place] [address] documented as of this encounter Visit Diagnoses Not on filedocumented in this encounter Care Teams Medical Practitioners Relationship Specialty Start Date End Date Nick Mosley MD PCP - General 11/23/07 documented as of this encounter
--- OUTSIDE RECORDS SUMMARY | 2025-05-03 16:15 | XMS_ITS | Encounter Summary ---
Author Organization [facility] Address 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 PHARMACY NUMBER: [phone] SECTION 1: REQUESTED ACTION marv 10/13/06 at 03:25 pm: MEDICATION REQUEST: MEDICATION REQUEST: Patient requests a refill. gen Zoloft #[id number] 07/27/06 Pt also wants Fenofibrate called in (didn't mail in his script). RN/BUSINESS MACHINES TEACHER RESPONSE: phoebe 10/13/06 at 03:27 pm MEDICATIONS: [...] Description 11/03/2025 11:20 AM CDT Office Visit [facility] [place] [address] Nick Mosley MD [address] [place], [place] [id number] documented as of this encounter Visit Diagnoses Not on filedocumented in this encounter Care Teams Inventory Auditor Relationship Specialty Start Date End Date Nick Mosley MD PCP - General 11/23/07 documented as of this encounter
--- OUTSIDE RECORDS SUMMARY | 2025-05-03 16:15 | XMS_ITS | Encounter Summary ---
Author Organization [facility] Address 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 Gender Identity Not on file Sexual [...] Body Mass Index 44.21 06/27/2005 11:30 AM OIL FIELD EQUIPMENT MECHANIC documented in this encounter Plan of Treatment Upcoming Encounters Date Type Department Care Team (Late st Contact Info) Description 11/03/2025 11:20 AM CDT Office Visit [facility] Primary Care [address] [place] [address] Nick Mosley MD [address] [place] [address] [address] [place] [address] documented as of this encounter Visit Diagnoses Not on filedocumented in this encounter Care Teams Junior Technical Writer Relationship Specialty Start Date End Date Nick Mosley MD PCP - General 11/23/07 documented as of this encounter
--- OUTSIDE RECORDS SUMMARY | 2025-05-03 16:15 | XMS_ITS | Encounter Summary ---
Author Organization [facility] Address [address] [place] [address] Care Team Providers Care Medical Review Coordinator Name Role Phone Nick Mosley MD Primary Care Provider [phone] Encounter Details Date Type Department Care Team (Late st Contact Info) Description 08/23/2005 Outpatient Historical [facility] Internal Medicine [address] [address] Nick Mosley MD [address] [place] [address] [address] [place] [address] Social History Tobacco Use Types Packs/Day Years Used Date Smoking Tobacco: Never Assessed Sex and Gender Information Value Date Recorded Sex Assigned at Not on file Legal Sex Male 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 Gender Identity Not on file Sexual Orientation Not on file documented as of this encounter Last Filed Vital Signs Vital Sign Reading Time Taken Comments Blood Pressure 140/84 08/23/2005 2:45 PM RECEPTIONIST SECRETARY Pulse - - Temperature 37.2 C (99 F) 08/23/2005 2:45 PM RECEPTIONIST SECRETARY Respiratory Rate - - Oxygen Saturation - - Inhaled Oxygen Concentration - - Weight 147 kg (324 lb) 08/23/2005 2:45 PM RECEPTIONIST SECRETARY Height - - Body Mass Index 43.94 06/27/2005 11:30 AM RECEPTIONIST SECRETARY documented in this encounter Plan of Treatment Upcoming Encounters Date Type Department Care Team (Late st Contact Info) Description 11/03/2025 11:20 AM CDT Office Visit [facility] Primary Care [address] [place] [address] Nick Mosley MD [address] [place] [address] documented as of this encounter Visit Diagnoses Not on filedocumented in this encounter Care Teams Medical Review Coordinator Relationship Specialty Start Date End Date Nick Mosley MD PCP - General 11/23/07 documented as of this encounter
--- OUTSIDE RECORDS SUMMARY | 2025-05-03 16:15 | XMS_ITS | Encounter Summary ---
Author Organization [facility] Address 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 AIDE Gender Identity Not on file Sexual Orientation [...] BENIGN cont med LAB ORDERS: Order number: [id number] Test Ordered: COMPREHENSIVE METABOLIC PANEL 13347 Order number: [id number] Test Ordered: LIPID PANEL 7600 461.9-SINUSITIS UNSPECIFIED [...] [facility] [place] [address] [place] [address] Nick Mosley MD [address] [place] [address] [address] [place] [address] documented as of this encounter Visit Diagnoses Not on filedocumented in this encounter Care Teams 2Nd Grade Teacher Relationship Specialty Start Date End Date Nick Mosley MD PCP - General 11/23/07 documented as of this encounter
--- OUTSIDE RECORDS SUMMARY | 2025-05-03 16:16 | XMS_ITS | Encounter Summary ---
Author Organization [facility] Address 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 Gender Identity Not on file Sexual Orientation Not on file documented as of this encounter Plan of Treatment Upcoming Encounters Date Type Department Care Team (Late st Contact Info) Description 11/03/2025 11:20 AM CDT Office Visit [facility] Primary Care [address] [place] [address] Nick Mosley MD [address] [place] [address] [address] [place] [address] documented as of this encounter Visit Diagnoses Not on filedocumented in this encounter Care Teams Director Of Billing Relationship Specialty Start Date End Date Nick Mosley MD PCP - General 11/23/07 documented as of this encounter
--- OUTSIDE RECORDS SUMMARY | 2025-05-03 16:16 | XMS_ITS | Encounter Summary ---
Author Organization [facility] Address 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 Gender Identity Not on file Sexual [...] Body Mass Index 44.21 06/27/2005 11:30 AM HEAD GIRLS GOLF COACH documented in this encounter Plan of Treatment Upcoming Encounters Date Type Department Care Team (Late st Contact Info) Description 11/03/2025 11:20 AM CDT Office Visit [facility] Primary Care [address] [place] [address] Nick Mosley MD [address] [place] [address] [address] [place] [address] documented as of this encounter Visit Diagnoses Not on filedocumented in this encounter Care Teams Automotive Worker Foreman Relationship Specialty Start Date End Date Nick Mosley MD PCP - General 11/23/07 documented as of this encounter
--- OUTSIDE RECORDS SUMMARY | 2025-05-03 16:16 | XMS_ITS | Encounter Summary ---
Author Organization [facility] Address [address] [place] [address] Care Team Providers Care Sustainable Agriculture Faculty Name Role Phone Nick Mosley MD Primary Care Provider [phone] Encounter Details Date Type Department Care Team (Late Contact Info) Description 03/30/2007 Outpatient Historical [facility] Internal Medicine [address] [address] Nick Mosley MD [address] [place] [address] Social History Tobacco Use Types Packs/Day Years Used Date Smoking Tobacco: Never Assessed Sex and Gender Information Value Date Recorded Sex Assigned at Not on file Legal Sex Male 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 MIXER 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 Gender Identity Not on file Sexual Orientation Not on file documented as of this encounter Plan of Treatment Upcoming Encounters Date Type Department Care Team (Late st Contact Info) Description 11/03/2025 11:20 AM CDT Office Visit [facility] Primary Care [address] [place] [address] Nick Mosley MD [address] [place] [address] [address] [place] [address] documented as of this encounter Visit Diagnoses Not on filedocumented in this encounter Care Teams Sustainable Agriculture Faculty Relationship Specialty Start Date End Date Nick Mosley MD PCP - General 11/23/07 documented as of this encounter
--- OUTSIDE RECORDS SUMMARY | 2025-05-03 16:16 | XMS_ITS | Encounter Summary ---
Author Organization [facility] Address [address] [place] [address] Care Team Providers Care Fabric Finisher Name Role Phone Nick Mosley MD Primary Care Provider [phone] Encounter Details Date Type Department Care Team (Late Contact Info) Description 02/14/[address] [facility] Internal Medicine [address] [address] Nick Mosley MD [address] [place] [address] Social History Tobacco Use Types Packs/Day Years Used Date Smoking Tobacco: Never Assessed Sex and Gender Information Value Date Recorded Sex Assigned at Not on file Legal Sex Male 4:34 AM MEDICAL RESEARCH TECH Gender Identity Not on file Sexual Orientation Not on file documented as of this encounter Plan of Treatment Upcoming Encounters Date Type Department Care Team (Late Contact Info) Description 11/03/2025 11:20 AM CDT Office Visit [facility] Primary Care [address] [place] [address] Nick Mosley MD [address] [place] [address] [address] [place] [address] documented as of this encounter Visit Diagnoses Not on filedocumented in this encounter Care Teams Fabric Finisher Relationship Specialty Start Date End Date Nick Mosley MD PCP - General 11/23/07 documented as of this encounter
--- OUTSIDE RECORDS SUMMARY | 2025-05-03 16:16 | XMS_ITS | Encounter Summary ---
Author Organization [facility] Address 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 Gender Identity Not on file Sexual Orientation Not on file documented as of this encounter Plan of Treatment Upcoming Encounters Date Type Department Care Team (Late st Contact Info) Description 11/03/2025 11:20 AM CDT Office Visit [facility] Primary Care [address] [place] [address] Nick Mosley MD [address] [place] [address] [address] [place] [address] documented as of this encounter Visit Diagnoses Not on filedocumented in this encounter Care Teams Director Report Relationship Specialty Start Date End Date Nick Mosley MD PCP - General 11/23/07 documented as of this encounter
--- OUTSIDE RECORDS SUMMARY | 2025-05-03 16:16 | XMS_ITS | Encounter Summary ---
Author Organization [facility] Address 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 Gender Identity Not on file Sexual [...] med recheck lab LAB ORDERS: Order number: [id number] Test Ordered: CBC W/ DIFFERENTIAL 3150 Order number: [id number] Test Ordered: COMPREHENSIVE METABOLIC PANEL & GFR [...] Description 11/03/2025 11:20 AM CDT Office Visit [facility] Primary Care [place] [address] Nick Mosley MD [address] [place] [address] documented as of this encounter Visit Diagnoses Not on filedocumented in this encounter Care Teams Warehouse Packaging Supervisor Relationship Specialty Start Date End Date Nick Mosley MD PCP - General 11/23/07 documented as of this encounter
--- OUTSIDE RECORDS SUMMARY | 2025-05-03 16:16 | XMS_ITS | Clinical Summary ---
Author Organization [facility] Address [address] [place] [address] Care Team Providers Care Pulp Bleacher Name Role Phone Nick Mosley MD Primary Care Provider [phone] Allergies Active Allergy Reactions Criticality Noted Date Comments 2-Octyl Cyanoacrylate Rash Medium 01/01/2015 Adhesive Tape-Silicones Rash Low 01/01/2015 Meperidine Hives High 11/07/2008 Medications blood sugar diagnostic (ONETOUCH ULTRA BLUE TEST STRIP) Strip Check blood sugar 3 times daily. Dx E.119, insulin use. OneTouch Ultra. 100 Each 11 018 Active lancets (One Touch Delica) 33 gauge Check Blood sugar three times daily. Dx E11.9, insulin use. 100 Each 11 018 Active Lancing Device with Lancets (One Touch Delica) Kit Test blood sugar TID. DX E11.9. 1 Each 3 018 Active Blood-Glucose Meter (ONETOUCH ULTRAMINI) Kit Check blood sugar three times daily. Dx E11.9, rat exterminator insulin use. OneTouch Ultra. 1 Each 018 Active carvedilol (COREG) 6.25 mg tablet Take 1 Tablet (6.25 mg) by mouth 2 times daily. 180 Tablet 3 019 Active montelukast (Singulair) 10 mg tablet Take 1 Tablet (10 mg) by mouth daily at bedtime. 30 Tablet 3 021 Active Insulin [place], Disposable, 32 gauge x 5/32 NeedleIndications :Type 2 diabetes mellitus with hyperglycemia, with long-term current use of insulin 4 times daily with insulin. 300 Each 3 022 Active testosterone (ANDROGEL) 20.25 mg/1.25 gram (1.62 %) Gel in Metered-dose PumpIndications:T estosterone deficiency Apply 40.5 mg to affected area daily. Apply to the shoulders and upper arms in the morning 75 Gram 2 023 Active sildenafiL (VIAGRA) 100 mg tablet TAKE 1 TABLET BY MOUTH 1 TIME DAILY NEEDED FOR ERECTILE DYSFUNCTION. 30 Tablet 3 023 Active naloxone (NARCAN) 4 mg/spray [place], Non-Aerosol EMERGENCY USE ONLY: Administer 1 spray (4 mg) in one nostril one time. May repeat in alternating nostrils every 2-3 min until responsive or EMS arrives. 2 Each 3 023 Active empagliflozin (Jardiance) 10 mg tablet Take 1 Tablet (10 mg) by mouth daily in the morning. 30 Tablet 3 023 Active albuterol sulfate HFA 90 mcg/actuation aerosol inhalerIndication [...] Active empagliflozin (JARDIANCE) 25 mg tablet Lot: [id number] ex: 08/2024 qty: 2 7 Tablet 023 [...] TIME DAILY NEEDED (EDEMA). 90 Tablet 1 024 Active insulin aspart U-100 (NovoLOG) 100 unit/mL pen syringe INJECT 15 UNITS BY SUBCUTANEOUS INJECTION 3 TIMES DAILY WITH MEALS. 15 mL 3 Active sertraline (ZOLOFT) 100 mg tablet TAKE 1 TABLET BY MOUTH EVERY DAY 90 Tablet 2 025 Active losartan (COZAAR) 100 mg tablet Take 1 Tablet (100 mg) by mouth daily. 100 Tablet 3 Active amLODIPine (NORVASC) 2.5 mg tablet Take 1 Tablet (2.5 mg) by mouth daily at bedtime. 100 Tablet Active atorvastatin (Lipitor) 20 mg tablet Take 1 Tablet (20 mg) by mouth daily. 100 Tablet 3 Active Insulin [place], Disposable, (Sure-Fine Pen [place]) 31 gauge x 16 Needle For use with insulin 4 x daily 300 Each 3 Active insulin degludec (Tresiba FlexTouch U-200) 200 unit/mL pen syringe INJECT 100 UNITS UNDER THE SKIN DAILY WITH BREAKFAST 30 mL Active tiotropium-olodat [place] (Stiolto Respimat) 2.5-2.5 mcg/actuation metered inhaler Take 1 Puff by inhalation daily. 12 Gram 2 Active omeprazole (PriLOSEC) 20 mg Capsule, Delayed Release(E.C.) Take 1 Capsule (20 mg) by mouth daily. 100 Capsule 3 Active Jardiance 25 mg tablet TAKE 1 TABLET BY MOUTH EVERY DAY IN THE MORNING 100 Tablet Active tirzepatide (Mounjaro) 7.5 mg/0.5 mL Pen Injector Inject 0.5 mL (7.5 mg) by subcutaneous injection every 7 days. 2 mL 6 Active Blood-Glucose Sensor (FreeStyle Ha 3 Plus Sensor) DeviceIndications :Type 2 diabetes mellitus with stage 3a chronic kidney disease, with long-term current use of insulin Use to monitor glucose continuously. Replace sensor every 15 days. 6 Each 3 025 Active HYDROcodone-aceta minophen (NORCO) 10-325 mg TabletIndications :Other osteoarthritis of spine, lumbar region Take 1 Tablet by mouth every 4 hours as needed for Pain, Moderate. Max Daily Amount: 6 Tablets 180 Tablet 025 Active ALPRAZolam (XANAX) 0.5 mg tabletIndications :Other specified anxiety disorders Take 1 Tablet (0.5 mg) by mouth 2 times daily as needed for Anxiety. 60 Tablet 1 025 Active simvastatin (ZOCOR) 40 mg tabletIndications :Other hyperlipidemia TAKE 1 TABLET BY MOUTH IN THE EVENING 100 Tablet 2 025 2024 Discontinued tirzepatide (Mounjaro) 5 mg/0.5 mL Pen Injector Inject 0.5 mL (5 mg) by subcutaneous injection every 7 days. 6 mL 3 025 2024 Discontinued HYDROcodone-aceta minophen (NORCO) 10-325 mg TabletIndications :Other [...] 60 Tablet 1 025 2024 Discontinued(R eorder) Active Problems Patient Care Coordination No te Formatting of this note migh t be different from the original. 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 10/09/2018 Overview (01/26/2024): Overview: Added automatically from request for surgery [id number] Ankle syndesmosis disruption, right, initial enc ounter 10/09/2018 Overview (01/26/2024): Overview: Added automatically from request for surgery [id number] Type 2 diabetes mellitus wit h hyperglycemia, [...] Encounters Date Type Department Care Team Description 05/02/2025 [facility] Care [place] [address] [place] [address] Nick Mosley MD Other specified anxiety disorders 05/02/2025 [facility] Care [place] [address] [address] [phone] Nick Mosley MD Other osteoarthritis of spine, lumbar region 04/21/2025 10:40 AM CDT Office Visit [address] [place] [address] Nick Mosley MD Immunization due (Primary Dx); Type 2 diabetes mellitus with stage 3a chronic kidney disease, with long-term current use of insulin ([facility]); Essential hypertension, benign; Vitamin D deficiency; Type 2 diabetes mellitus with hyperglycemia, with long-term current use of insulin ([facility]); Vitamin B12 deficiency (non anemic); Other hyperlipidemia; Other asthma 04/16/[address] [place] [address] Nick Mosley MD Needs Appointment 04/15/2025 External Device Data STL ABSTRACTION Provider, Abstract 03/30/[address] [address] Nick Mosley MD Other specified anxiety disorders 03/30/[address] [place] [address] Nick Mosley MD Other osteoarthritis of spine, lumbar region 03/11/2025 Orders Only [place] [address] [phone] Provider, Abstract 03/11/2025 External Device Data STL ABSTRACTION Provider, Abstract 03/03/2025 [place] [address] [facility] [address] [address] Nick Mosley MD Other specified anxiety disorders 03/03/2025 [place] [address] [facility] [place] [address] Nick Mosley MD Other osteoarthritis of spine, lumbar region 02/27/2025 [facility] Primary Care [address] [place] [address] Nick Mosley MD 02/21/2025 [facility] Internal Medicine [address] [address] Nick Mosley MD 02/21/2025 [facility] Primary Care [address] [place] [address] Nick Mosley MD 02/21/2025 [facility] Care [address] [place] [address] Nick Mosley MD 02/19/2025 External Device Data STL ABSTRACTION Provider, Abstract 02/18/2025 External Device Data STL ABSTRACTION Provider, Abstract 02/02/2025 [facility] Internal Medicine [address] [address] Nick Mosley MD from Last 3 Months Immunizations Immunization Administration Dates Next Due (ADACEL/BOOSTRIX)(10 YR UP) TDAP VACCINE, 0.5ML, IM 12/16/2014,04/13/2012 (PFIZER)(12 YR UP) COVID-19 VACCINE - EMERGENCY USE AUTHORIZATION, MRNA, [id number](PF) 30 MCG/0.3 ML IM SUSP 06/17/2023,03/09/2021,02/15/2021 (PNEUMOVAX [...] NT 6 MOS UP PF IM 06/07/2022,07/06/2021,06/01/2020,07/03,05/03/2018 INFLUENZA VACCINE TRIVALENT SPLIT VIRUS, (6 MOS UP), 0.5ML (PF), IM 04/21/2025 Influenza Seasonal Unspecifi ed Formulation IM 05/07/2011,05/16/2009 [...] on file Legal Sex Male 4:34 AM 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 Gender Identity Not on file Sexual Orientation Not on file Last Filed Vital Signs Vital Sign Reading Time Taken Comments Blood Pressure 137/87 04/21/2025 10:36 AM CDT Pulse 61 04/21/2025 10:36 AM CDT Temperature 37.2 C (98.9 F) 10/04/2024 10:54 AM 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 WORKER Respiratory Rate 18 10/31/2023 11:24 AM CDT Oxygen Saturation 95% 04/21/2025 10:36 AM CDT Inhaled Oxygen Concentration - - Weight 154.7 kg (341 lb) 04/21/2025 10:36 AM CDT Height 182.9 cm (6') 04/21/2025 10:36 AM CDT Body Mass Index 46.25 04/21/2025 10:36 AM CDT Plan of Treatment Upcoming Encounters Date Type Department Care Team (Late st Contact Info) Description 11/03/2025 11:20 AM CDT Office Visit [facility] Primary Care [facility] [address] [place] [address] [address] [place] [address] Nick Mosley MD [address] [facility] [address] [place] [address] Health Maintenance Due Date Last Done Comments HEPATITIS B VACCINES (1 of 3 - 19+ 3-dose series) 1991 FIT-DNA Q 3 years 2017 FIT/FOBT Q 1 year 2017 02/14/2007 Flex Sig/CT Colonography Q 5 years 2017 ZOSTER VACCINE (1 of 2) 2022 DIABETES ANNUAL RETINAL EXAM 09/12/202301/2023, 10/20/2021, 12/25/2014, Additional history exists KHE uACR (Auto Order) 08/07/2024 12/25/2023 , [...] MONTHS 04/01/20252024, 12/25/2023, 06/26/2023, Additional history exists COVID-19 Vaccine (2024-09 6 season) 2025 06/17/2023, 03/09/2021, 02/15/2021 COLORECTAL SCREENING 07/04/2025 07/04/2022, 07/04/20 Colorectal Cancer Screening 07/04/2025 LDL CHOLESTEROL ANNUAL 10/02/2025 , 12/25/2023, 06/26/2023, Additional history exists Traditional Medicare (ACO) A nnual Wellness Visit 10/05/2025 10/04/2024, 11/13/2023, 03/13/2023, Additional history exists Abdominal Aortic Aneurysm (A AA) Screening Completed 03/19/2014 KHE eGFR (Auto Order) Completed 10/02/2024 , 12/25/2023, 06/26/2023, Additional history exists Medicare Advantage ([place]) Preventative Visit/Annual Wellness Visit Completed 10/04/2024, 11/13/2023, 03/13/2023, Additional history exists INFLUENZA VACCINE Completed 04/21/2025, , 06/07/2022, Additional history exists Medical Devices Implanted Type Area Radioisotope Technologist Device Identifier Shelf Expiration Date Model / Serial / Lot Anette Osteowrap Xl [id number] - [id number] Implanted:Qty : 1 on 01/05/2015 by Nestor Quezada DDS at [facility] Right: Orbital Floor BACTERIN 12/10/2015 [id number] / [id number] / Screws/Cage Of Back Procedures Procedure Name Priority Date/Time Associated Diagnosis Comments STRESS TEST EXERCISE NUCLEAR MED Routine 03/03/2025 3:32 PM CDT COMPREHENSIVE METABOLIC PANEL Routine 10/02/2024 8:06 AM 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 WORKER Other hyperlipidemia LIPID PANEL Routine 10/02/2024 8:06 AM 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 WORKER Other hyperlipidemia HEMOGLOBIN A1C Routine 10/02/2024 8:06 AM 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 WORKER Type 2 diabetes mellitus with stage 3a chronic kidney disease, with long-term current use of insulin ([facility]) MICROALBUMIN/CREATINI NE RATIO, RANDOM UR Routine 12/25/2023 8:13 AM CDT Type 2 diabetes mellitus with stage 3a chronic kidney disease, with long-term current use of insulin ([facility]) COLONOSCOPY REPORT 07/04/2022 3: 23 PM 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 WORKER HM DIABETES EYE EXAM Routine 10/20/2021 from Last 3 Months or Most Recently Relevant to Health Maintenance Results * STRESS TEST EXERCISE NUCLEAR MED (03/03/2025 3:32 PM CDT) us Abstract Provider NM ORDERABLES Edited Result - Final [facility] INTERNAL MED [facility] CLIA# [id number] [facility] [address] [place] [address] * (ABNORMAL) HEMOGLOBIN A1C (10/02/2024 8:06 AM 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 WORKER) HEMOGLOBIN A1C 11.7(H) <5.7 % of total Hgb [facility] Comment: For someone without known diabetes, [...] children. ESTIMATED AVERAGE GLUCOSE (MG/DL) 289 mg/dL [facility] ESTIMATED AVERAGE GLUCOSE (MMOL/L) 16.0 mmol/L [facility] Comment: FASTING:YES MULTIPLE TESTING PRIORITIES; ROUTINE TESTING TO FOLLOW. FASTING: YES Test Performed at: [facility] [place] [address] [place] [address] Cj Thi Vo Blood 10/02/2024 8:06 AM 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 WORKER 10/02/2024 8:07 AM 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 WORKER us Nick Mosley MD CHEMISTRY ORDERABLES Final Re sult [facility] [phone] [facility] [address] [place] [address] * LIPID PANEL (10/02/2024 8:06 AM 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 WORKER) CHOLESTEROL 176 <200 mg/dL [facility] [...] LDL-C. Mason SS et al. GUILLERMINA. 2013;310(19): 2533-9880 (http://education.BreatheAmerica/faq/LOR162) CHOL/HDL RATIO 3.1 <5.0 (calc) [facility] NON-HDL CHOLESTEROL 120 <130 mg/dL (calc) [facility] Comment: For patients with diabetes plus 1 major ASCVD risk factor, treating to a non-HDL-C goal of <100 mg/dL (LDL-C of <70 mg/dL) is considered a therapeutic option. Test Performed at: [facility] [address] [place] [address] Cj Sheridan MD Blood 10/02/2024 8:06 AM 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 WORKER 10/02/2024 8:07 AM 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 WORKER us Nick Mosley MD CHEMISTRY ORDERABLES Final Re sult [facility] [phone] [facility] [address] [place] [address] * (ABNORMAL) COMPREHENSIVE METABOLIC PANEL (10/02/2024 8:06 AM 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 WORKER) GLUCOSE 255(H) 65 - 99 mg/dL [facility] Comment: Fasting reference interval For someone [...] enexa BUN/CREAT RATIO SEE NOTE: 6 - (calc) [facility] Comment: Not Reported: [...] [facility] Comment: Test Performed at: [facility] [address] [address] Cj Sheridan MD Blood 10/02/2024 8:06 AM 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 WORKER 10/02/2024 8:07 AM 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 WORKER us Nick Mosley MD CHEMISTRY ORDERABLES Final Re sult Performing Organization Address City/[facility]/ZIP Co de Phone Number [facility] [phone] [facility] [address] * (ABNORMAL) MICROALBUMIN/CREATININE RATIO, RANDOM UR (12/25/2023 8:13 AM CDT) Creatinine, Urine 120 20 - 320 mg/dL [facility] MICROALBUMIN, URINE 27.0 See Note: mg/dL [facility] Comment: Reference Range: Reference Range Not established MICROALBUMIN/CREAT RATIO, UR 225(H) <30 mg/g creat [facility] Comment: The ADA defines abnormalities in [...] category. FASTING:YES FASTING: YES Test Performed at: [facility] [address] [place] [phone] Cj Sheridan MD Urine URINE SPECIMEN OBTAINED BY CLEAN CATCH PROCEDURE / Unknown 12/25/2023 8:13 AM CDT 12/25/2023 8:13 AM CDT us Nick Mosley MD URINE ORDERABLES Final Result Performing Organization Address [facility]/ZIP Co de Phone Number [facility] [phone] [facility] [address] * COLONOSCOPY REPORT (07/04/2022 3:23 PM 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 WORKER) Narrative Procedure Note Truong Roche MD - 07/04/2022 3:22 PM CST [facility] Endoscopy Patient Name: Cristiano Armijo [...] electronically. Number of Addenda: [address]; [place] [address] Truong Roche MD GI PROCEDURE ORDERABLES Etelvina l Result * DIABETES EYE EXAM (10/20/2021) Abstract Provider HEALTH MAINTENANCE Edited Resu lt - Final [facility] INTER[facility] MED [facility] CLIA# [id number] [facility] [address] [place] [address] from Last 3 Months or Most Recently Relevant to Health Maintenance Insurance Advance Directives For more information, please contact: [phone] * Full Code (Latest Code Status on File) Date Activated Date Inactivated Comments 07/04/2022 1:42 PM 07/04/2022 6:39 PM * Full Code Date Activated Date Inactivated Comments 01/29/2021 11:48 AM 01/29/2021 2:47 PM * Full Code Date Activated Date Inactivated Comments 01/05/2015 12:37 PM 01/05/2015 8:41 PM * Full Code Date Activated Date Inactivated Comments 01/05/2015 11:18 AM 01/05/2015 12:37 PM Care Teams Pulp Bleacher Relationship Specialty Start Date End Date Nick Mosley MD PCP - General 11/23/07
--- OUTSIDE RECORDS SUMMARY | 2025-05-03 16:16 | XMS_ITS | Encounter Summary ---
Author Organization [facility] Address 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 LAB ORDERS: 3 mo Order number: [id number] Test Ordered: COMPREHENSIVE METABOLIC PANEL & GFR 1112 Order number: [id number] Test Ordered: HEMOGLOBIN A1C 1814 Order number: [id number] Test Ordered: LIPID PANEL 1078 Order number: [id number] Test Ordered: MICROALBUMIN/CREAT, UR RATIO 2252 272.4-HYPERLIPIDEMIA [...] Description 11/03/2025 11:20 AM CDT Office Visit [facility] Primary Care [place] [address] [place] [address] Nick Mosley MD [address] [place] [address] documented as of this encounter Visit Diagnoses Not on filedocumented in this encounter Care Teams Ict Trainer Relationship Specialty Start Date End Date Nick Mosley MD PCP - General 11/23/07 documented as of this encounter
--- OUTSIDE RECORDS SUMMARY | 2025-05-03 16:16 | XMS_ITS | Encounter Summary ---
Author Organization [facility] Address [address] [place] [address] Care Team Providers Care Supervisor Telephone Answering Service Name Role Phone Nick Mosley MD Primary Care Provider [phone] Encounter Details Date Type Department Care Team (Late st Contact Info) Description 03/26/2007 Outpatient Historical [facility] Internal Medicine [address] [address] Nick Mosley MD [address] [place] [address] [address] [place] [address] Social History Tobacco Use Types Packs/Day Years Used Date Smoking Tobacco: Never Assessed Sex and Gender Information Value Date Recorded Sex Assigned at Not on file Legal Sex Male 4:34 AM YOUTH ASSOCIATE Gender Identity Not on file Sexual [...] Body Mass Index 43.4 06/27/2005 11:30 AM YOUTH ASSOCIATE documented in this encounter Plan of Treatment Upcoming Encounters Date Type Department Care Team (Late st Contact Info) Description 11/03/2025 11:20 AM CDT Office Visit [facility] Primary Care [address] [place] [address] Nick Mosley MD [address] [place] [address] [place] [address] documented as of this encounter Visit Diagnoses Not on filedocumented in this encounter Care Teams Supervisor Telephone Answering Service Relationship Specialty Start Date End Date Nick Mosley MD PCP - General 11/23/07 documented as of this encounter
--- OUTSIDE RECORDS SUMMARY | 2025-05-03 16:17 | XMS_ITS | Encounter Summary ---
Author Organization [facility] Address [address] [place] [address] Care Team Providers Care Neurosurgeon Name Role Phone Nick Mosley MD Primary Care Provider [phone] Encounter Details Date Type Department Care Team (Late Contact Info) Description 08/20/2007 Outpatient Historical [facility] Internal Medicine [address] [address] Nick Mosley MD [address] [place] [address] Social History Tobacco Use Types Packs/Day Years Used Date Smoking Tobacco: Never Assessed Sex and Gender Information Value Date Recorded Sex Assigned at Not on file Legal Sex Male 4:34 AM SURGICAL AIDE Gender Identity Not on file Sexual Orientation Not on file documented as of this encounter Plan of Treatment Upcoming Encounters Date Type Department Care Team (Late st Contact Info) Description 11/03/2025 11:20 AM CDT Office Visit [facility] Primary Care [address] [place] [address] Nick Mosley MD [address] [place] [address] [address] [place] [address] documented as of this encounter Visit Diagnoses Not on filedocumented in this encounter Care Teams Neurosurgeon Relationship Specialty Start Date End Date Nick Mosley MD PCP - General 11/23/07 documented as of this encounter
--- OUTSIDE RECORDS SUMMARY | 2025-05-03 16:17 | XMS_ITS | Encounter Summary ---
Author Organization [facility] Address 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 Gender Identity Not on file Sexual Orientation Not on file documented as of this encounter Plan of Treatment Upcoming Encounters Date Type Department Care Team (Late Contact Info) Description 11/03/2025 11:20 AM CDT Office Visit [facility] Primary Care [address] [place] [address] Nick Mosley MD [address] [place] [address] [address] [place] [address] documented as of this encounter Visit Diagnoses Not on filedocumented in this encounter Care Teams Veterinary Dentist Relationship Specialty Start Date End Date Nick Mosley MD PCP - General 11/23/07 documented as of this encounter
--- OUTSIDE RECORDS SUMMARY | 2025-05-03 16:17 | XMS_ITS | Encounter Summary ---
Author Organization [facility] Address [address] [place] [address] Care Team Providers Care Railway Signal Technician Name Role Phone Nick Mosley MD Primary Care Provider [phone] Encounter Details Date Type Department Care Team (Late Contact Info) Description 02/14/2007 Outpatient Historical 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 Primary Care [address] [place] [address] Nick Mosley MD [address] [place] [address] [address] [place] [address] documented as of this encounter Visit Diagnoses Not on filedocumented in this encounter Care Teams Railway Signal Technician Relationship Specialty Start Date End Date Nick Mosley MD PCP - General 11/23/07 documented as of this encounter
--- OUTSIDE RECORDS SUMMARY | 2025-05-03 16:18 | XMS_ITS | Encounter Summary ---
Author Organization [facility] Address [address] [place] [address] Care Team Providers Care Aws Consultant Name Role Phone Nick Mosley MD Primary Care Provider [phone] Encounter Details Date Type Department Care Team (Late st Contact Info) Description 08/21/2007 Orders Only [facility] Internal Medicine [address] [address] Nick Mosley MD [address] [place] [address] Social History Tobacco Use Types Packs/Day Years Used Date Smoking Tobacco: Never Assessed Sex and Gender Information Value Date Recorded Sex Assigned at Not on file Legal Sex Male 4:34 AM TIME SIGNAL WIRER Gender Identity Not on file Sexual Orientation [...] reassess LAB ORDERS: 3 mo Order number: [id number] Test Ordered: COMPREHENSIVE METABOLIC PANEL & GFR 1112 Order number: [id number] Test Ordered: HEMOGLOBIN A1C 1814 Order number: [id number] Test Ordered: LIPID PANEL 1078 272.4-HYPERLIPIDEMIA add [...] Description 11/03/2025 11:20 AM CDT Office Visit [facility] [place] [address] Nick Mosley MD [address] [place], [place] [id number] documented as of this encounter Visit Diagnoses Not on filedocumented in this encounter Care Teams Aws Consultant Relationship Specialty Start Date End Date Nick Mosley MD PCP - General 11/23/07 documented as of this encounter
--- OUTSIDE RECORDS SUMMARY | 2025-05-03 16:18 | XMS_ITS | Encounter Summary ---
Author Organization [facility] Address [address] [place] [address] Care Team Providers Care Freight Broker Name Role Phone Nick Mosley MD Primary Care Provider [phone] Encounter Details Date Type Department Care Team (Late st Contact Info) Description 08/21/2007 Outpatient Historical [facility] Internal Medicine [address] [address] Nick Mosley MD [address] [place] [address] [address] [place] [address] Social History Tobacco Use Types Packs/Day Years Used Date Smoking Tobacco: Never Assessed Sex and Gender Information Value Date Recorded Sex Assigned at Not on file Legal Sex Male 4:34 AM OWNER Gender Identity Not on file Sexual Orientation Not on file documented as of this encounter Last Filed Vital Signs Vital Sign Reading Time Taken Comments Blood Pressure 120/80 08/21/2007 3:30 PM OWNER Pulse - - Temperature 37.8 C (100.1 F) 08/21/2007 3:30 PM OWNER Respiratory Rate - - Oxygen Saturation - - Inhaled Oxygen Concentration - - Weight 142.4 kg (314 lb) 08/21/2007 3:30 PM OWNER Height - - Body Mass Index 42.59 06/27/2005 11:30 AM OWNER documented in this encounter Plan of Treatment Upcoming Encounters Date Type Department Care Team (Late st Contact Info) Description 11/03/2025 11:20 AM CDT Office Visit [facility] Primary Care [address] [place] [address] Nick Mosley MD [address] [place] [address] [place] [address] documented as of this encounter Visit Diagnoses Not on filedocumented in this encounter Care Teams Freight Broker Relationship Specialty Start Date End Date Nick Mosley MD PCP - General 11/23/07 documented as of this encounter
--- OUTSIDE RECORDS SUMMARY | 2025-05-03 16:19 | XMS_ITS | Encounter Summary ---
Author Organization 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 Address 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 Gender Identity Not on file Sexual Orientation Not on file documented as of this encounter Plan of Treatment Upcoming Encounters Date Type Department Care Team (Late st Contact Info) Description 11/03/2025 11:20 AM CDT Office Visit [facility] Primary Care [address] [place] [address] Nick Mosley MD [address] [place] [address] [address] [place] [address] documented as of this encounter Visit Diagnoses Not on filedocumented in this encounter Care Teams Field Representatives Director Relationship Specialty Start Date End Date Nick Mosley MD PCP - General 11/23/07 documented as of this encounter
--- OUTSIDE RECORDS SUMMARY | 2025-05-03 16:19 | XMS_ITS | Encounter Summary ---
Author Organization [facility] Address 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 Gender Identity Not on file Sexual Orientation Not on file documented as of this encounter Plan of Treatment Upcoming Encounters Date Type Department Care Team (Late st Contact Info) Description 11/03/2025 11:20 AM CDT Office Visit [facility] Primary Care [address] [place] [address] Nick Mosley MD [address] [place] [address] [address] [place] [address] documented as of this encounter Visit Diagnoses Not on filedocumented in this encounter Care Teams Building Trades Teacher Relationship Specialty Start Date End Date Nick Mosley MD PCP - General 11/23/07 documented as of this encounter
--- OUTSIDE RECORDS SUMMARY | 2025-05-03 16:20 | XMS_ITS | Encounter Summary ---
Author Organization [facility] Address [address] [place] [address] Care Team Providers Care Funeral Service Manager Name Role Phone Nick Mosley MD Primary Care Provider [phone] Encounter Details Date Type Department Care Team (Late Contact Info) Description 07/03/[address] [facility] Internal Medicine [address] [address] Nick Mosley MD [address] [place] [address] Social History Tobacco Use Types Packs/Day Years Used Date Smoking Tobacco: Never Assessed Sex and Gender Information Value Date Recorded Sex Assigned at Not on file Legal Sex Male 4:34 AM ACTUARIAL INTERN Gender Identity Not on file Sexual Orientation Not on file documented as of this encounter Plan of Treatment Upcoming Encounters Date Type Department Care Team (Late Contact Info) Description 11/03/2025 11:20 AM CDT Office Visit [facility] Primary Care [address] [place] [address] Nick Mosley MD [address] [place] [address] [address] [place] [address] documented as of this encounter Visit Diagnoses Not on filedocumented in this encounter Care Teams Funeral Service Manager Relationship Specialty Start Date End Date Nick Mosley MD PCP - General 11/23/07 documented as of this encounter
--- OUTSIDE RECORDS SUMMARY | 2025-05-03 16:20 | XMS_ITS | Encounter Summary ---
Author Organization [facility] Address 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 Gender Identity Not on file Sexual [...] reassess LAB ORDERS: 2 mo Order number: [id number] Test Ordered: COMPREHENSIVE METABOLIC PANEL & GFR 1112 Order number: [id number] Test Ordered: HEMOGLOBIN A1C 1814 Order number: [id number] Test Ordered: LIPID PANEL 1078 272.4-HYPERLIPIDEMIA enc [...] Description 11/03/2025 11:20 AM CDT Office Visit [facility] Primary Care [address] [place] [address] Nick Mosley MD [address] [place] [address] [address] [place] [address] documented as of this encounter Visit Diagnoses Not on filedocumented in this encounter Care Teams Humidifier Operator Relationship Specialty Start Date End Date Nick Mosley MD PCP - General 11/23/07 documented as of this encounter
--- OUTSIDE RECORDS SUMMARY | 2025-05-03 16:20 | XMS_ITS | Encounter Summary ---
Author Organization [facility] Address 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 Gender Identity Not on file Sexual Orientation Not on file documented as of this encounter Plan of Treatment Upcoming Encounters Date Type Department Care Team (Late Contact Info) Description 11/03/2025 11:20 AM CDT Office Visit [facility] Primary Care [address] [place] [address] Nick Mosley MD [address] [place] [address] [address] [place] [address] documented as of this encounter Visit Diagnoses Not on filedocumented in this encounter Care Teams Compounder Flavorings Relationship Specialty Start Date End Date Nick Mosley MD PCP - General 11/23/07 documented as of this encounter
--- OUTSIDE RECORDS SUMMARY | 2025-05-03 16:20 | XMS_ITS | Encounter Summary ---
Author Organization [facility] Address [address] [place] [address] Care Team Providers Care Youth Services Librarian Name Role Phone Nick Mosley MD Primary Care Provider [phone] Encounter Details Date Type Department Care Team (Late st Contact Info) Description 05/04/2007 Outpatient Historical [facility] Internal Medicine [address] [address] Nick Mosley MD [address] [place] [address] [address] [place] [address] Social History Tobacco Use Types Packs/Day Years Used Date Smoking Tobacco: Never Assessed Sex and Gender Information Value Date Recorded Sex Assigned at Not on file Legal Sex Male 4:34 AM CHORAL TEACHER Gender Identity Not on file Sexual [...] Body Mass Index 42.99 06/27/2005 11:30 AM CHORAL TEACHER documented in this encounter Plan of Treatment Upcoming Encounters Date Type Department Care Team (Late st Contact Info) Description 11/03/2025 11:20 AM CDT Office Visit [facility] Primary Care [address] [place] [address] Nick Mosley MD [address] [place] [address] [address] [place] [address] documented as of this encounter Visit Diagnoses Not on filedocumented in this encounter Care Teams Youth Services Librarian Relationship Specialty Start Date End Date Nick Mosley MD PCP - General 11/23/07 documented as of this encounter
--- OUTSIDE RECORDS SUMMARY | 2025-05-03 16:20 | XMS_ITS | Clinical Summary ---
Author Organization [facility] Address [address] [place] [address] Phone Care Team Providers Care Color Matcher Name Role Phone Nick Mosley MD Primary Care Provider [phone] Allergies Active Allergy Reactions Criticality Noted Date [...] 136.1 kg (300 lb) 07/07/2017 3:00 PM REACTOR SERVICE OPERATOR Height 182.9 cm (6') 07/07/2017 3:00 PM REACTOR SERVICE OPERATOR Body Mass Index 40.69 07/07/2017 3:00 PM REACTOR SERVICE OPERATOR Plan of Treatment Health Maintenance Due [...] (1 of 2) 2022 Influenza Immunization (#1) 2025 SARS-COV-2 Immunization ( season) 2025 03/09/2021, 02/15/2021 Respiratory Syncytial Virus (RSV) Immunization [...] age to complete this topic Insurance MEDICARE [facility] MEDICAID [place] Advance Directives * Full Code (Latest Code Status on File) Date Activated Date Inactivated Comments 10/07/2016 11:04 PM 10/08/2016 4:51 PM CPR-Full Aura tment: FULL ARREST: Attempt Resuscitation/CPR wit intubation and mechanical ventilation. PRE-ARREST: Use entire range of life support measures to stabilize the patient. Care Teams Color Matcher Relationship Specialty Start Date End Date Nick Mosley MD [address] [place] [phone] PCP - General 10/07/16
--- OUTSIDE RECORDS SUMMARY | 2025-05-03 16:21 | XMS_ITS | Clinical Summary ---
Author Organization [facility] Address [facility] [place] [address] Care Team Providers Care Silo Operator Name Role Phone Sheldon Mike Nurse Student Primary Care Provi payton Unavailable Allergies Active Allergy Reactions Criticality Noted [...] Active Active Problems No known active problems Social History Tobacco Use Types Packs/Day Years Used Date Smoking Tobacco: Never Smokeless Tobacco: Never Tobacco Cessation:Counseling Given: Not Answered Alcohol Use Standard Drinks/Week Comments Not Currently 0 (1 standard drink = 0.6 oz pur e alcohol) Sex and Gender Information Value Date Recorded Sex Assigned at Male 10/15/2024 8:31 AM CDT Legal Sex Male 9:46 AM ILLUMINATING ENGINEER Gender Identity Not on file Sexual [...] patient's age to complete this topic Insurance MEDICAID DEPT OF [address] MEDICARE [employer] Care Teams Silo Operator Relationship Specialty Start Date End Date Sheldon Mike, Nurse Student PCP - General 10/15/24
--- OUTSIDE RECORDS SUMMARY | 2025-05-03 16:21 | XMS_ITS | Encounter Summary ---
Author Organization [facility] Address [address] [place] [address] Care Team Providers Care Match Up Worker Name Role Phone Nick Mosley MD Primary Care Provider [phone] Reason for Visit * Reason Comments Provider Call Encounter Details Date Type Department Care Team (Late st Contact Info) Description 04/24/[address] 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 Topic: [id number] Call >> Apr 24, 2024 4:00 PM Rakesh Millan wrote: Caller is requesting to speak with Clinical Care Team. Caller Name: [facility] Brianne Callback Number: [phone] Clinician Type: Other healthcare professional not listed above Call Notes: Requesting 6months [facility] weight [facility][phone] Is this addressing an immediate patient care need? Yes documented in this encounter Plan of Treatment Upcoming Encounters Date Type Department Care Team (Late st Contact Info) Description 11/03/2025 11:20 AM CDT Office Visit [facility] Primary Care [place] [place] [address] Nick Mosley MD [address] [place] [address] [place] [address] documented as of this encounter Visit Diagnoses Not on filedocumented in this encounter Care Teams Match Up Worker Relationship Specialty Start Date End Date Nick Mosley MD PCP - General 11/23/07 documented as of this encounter
[2025-05-03 16:58] LABS: Hematocrit 41.9 % (40.0-54.0); Hemoglobin 14.7 g/dL (14.0-18.0); Immature Granulocyte Percent A 0.4 % (0.0-0.0); Lymphocytes Absolute Auto 2.02 K/mm3 (1.10-4.50); Mean Corpuscular HGB Conc 35.1 g/dL (32-36); Mean Corpuscular Hemoglobin 30.8 pg (27.0-31.0); Mean Corpuscular Volume 87.8 fL (78.0-102.0); Nucleated Red Blood Cells Absolute Auto 0.00 K/mm3 (0.00-0.00); Nucleated Red Blood Cells Perc 0.0 % (0-0.0); Platelet Count Result 274 K/mm3 (150-420); Red Blood Count 4.77 M/mm3 (4.70-6.10); White Blood Count 7.3 K/mm3 (4.8-10.8)
[2025-05-03 17:13] LABS: INR 0.9; Partial Thromboplastin Time 26.3 Sec (23.9-30.70); Prothrombin Time 9.8 Seconds (9.50-12.1)
[2025-05-03] MEDS: ONDANSETRON INJ 4 MG/2 ML VIAL IV PUSH (17:24)
[2025-05-03] MEDS: MORPHINE SULFATE (*CRX) 4 MG/ML INJ IV PUSH (17:24)
[2025-05-03 17:27] LABS: Add Urine Microscopic? NO; Appearance Urine Clear (Clear); Glucose Urine UA 2+ (Negative); Leukocyte Esterase Ur Negative LEU/UL (Negative); Nitrate Urine Negative (Negative); Specific Grav Ur 1.015 (1.010-1.020)
[2025-05-03 18:23] LABS: Alanine Aminotransferase 25 U/L (6-50); Albumin Level 4.2 g/dL (3.5-5.1); Alkaline Phosphatase 124 U/L (38-126); Anion Gap 8 mmol/L (4-12); Aspartate Amino Transferase 30 U/L (17-59); Bilirubin,Total 0.4 mg/dL (0.2-1.3); Blood Urea Nitrogen 10 mg/dL (9-20); Calcium 8.8 mg/dL (8.4-10.2); Carbon Dioxide 23 mmol/L (22-30); Chloride 100 mmol/L (98-107); Estimated CRCL calculation 136 ml/min; Estimated Glomerular Filt Rate > 60; Glucose 297 mg/dL (65-110); Lipase 38 U/L (23-300); Osmolality Calculated 282 mOsm/kg (285-295); Potassium 4.2 mmol/L (3.4-5.0); Sodium 131 mmol/L (137-145); Total Protein 7.5 g/dL (6.3-8.2)
[2025-05-03 18:36] LABS: NT Pro B Type Natriuretic Pept 32 pg/mL (19.9-100); Troponin I < 0.012 ng/mL (0.000-0.034)
[2025-05-03] MEDS: SODIUM CHLORIDE 0.9% IV 500 ML 999 ML IV CONT (19:16)
[2025-05-03] MEDS: METOPROLOL TARTRATE INJ 5 MG/5 ML VIAL IV PUSH (19:58)
--- NOTE | 2025-05-03 19:58 | ED.CHESTPAIN ---
HPI - Chest Pain General Chief Complaint: Chest Pain Stated Complaint: chest pain Time Seen by Provider: 05/03/25 16:20 Source: patient Mode of arrival: ambulatory Limitations: no limitations History of Present Illness HPI narrative: this is a 54-year-old male with history of diabetes currently on diabetic injection weekly, with chest tightness reproducible with palpation with some mild shortness of breath no diaphoresis no radiation of his pain no fever chills blood pressure is elevated at 206 systolic. Patient has no abdominal, patient rates his pain about an 8/10 and radiates into his left upper back area no diarrhea constipation, no vomiting but does have some nausea. MD complaint: chest pain and chest heaviness Pertinent past history: coronary artery disease Onset (ago): day(s) Timing of current episode: episodic Prior episodes: Yes Onset: during rest Pain location: left chest ( Reproducible with palpation) Pain radiation: none Severity: moderate Quality: tightness Relieving factors: nitroglycerin Exacerbating factors: palpation Associated symptoms: nausea Treatment prior to arrival: nitroglycerin Related Data Home Medications ?Medication ?Instructions ?Recorded ?Confirmed ?Last Taken ?Type alprazolam 0.5 mg tablet 0.5 mg PO BID PRN Anxiety 03/09/21 03/12/25 Unknown History insulin aspart U-100 100 unit/mL 35 unit subcut BID 03/09/21 03/12/25 Unknown History (3 mL) subcutaneous pen (Novolog FlexPen U-100 Insulin aspart) omeprazole 20 mg capsule,delayed 20 mg PO DAILY 03/09/21 03/12/25 Unknown History release sertraline 100 mg tablet 100 mg PO DAILY 03/09/21 03/12/25 Unknown History simvastatin 40 mg tablet 40 mg PO DAILY 03/09/21 03/12/25 Unknown History insulin degludec 200 unit/mL (3 100 unit subcut DAILY 09/06/22 03/12/25 Unknown History mL) subcutaneous pen (Tresiba FlexTouch U-200 insulin) tiotropium 2.5 mcg-olodaterol 2.5 1 puff inhalation DAILY 09/06/22 03/12/25 Unknown History mcg/actuation mist for inhalation (Stiolto Respimat) naloxone 4 mg/actuation nasal spray See Rx Instructions .Route .COMPLEX 06/26/23 03/12/25 Unknown History empagliflozin 25 mg tablet 25 mg PO DAILY 05/03/25 Unknown History (Jardiance) tirzepatide 7.5 mg/0.5 mL 7.5 mg subcut WEEKLY 05/03/25 Unknown History subcutaneous pen injector (Mounjaro) Allergies Allergy/AdvReac Type Severity Reaction Status Date / Time No Known Allergies Allergy Verified 05/03/25 17:11 Review of Systems Review of Systems: All systems reviewed & are unremarkable except as noted in HPI and below PMFSH Past Medical History Medical History Morbid obesity Type 2 diabetes mellitus Surgical History Surgical History H/O lumbosacral spine surgery Social History Social History Smoking status: Never smoker Alcohol intake: current Alcohol use details: occasional Substance use: never Do You Feel Safe in your Home?: No Lack of Transportation: No Lack of Food: Never True Current Housing: Decline to Answer Concerned About Future Housing: Decline to Answer Difficulty Paying Gas/Electric Bills: Decline to Answer Difficulty Paying for Meds: Decline to Answer Currently Unemployed: Decline to Answer Education: Decline to Answer Difficulty w/ Childcare or Family Care: Decline to Answer Exam Const: General: healthy appearing and no acute distress Nutritional Appearance: well nourished and obese Orientation/consciousness: patient oriented x3 Limitations: no limitations Neck: Neck: normal visual inspection, no lymphadenopathy and no meningeal signs Chest: Chest palpation & inspection: normal inspection of the chest Resp: Effort & Inspection: normal respiratory effort Auscultation: clear to auscultation bilaterally Cardio: Rate: regular rate Rhythm: regular rhythm GI: GI Palp: Yes Soft to palpation Auscultation: normal bowel sounds : General: Yes bladder normal to palpation Back/Spine/Pelvis: Back: no CVA tenderness Skin: General skin exam: normal color Rashes: no rashes Neuro: General: patient oriented x3, moves all extremities, no meningeal signs and no focal motor deficits Extrem: General: normal to inspection, no clubbing, cyanosis or edema and no pedal edema Course Course Emergency Course: Patient had a CT scan chest abdomen and pelvis which showed no acute abnormalities, incidental finding of a mass on the appendix that should be investigated by his primary care physician patient notified. Otherwise troponins negative x2 EKG which shows no acute ST or T changes blood work reviewed with patient showed no acute abnormalities except sodium was 131 and received normal saline and blood pressure consistently around 170 systolic received 1 dose of 5mg IV metoprolol. Discussed this with patient and advised him to continue his follow ups with his rail car driver for further evaluation treatment. Vital Signs Vital signs: Vital Signs Pulse Oximetry 96 05/03/25 16:17 Temperature 36.9 C 05/03/25 16:30 Pulse Rate 89 05/03/25 18:31 Respiratory Rate 20 05/03/25 18:31 Blood Pressure 165/104 H 05/03/25 18:31 Pulse Oximetry 96 05/03/25 19:15 Oxygen Delivery Room Air 05/03/25 18:31 MDM - Chest Pain Lab Data 05/03/25 16:52 05/03/25 16:52 Labs: Lab Results 05/03/25 05/03/25 Range/Units 16:52 16:52 WBC 7.3 (4.8-10.8) K/mm3 RBC 4.77 (4.70-6.10) M/mm3 Hgb 14.7 (14.0-18.0) g/dL Hct 41.9 (40.0-54.0) % MCV 87.8 (78.0-102.0) fL MCH 30.8 (27.0-31.0) pg MCHC 35.1 (32-36) g/dL RDW 11.7 (11.6-14.4) % Plt Count 274 (150-420) K/mm3 MPV 9.5 (8.7-11.0) fl Immature Gran % (Auto) 0.4 H (0.0-0.0) % Neut % (Auto) 63.9 (50.0-70.0) % Lymph % (Auto) 27.6 (18.0-42.0) % Miller % (Auto) 5.6 (2.0-11.0) % Eos % (Auto) 1.8 (1.0-6.0) % Baso % (Auto) 0.7 (0.0-1.0) % Lymph # (Auto) 2.02 (1.10-4.50) K/mm3 Miller # (Auto) 0.41 (0.10-0.90) K/mm3 Eos # (Auto) 0.13 (0.02-0.50) K/mm3 Baso # (Auto) 0.05 (0.00-0.10) K/mm3 Abs Immat Gran (auto) 0.03 H (0.00-0.00) K/mm3 Absolute Neuts (auto) 4.68 (1.70-7.20) K/mm3 Absolute Nucleated RBC 0.00 (0.00-0.00) K/mm3 Nucleated RBC % 0.0 (0-0.0) % PT 9.8 (9.50-12.1) Seconds INR 0.9 APTT 26.3 (23.9-30.70) Sec D-Dimer 0.20 (0.19-0.50) mg/L Sodium 131 L (137-145) mmol/L Potassium 4.2 (3.4-5.0) mmol/L Chloride 100 (98-107) mmol/L Carbon Dioxide 23 (22-30) mmol/L Anion Gap 8 (4-12) mmol/L BUN 10 (9-20) mg/dL Creatinine 0.85 (0.7-1.3) mg/dL Estim Creat Clear Calc 136 ml/min Estimated GFR > 60 (59 - ) Glucose 297 H (65-110) mg/dL Calculated Osmolality 282 L (285-295) mOsm/kg Calcium 8.8 (8.4-10.2) mg/dL Total Bilirubin 0.4 (0.2-1.3) mg/dL AST 30 (17-59) U/L ALT 25 (6-50) U/L Alkaline Phosphatase 124 (38-126) U/L Troponin I < 0.012 Pending (0.000-0.034) ng/mL NT-Pro-B Natriuret Pep 32 (19.9-100) pg/mL Total Protein 7.5 (6.3-8.2) g/dL Albumin 4.2 (3.5-5.1) g/dL Lipase 38 (23-300) U/L Urine Color Light yellow (Yellow) Urine Appearance Clear (Clear) Urine pH 6.0 (5.0-8.0) Ur Specific [place] 1.015 (1.010-1.020) Urine Protein Negative (Negative) Urine Glucose (UA) 2+ H (Negative) Urine Ketones Negative (Negative) Ur Blood (Man) Negative (Negative) Urine Nitrate Negative (Negative) Urine Bilirubin Negative (Negative) Urine Urobilinogen 0.2 (0.2-1.0) mg/dL Leukocyte Esterase Rfl Negative (Negative) RAJNI/UL Critical Care Time Critical Care Time Critical Care Time: No Discharge Plan Discharge Clinical Impression: Atypical chest pain Patient Disposition: Home Condition: Stable Instructions: Antibiotic Form, Chest Pain (ED), Chest Wall Pain (ED) Additional Instructions: Advised patient to follow with his primary/ rail car driver within the next 3 to 5 days for further evaluation and treatment. Patient Language: Spanish Prescriptions: No Action insulin degludec [Tresiba FlexTouch U-200] 200 unit/mL (3 mL) insulin pen 100 unit SUBCUT DAILY Stiolto Respimat 2.5-2.5 mcg/actuation mist 1 puff INHALATION DAILY sertraline 100 mg tablet 100 mg PO DAILY simvastatin 40 mg tablet 40 mg PO DAILY alprazolam 0.5 mg tablet 0.5 mg PO BID PRN (Reason: Anxiety) omeprazole 20 mg capsule,delayed release(DR/EC) 20 mg PO DAILY insulin aspart U-100 [Novolog FlexPen U-100 Insulin] 100 unit/mL (3 mL) insulin pen 35 unit SUBCUT BID Jardiance 25 mg tablet 25 mg PO DAILY Mounjaro 7.5 mg/0.5 mL pen injector 7.5 mg SUBCUT WEEKLY naloxone 4 mg/actuation spray,non-aerosol See Rx Instructions .ROUTE .COMPLEX Rx Instructions: NEEDED (DME) Aerochamber Plus Z Stat Spacer See Rx Instructions .Route Qty: 1 0RF Rx Instructions: As directed losartan 100 mg tablet 100 mg PO DAILY Qty: 90 2RF Follow-up/Referrals: Dimitri,Nick Tabares MD [Primary Care Provider]
[2025-05-03 20:29] LABS: Troponin I < 0.012 ng/mL (0.000-0.034)
--- NOTE | 2025-05-06 14:09 | PC.NURSE ---
preliminary blood cultures x2 reviewed. no growth at this time
--- NOTE | 2025-05-06 14:10 | PC.NURSE ---
preliminary blood cultures x2 reviewed. no growth at this time
--- NOTE | 2025-05-07 13:21 | PC.NURSE ---
PRELIMINARY BLOOD CULTURE RESULTS X2: NO GROWTH IN 24 HRS
--- NOTE | 2025-05-07 13:22 | PC.NURSE ---
PRELIMINARY BLOOD CULTURE RESULTS X2: NO GROWTH IN 48 HRS.
--- NOTE | 2025-05-08 13:15 | PC.NURSE ---
PRELIMINARY BLOOD CULTURE REPORT; NO GROWTH IN 48 HOURS.
--- NOTE | 2025-05-11 12:37 | PC.NURSE ---
blood culture, final no growth
== END 2025-05-03 21:00 | disposition home or self-care (01) ==
PROVIDERS: Emergency Provider Emergency Medicine; PCP Internal Medicine
DX: R07.89 Other chest pain (principal); E11.9 Type 2 diabetes mellitus without complications; Z79.899 Other long term (current) drug therapy
CPT/HCPCS: 36415; 71260; 74177; 80053; 81003; 83690; 83880; 84484; 85025; 85380; 85610; 85730; 87040; 93005; 96374; 96375; 99284; J0616; J2270; J2405; J7040; Q9967

== ENCOUNTER 2025-05-22 00:59 | Day surgery (SDC) | payer MEDICARE, MEDICAID, SELFPAY ==
[2025-05-21 10:57] VITALS: BMI 40.7
[2025-05-22] VITALS (17 sets, daily range): BP systolic 129–186; BP diastolic 88–107; PULSE 78–98; RESP 14–18; TEMP 36.6; O2SAT 94–100; BMI 42.4
--- NOTE | 2025-05-22 | ECHO_ITS ---
Patient Info Name: Cristiano Armijo Age: 54 years : 1970 Gender: Male Ht: 72 in Wt: 313 lbs BSA: 2.75 m2 HR: 82 bpm BP: 182 / 94 mmHg Technical Quality: Poor Exam Date: 05/22/2025 11:13 AM Patient Status: O Admit Date: 05/22/2025 Exam Type: CA echo dop color flow w con Complete two-dimensional, color flow and Doppler transthoracic echocardiogram is performed with contrast to opacify the left ventricle and to improve the deliniation of the left ventricle endocardial borders. Anodizer: Lisbeth Serrano Attending Provider: Drew De La Torre Contrast/Agitated Saline Contrast/Ag. Saline: Definity Amount: 2.00 ml Reason for Poor Study: poor echocardiographic windows Summary 1. Overall poor quality study and recommend repeating transthoracic echocardiogram in outpatient setting. 2. The left ventricle is not well visualized however in the contrast windows, it is likely low normal in function. The left ventricular ejection fraction is likely 50%. 3. The right ventricle is not well visualized however in the available poor acoustic windows, it does appear to be likely normal in size and systolic function. Recommendations * Continue medical therapy for diabetes. History/Risk Factors Hypertension: Yes Dyslipidemia: Yes Obesity: Yes Diabetes Mellitus: Type II Left Ventricle The left ventricle is not well visualized however in the contrast windows, it is likely low normal in function. The left ventricular ejection fraction is likely 50%. Right Ventricle The right ventricle is not well visualized however in the available poor acoustic windows, it does appear to be likely normal in size and systolic function. Left Atria The left atrial size is normal. Right Atria The right atrial size is normal. Atrial Septum The atrial septum is not well visualized. Aortic Valve The aortic valve is probable trileaflet and sclerotic. There is no aortic stenosis or regurgitation. Pulmonic Valve The pulmonic valve is not well visualized. Mitral Valve The mitral valve is not well visualized. Tricuspid Valve The tricuspid valve is not well visualized. Pericardium/Pleural The pericardium is not well visualized. Inferior Vena Cava Normal inferior vena cava with >50% collapse upon inspiration consistent with normal right atrial pressure, 3 mmHg. Aorta The aortic root is not well visualized. Left Ventricular Outflow Tract Name Value Normal LVOT Doppler LVOT Peak Velocity 74 cm/s LVOT Peak Gradient 2 mmHg LVOT Mean Gradient 1 mmHg LVOT VTI 15 cm Pulmonic Valve Name Value Normal RVOT Doppler RVOT Peak Velocity 17 cm/s RVOT Peak Gradient 0 mmHg PV Doppler PV Peak Velocity 80 cm/s PV Peak Gradient 3 mmHg Mitral Valve Name Value Normal MV Diastolic Function MV E Peak Velocity 54 cm/s MV A Peak Velocity 78 cm/s MV E/A 0.7 MV Decel Time (PW) 233 ms MV Annular TDI MV E/e' (Septal) 7.2 MV E/e' (Lateral) 9.4 MV E/e' (Average) 8.3 Tricuspid Valve Name Value Normal Estimated PAP/RSVP RA Pressure 3 mmHg <=5 Aortic Valve Name Value Normal AV Doppler AV Peak Velocity 107 cm/s AV Peak Gradient 5 mmHg AV DI (Varun) 0.69 Ventricles Name Value Normal LV Dimensions 2D/MM IVS Diastolic Thickness (2D) 1.3 cm 0.6-1.0 LVID Diastole (2D) 5.1 cm 4.2-5.8 LVIW Diastolic Thickness (2D) 1.2 cm 0.6-1.0 LVID Systole (2D) 3.8 cm 2.5-4.0 LV Mass (2D Cubed) 253.01 g 88.00-224.00 LV Mass Index (2D Cubed) 92 g/m2 49-115 Relative Wall Thickness (2D) 0.48 <=0.42 LV Fractional Shortening/Ejection Fraction 2D/MM LV Fractional Shortening (2D) 26 % 25-43 LV EF (2D Teichholz) 50 % LV Diastolic Volume (4C MOD) 65 ml LV EF (4C MOD) 45 % LV Diastolic Volume (2C MOD) 100 ml LV EF (2C MOD) 33 % LV Diastolic Volume (BP MOD) 84 ml 62-150 LV Diastolic Volume Index (BP MOD) 31 ml/m2 34-74 LV Systolic Volume (BP MOD) 49 ml 21-61 LV Systolic Volume Index (BP MOD) 18 ml/m2 11-31 LV EF (BP MOD) 41 % 52-72 LV Diastolic Length (4C) 7.2 cm LV Systolic Length (4C) 6.6 cm LV Stroke Volume (4C MOD) 29 ml Atria Name Value Normal LA Dimensions LA Volume (4C A-L) 68 ml LA Volume (BP A-L) 63 ml Report Signatures
--- OUTSIDE RECORDS SUMMARY | 2025-05-22 01:02 | XMS_ITS | Encounter Summary ---
Author Organization [facility] Address [address] [place] [address] Care Team Providers Care Child Protective Investigator Name Role Phone Nick Mosley MD Primary Care Provider [phone] Encounter Details Date Type Department Care Team (Late st Contact Info) Description 11/22/2005 Outpatient Historical [facility] Internal Medicine [address] [address] Nick Mosley MD [address] [place] [id number] Social History Tobacco Use Types Packs/Day Years Used Date Smoking Tobacco: Never Assessed Sex and Gender Information Value Date Recorded Sex Assigned at Not on file Legal Sex Male 4:34 AM UNSCRAMBLER Gender Identity Not on file Sexual Orientation [...] Body Mass Index 44.21 06/27/2005 11:30 AM UNSCRAMBLER documented in this encounter Plan of Treatment Upcoming Encounters Date Type Department Care Team (Late st Contact Info) Description 06/11/2025 1:30 PM UNSCRAMBLER Office Visit [facility] Urology at the [facility] Medicine [address] [place] [id number] Javy Sales MD [address] [place] [address] 11/03/2025 11:20 AM CDT Office Visit [facility] Primary Care [address] [place] [address] Nick Mosley MD [address] [facility] [address] [place] [address] documented as of this encounter Visit Diagnoses Not on filedocumented in this encounter Care Teams Child Protective Investigator Relationship Specialty Start Date End Date Nick Mosley MD PCP - General 11/23/07 documented as of this encounter
--- OUTSIDE RECORDS SUMMARY | 2025-05-22 01:02 | XMS_ITS | Clinical Summary ---
Author Organization CC 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 [address] Address [address] [place] [address] Phone Care Team Providers Care Casing Trimmer Name Role Phone Nick Mosley MD Primary [...] ons:hypertensi on Take 10 mg by mouth collections manager before breakfast. Active losartan (COZAAR) 50 mg tabletIndicati ons:hypertensi on Take 50 mg by mouth collections manager before breakfast. 7 Active omeprazole (PriLOSEC) 20 mg capsuleIndicat ions:Treatment of Non-Bleeding Gastric Disorder Take 20 mg by mouth collections manager before breakfast. 8 Active sertraline (ZOLOFT) 100 mg tabletIndicati ons:Anxiety with Depression Take 100 mg by mouth daily after breakfast. Active simvastatin (ZOCOR) 20 mg tabletIndicati ons:hyperlipid emia Take 20 mg by mouth collections manager before breakfast. Active insulin lispro (HumaLOG) 100 unit/mL injectionIndic ations:type 2 diabetes mellitus Inject 15 Units under the skin 3 (three) times a day before meals Indications: type 2 diabetes mellitus. SSI Active blood glucose diagnostic strip Check blood sugar 3 times daily. Dx E.119, insulin use. OneTouch Ultra. 8 Active blood-glucose meter kit Check blood sugar three times daily. Dx E11.9, long-term insulin use. OneTouch Ultra. 8 Active insulin glargine (LANTUS,BASAGL AR) 100 unit/mL (3 mL) insulin pen Lot: [id number] Ex: 07/2019 Qty: 2 BOXES- INJECT 70 [...] (BREO ELLIPTA) 100-25 mcg/dose diskus inhaler Lot: [id number] Ex: 11/24 Qty: 1. 9 Active metFORMIN [...] Active Problems Problem Noted Date Diagnosed Date prison current use of antibiotics 01/21/2019 Assessment & [...] to remain in place, will plan on buttermaker oral suppression due to risk of recurrent infection. 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 10/09/2018 Overview (10/09/2018): Added automatically from request for surgery [id number] Ankle syndesmosis disruption, right, initial enc ounter 10/09/2018 Overview (10/09/2018): Added automatically from request for surgery [id number] Loose body in right ankle and foot joint 019 Overview (10/09/2018): Added automatically from request for surgery [id number] Morbid obesity with BMI of 40.0-44.9, adult 0811/2015 Type 2 diabetes mellitus 11/28/2013 Overview (11/12/2016): DMII WO CMP UNCNTRLD Hyperlipidemia 08/23/2005 Essential hypertension, benign 06/27/2005 Esophageal reflux 06/27/2005 Encounters Date Type Department Care Team Description 04/29/2025 Telephone [facility] Cardiology [address] [place] [address] Drew De La oTrre MD [facility] 04/24/2025 5:20 PM CDT - 04/24/2025 11:59 PM CDT Hospital Encounter [facility] [address] [place] [address] Other forms of dyspnea Discharge Disposition: Discharge to home or self care 04/23/2025 12:39 PM CDT - 04/23/2025 11:59 PM CDT Hospital Encounter [facility] ([facility]) [address] [place] [address] Other forms of dyspnea Discharge Disposition: Discharge [...] on file Legal Sex Male 11:33 PM INDIGO MIXER Gender Identity Not on file Sexual Orientation [...] history exists Medical Devices Implanted Type Area Veneer Gluer Device Identifier Shelf Expiration Date Model / Serial / Lot [employer] [id number] Vlp 3.5mm 16mm Self Tapping Hex Drive Recess Cortical Foot Low - S0 - [id number] Implanted:Qty : 1 on 11/20/2018 by Deb Mccullough MD at [facility] Screw Right: Fibula [employer]Or tho [id number] / 0 / [employer]Ortho [id number] Tara-Loc Vlp 3.5mm 18mm Self Tapping Cortical Midfoot Hindfoot - S0 - [id number] Implanted:Qty : 2 on 11/20/2018 by Deb Mccullough MD at [facility] Screw Right: Fibula [employer]Or tho [id number] / 0 / [employer] /Ortho [id number] Tara-Loc Vlp 3.5mm 24mm Self Tap Foot Cortical Hexagon Low - S0 - [id number] Implanted:Qty : 1 on 11/20/2018 by Deb Mccullough MD at [facility] Screw Right: Fibula [employer]Or tho [id number] / 0 / [employer] /Ortho [id number] Tara-Loc Vlp 3.5mm 14mm Self Tap Foot Cortical Hexagon Low - S0 - [id number] Implanted:Qty : 2 on 11/20/2018 by Dbe Mccullough MD at [facility] Screw Right: Fibula [employer]Or tho [id number] / 0 / [employer]Ortho [id number] Tara-Loc Vlp 5mm 14mm Tibia Distal Proximal Full Thread Screw - S0 - [id number] Implanted:Qty : 2 on 11/20/2018 by Deb Mccullough MD at [facility] Screw Right: Fibula [employer] [id number] / 0 / [employer]Ortho [id number] Tara-Loc Vlp 3.5mm 60mm Self Tapping Cortical Midfoot Hindfoot - S0 - [id number] Implanted:Qty : 1 on 11/20/2018 by Deb Mccullough MD at [facility] Screw Right: Fibula [employer] tho [id number] / 0 / 7 Hole Right Lateral Distal Fibula Plate Implanted:Qty : 1 on 11/20/2018 by Deb Mccullough MD at [facility] Right: Fibula [employer] / 0 / Explanted Type Area Veneer Gluer Device Identifier Shelf Expiration Date Model / Serial / Lot [employer] [id number] Ye .062in 9in 1 Trocar Smooth Wire Fixation - S0 - [id number] Explanted:Qty: 1 on 11/20/2018 by Deb Mccullough MD at [facility] Wire [employer] [id number] / 0 / Description:Provisional fixa tion [employer] [id number] Nazia 5/64in 9in Trocar Point One End Pin Fixation Stainless - S0 - [id number] Explanted:Qty: 1 on 11/20/2018 by Deb Mccullough MD at [facility] Wire Right: Fibula [employer] [id number] / 0 / Description:Provisional fixa tion Procedures [...] Maintenance Results * CT Coronary Fractional Flow Lyons (04/25/2025 9:11 AM CDT) Anatomical Region Laterality Modality Chest N/A Computed Tomogra phy 04/25/2025 9:54 AM CDT Impressions 04/25/2025 10:22 AM CDT ADDENDUM: Coronary CTA Fractional Flow Lyons (FFR) The below FFR CT results are [...] 04/25/2025 IMPRESSION: ADDENDUM: Coronary CTA Fractional Flow Lyons (FFR) The below FFR CT results are [...] mL/min/1.73m2 *Relative to young adult level If -British multiply value by 1.16. Estimated glomerular filtration [...] BLOOD ORDERABLES F inal Result [facility] [place] [address] * (ABNORMAL) Hemoglobin A1c (12/11/2018 5:17 AM CDT) Hgb A1C 10.6(H) 4.0 - 5.6 % [facility] Estimated Average Glucose 258 mg/dL [facility] Comment: The ADA recommends reporting an estimated Average Glucose (eAG) with all Hemoglobin A1c results using the equation derived from a study of 507 normal and diabetic adults. Minority populations were underrepresented and children were not included. (Diabetes Care 31:4456-3835, 2008). The eAG is not equivalent to a fasting glucose. Blood specimen (specimen) 12/11/2018 5:17 AM CDT 12/11/2018 6:00 AM CDT Narrative [facility] - 12/11/2018 9:57 AM CDT us Deb Mccullough MD LAB BLOOD ORDERABLES F inal Result [facility] Department [place] [address] * (ABNORMAL) Lipid panel (12/11/2018 5:17 AM CDT) Cholesterol 157 30 - 199 mg/dL [facility] Comment: Interpretive Data Ages < or = [...] revised on 2018. Triglycerides 183(H) <=149 mg/dL [facility] Comment: Interpretive Data Ages < or = [...] revised on 2018. HDL 31(L) >=40 mg/dL [facility] Comment: Interpretive Data Ages < or = [...] on 2018. LDL, calculated 89 <=129 mg/dL [facility] Comment: Interpretive Data Ages < or = [...] revised on 2018. Non-HDL Cholesterol 126 mg/dL [facility] Comment: Interpretive Data Ages < or = [...] last revised on 2018. Chol/HDL ratio 5 [facility] Blood specimen (specimen) 12/11/2018 5:17 AM CDT 12/11/2018 5:55 AM CDT Narrative [facility] - 12/11/2018 8:24 AM CDT Deb Mccullough MD LAB BLOOD ORDERABLES F inal Result Performing Organization Address [facility] [address]/[facility] de Phone Number [facility] Department [place] [address] * Hepatitis C (HCV) RNA PCR, quantitative (11/20/2018 12:40 PM CDT) [facility] HCV RNA result Not Detected [facility] Comment: Interpretive data: The quantifiable range of this assay is 15 IU/mL to 100,000,000 IU/mL (1.18 log IU/mL to 8.00 log IU/mL). Testing was performed by the ANIBAL AmpliPrep/ANIBAL TaqMan HCV Test version 2.0 ([employer] Testing performed at [facility] Current Interpretive Data was last revised on 2015. Blood specimen (specimen) 11/20/2018 12:40 PM CDT 11/20/2018 1:43 PM CDT Narrative [facility] - 11/21/2018 4:22 PM CDT Deb Mccullough MD LAB MICROBIOLOGY - GEN ERAL ORDERABLES Final Result Performing Organization Address [facility] [address]/[facility] de Phone Number [facility] [place] [address] from Last 3 Months or Most Recently Relevant to Health Maintenance Insurance MEDICARE [facility] Address: [address] [address] [place] [address] [facility] MEDICARE ADVANTAGE [facility] MEDICARE UHC MEDICARE ADVANTAGE [facility] Advance Directives For more information, please contact: [phone] * Full Code (Latest Code Status on File) Date Activated Date Inactivated Comments 12/10/2018 11:06 PM 12/14/2018 5:16 PM Care Teams Casing Trimmer Relationship Specialty Start Date End Date Nick Mosley MD PCP - General 01/10/14
--- OUTSIDE RECORDS SUMMARY | 2025-05-22 01:02 | XMS_ITS | Encounter Summary ---
Author Organization 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 Address [address] [place] [address] Care Team Providers Care Product Promoter Sales Person Name Role Phone Nick Mosley MD Primary Care Provider [phone] Reason for Visit * Reason Onset Date Comments Covid Symptoms Or Treatment 06/15/2022 Encounter Details Date Type Department Care Team (Late st Contact Info) Description 06/15/2022 Telephone [facility] Primary Care [address] [place] [address] Nick Mosley MD [address] [place] [address] [address] [place] [address] Covid Symptoms Or Treatment Social [...] on file Legal Sex Male 4:34 AM SHUTTLE VENEERING SUPERVISOR Gender Identity Not on file Sexual [...] er Pt needs prior auth for Testosterone TLE VENEERING SUPERVISOR * Telephone Encounter - Rolando, Bernardston L - 06/15/2022 9:45 AM CST COVID-19 TRIAGE Name of PCP Provider or Prescribing Provider: Nick Mosley MD Caller: Cristiano Armijo Callback number: Options: [phone] (home) Patient is requesting: - Masonlovid [] Appointment [] COVID test [x] Medication/Drug Therapy, if eligible. If yes, which pharmacy? Options[facility] [phone] [x] Call back from provider [] Inform [...] Received the Bivalent Vaccine [] Not vaccinated TLE VENEERING SUPERVISOR documented in this encounter Plan of Treatment Upcoming Encounters Date Type Department Care Team (Late st Contact Info) Description 06/11/2025 1:30 PM SHUTTLE VENEERING SUPERVISOR Office Visit [facility] Urology at the [facility] Medicine [address] [facility] [address] [place] [address] Javy Sales MD [address] [facility] [address] [place] [address] 11/03/2025 11:20 AM CDT Office Visit [facility] Primary Care [address] [place] [address] Nick Mosley MD [address] [place] [address] [address] [place] [address] documented as of this encounter Visit Diagnoses Not on filedocumented in this encounter Care Teams Product Promoter Sales Person Relationship Specialty Start Date End Date Nick Mosley MD PCP - General 11/23/07 documented as of this encounter
--- OUTSIDE RECORDS SUMMARY | 2025-05-22 01:02 | XMS_ITS | Encounter Summary ---
Author Organization [facility] Address [address] [place] [address] Care Team Providers Care Learning And Development Administrator Name Role Phone Nick Mosley MD Primary Care Provider [phone] Encounter Details Date Type Department Care Team (Late st Contact Info) Description 10/24/2005 Orders Only [facility] Internal Medicine [address] [address] Nick Mosley MD [address] [place] [address] Social History Tobacco Use Types Packs/Day Years Used Date Smoking Tobacco: Never Assessed Sex and Gender Information Value Date Recorded Sex Assigned at Not on file Legal Sex Male 4:34 AM TELEPHONE LINEMAN Gender Identity Not on file Sexual Orientation Not on file documented as of this encounter Progress Notes * Nick Mosley MD - 05/15/2008 6:51 PM CDT TIME:09:46 am PATIENT`S HOME PHONE: PATIENT`S WORK PHONE: PATIENT`S INSURANCE: [employer] [facility] WHO TOOK THE CALL: Leigh Carolina S GENERAL INFORMATION ALTERNATIVE PHONE NUMBER: [phone] ext [phone] WHO CALLED: Patient`s spouse called. PHARMACY NUMBER: [phone] PROBLEMS: for about 1 day SORE THROAT: [...] HOME PHONE: PATIENT`S WORK PHONE: PATIENT`S INSURANCE: [employer] WHO TOOK THE CALL: Leigh Carolina S GENERAL INFORMATION ALTERNATIVE PHONE NUMBER: [phone] ext [phone] WHO CALLED: Patient`s spouse called. PHARMACY NUMBER: [phone] PROBLEMS: SORE THROAT: Patient complains of sore [...] st Contact Info) Description 06/11/2025 1:30 PM TELEPHONE LINEMAN Office Visit [facility] Urology at the [facility] [address] [place] [address] Javy Sales MD [address] [facility] [address] [place] [address] 11/03/2025 11:20 AM CDT Office Visit [facility] Primary Care [address] [place] [address] Nick Mosley MD [address] [place] [address] [address] [place] [address] documented as of this encounter Visit Diagnoses Not on filedocumented in this encounter Care Teams Learning And Development Administrator Relationship Specialty Start Date End Date Nick Mosley MD PCP - General 11/23/07 documented as of this encounter
--- OUTSIDE RECORDS SUMMARY | 2025-05-22 01:02 | XMS_ITS | Encounter Summary ---
Author Organization [facility] Address [address] [place] [address] Care Team Providers Care Blood Bank Order Control Clerk Name Role Phone Nick Mosley MD Primary Care Provider Encounter Details Date Type Department Care Team (Late st Contact Info) Description 08/23/2005 Outpatient Historical [facility] Internal Medicine [address] [address] Nick Mosley MD [address] [place] [address] Social History Tobacco Use Types Packs/Day Years Used Date Smoking Tobacco: Never Assessed Sex and Gender Information Value Date Recorded Sex Assigned at Not on file Legal Sex Male 4:34 AM TELECOMMUNICATIONS CLERK Gender Identity Not on file Sexual Orientation Not on file documented as of this encounter Last Filed Vital Signs Vital Sign Reading Time Taken Comments Blood Pressure 140/84 08/23/2005 2:45 PM TELECOMMUNICATIONS CLERK Pulse - - Temperature 37.2 C (99 F) 08/23/2005 2:45 PM TELECOMMUNICATIONS CLERK Respiratory Rate - - Oxygen Saturation - - Inhaled Oxygen Concentration - - Weight 147 kg (324 lb) 08/23/2005 2:45 PM TELECOMMUNICATIONS CLERK Height - - Body Mass Index 43.94 06/27/2005 11:30 AM TELECOMMUNICATIONS CLERK documented in this encounter Plan of Treatment Upcoming Encounters Date Type Department Care Team (Late st Contact Info) Description 06/11/2025 1:30 PM TELECOMMUNICATIONS CLERK Office Visit [facility] Urology at the [facility] Medicine [address] [facility] [address] [place] [address] Javy Sales MD [address] [facility] [address] [place] [address] 11/03/2025 11:20 AM CDT Office Visit [facility] Primary Care [address] [place] [address] Nick Mosley MD [address] [facility] [address] [place] [address] documented as of this encounter Visit Diagnoses Not on filedocumented in this encounter Care Teams Blood Bank Order Control Clerk Relationship Specialty Start Date End Date Nick Mosley MD PCP - General 11/23/07 documented as of this encounter
--- OUTSIDE RECORDS SUMMARY | 2025-05-22 01:02 | XMS_ITS | Clinical Summary ---
Author Organization [facility] Address [address] [place] [address] Care Team Providers Care Underwriter Name Role Phone Nick Mosley MD Primary Care Provider [phone] Source Comments [facility] Affiliates and Associated Physician Practices is amultiple site organization consisting of ambulatory clinics and hospital sitesin [place], [place], [place] and [place]. This disclosure is being madepursuant to the Care Everywhere program and may not contain all information available regarding this patient. Last updated 18.[facility] [employer] Social History Tobacco Use Types Packs/Day Years Used Date Smoking Tobacco: Never Assessed Sex and Gender Information Value Date Recorded Sex Assigned at Not on file Legal Sex Male 7:08 AM OCEANOGRAPHER PHYSICAL Gender Identity Not on file Sexual Orientation Not on file Plan of Treatment Health Maintenance Due Date Last Done Comments COLOGUARD (AGES 45-75) - COL ON CA SCREENING 1972 COLON MONITORING 1972 COLONOSCOPY - COLON CA SCREENING 1972 CT COLONOGRAPHY - COLON CA SCREENING 1972 Colorectal Cancer Screening 1972 FIT - COLON CA SCREENING 1972 FLEX SIG - COLON CA SCREENING 1972 LIPID TESTING 1972 HIV SCREENING 1987 HEPATITIS C SCREENING 09/04/1990 DTAP/TDAP/TD VACCINES (1 - Tdap) 1991 HEPATITIS B VACCINE (1 of 3 - 19+ 3-dose series) 1991 PNEUMOCOCCAL VACCINE 50+ (1 of 1 - PCV) 2022 ZOSTER VACCINE (1 of 2) 2022 DEPRESSION SCREENING 08/07/2024 COVID-19 VACCINE (1 - 2023-2 5 season) 2025 INFLUENZA VACCINE (#1) 2025 HIB VACCINE Aged Out No longer eligi ble based on patient's age to complete this topic HPV VACCINE Aged Out No longer eligi ble based on patient's age to complete this topic MENINGOCOCCAL (Group B) VACC INE SHARED DECISION-MAKING Aged Out No longer eligibl e based on patient's age to complete this topic MENINGOCOCCAL GROUPS A/C/Y/W VACCINE Aged Out No longer eligible b ased on patient's age to complete this topic Care Teams Underwriter Relationship Specialty Start Date End Date Nick Mosley MD [address] [place] [address] PCP - General 08/25/08
--- OUTSIDE RECORDS SUMMARY | 2025-05-22 01:02 | XMS_ITS | Encounter Summary ---
Author Organization [facility] Address [address] [place] [address] Care Team Providers Care Cloud Systems Architect Name Role Phone Nick Mosley MD Primary Care Provider [phone] Encounter Details Date Type Department Care Team (Late st Contact Info) Description 06/27/2005 Outpatient Historical [facility] Internal Medicine [address] [address] Nick Mosley MD [address] [place] [address] Social History Tobacco Use Types Packs/Day Years Used Date Smoking Tobacco: Never Assessed Sex and Gender Information Value Date Recorded Sex Assigned at Not on file Legal Sex Male 4:34 AM SALES ENABLEMENT ANALYST Gender Identity Not on file Sexual Orientation Not on file documented as of this encounter Last Filed Vital Signs Vital Sign Reading Time Taken Comments Blood Pressure 128/84 06/27/2005 11:30 AM SALES ENABLEMENT ANALYST Pulse - - Temperature - - Respiratory Rate - - Oxygen Saturation - - Inhaled Oxygen Concentration - - Weight 147 kg (324 lb) 06/27/2005 11:30 AM SALES ENABLEMENT ANALYST Height 182.9 cm (6') 06/27/2005 11:30 AM SALES ENABLEMENT ANALYST Body Mass Index 43.94 06/27/2005 11:30 AM SALES ENABLEMENT ANALYST documented in this encounter Plan of Treatment Upcoming Encounters Date Type Department Care Team (Late st Contact Info) Description 06/11/2025 1:30 PM SALES ENABLEMENT ANALYST Office Visit [facility] Urology at the [facility] Medicine [address] [facility] [address] [place] [address] Javy Sales MD [address] [facility] [address] [place] [address] 11/03/2025 11:20 AM CDT Office Visit [facility] Primary Care [address] [place] [address] Nick Mosley MD [address] [facility] [address] [place] [address] documented as of this encounter Visit Diagnoses Not on filedocumented in this encounter Care Teams Cloud Systems Architect Relationship Specialty Start Date End Date Nick Mosley MD PCP - General 11/23/07 documented as of this encounter
--- OUTSIDE RECORDS SUMMARY | 2025-05-22 01:02 | XMS_ITS | Encounter Summary ---
Author Organization [facility] Address [address] [place] [address] Care Team Providers Care Assistant Purchasing Manager Name Role Phone Nick Mosley MD Primary Care Provider [phone] Encounter Details Date Type Department Care Team (Late st Contact Info) Description 10/12/2023 Telephone [facility] Urology at the [facility] Medicine [address] [place] [address] Javy Sales MD [address] [facility] [address] [place] [address] Social History Tobacco Use Types [...] file Legal Sex Male 4:34 AM DIRECTOR ENERGY Gender Identity Not on file Sexual Orientation Not on file documented as of this encounter Miscellaneous Notes * Telephone Encounter - Felder Kimberley - 10/12/2023 11:00 AM CST Returned patient call, no answer. Left voicemail CTOR ENERGY documented in this encounter Plan of Treatment Upcoming Encounters Date Type Department Care Team (Late st Contact Info) Description 06/11/2025 1:30 PM DIRECTOR ENERGY Office Visit [facility] Urology at the [facility] Medicine [address] [place] [address] Javy Sales MD [address] [facility] [address] [place] [address] 11/03/2025 11:20 AM CDT Office Visit [facility] Primary Care [facility] [address] [place] [address] [address] [place] [id number] Nick Mosley MD [address] [facility] [address] [place] [address] documented as of this encounter Visit Diagnoses Not on filedocumented in this encounter Care Teams Assistant Purchasing Manager Relationship Specialty Start Date End Date Nick Mosley MD PCP - General 11/23/07 documented as of this encounter
--- OUTSIDE RECORDS SUMMARY | 2025-05-22 01:02 | XMS_ITS | Encounter Summary ---
Author Organization [facility] Address [address] [place] [address] Care Team Providers Care Nursery Technician Name Role Phone Nick Mosley MD Primary Care Provider [phone] Encounter Details Date Type Department Care Team (Late st Contact Info) Description 11/09/2005 Orders Only [facility] Internal Medicine [address] [address] Nick Mosley MD [address] [place] [address] [address] [place] [address] Social History Tobacco Use Types Packs/Day Years Used Date Smoking Tobacco: Never Assessed Sex and Gender Information Value Date Recorded Sex Assigned at Not on file Legal Sex Male 4:34 AM ROTOR PLATE WASHER Gender Identity Not on file Sexual Orientation Not on file documented as of this encounter Plan of Treatment Upcoming Encounters Date Type Department Care Team (Late st Contact Info) Description 06/11/2025 1:30 PM ROTOR PLATE WASHER Office Visit [facility] Urology at the [facility] Medicine [address] [place] [address] Javy Sales MD [address] [facility] [address] [place] [address] 11/03/2025 11:20 AM CDT Office Visit [facility] Primary Care [facility] [address] [place] [address] [address] [place] [address] Nick Mosley MD [address] [place] [address] [address] [place] [address] documented as of this encounter Visit Diagnoses Not on filedocumented in this encounter Care Teams Nursery Technician Relationship Specialty Start Date End Date Nick Mosley MD PCP - General 11/23/07 documented as of this encounter
--- OUTSIDE RECORDS SUMMARY | 2025-05-22 01:02 | XMS_ITS | Encounter Summary ---
Author Organization [facility] Address [address] [place] [address] Care Team Providers Care Watch And Clock Maker And Repairer Name Role Phone Nick Mosley MD Primary Care Provider [phone] Encounter Details Date Type Department Care Team (Late st Contact Info) Description 08/23/2005 Orders Only [facility] Internal Medicine [address] [address] Nick Mosley MD [address] [place] [address] Social History Tobacco Use Types Packs/Day Years Used Date Smoking Tobacco: Never Assessed Sex and Gender Information Value Date Recorded Sex Assigned at Not on file Legal Sex Male 4:34 AM IAP DISPLAYS ANALYST Gender Identity Not on file Sexual [...] BENIGN cont med LAB ORDERS: Order number: [id number] Test Ordered: COMPREHENSIVE METABOLIC PANEL 58101 Order number: [id number] Test Ordered: LIPID PANEL 7600 461.9-SINUSITIS UNSPECIFIED [...] st Contact Info) Description 06/11/2025 1:30 PM IAP DISPLAYS ANALYST Office Visit [facility] Urology at the [facility] [address] [facility] [address] [place] [address] Javy Sales MD [address] [place] [address] 11/03/2025 11:20 AM CDT Office Visit [facility] Primary Care [address] [place] [address] Nick Mosley MD 637 [facility] [address] [place] [address] documented as of this encounter Visit Diagnoses Not on filedocumented in this encounter Care Teams Watch And Clock Maker And Repairer Relationship Specialty Start Date End Date Nick Mosley MD PCP - General 11/23/07 documented as of this encounter
--- OUTSIDE RECORDS SUMMARY | 2025-05-22 01:03 | XMS_ITS | Encounter Summary ---
Author Organization [facility] Address [address] [place] [address] Care Team Providers Care Home Paraprofessional Name Role Phone Nick Mosley MD Primary Care Provider [phone] Encounter Details Date Type Department Care Team (Late st Contact Info) Description 08/21/2007 Outpatient Historical [facility] Internal Medicine [address] [address] Nick Mosley MD [address] [place] [address] Social History Tobacco Use Types Packs/Day Years Used Date Smoking Tobacco: Never Assessed Sex and Gender Information Value Date Recorded Sex Assigned at Not on file Legal Sex Male 4:34 AM FUNDS TRANSFER CLERK Gender Identity Not on file Sexual Orientation Not on file documented as of this encounter Last Filed Vital Signs Vital Sign Reading Time Taken Comments Blood Pressure 120/80 08/21/2007 3:30 PM FUNDS TRANSFER CLERK Pulse - - Temperature 37.8 C (100.1 F) 08/21/2007 3:30 PM FUNDS TRANSFER CLERK Respiratory Rate - - Oxygen Saturation - - Inhaled Oxygen Concentration - - Weight 142.4 kg (314 lb) 08/21/2007 3:30 PM FUNDS TRANSFER CLERK Height - - Body Mass Index 42.59 06/27/2005 11:30 AM FUNDS TRANSFER CLERK documented in this encounter Plan of Treatment Upcoming Encounters Date Type Department Care Team (Late st Contact Info) Description 06/11/2025 1:30 PM FUNDS TRANSFER CLERK Office Visit [facility] Urology at the [facility] Medicine [address] [facility] [address] [place] [address] Javy Sales MD [address] [facility] [address] [place] [address] 11/03/2025 11:20 AM CDT Office Visit [facility] Primary Care [address] [place] [address] Nick Mosley MD [address] [place] [address] [address] [place] [address] documented as of this encounter Visit Diagnoses Not on filedocumented in this encounter Care Teams Home Paraprofessional Relationship Specialty Start Date End Date Nick Mosley MD PCP - General 11/23/07 documented as of this encounter
--- OUTSIDE RECORDS SUMMARY | 2025-05-22 01:03 | XMS_ITS | Encounter Summary ---
Author Organization [facility] Address [address] [place] [address] Care Team Providers Care Wellness Coordinator Name Role Phone Nick Mosley MD Primary Care Provider [phone] Encounter Details Date Type Department Care Team (Late st Contact Info) Description 03/30/2007 Orders Only [facility] Internal Medicine [address] [address] Nick Mosley MD [address] [place] [address] [address] [place] [address] Social History Tobacco Use Types Packs/Day Years Used Date Smoking Tobacco: Never Assessed Sex and Gender Information Value Date Recorded Sex Assigned at Not on file Legal Sex Male 4:34 AM LADLE LINER HELPER Gender Identity Not on file Sexual Orientation Not on file documented as of this encounter Plan of Treatment Upcoming Encounters Date Type Department Care Team (Late st Contact Info) Description 06/11/2025 1:30 PM LADLE LINER HELPER Office Visit [facility] Urology at the [facility] Medicine [address] [place] [address] Javy Sales MD [address] [facility] [address] [place] [address] 11/03/2025 11:20 AM CDT Office Visit [facility] Primary Care [facility] [address] [place] [address] [address] [place] [address] Nick Mosley MD [address] [place] [address] [address] [place] [address] documented as of this encounter Visit Diagnoses Not on filedocumented in this encounter Care Teams Wellness Coordinator Relationship Specialty Start Date End Date Nick Mosley MD PCP - General 11/23/07 documented as of this encounter
--- OUTSIDE RECORDS SUMMARY | 2025-05-22 01:03 | XMS_ITS | Encounter Summary ---
Author Organization [facility] Address [address] [place] [address] Care Team Providers Care Cookie Padder Name Role Phone Nick Mosley MD Primary Care Provider Encounter Details Date Type Department Care Team (Late st Contact Info) Description 03/13/2006 Outpatient Historical [facility] Internal Medicine [address] [address] Nick Mosley MD [address] [place] [address] Social History Tobacco Use Types Packs/Day Years Used Date Smoking Tobacco: Never Assessed Sex and Gender Information Value Date Recorded Sex Assigned at Not on file Legal Sex Male 4:34 AM PIPE MACHINE OPERATOR Gender Identity Not on file [...] Body Mass Index 43.94 06/27/2005 11:30 AM PIPE MACHINE OPERATOR documented in this encounter Plan of Treatment Upcoming Encounters Date Type Department Care Team (Late st Contact Info) Description 06/11/2025 1:30 PM PIPE MACHINE OPERATOR Office Visit [facility] Urology at the [facility] Medicine [address] [facility] [address] [place] [address] Javy Sales MD [address] [facility] [address] [place] [address] 11/03/2025 11:20 AM CDT Office Visit [facility] Primary Care [address] [place] [address] Nick Mosley MD [address] [place] [address] [address] [place] [address] documented as of this encounter Visit Diagnoses Not on filedocumented in this encounter Care Teams Cookie Padder Relationship Specialty Start Date End Date Nick Mosley MD PCP - General 11/23/07 documented as of this encounter
--- OUTSIDE RECORDS SUMMARY | 2025-05-22 01:03 | XMS_ITS | Encounter Summary ---
Author Organization [facility] Address [address] [place] [address] Care Team Providers Care Green Promotions Specialist Name Role Phone Nick Mosley MD Primary Care Provider [phone] Encounter Details Date Type Department Care Team (Late st Contact Info) Description 02/14/2007 Outpatient Historical [facility] Internal Medicine [address] [address] Nick Mosley MD [address] [place] [address] [address] [place] [address] Social History Tobacco Use Types Packs/Day Years Used Date Smoking Tobacco: Never Assessed Sex and Gender Information Value Date Recorded Sex Assigned at Not on file Legal Sex Male 4:34 AM BACK TENDER FOURDRINIER Gender Identity Not on file Sexual Orientation Not on file documented as of this encounter Plan of Treatment Upcoming Encounters Date Type Department Care Team (Late st Contact Info) Description 06/11/2025 1:30 PM BACK TENDER FOURDRINIER Office Visit [facility] Urology at the [facility] Medicine [address] [place] [address] Javy Sales MD [address] [facility] [address] [place] [address] 11/03/2025 11:20 AM CDT Office Visit [facility] Primary Care [facility] [address] [place] [address] [address] [place] [address] Nick Mosley MD [address] [place] [address] [address] [place] [address] documented as of this encounter Visit Diagnoses Not on filedocumented in this encounter Care Teams Green Promotions Specialist Relationship Specialty Start Date End Date Nick Mosley MD PCP - General 11/23/07 documented as of this encounter
--- OUTSIDE RECORDS SUMMARY | 2025-05-22 01:03 | XMS_ITS | Encounter Summary ---
Author Organization [facility] Address [address] [place] [address] Care Team Providers Care Marketing Production Specialist Name Role Phone Nick Mosley MD Primary Care Provider [phone] Encounter Details Date Type Department Care Team (Late st Contact Info) Description 09/06/2006 Orders Only [facility] Internal Medicine [address] [address] Nick Mosley MD [address] [place] [address] Social History Tobacco Use Types Packs/Day Years Used Date Smoking Tobacco: Never Assessed Sex and Gender Information Value Date Recorded Sex Assigned at Not on file Legal Sex Male 4:34 AM COMPLIANCE PARALEGAL Gender Identity Not on file Sexual Orientation [...] 09/06/2006. LAB ORDERS: 3 mo Order number: [id number] Test Ordered: COMPREHENSIVE METABOLIC PANEL W/ GLOMERULAR FILTRATION RATE, ESTIMATED (EGFR) 95819 Order number: [id number] Test Ordered: LIPID PANEL 7600 Order number: [id number] Test Ordered: HEMOGLOBIN A1c 496 272.4-HYPERLIPIDEMIA inc med dose, enc compliance MEDICATIONS: FENOFIBRATE ORAL CAPSULE CONVENTIONAL 134 MG, 1 Every Day, 90 Dispensed, 3 Fills, 90 Duration/Days Supply, status: NEW PRESCRIPTION, 09/06/2006. 300.00-ANXIETY cont med 401.1-HYPERTENSION ESSENTIAL BENIGN start med MEDICATIONS: LISINOPRIL ORAL TABLET 5 MG, 1 Every Day, 90 Dispensed, 4 Fills, status: CONTINUED, 09/06/2006. 715.17-OSTEOARTHROSIS AND ALLIED DISORDERS knee pain refer ortho--vest krystin SPECIALTY REFERRAL: OPHTHALMOLOGY lorenzo /segrist RETURN VISIT : Patient instructed to return in 3 months. Electronically Signed by: Nick Mosley MD on Wednesday, September 06, 2006 documented in this encounter Plan of Treatment Upcoming Encounters Date Type Department Care Team (Late st Contact Info) Description 06/11/2025 1:30 PM COMPLIANCE PARALEGAL Office Visit [facility] Urology at the [facility] Medicine [address] [facility] [address] [place] [address] Javy Sales MD [address] [address] 11/03/2025 11:20 AM CDT Office Visit [facility] Primary Care [place] [address] [place] [address] Nick Mosley MD [address] [place] [address] [place] [address] [place] [address] documented as of this encounter Visit Diagnoses Not on filedocumented in this encounter Care Teams Marketing Production Specialist Relationship Specialty Start Date End Date Nick Mosley MD PCP - General 11/23/07 documented as of this encounter
--- OUTSIDE RECORDS SUMMARY | 2025-05-22 01:03 | XMS_ITS | Encounter Summary ---
Author Organization [facility] Address [address] [place] [address] Care Team Providers Care Sexual Health Physician Name Role Phone Nick Mosley MD Primary Care Provider [phone] Encounter Details Date Type Department Care Team (Late st Contact Info) Description 05/04/2007 Outpatient Historical [facility] Internal Medicine [address] [address] Nick Mosley MD [address] [place] [address] Social History Tobacco Use Types Packs/Day Years Used Date Smoking Tobacco: Never Assessed Sex and Gender Information Value Date Recorded Sex Assigned at Not on file Legal Sex Male 4:34 AM SUPERVISOR PHOTOSTAT Gender Identity Not on file Sexual Orientation [...] Body Mass Index 42.99 06/27/2005 11:30 AM SUPERVISOR PHOTOSTAT documented in this encounter Plan of Treatment Upcoming Encounters Date Type Department Care Team (Late st Contact Info) Description 06/11/2025 1:30 PM SUPERVISOR PHOTOSTAT Office Visit [facility] Urology at the [facility] Medicine [address] [facility] [address] [place] [address] Javy Sales MD [address] [facility] [address] [place] [address] 11/03/2025 11:20 AM CDT Office Visit [facility] Primary Care [address] [place] [address] Nick Mosley MD 7 [facility] [address] [place] [address] documented as of this encounter Visit Diagnoses Not on filedocumented in this encounter Care Teams Sexual Health Physician Relationship Specialty Start Date End Date Nick Mosley MD PCP - General 11/23/07 documented as of this encounter
--- OUTSIDE RECORDS SUMMARY | 2025-05-22 01:03 | XMS_ITS | Encounter Summary ---
Author Organization [facility] Address [address] [place] [address] Care Team Providers Care Stock Clipper Name Role Phone Nick Mosley MD Primary Care Provider [phone] Encounter Details Date Type Department Care Team (Late st Contact Info) Description 12/25/2006 Outpatient Historical [facility] Internal Medicine [address] [address] Nick Mosley MD [address] [place] [address] Social History Tobacco Use Types Packs/Day Years Used Date Smoking Tobacco: Never Assessed Sex and Gender Information Value Date Recorded Sex Assigned at Not on file Legal Sex Male 4:34 AM PAINT MAKER Gender Identity Not on file Sexual [...] Body Mass Index 44.21 06/27/2005 11:30 AM PAINT MAKER documented in this encounter Plan of Treatment Upcoming Encounters Date Type Department Care Team (Late st Contact Info) Description 06/11/2025 1:30 PM PAINT MAKER Office Visit [facility] Urology at the [facility] Medicine [address] [facility] [address] [place] [address] Javy Sales MD [address] [facility] [address] [place] [address] 11/03/2025 11:20 AM CDT Office Visit [facility] Primary Care [address] [place] [address] Nick Mosley MD 7 [facility] [address] [place] [address] documented as of this encounter Visit Diagnoses Not on filedocumented in this encounter Care Teams Stock Clipper Relationship Specialty Start Date End Date Nick Mosley MD PCP - General 11/23/07 documented as of this encounter
--- OUTSIDE RECORDS SUMMARY | 2025-05-22 01:03 | XMS_ITS | Encounter Summary ---
Author Organization [facility] Address [address] [place] [address] Care Team Providers Care Freelance Displayer Name Role Phone Nick Mosley MD Primary Care Provider [phone] Encounter Details Date Type Department Care Team (Late st Contact Info) Description 09/06/2006 Outpatient Historical [facility] Internal Medicine [address] [address] Nick Mosley MD [address] [place] [address] Social History Tobacco Use Types Packs/Day Years Used Date Smoking Tobacco: Never Assessed Sex and Gender Information Value Date Recorded Sex Assigned at Not on file Legal Sex Male 4:34 AM DELIVERY CLERK Gender Identity Not on file Sexual Orientation Not on file documented as of this encounter Last Filed Vital Signs Vital Sign Reading Time Taken Comments Blood Pressure 138/84 09/06/2006 1:15 PM DELIVERY CLERK Pulse - - Temperature - - Respiratory Rate - - Oxygen Saturation - - Inhaled Oxygen Concentration - - Weight 149.7 kg (330 lb) 09/06/2006 1:15 PM DELIVERY CLERK Height - - Body Mass Index 44.76 06/27/2005 11:30 AM DELIVERY CLERK documented in this encounter Plan of Treatment Upcoming Encounters Date Type Department Care Team (Late st Contact Info) Description 06/11/2025 1:30 PM DELIVERY CLERK Office Visit [facility] Urology at the [facility] Medicine [address] [facility] [address] [place] [address] Javy Sales MD [address] [facility] [address] [place] [address] 11/03/2025 11:20 AM CDT Office Visit [facility] Primary Care [address] [place] [address] Nick Mosley MD [address] [place] [address] [address] [place] [address] documented as of this encounter Visit Diagnoses Not on filedocumented in this encounter Care Teams Freelance Displayer Relationship Specialty Start Date End Date Nick Mosley MD PCP - General 11/23/07 documented as of this encounter
--- OUTSIDE RECORDS SUMMARY | 2025-05-22 01:03 | XMS_ITS | Encounter Summary ---
Author Organization [facility] Address 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 Topic: Cwvpposm-Oz-Iovsurey Call >> Apr 24, 2024 4:00 PM Rakesh Millan wrote: Caller is requesting to speak with Clinical Care Team. Caller Name: [facility] Callback Number: [phone] Clinician Type: Other healthcare professional not listed above Call Notes: Requesting 6months [facility][phone] Is this addressing an immediate patient care need? Yes documented in this encounter Plan of Treatment Upcoming Encounters Date Type Department Care Team (Late st Contact Info) Description 06/11/2025 1:30 PM PLANT AND INSTRUMENT ENGINEER Office Visit [facility] Urology at the [facility] Medicine [address] [facility] [address] [place] [address] Javy Sales MD [address] [facility] [address] [place] [address] 11/03/2025 11:20 AM CDT Office Visit [facility] Primary Care [place] [place] [address] Nick Mosley MD [address] [place] [address] [address] [place] [address] documented as of this encounter Visit Diagnoses Not on filedocumented in this encounter Care Teams Teacher Aide Clerical Relationship Specialty Start Date End Date Nick Mosley MD PCP - General 11/23/07 documented as of this encounter
--- OUTSIDE RECORDS SUMMARY | 2025-05-22 01:03 | XMS_ITS | Encounter Summary ---
Author Organization [facility] Address [address] [place] [address] Care Team Providers Care Assistant Librarian Name Role Phone Nick Mosley MD Primary Care Provider [phone] Encounter Details Date Type Department Care Team (Late st Contact Info) Description 03/13/2006 Orders Only [facility] Internal Medicine [address] [address] Nick Mosley MD [address] [place] [address] Social History Tobacco Use Types Packs/Day Years Used Date Smoking Tobacco: Never Assessed Sex and Gender Information Value Date Recorded Sex Assigned at Not on file Legal Sex Male 4:34 AM SUPERVISOR CELL ROOM Gender Identity Not on file Sexual Orientation [...] was emphasized. LAB ORDERS: 3mo Order number: [id number] Test Ordered: COMPREHENSIVE METABOLIC PANEL W/ GLOMERULAR FILTRATION RATE, ESTIMATED (EGFR) 59525 Order number: [id number] Test Ordered: LIPID PANEL 7600 Order number: [id number] Test Ordered: HEMOGLOBIN A1c 496 780.57-SLEEP APNEA likely needs cpap LAB ORDERS: Order number: [id number] Test Ordered: SLEEP STUDY StA krystin RETURN VISIT : Patient instructed to return in 3 months. Electronically Signed by: Nick Mosley MD on Monday, March 13, 2006 documented in this encounter Plan of Treatment Upcoming Encounters Date Type Department Care Team (Late st Contact Info) Description 06/11/2025 1:30 PM SUPERVISOR CELL ROOM Office Visit [facility] Urology at the [facility] Medicine [address] [facility] [address] [place] [address] aJvy Sales MD [address] [facility] [address] [place] [address] 11/03/2025 11:20 AM CDT Office Visit [facility] Primary Care [facility] [address] [place] [address] [address] [facility] [place] [address] Nick Mosley MD [address] [place] [address] [address] [place] [address] documented as of this encounter Visit Diagnoses Not on filedocumented in this encounter Care Teams Assistant Librarian Relationship Specialty Start Date End Date Nick Mosley MD PCP - General 11/23/07 documented as of this encounter
--- OUTSIDE RECORDS SUMMARY | 2025-05-22 01:03 | XMS_ITS | Encounter Summary ---
Author Organization [facility] Address [address] [place] [address] Care Team Providers Care Hospice Massage Therapist Name Role Phone Nick Mosley MD Primary Care Provider [phone] Encounter Details Date Type Department Care Team (Late st Contact Info) Description 05/04/2007 Orders Only [facility] Internal Medicine [address] [address] Nick Mosley MD [address] [place] [address] Social History Tobacco Use Types Packs/Day Years Used Date Smoking Tobacco: Never Assessed Sex and Gender Information Value Date Recorded Sex Assigned at Not on file Legal Sex Male 4:34 AM CASE REVIEWER Gender Identity Not on file Sexual Orientation [...] reassess LAB ORDERS: 2 mo Order number: [id number] Test Ordered: COMPREHENSIVE METABOLIC PANEL & GFR 1112 Order number: [id number] Test Ordered: HEMOGLOBIN A1C 1814 Order number: [id number] Test Ordered: LIPID PANEL 1078 272.4-HYPERLIPIDEMIA enc [...] st Contact Info) Description 06/11/2025 1:30 PM CASE REVIEWER Office Visit [facility] Urology at the [facility] [address] [facility] [place] [address] [place] [address] Javy Sales MD [address] [facility] [address] [place] [address] 11/03/2025 11:20 AM CDT Office Visit [facility] Primary Care [facility] [address] [place] [address] [facility] [place] [address] Nick Mosley MD [address] [place] [address] [address] [place] [address] documented as of this encounter Visit Diagnoses Not on filedocumented in this encounter Care Teams Hospice Massage Therapist Relationship Specialty Start Date End Date Nick Mosley MD PCP - General 11/23/07 documented as of this encounter
--- OUTSIDE RECORDS SUMMARY | 2025-05-22 01:03 | XMS_ITS | Encounter Summary ---
Author Organization [facility] Address [address] [place] [address] Care Team Providers Care Framing Manager Name Role Phone Nick Mosley MD Primary Care Provider [phone] Encounter Details Date Type Department Care Team (Late st Contact Info) Description 08/20/2007 Outpatient Historical [facility] Internal Medicine [address] [address] Nick Mosley MD [address] [place] [address] [address] [place] [address] Social History Tobacco Use Types Packs/Day Years Used Date Smoking Tobacco: Never Assessed Sex and Gender Information Value Date Recorded Sex Assigned at Not on file Legal Sex Male 4:34 AM ALL SOURCE COLLECTION MANAGER Gender Identity Not on file Sexual Orientation Not on file documented as of this encounter Plan of Treatment Upcoming Encounters Date Type Department Care Team (Late st Contact Info) Description 06/11/2025 1:30 PM ALL SOURCE COLLECTION MANAGER Office Visit [facility] Urology at the [facility] Medicine [address] [place] [address] Javy Sales MD [address] [facility] [address] [place] [address] 11/03/2025 11:20 AM CDT Office Visit [facility] Primary Care [facility] [address] [place] [address] [address] [place] [address] Nick Mosley MD [address] [place] [address] [address] [place] [address] documented as of this encounter Visit Diagnoses Not on filedocumented in this encounter Care Teams Framing Manager Relationship Specialty Start Date End Date Nick Mosley MD PCP - General 11/23/07 documented as of this encounter
--- OUTSIDE RECORDS SUMMARY | 2025-05-22 01:03 | XMS_ITS | Encounter Summary ---
Author Organization [facility] Address [address] [place] [address] Care Team Providers Care Fbi Profiler Name Role Phone Nick Mosley MD Primary Care Provider [phone] Encounter Details Date Type Department Care Team (Late st Contact Info) Description 03/26/2007 Outpatient Historical [facility] Internal Medicine [address] [address] Nick Mosley MD [address] [place] [address] Social History Tobacco Use Types Packs/Day Years Used Date Smoking Tobacco: Never Assessed Sex and Gender Information Value Date Recorded Sex Assigned at Not on file Legal Sex Male 4:34 AM NUCLEAR INSTRUCTOR Gender Identity Not on file Sexual [...] Body Mass Index 43.4 06/27/2005 11:30 AM NUCLEAR INSTRUCTOR documented in this encounter Plan of Treatment Upcoming Encounters Date Type Department Care Team (Late st Contact Info) Description 06/11/2025 1:30 PM NUCLEAR INSTRUCTOR Office Visit [facility] Urology at the [facility] [address] [facility] [address] [place] [address] Javy Sales MD [address] [facility] [address] [place] [address] 11/03/2025 11:20 AM CDT Office Visit [facility] Primary Care [address] [place] [address] Nick Mosley MD [address] [place] [address] [address] [place] [address] documented as of this encounter Visit Diagnoses Not on filedocumented in this encounter Care Teams Fbi Profiler Relationship Specialty Start Date End Date Nick Mosley MD PCP - General 11/23/07 documented as of this encounter
--- OUTSIDE RECORDS SUMMARY | 2025-05-22 01:03 | XMS_ITS | Encounter Summary ---
Author Organization [facility] Address [address] [place] [address] Care Team Providers Care Phosphatic Fertilizer Supervisor Name Role Phone Nick Mosley MD Primary Care Provider [phone] Encounter Details Date Type Department Care Team (Late st Contact Info) Description 03/30/2007 Outpatient Historical [facility] Internal Medicine [address] [address] Nick Mosley MD [address] [place] [address] [address] [place] [address] Social History Tobacco Use Types Packs/Day Years Used Date Smoking Tobacco: Never Assessed Sex and Gender Information Value Date Recorded Sex Assigned at Not on file Legal Sex Male 4:34 AM SENIOR HARDWARE DESIGN ENGINEER Gender Identity Not on file Sexual Orientation Not on file documented as of this encounter Plan of Treatment Upcoming Encounters Date Type Department Care Team (Late st Contact Info) Description 06/11/2025 1:30 PM SENIOR HARDWARE DESIGN ENGINEER Office Visit [facility] Urology at the [facility] Medicine [address] [place] [address] Javy Sales MD [address] [facility] [address] [place] [address] 11/03/2025 11:20 AM CDT Office Visit [facility] Primary Care [facility] [address] [place] [address] [address] [place] [address] Nick Mosley MD [address] [place] [address] [address] [place] [address] documented as of this encounter Visit Diagnoses Not on filedocumented in this encounter Care Teams Phosphatic Fertilizer Supervisor Relationship Specialty Start Date End Date Nick Mosley MD PCP - General 11/23/07 documented as of this encounter
--- OUTSIDE RECORDS SUMMARY | 2025-05-22 01:03 | XMS_ITS | Encounter Summary ---
Author Organization [facility] Address [address] [place] [address] Care Team Providers Care Flour Mixer Helper Name Role Phone Nick Mosley MD Primary Care Provider [phone] Encounter Details Date Type Department Care Team (Late st Contact Info) Description 02/14/2007 Orders Only [facility] Internal Medicine [address] [address] Nick Mosley MD [address] [place] [address] Social History Tobacco Use Types Packs/Day Years Used Date Smoking Tobacco: Never Assessed Sex and Gender Information Value Date Recorded Sex Assigned at Not on file Legal Sex Male 4:34 AM MAILROOM MESSENGER Gender Identity Not on file Sexual Orientation [...] NEW PRESCRIPTION, 02/14/2007. LAB ORDERS: Order number: [id number] Test Ordered: URINALYSIS W/O MICRO 29243 with Mar lab Order number: [id number] Test Ordered: PSA, TOTAL 1002 Order number: [id number] Test Ordered: URINALYSIS WITH REFLEX CULTURE 2221 724.5-BACK PAIN as above, reassess if continues, no recent injury difficult sitting in truck ok offwork LAB ORDERS: Order number: [id number] Test Ordered: HEMOCCULT SINGLE 01261 PREVENTIVE COUNSELING The patient was counseled regarding [...] st Contact Info) Description 06/11/2025 1:30 PM MAILROOM MESSENGER Office Visit [facility] Urology at the [facility] Medicine [address] [facility] [address] [place] [address] Javy Sales MD [address] [address] 11/03/2025 11:20 AM CDT Office Visit [facility] Primary Care [place] [address] [place] [address] Nick Mosley MD [address] [place] [address] [address] [place] [address] documented as of this encounter Visit Diagnoses Not on filedocumented in this encounter Care Teams Flour Mixer Helper Relationship Specialty Start Date End Date Nick Mosley MD PCP - General 11/23/07 documented as of this encounter
--- OUTSIDE RECORDS SUMMARY | 2025-05-22 01:03 | XMS_ITS | Encounter Summary ---
Author Organization [facility] Address [address] [place] [address] Care Team Providers Care Supervisor Tunnel Heading Name Role Phone Nick Mosley MD Primary Care Provider [phone] Encounter Details Date Type Department Care Team (Late st Contact Info) Description 04/17/2007 Orders Only [facility] Internal Medicine [address] [address] Nick Mosley MD [address] [place] [address] [address] [place] [address] Social History Tobacco Use Types Packs/Day Years Used Date Smoking Tobacco: Never Assessed Sex and Gender Information Value Date Recorded Sex Assigned at Not on file Legal Sex Male 4:34 AM REGULAR SENIOR CARE PROVIDER Gender Identity Not on file Sexual Orientation Not on file documented as of this encounter Plan of Treatment Upcoming Encounters Date Type Department Care Team (Late st Contact Info) Description 06/11/2025 1:30 PM REGULAR SENIOR CARE PROVIDER Office Visit [facility] Urology at the [facility] Medicine [address] [address] [place] [address] Javy Sales MD [address] [facility] [address] [place] [address] 11/03/2025 11:20 AM CDT Office Visit [facility] Primary Care [facility] [address] [place] [address] [address] [place] [address] Ncik Mosley MD [address] [place] [address] [address] [place] [address] documented as of this encounter Visit Diagnoses Not on filedocumented in this encounter Care Teams Supervisor Tunnel Heading Relationship Specialty Start Date End Date Nick Mosley MD PCP - General 11/23/07 documented as of this encounter
--- OUTSIDE RECORDS SUMMARY | 2025-05-22 01:03 | XMS_ITS | Encounter Summary ---
Author Organization [facility] Address [address] [place] [address] Care Team Providers Care Supervisor Order Takers Name Role Phone Nick Mosley MD Primary Care Provider [phone] Encounter Details Date Type Department Care Team (Late st Contact Info) Description 03/30/2007 Outpatient Historical [facility] Internal Medicine [address] [address] Nick Mosley MD [address] [place] [address] [address] [place] [address] Social History Tobacco Use Types Packs/Day Years Used Date Smoking Tobacco: Never Assessed Sex and Gender Information Value Date Recorded Sex Assigned at Not on file Legal Sex Male 4:34 AM ALARM MECHANIC Gender Identity Not on file Sexual Orientation Not on file documented as of this encounter Plan of Treatment Upcoming Encounters Date Type Department Care Team (Late st Contact Info) Description 06/11/2025 1:30 PM ALARM MECHANIC Office Visit [facility] Urology at the [facility] Medicine [address] [facility] [address] [address] [place] [address] Javy Sales MD [address] [facility] [address] [place] [address] 11/03/2025 11:20 AM CDT Office Visit [facility] Primary Care [facility] [address] [place] [address] [address] [place] [address] Nick Mosley MD [address] [place] [address] [address] [place] [address] documented as of this encounter Visit Diagnoses Not on filedocumented in this encounter Care Teams Supervisor Order Takers Relationship Specialty Start Date End Date Nick Mosley MD PCP - General 11/23/07 documented as of this encounter
--- OUTSIDE RECORDS SUMMARY | 2025-05-22 01:03 | XMS_ITS | Encounter Summary ---
Author Organization [facility] Address [address] [place] [address] Care Team Providers Care Filler Shredder Helper Name Role Phone Nick Mosley MD Primary Care Provider [phone] Encounter Details Date Type Department Care Team (Late st Contact Info) Description 02/14/2007 Outpatient Historical [facility] Internal Medicine [address] [address] Nick Mosley MD [address] [place] [address] [address] [place] [address] Social History Tobacco Use Types Packs/Day Years Used Date Smoking Tobacco: Never Assessed Sex and Gender Information Value Date Recorded Sex Assigned at Not on file Legal Sex Male 4:34 AM OFFICE MACHINE PUNCH 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 Gender Identity Not on file Sexual Orientation Not on file documented as of this encounter Plan of Treatment Upcoming Encounters Date Type Department Care Team (Late st Contact Info) Description 06/11/2025 1:30 PM OFFICE MACHINE PUNCH OPERATOR Office Visit [facility] Urology at the [facility] Medicine [address] [facility] [address] [address] [place] [address] Javy Sales MD [address] [facility] [address] [place] [address] 11/03/2025 11:20 AM CDT Office Visit [facility] Primary Care [facility] [address] [place] [address] [address] [place] [address] Nick Mosley MD [address] [place] [address] [address] [place] [address] documented as of this encounter Visit Diagnoses Not on filedocumented in this encounter Care Teams Filler Shredder Helper Relationship Specialty Start Date End Date Nick Mosley MD PCP - General 11/23/07 documented as of this encounter
--- OUTSIDE RECORDS SUMMARY | 2025-05-22 01:03 | XMS_ITS | Encounter Summary ---
Author Organization [facility] Address [address] [place] [address] Care Team Providers Care Rock Wool Insulator Name Role Phone Nick Mosley MD Primary Care Provider [phone] Encounter Details Date Type Department Care Team (Late st Contact Info) Description 10/16/2006 Orders Only [facility] Internal Medicine [address] [address] Nick Mosley MD [address] [place] [address] [address] [place] [address] Social History Tobacco Use Types Packs/Day Years Used Date Smoking Tobacco: Never Assessed Sex and Gender Information Value Date Recorded Sex Assigned at Not on file Legal Sex Male 4:34 AM WOOL HAT FORMING MACHINE 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 Gender Identity Not on file Sexual Orientation Not on file documented as of this encounter Plan of Treatment Upcoming Encounters Date Type Department Care Team (Late st Contact Info) Description 06/11/2025 1:30 PM WOOL HAT FORMING MACHINE TENDER Office Visit [facility] Urology at the [facility] Medicine [address] [facility] [address] [place] [address] Javy Sales MD [address] [facility] [address] [place] [address] 11/03/2025 11:20 AM CDT Office Visit [facility] Primary Care [facility] [address] [place] [address] [address] [place] [address] Nick Mosley MD [address] [place] [address] [address] [place] [address] documented as of this encounter Visit Diagnoses Not on filedocumented in this encounter Care Teams Rock Wool Insulator Relationship Specialty Start Date End Date Nick Mosley MD PCP - General 11/23/07 documented as of this encounter
--- OUTSIDE RECORDS SUMMARY | 2025-05-22 01:03 | XMS_ITS | Clinical Summary ---
Author Organization [facility] Address [address] [place] [address] Care Team Providers Care Complaint Analyst Name Role Phone Nick Mosley MD Primary Care Provider [phone] Allergies Active Allergy Reactions Criticality Noted Date Comments 2-Octyl Cyanoacrylate Rash Medium 01/01/2015 Adhesive Tape-Silicones Rash Low 01/01/2015 Meperidine Hives High 11/07/2008 Medications lancets (One Touch Delica) 33 gauge Check Blood sugar three times daily. Dx E11.9, insulin use. 100 Each 11 018 Active Lancing Device with Lancets (One Touch Delica) Kit Test blood sugar TID. DX E11.9. 1 Each 3 018 Active carvedilol (COREG) 6.25 mg tablet Take 1 Tablet (6.25 mg) by mouth 2 times daily. 180 Tablet 3 019 Active montelukast (Singulair) 10 mg tablet Take 1 Tablet (10 mg) by mouth daily at bedtime. 30 Tablet 3 021 Active Insulin Madison, Disposable, 32 gauge x 5/32 NeedleIndications :Type [...] 3 023 Active naloxone (NARCAN) 4 mg/spray [place], Non-Aerosol EMERGENCY USE ONLY: Administer 1 spray [...] Active empagliflozin (JARDIANCE) 25 mg tablet Lot: [id number] ex: 08/2024 qty: 2 7 Tablet 023 [...] WITH MEALS. 15 mL 3 024 Active sertraline (ZOLOFT) 100 mg tablet TAKE [...] mouth daily. 100 Tablet 3 025 Active Insulin Madison, Disposable, (Sure-Fine Pen Madison) 31 gauge x 10/20 Needle For use with insulin 4 x daily 300 Each 3 Active insulin degludec (Tresiba FlexTouch U-200) 200 unit/mL pen syringe INJECT 100 UNITS UNDER THE SKIN DAILY WITH BREAKFAST 30 mL 3 Active tiotropium-olodat [place] (Stiolto Respimat) 2.5-2.5 mcg/actuation metered inhaler Take 1 Puff by inhalation daily. 12 Gram 2 Active omeprazole (PriLOSEC) 20 mg Capsule, Delayed Release(E.C.) Take 1 Capsule (20 mg) by mouth daily. 100 Capsule 3 Active Jardiance 25 mg tablet TAKE 1 TABLET BY MOUTH EVERY DAY IN THE MORNING 100 Tablet 3 025 Active ALPRAZolam (XANAX) 0.5 mg tabletIndications :Other specified anxiety disorders Take 1 Tablet (0.5 mg) by mouth 2 times daily as needed for Anxiety. 60 Tablet 1 Active HYDROcodone-aceta minophen (NORCO) 10-325 mg TabletIndications :Other osteoarthritis of spine, lumbar region Take 1 Tablet by mouth every 4 hours as needed for Pain, Moderate. Max Daily Amount: 6 Tablets 180 Tablet Active tirzepatide (Mounjaro) 7.5 mg/0.5 mL Pen Injector Inject 0.5 mL (7.5 mg) by subcutaneous injection every 7 days. 2 mL 6 Active Blood-Glucose Sensor (FreeStyle Ha 3 Plus Sensor) DeviceIndications :Type 2 diabetes mellitus with stage 3a chronic kidney disease, with long-term current use of insulin Use to monitor glucose continuously. Replace sensor every 15 days. 6 Each 3 Active blood sugar diagnostic (ONETOUCH ULTRA BLUE TEST STRIP) Strip Check blood sugar 3 times daily. Dx E.119, insulin use. OneTouch Ultra. 100 Each 11 018 2024 Discontinued Blood-Glucose Meter (ONETOUCH ULTRAMINI) Kit Check blood sugar three times daily. Dx E11.9, alf insulin use. OneTouch Ultra. 1 Each 018 2024 Discontinued HYDROcodone-aceta minophen (NORCO) 10-325 mg [...] 60 Tablet 1 025 2024 Discontinued(R eorder) tirzepatide (Mounjaro) 7.5 mg/0.5 mL Pen Injector Inject 0.5 mL (7.5 mg) by subcutaneous injection every 7 days. 2 mL 6 025 2024 Discontinued(R eorder) Blood-Glucose Sensor (FreeStyle Ha 3 Plus Sensor) DeviceIndications :Type 2 diabetes mellitus with stage 3a chronic kidney disease, with long-term current use of insulin Use to monitor glucose continuously. Replace sensor every 15 days. 6 Each 3 025 2024 Discontinued(R eorder) HYDROcodone-aceta minophen (NORCO) [...] be different from the original. 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 10/09/2018 Overview (01/26/2024): Overview: Added automatically from request for surgery [id number] Ankle syndesmosis disruption, right, initial enc ounter 10/09/2018 Overview (01/26/2024): Overview: Added automatically from request for surgery [id number] Type 2 diabetes mellitus wit h hyperglycemia, [...] Encounters Date Type Department Care Team Description 05/12/[address] [place] [address] Nick Mosley MD 05/09/[address] [place] [address] Nick Mosley MD 05/06/[address] [place] [address] Nick Mosley MD Other osteoarthritis of spine, lumbar region 05/04/[address] [place] [address] Nick Mosley MD Other specified anxiety disorders 05/02/[address] [place] [address] Nick Mosley MD Other specified anxiety disorders 05/02/[address] [place] [address] Nick Mosley MD Other osteoarthritis of spine, lumbar region 04/21/2025 10:40 AM CDT Office Visit [address] [place] [address] Nick Mosley MD Immunization due (Primary Dx); Type 2 diabetes mellitus with stage 3a chronic kidney disease, with long-term current use of insulin ([facility]); Essential hypertension, benign; Vitamin D deficiency; Type 2 diabetes mellitus with hyperglycemia, with long-term current use of insulin ([facility]); Vitamin B12 deficiency (non anemic); Other hyperlipidemia; Other asthma 04/16/[address] [place] [address] Nick Mosley MD Needs Appointment 04/15/2025 External Device Data STL ABSTRACTION Provider, Abstract 03/30/[address] [place] [address] Nick Mosley MD Other specified anxiety disorders 03/30/[address] [place] [address] Nick Mosley MD Other osteoarthritis of spine, lumbar region 03/11/2025 Orders Only [address] [place] [address] Provider, Abstract 03/11/2025 External Device Data STL ABSTRACTION Provider, Abstract 03/03/[address] [place] [address] Nick Mosley MD Other specified anxiety disorders 03/03/[address] [place] [address] Nick Mosley MD Other osteoarthritis of spine, lumbar region 02/27/[address] [place] [address] Nick Mosley MD 02/21/2025 [facility] Internal Medicine [address] [phone] Nick Mosley MD 02/21/2025 [place] [address] [place] [address] Nick Mosley MD 02/21/2025 [facility] Primary Care [facility] [address] [place] [address] Nick Mosley MD 02/19/2025 External Device Data STL ABSTRACTION Provider, Abstract from Last 3 Months Immunizations Immunization Administration Dates Next Due (ADACEL/BOOSTRIX)(10 YR UP) TDAP VACCINE, 0.5ML, IM 12/16/2014,04/13/2012 (PFIZER)(12 YR UP) COVID-19 VACCINE - EMERGENCY USE AUTHORIZATION, MRNA, [id number](PF) 30 MCG/0.3 ML IM SUSP 06/17/2023,03/09/2021,02/15/2021 (PNEUMOVAX [...] on file Legal Sex Male 4:34 AM RADAR SCIENTIST Gender Identity Not on file Sexual Orientation Not on file Last Filed Vital Signs Vital Sign Reading Time Taken Comments Blood Pressure 137/87 04/21/2025 10:36 AM CDT Pulse 61 04/21/2025 10:36 AM CDT Temperature 37.2 C (98.9 F) 10/04/2024 10:54 AM RADAR SCIENTIST Respiratory Rate 18 10/31/2023 11:24 AM CDT Oxygen Saturation 95% 04/21/2025 10:36 AM CDT Inhaled Oxygen Concentration - - Weight 154.7 kg (341 lb) 04/21/2025 10:36 AM CDT Height 182.9 cm (6') 04/21/2025 10:36 AM CDT Body Mass Index 46.25 04/21/2025 10:36 AM CDT Plan of Treatment Upcoming Encounters Date Type Department Care Team (Late st Contact Info) Description 06/11/2025 1:30 PM RADAR SCIENTIST Office Visit [facility] Urology at the [facility] Medicine [address] [place] [address] Javy Sales MD [address] [facility] [address] [place] [address] 11/03/2025 11:20 AM CDT Office Visit [facility] Primary Care [facility] [address] [facility] [address] [place] [address] Nick Mosley MD [address] [facility] [address] [place] [address] Health Maintenance Due Date Last [...] 12/25/2023, 06/26/2023, Additional history exists COVID-19 Vaccine (2024-2 6 season) 2025 06/17/2023, 03/09/2021, 02/15/2021 COLORECTAL SCREENING 07/04/2025 07/04/2022, 07/04/20 22 Colorectal Cancer Screening 07/04/2025 LDL CHOLESTEROL ANNUAL [...] history exists Medical Devices Implanted Type Area Exhibit Preparator Device Identifier Shelf Expiration Date Model / Serial / Lot Dbm Osteowrap Xl [id number] - [id number] Implanted:Qty : 1 on 01/05/2015 by Nestor Quezada DDS at [facility] Right: Orbital Floor BACTERIN 12/10/2015 [id number] / [id number] / Screws/Cage Of Back Procedures Procedure Name Priority Date/Time Associated Diagnosis Comments STRESS TEST EXERCISE NUCLEAR MED Routine 03/03/2025 3:32 PM CDT COMPREHENSIVE METABOLIC PANEL Routine 10/02/2024 8:06 AM RADAR SCIENTIST Other hyperlipidemia LIPID PANEL Routine 10/02/2024 8:06 AM RADAR SCIENTIST Other hyperlipidemia HEMOGLOBIN A1C Routine 10/02/2024 8:06 AM RADAR SCIENTIST Type 2 diabetes mellitus with stage 3a chronic kidney disease, with long-term current use of insulin ([facility]) MICROALBUMIN/CREATINI NE RATIO, RANDOM UR Routine 12/25/2023 8:13 AM CDT Type 2 diabetes mellitus with stage 3a chronic kidney disease, with long-term current use of insulin ([facility]) COLONOSCOPY REPORT 07/04/2022 3: 23 PM RADAR SCIENTIST HM DIABETES EYE EXAM Routine 10/20/2021 from Last 3 Months or Most Recently Relevant to Health Maintenance Results * STRESS TEST EXERCISE NUCLEAR MED (03/03/2025 3:32 PM CDT) us Abstract Provider NM ORDERABLES Edited Result - Final [facility] INTER[facility] MED [facility] CLIA# [id number] [address] [facility] [address] [place] [address] * (ABNORMAL) HEMOGLOBIN A1C (10/02/2024 8:06 AM RADAR SCIENTIST) HEMOGLOBIN A1C 11.7(H) <5.7 % of total Hgb [facility] Comment: For someone without known diabetes, [...] children. ESTIMATED AVERAGE GLUCOSE (MG/DL) 289 mg/dL [facility] ESTIMATED AVERAGE GLUCOSE (MMOL/L) 16.0 mmol/L [facility] Comment: FASTING:YES MULTIPLE TESTING PRIORITIES; ROUTINE TESTING TO FOLLOW. FASTING: YES Test Performed at: [place] [address] [place] [address] Cj Zaldivar Blood 10/02/2024 8:06 AM RADAR SCIENTIST 10/02/2024 8:07 AM RADAR SCIENTIST Nick Mosley MD CHEMISTRY ORDERABLES Final Re sult [facility] [phone] [facility] [address] [address] [place] [address] * LIPID PANEL (10/02/2024 8:06 AM RADAR SCIENTIST) CHOLESTEROL 176 <200 mg/dL [facility] HDL 56 > OR = [...] LDL-C. Mason SS et al. GUILLERMINA. 2013;310(19): 7627-1295 (http://education.Remedy Systems/faq/BKL443) CHOL/HDL RATIO 3.1 <5.0 (calc) [facility] NON-HDL CHOLESTEROL 120 <130 mg/dL (calc) [facility] Comment: For patients with diabetes plus 1 major ASCVD risk factor, treating to a non-HDL-C goal of <100 mg/dL (LDL-C of <70 mg/dL) is considered a therapeutic option. Test Performed at: [facility] [address] [place] [address] Cj Sheridan MD Blood 10/02/2024 8:06 AM RADAR SCIENTIST 10/02/2024 8:07 AM RADAR SCIENTIST us Nick Mosley MD CHEMISTRY ORDERABLES Final Re sult [facility] [phone] [facility] [address] [place] [address] * (ABNORMAL) COMPREHENSIVE METABOLIC PANEL (10/02/2024 8:06 AM RADAR SCIENTIST) GLUCOSE 255(H) 65 - 99 mg/dL [facility] Comment: Fasting reference interval For someone without known diabetes, a glucose value >125 mg/dL indicates that they may have diabetes and this should be confirmed with a follow-up test. BUN 13 7 - 25 mg/dL [facility] CREATININE 0.77 0.70 - 1.30 mg/dL [...] [facility] Comment: Test Performed at: [facility] [address] [place] [address] Cj Sheridan MD Blood 10/02/2024 8:06 AM RADAR SCIENTIST 10/02/2024 8:07 AM RADAR SCIENTIST us Nick Mosley MD CHEMISTRY ORDERABLES Final Re sult [facility] [phone] [facility] [address] [place] [address] * (ABNORMAL) MICROALBUMIN/CREATININE RATIO, RANDOM UR (12/25/2023 8:13 AM CDT) Creatinine, Urine 120 20 - 320 mg/dL [facility] MICROALBUMIN, URINE 27.0 See Note: mg/dL [facility] Comment: Reference Range: Reference Range [...] category. FASTING:YES FASTING: YES Test Performed at: [facility] [address] [place] [address] Cj Sheridan MD Urine URINE SPECIMEN OBTAINED BY CLEAN CATCH PROCEDURE / Unknown 12/25/2023 8:13 AM CDT 12/25/2023 8:13 AM CDT us Nick Mosley MD URINE ORDERABLES Final Result [facility] [phone] [facility] [address] [place] [address] * COLONOSCOPY REPORT (07/04/2022 3:23 PM RADAR SCIENTIST) Narrative Procedure Note Truong Roche MD - [...] of Addenda: [address]; [place] [address] Truong Roche MD GI PROCEDURE ORDERABLES Etelvina l Result * HM DIABETES EYE EXAM (10/20/2021) us Abstract Provider HEALTH MAINTENANCE Edited Resu lt - Final Performing Organization Address [facility]/State/ZIP Co de Phone Number [facility] CLIA# [id number] [facility] [address] [place] [address] from Last 3 Months or Most Recently Relevant to Health Maintenance Insurance RX [employer] RX Member Subscriber Plan / Payer (Ef fective 2025-Present) Name:Cristiano Armijo Relation to Subscriber:Not on file Name:Cristiano Armijo Date of :1970 Payer ID:Not on file Group ID:[id number] Type:RX Medicare Part D Address: [place], [place] Advance Directives For more information, please contact: [phone] * Full Code (Latest Code Status on File) Date Activated Date Inactivated Comments 07/04/2022 1:42 PM 07/04/2022 6:39 PM * Full Code Date Activated Date Inactivated Comments 01/29/2021 11:48 AM 01/29/2021 2:47 PM * Full Code Date Activated Date Inactivated Comments 01/05/2015 12:37 PM 01/05/2015 8:41 PM * Full Code Date Activated Date Inactivated Comments 01/05/2015 11:18 AM 01/05/2015 12:37 PM Care Teams Complaint Analyst Relationship Specialty Start Date End Date Nick Mosley MD PCP - General 11/23/07
--- OUTSIDE RECORDS SUMMARY | 2025-05-22 01:03 | XMS_ITS | Encounter Summary ---
Author Organization [facility] Address [address] [place] [address] Care Team Providers Care Wrister Name Role Phone Nick Mosley MD Primary Care Provider [phone] Encounter Details Date Type Department Care Team (Late st Contact Info) Description 03/26/2007 Orders Only [facility] Internal Medicine [address] [address] Nick Mosley MD [address] [place] [address] Social History Tobacco Use Types Packs/Day Years Used Date Smoking Tobacco: Never Assessed Sex and Gender Information Value Date Recorded Sex Assigned at Not on file Legal Sex Male 4:34 AM SAFETY OFFICER Gender Identity Not on file Sexual [...] med recheck lab LAB ORDERS: Order number: [id number] Test Ordered: CBC W/ DIFFERENTIAL 3150 Order number: [id number] Test Ordered: COMPREHENSIVE METABOLIC PANEL & GFR [...] st Contact Info) Description 06/11/2025 1:30 PM SAFETY OFFICER Office Visit [facility] Urology at the [facility] Medicine [address] [facility] [address] [place] [address] Javy Sales MD [address] [address] 11/03/2025 11:20 AM CDT Office Visit [facility] Primary Care [place] [address] [place] [phone] Nick Mosley MD [address] [place] [address] [address] [place] [address] documented as of this encounter Visit Diagnoses Not on filedocumented in this encounter Care Teams Wrister Relationship Specialty Start Date End Date Nick Mosley MD PCP - General 11/23/07 documented as of this encounter
--- OUTSIDE RECORDS SUMMARY | 2025-05-22 01:03 | XMS_ITS | Encounter Summary ---
Author Organization [facility] Address [address] [place] [address] Care Team Providers Care Pecan Mallow Dipper Name Role Phone Nick Mosley MD Primary Care Provider [phone] Encounter Details Date Type Department Care Team (Late st Contact Info) Description 10/13/2006 Orders Only [facility] Internal Medicine [address] [address] Nick Mosley MD [address] [place] [address] Social History Tobacco Use Types Packs/Day Years Used Date Smoking Tobacco: Never Assessed Sex and Gender Information Value Date Recorded Sex Assigned at Not on file Legal Sex Male 4:34 AM CINDER CREW WORKER Gender Identity Not on file Sexual Orientation Not on file documented as of this encounter Progress Notes * Nick Mosley MD - 12/28/2007 10:46 AM CDT TIME:03:25 pm PATIENT`S HOME PHONE: PATIENT`S WORK PHONE: PATIENT`S INSURANCE: [facility] [[email or web address] WHO TOOK THE CALL: Deb Pereira L GENERAL INFORMATION WHO CALLED: Pharmacy called. PHARMACY NUMBER: [phone] SECTION 1: REQUESTED ACTION marv 10/13/06 at 03:25 pm: MEDICATION REQUEST: MEDICATION REQUEST: Patient requests a refill. gen Zoloft #[id number] 07/27/06 Pt also wants Fenofibrate called in (didn't mail in his script). RN/PREPRESS PROOFER RESPONSE: phoebe 10/13/06 at 03:27 pm MEDICATIONS: FENOFIBRATE ORAL CAPSULE CONVENTIONAL 134 MG, 1 Every Day, 90 Dispensed, 3 Fills, 90 Duration/Days Supply, status: NEW PRESCRIPTION, 09/06/2006. ZOLOFT ORAL TABLET 100 MG, 1 Every Day, 90 Dispensed, 90 Duration/Days Supply, status: CONTINUED, 10/13/2006. FINAL ACTION: licasl 10/13/06 at 03:32 pm Called pharmacy at 10/13/06 at 03:32 pm. Electronically Signed by: Deb Preeira on Friday, October 13, 2006 documented in this encounter Plan of Treatment Upcoming Encounters Date Type Department Care Team (Late st Contact Info) Description 06/11/2025 1:30 PM CINDER CREW WORKER Office Visit [facility] Urology at the [facility] Medicine [address] [facility] [address] [place] [address] Javy Sales MD [address] [facility] [address] [place] [address] 11/03/2025 11:20 AM CDT Office Visit [facility] Primary Care [place] [address] [place] [phone] Nick Mosley MD [address] [place] [address] [address] [place] [address] documented as of this encounter Visit Diagnoses Not on filedocumented in this encounter Care Teams Pecan Mallow Dipper Relationship Specialty Start Date End Date Nick Mosley MD PCP - General 11/23/07 documented as of this encounter
--- OUTSIDE RECORDS SUMMARY | 2025-05-22 01:03 | XMS_ITS | Clinical Summary ---
Author Organization [facility] Address [address] [place] [address] Phone Care Team Providers Care Trimmer And Reinforcer Name Role Phone Nick Mosley MD Primary Care Provider [phone] Allergies Active Allergy Reactions Criticality Noted Date [...] 136.1 kg (300 lb) 07/07/2017 3:00 PM GENERAL MATCHER Height 182.9 cm (6') 07/07/2017 3:00 PM GENERAL MATCHER Body Mass Index 40.69 07/07/2017 3:00 PM GENERAL MATCHER Plan of Treatment Health Maintenance Due Date [...] Insurance MEDICARE [facility] MEDICAID [place] Advance Directives * Full Code (Latest Code Status on File) Date Activated Date Inactivated Comments 10/07/2016 11:04 PM 10/08/2016 4:51 PM CPR-Full Aura tment: FULL ARREST: Attempt Resuscitation/CPR wit intubation and mechanical ventilation. PRE-ARREST: Use entire range of life support measures to stabilize the patient. Care Teams Trimmer And Reinforcer Relationship Specialty Start Date End Date Nick Mosley MD [address] [place] [phone] PCP - General 10/07/16
--- OUTSIDE RECORDS SUMMARY | 2025-05-22 01:03 | XMS_ITS | Encounter Summary ---
Author Organization 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 Address [address] [place] [address] Care Team Providers Care Research Assistant Member Name Role Phone Nick Mosley MD Primary Care Provider [phone] Encounter Details Date Type Department Care Team (Late st Contact Info) Description 07/11/2006 Orders Only [facility] Internal Medicine [address] [address] Nick Mosley MD [address] [place] [address] Social History Tobacco Use Types Packs/Day Years Used Date Smoking Tobacco: Never Assessed Sex and Gender Information Value Date Recorded Sex Assigned at Not on file Legal Sex Male 4:34 AM OPTICAL DESIGN ENGINEER Gender Identity Not on file Sexual Orientation Not on file documented as of this encounter Progress Notes * Nick Mosley MD - 05/21/2008 2:21 AM CDT TIME:10:21 am PATIENT`S HOME PHONE: PATIENT`S WORK PHONE: PATIENT`S INSURANCE: [place] [employer] [facility] WHO TOOK THE CALL: Alison Adorno [...] st Contact Info) Description 06/11/2025 1:30 PM OPTICAL DESIGN ENGINEER Office Visit [facility] Urology at the [facility] Medicine [address] [facility] [address] [place] [address] Javy Sales MD [address] [facility] [address] [place] [address] 11/03/2025 11:20 AM CDT Office Visit [facility] Primary Care [facility] [address] [facility] [address] [place] [phone] Nick Mosley MD [address] [place] [address] [address] [place] [address] documented as of this encounter Visit Diagnoses Not on filedocumented in this encounter Care Teams Research Assistant Member Relationship Specialty Start Date End Date Nick Mosley MD PCP - General 11/23/07 documented as of this encounter
--- OUTSIDE RECORDS SUMMARY | 2025-05-22 01:03 | XMS_ITS | Encounter Summary ---
Author Organization [facility] Address [address] [place] [address] Care Team Providers Care Electronics Technology Department Chair Name Role Phone Nick Mosley MD Primary Care Provider [phone] Encounter Details Date Type Department Care Team (Late st Contact Info) Description 08/21/2007 Orders Only [facility] Internal Medicine [address] [address] Nick Mosley MD [address] [place] [address] Social History Tobacco Use Types Packs/Day Years Used Date Smoking Tobacco: Never Assessed Sex and Gender Information Value Date Recorded Sex Assigned at Not on file Legal Sex Male 4:34 AM PIGMENT PUMPER Gender Identity Not on file Sexual Orientation [...] reassess LAB ORDERS: 3 mo Order number: [id number] Test Ordered: COMPREHENSIVE METABOLIC PANEL & GFR 1112 Order number: [id number] Test Ordered: HEMOGLOBIN A1C 1814 Order number: [id number] Test Ordered: LIPID PANEL 1078 272.4-HYPERLIPIDEMIA add [...] st Contact Info) Description 06/11/2025 1:30 PM PIGMENT PUMPER Office Visit [facility] Urology at the [facility] Medicine [address] [facility] [address] [place] [address] Javy Sales MD [address] [address] 11/03/2025 11:20 AM CDT Office Visit [facility] Primary Care [address] [place] [address] Nick Mosley MD [address] [place] [address] [address] [place] [address] documented as of this encounter Visit Diagnoses Not on filedocumented in this encounter Care Teams Electronics Technology Department Chair Relationship Specialty Start Date End Date Nick Mosley MD PCP - General 11/23/07 documented as of this encounter
--- OUTSIDE RECORDS SUMMARY | 2025-05-22 01:03 | XMS_ITS | Encounter Summary ---
Author Organization [facility] Address [address] [place] [address] Care Team Providers Care Clerical Aide Teacher Name Role Phone Nick Mosley MD Primary Care Provider [phone] Encounter Details Date Type Department Care Team (Late st Contact Info) Description 10/12/2007 Orders Only [facility] Internal Medicine [address] [address] Nick Mosley MD [address] [place] [address] [address] [place] [address] Social History Tobacco Use Types Packs/Day Years Used Date Smoking Tobacco: Never Assessed Sex and Gender Information Value Date Recorded Sex Assigned at Not on file Legal Sex Male 4:34 AM DESTATICIZER FEEDER Gender Identity Not on file Sexual Orientation Not on file documented as of this encounter Plan of Treatment Upcoming Encounters Date Type Department Care Team (Late st Contact Info) Description 06/11/2025 1:30 PM DESTATICIZER FEEDER Office Visit [facility] Urology at the [facility] Medicine [address] [place] [address] Javy Sales MD [address] [facility] [address] [place] [address] 11/03/2025 11:20 AM CDT Office Visit [facility] Primary Care [facility] [address] [place] [address] [address] [place] [address] Nick Mosley MD [address] [place] [address] [address] [place] [address] documented as of this encounter Visit Diagnoses Not on filedocumented in this encounter Care Teams Clerical Aide Teacher Relationship Specialty Start Date End Date Nick Mosley MD PCP - General 11/23/07 documented as of this encounter
--- OUTSIDE RECORDS SUMMARY | 2025-05-22 01:03 | XMS_ITS | Encounter Summary ---
Author Organization [facility] Address 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 LAB ORDERS: 3 mo Order number: [id number] Test Ordered: COMPREHENSIVE METABOLIC PANEL & GFR 1112 Order number: [id number] Test Ordered: HEMOGLOBIN A1C 1814 Order number: [id number] Test Ordered: LIPID PANEL 1078 Order number: [id number] Test Ordered: MICROALBUMIN/CREAT, UR RATIO 2252 272.4-HYPERLIPIDEMIA [...] st Contact Info) Description 06/11/2025 1:30 PM CONCRETE ENGINEER Office Visit [facility] Urology at the [facility] Medicine [address] [facility] [address] [place] [address] Javy Sales MD [address] [facility] [address] [place] [address] 11/03/2025 11:20 AM CDT Office Visit [facility] Primary Care [address] [place] [address] Nick Mosley MD [address] [place] [phone] documented as of this encounter Visit Diagnoses Not on filedocumented in this encounter Care Teams Environmental Compliance Specialist Relationship Specialty Start Date End Date Nick Mosley MD PCP - General 11/23/07 documented as of this encounter
--- OUTSIDE RECORDS SUMMARY | 2025-05-22 01:03 | XMS_ITS | Encounter Summary ---
Author Organization 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 Address 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 Gender Identity Not on file Sexual Orientation Not on file documented as of this encounter Plan of Treatment Upcoming Encounters Date Type Department Care Team (Late st Contact Info) Description 06/11/2025 1:30 PM MIXER ATTENDANT Office Visit [facility] Urology at the [facility] Medicine [address] [place] [address] Javy Sales MD [address] [facility] [address] [place] [address] 11/03/2025 11:20 AM CDT Office Visit [facility] Primary Care [facility] [address] [place] [address] [address] [place] [address] Nick Mosley MD [address] [place] [address] [address] [place] [address] documented as of this encounter Visit Diagnoses Not on filedocumented in this encounter Care Teams Wire Drawing Setter Relationship Specialty Start Date End Date Nick Mosley MD PCP - General 11/23/07 documented as of this encounter
--- OUTSIDE RECORDS SUMMARY | 2025-05-22 01:03 | XMS_ITS | Clinical Summary ---
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 Gender Identity Not on file Sexual Orientation [...] Td or Tdap) 12/16/2024 12/16/2014, 04/13/2012, 08/07/2001 Influenza Adult (#1) 2025 07/23/2024, 06/17/2023, 06/07/2022, Additional history exists Pneumococcal Vaccine: 50+ Years (3 of 3 - PCV20 or PCV21) 11/03/2026 11/03/2021, 10/03/2019, 06/29/2009, Additional history exists COVID-19 Vaccine Completed 07/23/2024, 06/2023, 06/13/2022, Additional history exists Hepatitis A Vaccines Aged Out No long er eligible based on patient's age to complete this topic Meningococcal B Vaccine Aged Out No l onger eligible based on patient's age to complete this topic Meningococcal Vaccine Aged Out No renuka hema eligible based on patient's age to complete this topic RSV Immunizations Under 20 Months Aged Out No longer eligible based on patient's age to complete this topic Insurance DEPT OF [address] MEDICARE [employer] Care Teams Wrap Yarn Sorter Relationship Specialty Start Date End Date Sheldon Mike, Nurse Student PCP - General 10/15/24
--- OUTSIDE RECORDS SUMMARY | 2025-05-22 01:03 | XMS_ITS | Encounter Summary ---
Author Organization [facility] Address 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 Medicine [address] [place] [address] Javy Sales MD [address] [facility] [address] [place] [address] 11/03/2025 11:20 AM CDT Office Visit [facility] Primary Care [facility] [address] [place] [address] [address] [place] [address] Nick Mosley MD [address] [place] [address] [address] [place] [address] documented as of this encounter Visit Diagnoses Not on filedocumented in this encounter Care Teams Logging Specialist Relationship Specialty Start Date End Date Nick Mosley MD PCP - General 11/23/07 documented as of this encounter
[2025-05-22 07:24] LABS: Hematocrit 41.6 % (42.0-52.0); Hemoglobin 14.5 g/dL (14.0-18.0); Immature Granulocyte Percent A 0.3 % (0-0.5); Lymphocytes Absolute Auto 1.77 K/mm3 (0.9-3.2); Mean Corpuscular HGB Conc 34.9 g/dl (32-36); Mean Corpuscular Hemoglobin 30.7 pg (26-34); Mean Corpuscular Volume 87.9 fl (80-100); Nucleated Red Blood Cells Absolute Auto 0.000 K/mm3 (0.0-0.012); Nucleated Red Blood Cells Perc 0.0 % (0.0-0.2); Platelet Count Result 318 k/mm3 (150-375); Red Blood Count 4.73 M/mm3 (4.6-6.20); White Blood Count 7.5 K/mm3 (4.5-10.0)
[2025-05-22 07:36] LABS: Anion Gap 10 mmol/L (4-12); Blood Urea Nitrogen 20 mg/dL (9-20); Calcium 9.8 mg/dL (8.4-10.2); Carbon Dioxide 24 mmol/L (22-30); Chloride 102 mmol/L (98-107); Estimated CRCL calculation 139 ml/min; Estimated Glomerular Filt Rate > 60; Glucose 345 mg/dL (65-110); Potassium 4.7 mmol/L (3.4-5.0); Sodium 136 mmol/L (137-145)
--- NOTE | 2025-05-22 08:19 | WPDHPUPDATE1 ---
History and Physical Update Update Date/Time: 05/22/25 08:19 History and Physical has been reviewed, including an updated exam of the patient. There are NO changes in the patient's condition. Risks, benefits, and alternatives have been discussed and questions answered. Patient agrees to proceed with procedure.
--- NOTE | 2025-05-22 08:19 | WPDMODSED ---
Moderate Sedation Note-Pt Data Patient Data Allergies Allergy/AdvReac Type Severity Reaction Status Date / Time No Known Allergies Allergy Verified 05/22/25 07:17 Home Medications ?Medication ?Instructions ?Recorded ?Confirmed ?Type alprazolam 0.5 mg tablet 0.5 mg PO BID PRN Anxiety 03/09/21 05/21/25 History insulin aspart U-100 100 unit/mL 35 unit subcut BID 03/09/21 05/21/25 History (3 mL) subcutaneous pen (Novolog FlexPen U-100 Insulin aspart) omeprazole 20 mg capsule,delayed 20 mg PO DAILY 03/09/21 05/22/25 History release sertraline 100 mg tablet 100 mg PO DAILY 03/09/21 05/22/25 History simvastatin 40 mg tablet 40 mg PO DAILY 03/09/21 05/22/25 History insulin degludec 200 unit/mL (3 100 unit subcut DAILY 09/06/22 05/21/25 History mL) subcutaneous pen (Tresiba FlexTouch U-200 insulin) tiotropium 2.5 mcg-olodaterol 2.5 1 puff inhalation DAILY 09/06/22 05/21/25 History mcg/actuation mist for inhalation (Stiolto Respimat) inhalational spacing device #1 ea 06/26/23 03/12/25 Rx (Aerochamber Plus Z Stat spacer) naloxone 4 mg/actuation nasal spray See Rx Instructions .Route .COMPLEX 06/26/23 05/21/25 History losartan 100 mg tablet 100 mg PO DAILY #90 tabs 03/12/25 05/22/25 Rx empagliflozin 25 mg tablet 25 mg PO DAILY 05/03/25 05/21/25 History (Jardiance) tirzepatide 7.5 mg/0.5 mL 7.5 mg subcut WEEKLY 05/03/25 05/21/25 History subcutaneous pen injector (Mounjaro) Sedation/Anesthesia: No previous sedation/anesthesia problems (including family history). [facility] Past Medical History Medical History Morbid obesity Type 2 diabetes mellitus Surgical History Surgical History H/O lumbosacral spine surgery Social History Social History Smoking status: Never smoker Alcohol intake: current Alcohol use details: occasional Substance use: never Do You Feel Safe in your Home?: No Lack of Transportation: No Lack of Food: Never True Current Housing: Decline to Answer Concerned About Future Housing: Decline to Answer Difficulty Paying Gas/Electric Bills: Decline to Answer Difficulty Paying for Meds: Decline to Answer Currently Unemployed: Decline to Answer Education: Decline to Answer Difficulty w/ Childcare or Family Care: Decline to Answer Mod Sed Physical Exam Physical Exam Pre Procedural Exam: Normal: Lungs, Heart Rate and Heart Rhythm Hours since solid foods: 12 Hours since liquid intake: 12 Mallampati Classification: class IV Internal Medicine - PN: Obj Da Vital Signs Vital Signs: Vital Signs - 24 hr 05/22/25 07:19 Temperature 36.6 C Pulse Rate 91 Respiratory Rate 16 Blood Pressure 165/101 H Pulse Oximetry 94 Oxygen Delivery Room Air Labs 05/22/25 07:16 05/22/25 07:16 Labs: Laboratory Results - last 24 hr 05/22/25 07:16 WBC 7.5 RBC 4.73 Hgb 14.5 Hct 41.6 L MCV 87.9 MCH 30.7 MCHC 34.9 RDW 12.2 Plt Count 318 MPV 9.2 Immature Gran % (Auto) 0.3 Neut % (Auto) 63.9 Lymph % (Auto) 23.5 [place] % (Auto) 5.8 Eos % (Auto) 6.0 H Baso % (Auto) 0.5 Lymph # (Auto) 1.77 [place] # (Auto) 0.4 Eos # (Auto) 0.5 H Baso # (Auto) 0.0 Abs Immat Gran (auto) 0.02 Absolute Neuts (auto) 4.8 Absolute Nucleated RBC 0.000 Nucleated RBC % 0.0 Sodium 136 L Potassium 4.7 Chloride 102 Carbon Dioxide 24 Anion Gap 10 BUN 20 D Creatinine 0.79 Estim Creat Clear Calc 139 Estimated GFR > 60 Glucose 345 H Calcium 9.8 ASA Classification/Sedation ASA Classification/Sedation ASA Class: III Emergent: No Risks: Risks, benefits and alternatives explained and patient/family accepted plan for sedation. Patient re-evaluated immediately prior to sedation.
--- NOTE | 2025-05-22 08:33 | PM.IMHP ---
H&P: HPI History of Present Illness Date/Time: 05/22/25 08:33 Chief Complaint: Abnormal coronary CTA Narrative: 54-year-old man with diabetes, hypertension hyperlipidemia who had been experiencing exertional shortness of breath for which a nuclear stress test was performed that was abnormal leading to a coronary CTA showing severe LAD stenosis for which a cardiac catheterization recommended given the abnormal FFR drop off in the mid LAD. Review of Systems Cardiovascular: Cardiovascular: Reports as per HPI Respiratory: Respiratory: Reports as per HPI [facility] Past Medical History Medical History Morbid obesity Type 2 diabetes mellitus Surgical History Surgical History H/O lumbosacral spine surgery Social History Social History Smoking status: Never smoker Alcohol intake: current Alcohol use details: occasional Substance use: never Do You Feel Safe in your Home?: No Lack of Transportation: No Lack of Food: Never True Current Housing: Decline to Answer Concerned About Future Housing: Decline to Answer Difficulty Paying Gas/Electric Bills: Decline to Answer Difficulty Paying for Meds: Decline to Answer Currently Unemployed: Decline to Answer Education: Decline to Answer Difficulty w/ Childcare or Family Care: Decline to Answer Meds Home Medications and Allergies Home Medications ?Medication ?Instructions ?Recorded ?Confirmed ?Type alprazolam 0.5 mg tablet 0.5 mg PO BID PRN Anxiety 03/09/21 05/21/25 History insulin aspart U-100 100 unit/mL 35 unit subcut BID 03/09/21 05/21/25 History (3 mL) subcutaneous pen (Novolog FlexPen U-100 Insulin aspart) omeprazole 20 mg capsule,delayed 20 mg PO DAILY 03/09/21 05/22/25 History release sertraline 100 mg tablet 100 mg PO DAILY 03/09/21 05/22/25 History simvastatin 40 mg tablet 40 mg PO DAILY 03/09/21 05/22/25 History insulin degludec 200 unit/mL (3 100 unit subcut DAILY 09/06/22 05/21/25 History mL) subcutaneous pen (Tresiba FlexTouch U-200 insulin) tiotropium 2.5 mcg-olodaterol 2.5 1 puff inhalation DAILY 09/06/22 05/21/25 History mcg/actuation mist for inhalation (Stiolto Respimat) inhalational spacing device #1 ea 06/26/23 03/12/25 Rx (Aerochamber Plus Z Stat spacer) naloxone 4 mg/actuation nasal spray See Rx Instructions .Route .COMPLEX 06/26/23 05/21/25 History losartan 100 mg tablet 100 mg PO DAILY #90 tabs 03/12/25 05/22/25 Rx empagliflozin 25 mg tablet 25 mg PO DAILY 05/03/25 05/21/25 History (Jardiance) tirzepatide 7.5 mg/0.5 mL 7.5 mg subcut WEEKLY 05/03/25 05/21/25 History subcutaneous pen injector (Mounjaro) Allergies Allergy/AdvReac Type Severity Reaction Status Date / Time No Known Allergies Allergy Verified 05/22/25 07:17 Vital Signs Vital Signs - 24 hr 05/22/25 07:19 Temperature 36.6 C Pulse Rate 91 Respiratory Rate 16 Blood Pressure 165/101 H Pulse Oximetry 94 Oxygen Delivery Room Air Exam Const: General: comfortable HENMT: Mouth: Yes moist mucous membranes Eyes: EOM: EOMs intact bilaterally Neck: Neck: no JVD Resp: Effort & Inspection: normal respiratory effort Cardio: Rate: regular rate Extrem: General: no pedal edema H&P: Results Labs Labs: Short CBC 05/22/25 Range/Units 07:16 WBC 7.5 (4.5-10.0) K/mm3 Hgb 14.5 (14.0-18.0) g/dL Hct 41.6 L (42.0-52.0) % Plt Count 318 (150-375) k/mm3 [facility] 05/22/25 07:16 Sodium 136 L Potassium 4.7 Chloride 102 Carbon Dioxide 24 BUN 20 D Creatinine 0.79 Glucose 345 H Calcium 9.8 Assessment and Plan Assessment and plan (1) Abnormal computed tomography angiography of heart: Code(s): R93.1 - Abnormal findings on diagnostic imaging of heart and coronary circulation Status: Acute (2) Abnormal nuclear stress test: Code(s): R94.39 - Abnormal result of other cardiovascular function study Status: Acute Plan 54-year-old man with diabetes, hypertension hyperlipidemia who had been experiencing exertional shortness of breath for which a nuclear stress test was performed that was abnormal leading to a coronary CTA showing severe LAD stenosis for which a cardiac catheterization recommended given the abnormal FFR drop off in the mid LAD. -we discussed the risk and benefits of cardiac catheterization possible PCI and all questions were answered after which patient agreed to proceed
--- NOTE | 2025-05-22 09:27 | WPDCARDPROC ---
Cardiac Cath Procedure Note Date of procedure:: 05/22/25 Performing physician:: CATHETERIZATION LABORATORY REPORT Procedure Date: 05/22/2025 Referring Physician: Dr. Gill Anesthesia: Versed and Fentanyl were ordered and given in my presence at 0845, procedure ended at 0919. Supervision of nurse monitored moderate sedation with 2mg Versed and 300mcg Fentanyl was provided for 34 minutes. Pre-op Diagnosis: Abnormal coronary CTA Post-op Diagnosis: Abnormal coronary CTA Procedure(s): Left heart catheterization with coronary angiography Access Site: Right radial artery Brief History and Clinical Indications: 54-year-old man with diabetes, hypertension hyperlipidemia who had been experiencing exertional shortness of breath for which a nuclear stress test was performed that was abnormal leading to a coronary CTA showing severe LAD stenosis for which a cardiac catheterization recommended given the abnormal FFR drop off in the mid LAD. All risks, benefits and alternatives to left heart catheterization with or without percutaneous coronary intervention was discussed at length with the patient. Risk of complications including but not limited to bleeding, infection, arrhythmia, stroke, worsening kidney function, blood loss, groin hematoma, limb loss, emergency coronary artery bypass grafting, and even were discussed with the patient and all questions were answered. The patient understood and wished to proceed. Time out called, patient name, date of , medical record number, allergies, procedure performed, identify Architectural Wood Model Maker, patient and staff member concurred with accurate data, procedure carried on. Findings: LEFT HEART CATHETERIZATION FINDINGS: 1. Left main: The left main coronary artery has 10% stenosis. 2. Left anterior descending: The LAD has a 90% severely calcified lesion in its mid body at the takeoff of the 1st major diagonal branch. The proximal LAD has 20-30% stenosis. The remainder of the LAD and its diagonal branches have diffuse 10% stenosis. 3. Left circumflex: The left circumflex artery provides 5 OM branches. The left circumflex at the takeoff of the 3rd OM branch has 30% stenosis. The remainder of the system has diffuse 10% stenosis. 4. Right coronary artery: The RCA is a large dominant vessel with severely calcified 90% stenosis in its midbody. The remainder of the vessel has diffuse 10% stenosis. Intracoronary nitroglycerin 200 mcg was given with no changes angiographically. 5. Left ventricle: A. End-diastolic pressure 9 mmHg. B. LV gram deferred. C. No significant gradient across aortic valve on catheter pullback. 6. Opening AO pressure 136/90 and closing AO pressure 134/90 Description of Procedure: Informed consent signed and placed in the chart. Patient transferred to laundry laborer room. Prepped and draped in usual sterile fashion. 2% lidocaine injected subcutaneously in right wrist area. 22-gauge venipuncture catheter used to access the right radial artery with the Seldinger technique. 6-FR slender sheath placed in right radial artery. Nitroglycerin 200mcg, Verapamil 2.5mg, and Heparin 5000U was given intraarterial through the sheath. J wire advanced under fluoroscopy. 5F TIG diagnostic catheter crossed the aortic valve for LVEDP and aortic valve gradients. 5F TIG diagnostic catheter engaged Left Main Coronary Artery and Right Coronary Artery. IC nitroglycerin was given. Multiple orthogonal angiogram obtained and reviewed Additional heparin was given, and a 6F EBU 3.5 guide catheter was used to engage the LMCA. A runthrough wire was negotiated into the left circumflex. A second runthrough wire was negotiated into the distal LAD. An IVUS catheter was attempted to be passed into the mid LAD however was met with resistance at a severely calcified area of the mid LAD that had a MLA of 3.4mm2. The proximal LAD had a MLA > 5.5mm2. Mild diffuse plaque in the left main coronary artery. Hemostasis was achieved by application of TR band. Assessment: Severely calcified obstructive 2V CAD Post Operative Condition: Stable No significant blood loss Disposition: Home Plan: The patient will be monitored in the recovery area. Start aspirin 81 mg p.o. daily Plavix 75 mg p.o. daily, and carvedilol 6.25 mg p.o. b.i.d. Continue simvastatin. Will obtain a transthoracic echocardiogram. Plan for IVL versus atherectomy assisted PCI to the mid LAD and mid RCA at [facility]. We have also discussed the concept of 2 vessel bypass surgery however at this time patient opted to have PCI. The above findings were discussed with the referring physician. Drew De La Torre Interventional Cardiology
[2025-05-22] MEDS: SODIUM CHLORIDE 0.9% IV 1,000 ML 125 ML IV CONT (09:50)
[2025-05-22] MEDS: PERFLUTREN LIPID MICROSPHERES 1.5 ML VIAL DILUTED TO 10 ML TOTAL VOLUME IV PUSH (11:34)
--- NOTE | 2025-05-22 11:34 | IVDEFINITY ---
Prior to administration of IV Definity the patient was educated on the risks and benefits of the imaging enhancing agent including potential adverse side effects. The patient verbalized understanding. Allergies were verified. No exclusion criteria were identified and at least one of the following inclusion criteria were met: 1) physician request, 2) patient technically difficult to image (per the [place] [employer]ocardi[employer] guidelines of two or more segments not discernable within the apical view), or 3) questionable left ventricular function. ?
== END 2025-05-22 13:51 | disposition home or self-care (01) ==
PROVIDERS: PCP Internal Medicine; Visit Provider Internal Medicine
PROC: 4A023N7 Measurement of Cardiac Sampling and Pressure, Left Heart, Percutaneous Approach (ICD-10-PCS; CPT 93452; principal; 2025-05-22 08:30)
DX: R93.1 Abnormal findings on diagnostic imaging of heart and coronary circulation (principal); I25.10 Atherosclerotic heart disease of native coronary artery without angina pectoris; I10 Essential (primary) hypertension; E78.5 Hyperlipidemia, unspecified; E11.9 Type 2 diabetes mellitus without complications; Z79.4 Long term (current) use of insulin; Z79.51 Long term (current) use of inhaled steroids; Z79.85 Long-term (current) use of injectable non-insulin antidiabetic drugs; Z79.84 Long term (current) use of oral hypoglycemic drugs; Z98.1 Arthrodesis status
CPT/HCPCS: 36415; 80048; 85025; 92978; 93306; 93458; C1753; C1769; C1887; C1894; C8929; J1644; J2003; J2250; J2305; J3010; J7030; J7040; Q9957